=== PATIENT | male | born 1950 | race Caucasian/White ===

== ENCOUNTER 2016-11-20 10:57 | Outpatient (CLI) | payer MEDICAID | END 2016-11-20 10:58 | disposition home or self-care (01) | DX: I10 Essential (primary) hypertension (principal) ==

== ENCOUNTER 2017-04-03 13:30 | Outpatient (CLI) | payer OTHER, MEDICAID | END 2017-04-03 13:31 | disposition home or self-care (01) | LOC: LAB 13:30 | PROVIDERS: ATTEND Pathology Blood Banking & Transfusion Medicine | DX: Z01.89 Encounter for other specified special examinations (principal) | CPT/HCPCS: 36415 ==

== ENCOUNTER 2018-11-07 19:54 | Emergency (ER) | payer OTHER, MEDICARE, MEDICAID ==
[2018-11-07] MEDS ORDERED: amLODIPine 5 MG TABLET PO STA (20:24)
[2018-11-07] MEDS ORDERED: TAMSULOSIN 0.4 MG CAPSULE PO STA (20:24)
[2018-11-07 20:26] VITALS: BP 154/103
--- NOTE | 2018-11-07 20:29 | ED Physician Documentation ---
History of Present Illness - Stated complaint Stated Complaint: FIT FOR CONFINEMENT - Chief complaint Chief Complaint: General - History obtained from History obtained from: Patient, Police - History of Present Illness Timing: Today Pain level max: 0 Pain level now: 0 Improved by: Nothing Worsened by: Nothing - Additonal information Additional information: Patient is brought in by police for a "fit for confinement" . There is no concerning medical issues that they have. He has no complaints. They are unsure why the [facility] asked for a fit for confinement. Patient states that he has been off his amlodipine for several months as well as his Flomax. He had been on amlodipine 5 mg p.o. daily for hypertension and Flomax 0.4 mg daily Review of Systems Constitutional: denies: Fever, Chills Cardiac: denies: Chest pain / pressure, Palpitations Respiratory: denies: Cough GI: denies: Nausea, Vomiting, Diarrhea Skin: denies: Rash Musculoskeletal: denies: Neck pain, Back pain Neurologic: denies: Headache PD PAST MEDICAL HISTORY - Past Medical History Past Medical History: Yes Cardiovascular: Hypertension Respiratory: None Neuro: None Endocrine/Autoimmune: None GI: None : Other HEENT: None Psych: None Musculoskeletal: None Derm: None Other Past Medical History: PROSTATE CANCER... - Past Surgical History Past Surgical History: Yes General: Other - Present Medications Home Medications: Ambulatory Orders Medication Instructions Recorded Confirmed Amlodipine Besylate 5 mg PO 09/30/13 09/30/13 Cephalexin 500 mg PO TID #20 capsule 09/30/13 Gabapentin 600 mg PO 09/30/13 09/30/13 Tamsulosin [Flomax] 0.4 mg PO ONCE 09/30/13 09/30/13 Tamsulosin [Flomax] 0.4 mg PO DAILY #30 capsule 11/07/18 amLODIPine [Norvasc] 5 mg PO DAILY #30 tablet 11/07/18 - Allergies Allergies/Adverse Reactions: Allergies Allergy/AdvReac Type Severity Reaction Status Date / Time No Known Drug Allergies Allergy Verified 11/07/18 20:01 - Social History Does the pt smoke?: Yes Smoking Status: Current every day smoker Does the pt drink ETOH?: Yes Does the pt have substance abuse?: Yes Substance Use and Type: Meth - Immunizations Immunizations are current?: Yes - POLST Patient has POLST: No PD ED PE NORMAL - Vitals Vital signs reviewed: Yes - General General: Alert and oriented X 3, No acute distress - HEENT HEENT: Moist mucous membranes - Neck Neck: Supple, no meningeal sign - Cardiac Cardiac: RRR - Respiratory Respiratory: No respiratory distress, Clear bilaterally - Abdomen Abdomen: Soft, Non tender, Non distended - Derm Derm: Warm and dry - Neuro Neuro: Alert and oriented X 3 - Psych Psych: Normal mood, Normal affect Results - Vitals Vitals: Vital Signs - 24 hr 11/07/18 11/07/18 19:58 20:25 Temperature 37.2 C Heart Rate 120 H 95 Respiratory 17 20 Rate Blood Pressure 207/105 H 154/103 H O2 Saturation 95 97 Oxygen O2 Source Room air PD MEDICAL DECISION MAKING - ED course Complexity details: considered differential, d/w patient ED course: Patient with long-standing hypertension, off his medications here for a fit for confinement. We recommend restarting amlodipine and a dose of each was given here. Patient counseled regarding signs and symptoms for which I believe and urgent re-evaluation would be necessary. Patient with good understanding of and agreement to plan and is comfortable going home at this time This document was made in part using voice recognition software. While efforts are made to proofread this document, sound alike and grammatical errors may occur. He has no complaints at this time Departure - Departure Disposition: 01 Home, Self Care Clinical Impression: Prostate cancer Hypertension Qualifiers: Hypertension type: unspecified Qualified Code(s): I10 - Essential (primary) hypertension Condition: Good Instructions: ED HTN Established Follow-Up: [facility],physician within 3 days [Other] Prescriptions: amLODIPine [Norvasc] 5 mg PO DAILY #30 tablet Tamsulosin [Flomax] 0.4 mg PO DAILY #30 capsule Comments: You need to take the amlodipine and Flomax daily. You need to follow-up with the [facility] physician and primary care provider when you are released from [facility]. Discharge Date/Time: 11/07/18 20:40
== END 2018-11-07 20:40 | disposition home or self-care (01) ==
LOC: ED 19:54
DX: C61 Malignant neoplasm of prostate (principal); I10 Essential (primary) hypertension; F17.200 Nicotine dependence, unspecified, uncomplicated
CPT/HCPCS: 99283; A9270

== ENCOUNTER 2018-12-08 14:15 | Outpatient (CLI) | payer OTHER, MEDICARE ==
--- NOTE | 2018-12-09 02:03 | XRAY Report ---
Reason: L FOOT STRAIN/CONTUSION Procedure Date: 12/08/2018 Accession Number: [id number] / [id number] Procedure: XR - Foot 3 View LT CPT Code: FULL RESULT: EXAM: LEFT FOOT RADIOGRAPHY EXAM DATE: 12/08/2018 02:24 PM. CLINICAL HISTORY: Left FOOT STRAIN/CONTUSION. COMPARISON: TOE(S) RT 09/30/2013 2:16 PM. TECHNIQUE: 3 views. FINDINGS: Bones: No evidence for acute fracture. Small bone island seen at the lateral distal aspect of the first proximal phalanx. Joints: Minimal first metatarsal head osteophyte at the MTP joint. No subluxation. Soft Tissues: Normal. No soft tissue swelling. IMPRESSION: No acute findings. See above. RADIA
== END 2018-12-08 14:16 | disposition home or self-care (01) ==
LOC: DI 14:15
PROVIDERS: ATTEND Emergency Medicine
DX: S90.32XA Contusion of left foot, initial encounter (principal); S96.912A Strain of unspecified muscle and tendon at ankle and foot level, left foot, initial encounter

== ENCOUNTER 2021-08-01 17:00 | Outpatient (CLI) | payer MEDICARE, MEDICAID | END 2021-08-01 17:01 | disposition critical access hospital (66) | LOC: EMS 17:00 | DX: R47.81 Slurred speech (principal); R32 Unspecified urinary incontinence; R41.0 Disorientation, unspecified | CPT/HCPCS: A0425; A0427 ==

== ENCOUNTER 2021-08-01 17:57 | Inpatient (IN) | payer MEDICARE, MEDICAID ==
[2021-08-01] MEDS ORDERED: KETAMINE 500 MG/10 ML VIAL IVP STA (18:02)
[2021-08-01] MEDS ORDERED: SODIUM CHLORIDE 0.9% 1,000 ML IV STA (18:02)
[2021-08-01] MEDS ORDERED: ROCURONIUM 50 MG/5 ML VIAL IVP STA (18:02)
[2021-08-01] MEDS ORDERED: PROPOFOL 1000 MG/100 ML 1,000 MG/100 ML BOTTLE IV STA (18:02)
--- NOTE | 2021-08-01 18:04 | ED Physician Documentation ---
History of Present Illness - Stated complaint Stated Complaint: AMS - History obtained from History obtained from: EMS - Additonal information Additional information: 71-year-old gentleman brought in by ambulance for respiratory distress. He is unable to give a history. Reportedly became short of breath last night and then laid on the couch short of breath all day and is now minimally responsive. Room air saturations for EMS were in the 80s. He has a history of an AKA and has bruising in the left upper quadrant, not much else is known about his history. Review of Systems Unable to obtain: Confused PD PAST MEDICAL HISTORY - Past Medical History Cardiovascular: Hypertension Respiratory: None Neuro: None Endocrine/Autoimmune: None GI: None : Other HEENT: None Psych: None Musculoskeletal: None Derm: None - Past Surgical History Past Surgical History: Yes General: Other - Present Medications Home Medications: Ambulatory Orders Medication Instructions Recorded Confirmed Amlodipine Besylate 5 mg PO 09/30/13 09/30/13 Cephalexin 500 mg PO TID #20 capsule 09/30/13 Gabapentin 600 mg PO 09/30/13 09/30/13 Tamsulosin [Flomax] 0.4 mg PO ONCE 09/30/13 09/30/13 Tamsulosin [Flomax] 0.4 mg PO DAILY #30 capsule 11/07/18 amLODIPine [Norvasc] 5 mg PO DAILY #30 tablet 11/07/18 - Allergies Allergies/Adverse Reactions: Allergies Allergy/AdvReac Type Severity Reaction Status Date / Time No Known Drug Allergies Allergy Verified 08/01/21 18:07 - Social History Does the pt smoke?: Yes Smoking Status: Current every day smoker Does the pt drink ETOH?: Yes Does the pt have substance abuse?: Yes - Immunizations Immunizations are current?: Yes - POLST Patient has POLST: No PD ED PE NORMAL - Vitals Vital signs reviewed: Yes - General General: Other (He is in clear respiratory distress with profound tachypnea. 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, right AKA.) - Neuro Eye Opening: To Pain Motor: Obeys Commands Verbal: None GCS Score: 9 Results - Vitals Vitals: Vital Signs - 24 hr 08/01/21 08/01/21 08/01/21 18:03 18:37 18:41 Temperature 39.1 C H 40.1 C H Heart Rate 116 H 117 H 118 H Respiratory 40 H 24 Rate Blood Pressure 140/122 H 89/65 L O2 Saturation 100 100 08/01/21 08/01/21 08/01/21 18:49 19:07 19:16 Temperature 39.9 C H Heart Rate 114 H 115 H Respiratory 24 Rate Blood Pressure 105/81 H 106/89 H O2 Saturation 100 08/01/21 08/01/21 08/01/21 19:30 20:00 20:30 Temperature 39.9 C H 39.9 C H 39.9 C H Heart Rate 116 H 117 H 112 H Respiratory 26 H 24 23 Rate Blood Pressure 156/84 H 148/102 H 146/89 H O2 Saturation 98 98 98 08/01/21 21:00 Temperature 39.7 C H Heart Rate 105 H Respiratory 26 H Rate Blood Pressure 144/84 H O2 Saturation 100 Oxygen O2 Source Room air - EKG (time done) 1827 Rate: Rate (enter#) (125) Rhythm: Sinus tachycardia [place]: Normal Intervals: Normal GA Ischemia: Q waves (inferior). No: ST elevation c/w ischemia Computer interpretation: Agree with computer - Labs Labs: Laboratory Tests 08/01/21 08/01/21 08/01/21 18:06 18:06 18:06 WBC 11.5 H RBC 5.58 Hgb 13.5 L Hct 45.0 MCV 80.6 MCH 24.2 L MCHC 30.0 L RDW 15.3 H Plt Count 80 L MPV 10.3 Neut # (Auto) Not Reportable Lymph # (Auto) Not Reportable [place] # (Auto) Not Reportable Eos # (Auto) Not Reportable Baso # (Auto) Not Reportable Absolute Nucleated RBC Not Reportable Total Counted 100 Band Neuts % (Manual) 14 H Reactive Lymphs % (Man) 4 Abnorm Lymph % (Manual) 0 Nucleated RBC % Not Reportable Neutrophils # (Manual) 9.7 H Lymphocytes # (Manual) 1.3 L Monocytes # (Manual) 0.6 Eosinophils # (Manual) 0.0 Basophils # (Manual) 0.0 Differential Comment MANUAL DIFFERENTIAL Platelet Estimate DECREASED (<130,000) Platelet Morphology NORMAL ABDI RBC Morph Micro Appear NORMAL APPEARANCE PT 11.5 INR 1.0 D-Dimer 669.9 H Bld Gas Analysis Time Sample Site ABG pH ABG pCO2 ABG pO2 ABG HCO3 ABG Total CO2 ABG O2 Saturation ABG Base Excess Madhu Test VBG pH VBG pCO2 VBG pO2 VBG HCO3 VBG Total CO2 VBG O2 Saturation VBG Base Excess Respiration Rate O2 Delivery Device Vent Mode FiO2 Tidal Volume PEEP Sodium 129 L Potassium 3.9 Chloride 91 L Carbon Dioxide 27 Anion Gap 11.0 BUN 21 H Creatinine 1.1 Estimated GFR (MDRD) 66 L Glucose 123 H Lactic Acid Calcium 8.6 Phosphorus 2.7 Magnesium 2.1 Total Bilirubin 1.0 AST 66 H ALT 30 Alkaline Phosphatase 65 Total Creatine Kinase 408 H Troponin I High Sens B-Natriuretic Peptide Total Protein 7.6 Albumin 3.5 Globulin 4.1 Albumin/Globulin Ratio 0.9 L Lipase 40 TSH Urine Color Urine Clarity Urine pH Ur Specific [place] Urine Protein Urine Glucose (UA) Urine Ketones Urine Occult Blood Urine Nitrite Urine Bilirubin Urine Urobilinogen Ur Leukocyte Esterase Urine RBC Urine WBC Ur Epithelial Cells Ur Squamous Epith Cells Urine Bacteria Ur Microscopic Review Urine Culture Comments Nasal Adenovirus (PCR) Nasal B. parapertussis DNA (PCR) Nasal Coronavir 229E PCR Nasal Coronavir HKU1 PCR Nasal Coronavir NL63 PCR Nasal Coronavir OC43 PCR Nasal Enterovir/Rhinovir PCR Nasal Influenza B PCR Nasal Influenza A PCR Nasal Parainfluen 1 PCR Nasal Parainfluen 2 PCR Nasal Parainfluen 3 PCR Nasal Parainfluen 4 PCR Nasal RSV (PCR) Nasal B.pertussis DNA PCR Nasal C.pneumoniae (PCR) John Human Metapneumo PCR Nasal M.pneumoniae (PCR) Nasal SARS-CoV-2 (PCR) Salicylates < 6.0 Urine Opiates Screen Ur Oxycodone Screen Urine Methadone Screen Ur Propoxyphene Screen Acetaminophen < 10 L Ur Barbiturates Screen Ur Tricyclics Screen Ur Phencyclidine Scrn Ur Amphetamine Screen U Methamphetamines Scrn U Benzodiazepines Scrn Urine Cocaine Screen U Cannabinoids Screen Ethyl Alcohol < 5.0 08/01/21 08/01/21 08/01/21 18:06 18:06 18:06 WBC RBC Hgb Hct MCV MCH MCHC RDW Plt Count MPV Neut # (Auto) Lymph # (Auto) [place] # (Auto) Eos # (Auto) Baso # (Auto) Absolute Nucleated RBC Total Counted Band Neuts % (Manual) Reactive Lymphs % (Man) Abnorm Lymph % (Manual) Nucleated RBC % Neutrophils # (Manual) Lymphocytes # (Manual) Monocytes # (Manual) Eosinophils # (Manual) Basophils # (Manual) Differential Comment Platelet Estimate Platelet Morphology RBC Morph Micro Appear PT INR D-Dimer Bld Gas Analysis Time Sample Site ABG pH ABG pCO2 ABG pO2 ABG HCO3 ABG Total CO2 ABG O2 Saturation ABG Base Excess Madhu Test VBG pH VBG pCO2 VBG pO2 VBG HCO3 VBG Total CO2 VBG O2 Saturation VBG Base Excess Respiration Rate O2 Delivery Device Vent Mode FiO2 Tidal Volume PEEP Sodium Potassium Chloride Carbon Dioxide Anion Gap BUN Creatinine Estimated GFR (MDRD) Glucose Lactic Acid 1.8 Calcium Phosphorus Magnesium Total Bilirubin AST ALT Alkaline Phosphatase Total Creatine Kinase Troponin I High Sens 147.1 H* B-Natriuretic Peptide 223 H Total Protein Albumin Globulin Albumin/Globulin Ratio Lipase TSH Urine Color Urine Clarity Urine pH Ur Specific [place] Urine Protein Urine Glucose (UA) Urine Ketones Urine Occult Blood Urine Nitrite Urine Bilirubin Urine Urobilinogen Ur Leukocyte Esterase Urine RBC Urine WBC Ur Epithelial Cells Ur Squamous Epith Cells Urine Bacteria Ur Microscopic Review Urine Culture Comments Nasal Adenovirus (PCR) Nasal B. parapertussis DNA (PCR) Nasal Coronavir 229E PCR Nasal Coronavir HKU1 PCR Nasal Coronavir NL63 PCR Nasal Coronavir OC43 PCR Nasal Enterovir/Rhinovir PCR Nasal Influenza B PCR Nasal Influenza A PCR Nasal Parainfluen 1 PCR Nasal Parainfluen 2 PCR Nasal Parainfluen 3 PCR Nasal Parainfluen 4 PCR Nasal RSV (PCR) Nasal B.pertussis DNA PCR Nasal C.pneumoniae (PCR) John Human Metapneumo PCR Nasal M.pneumoniae (PCR) Nasal SARS-CoV-2 (PCR) Salicylates Urine Opiates Screen Ur Oxycodone Screen Urine Methadone Screen Ur Propoxyphene Screen Acetaminophen Ur Barbiturates Screen Ur Tricyclics Screen Ur Phencyclidine Scrn Ur Amphetamine Screen U Methamphetamines Scrn U Benzodiazepines Scrn Urine Cocaine Screen U Cannabinoids Screen Ethyl Alcohol 08/01/21 08/01/21 08/01/21 18:06 18:06 18:25 WBC RBC Hgb Hct MCV MCH MCHC RDW Plt Count MPV Neut # (Auto) Lymph # (Auto) [place] # (Auto) Eos # (Auto) Baso # (Auto) Absolute Nucleated RBC Total Counted Band Neuts % (Manual) Reactive Lymphs % (Man) Abnorm Lymph % (Manual) Nucleated RBC % Neutrophils # (Manual) Lymphocytes # (Manual) Monocytes # (Manual) Eosinophils # (Manual) Basophils # (Manual) Differential Comment Platelet Estimate Platelet Morphology RBC Morph Micro Appear PT INR D-Dimer Bld Gas Analysis Time Sample Site ABG pH ABG pCO2 ABG pO2 ABG HCO3 ABG Total CO2 ABG O2 Saturation ABG Base Excess Madhu Test VBG pH 7.394 VBG pCO2 46.6 VBG pO2 24.4 L VBG HCO3 27.8 VBG Total CO2 29.3 H VBG O2 Saturation 40.2 L VBG Base Excess 2.3 H Respiration Rate O2 Delivery Device Vent Mode FiO2 Tidal Volume PEEP Sodium Potassium Chloride Carbon Dioxide Anion Gap BUN Creatinine Estimated GFR (MDRD) Glucose Lactic Acid Calcium Phosphorus Magnesium Total Bilirubin AST ALT Alkaline Phosphatase Total Creatine Kinase Troponin I High Sens B-Natriuretic Peptide Total Protein Albumin Globulin Albumin/Globulin Ratio Lipase TSH 0.18 L Urine Color YELLOW Urine Clarity SL. CLOUDY Urine pH 6.0 Ur Specific [place] 1.025 Urine Protein >=300 H Urine Glucose (UA) NEGATIVE Urine Ketones NEGATIVE Urine Occult Blood SMALL H Urine Nitrite NEGATIVE Urine Bilirubin NEGATIVE Urine Urobilinogen >=8.0 H Ur Leukocyte Esterase NEGATIVE Urine RBC None Seen Urine WBC 0-3 Ur Epithelial Cells FEW Renal Tubular Ur Squamous Epith Cells NONE SEEN Urine Bacteria None Seen Ur Microscopic Review INDICATED Urine Culture Comments NOT INDICATED Nasal Adenovirus (PCR) Nasal B. parapertussis DNA (PCR) Nasal Coronavir 229E PCR Nasal Coronavir HKU1 PCR Nasal Coronavir NL63 PCR Nasal Coronavir OC43 PCR Nasal Enterovir/Rhinovir PCR Nasal Influenza B PCR Nasal Influenza A PCR Nasal Parainfluen 1 PCR Nasal Parainfluen 2 PCR Nasal Parainfluen 3 PCR Nasal Parainfluen 4 PCR Nasal RSV (PCR) Nasal B.pertussis DNA PCR Nasal C.pneumoniae (PCR) John Human Metapneumo PCR Nasal M.pneumoniae (PCR) Nasal SARS-CoV-2 (PCR) Salicylates Urine Opiates Screen POSITIVE H Ur Oxycodone Screen NEGATIVE Urine Methadone Screen NEGATIVE Ur Propoxyphene Screen NEGATIVE Acetaminophen Ur Barbiturates Screen NEGATIVE Ur Tricyclics Screen NEGATIVE Ur Phencyclidine Scrn NEGATIVE Ur Amphetamine Screen POSITIVE H U Methamphetamines Scrn POSITIVE H U Benzodiazepines Scrn NEGATIVE Urine Cocaine Screen NEGATIVE U Cannabinoids Screen NEGATIVE Ethyl Alcohol 08/01/21 08/01/21 18:26 21:00 WBC RBC Hgb Hct MCV MCH MCHC RDW Plt Count MPV Neut # (Auto) Lymph # (Auto) [place] # (Auto) Eos # (Auto) Baso # (Auto) Absolute Nucleated RBC Total Counted Band Neuts % (Manual) Reactive Lymphs % (Man) Abnorm Lymph % (Manual) Nucleated RBC % Neutrophils # (Manual) Lymphocytes # (Manual) Monocytes # (Manual) Eosinophils # (Manual) Basophils # (Manual) Differential Comment Platelet Estimate Platelet Morphology RBC Morph Micro Appear PT INR D-Dimer Bld Gas Analysis Time 2107 Sample Site LEFT RADIAL ABG pH 7.52 H ABG pCO2 30 L ABG pO2 80 ABG HCO3 23.8 ABG Total CO2 24.7 ABG O2 Saturation 97 ABG Base Excess 1.7 Madhu Test POSITIVE VBG pH VBG pCO2 VBG pO2 VBG HCO3 VBG Total CO2 VBG O2 Saturation VBG Base Excess Respiration Rate 26 O2 Delivery Device VENTILATOR Vent Mode SIMV FiO2 60.00 Tidal Volume 550 PEEP 5 Sodium Potassium Chloride Carbon Dioxide Anion Gap BUN Creatinine Estimated GFR (MDRD) Glucose Lactic Acid Calcium Phosphorus Magnesium Total Bilirubin AST ALT Alkaline Phosphatase Total Creatine Kinase Troponin I High Sens B-Natriuretic Peptide Total Protein Albumin Globulin Albumin/Globulin Ratio Lipase TSH Urine Color Urine Clarity Urine pH Ur Specific [place] Urine Protein Urine Glucose (UA) Urine Ketones Urine Occult Blood Urine Nitrite Urine Bilirubin Urine Urobilinogen Ur Leukocyte Esterase Urine RBC Urine WBC Ur Epithelial Cells Ur Squamous Epith Cells Urine Bacteria Ur Microscopic Review Urine Culture Comments Nasal Adenovirus (PCR) NOT DETECTED Nasal B. parapertussis DNA (PCR) NOT DETECTED Nasal Coronavir 229E PCR NOT DETECTED Nasal Coronavir HKU1 PCR NOT DETECTED Nasal Coronavir NL63 PCR NOT DETECTED Nasal Coronavir OC43 PCR NOT DETECTED Nasal Enterovir/Rhinovir PCR NOT DETECTED Nasal Influenza B PCR NOT DETECTED Nasal Influenza A PCR NOT DETECTED Nasal Parainfluen 1 PCR NOT DETECTED Nasal Parainfluen 2 PCR NOT DETECTED Nasal Parainfluen 3 PCR NOT DETECTED Nasal Parainfluen 4 PCR NOT DETECTED Nasal RSV (PCR) NOT DETECTED Nasal B.pertussis DNA PCR NOT DETECTED Nasal C.pneumoniae (PCR) NOT DETECTED John Human Metapneumo PCR NOT DETECTED Nasal M.pneumoniae (PCR) NOT DETECTED Nasal SARS-CoV-2 (PCR) DETECTED A Salicylates Urine Opiates Screen Ur Oxycodone Screen Urine Methadone Screen Ur Propoxyphene Screen Acetaminophen Ur Barbiturates Screen Ur Tricyclics Screen Ur Phencyclidine Scrn Ur Amphetamine Screen U Methamphetamines Scrn U Benzodiazepines Scrn Urine Cocaine Screen U Cannabinoids Screen Ethyl Alcohol - Rads (name of study) Single view chest x-ray shows ET tube 5.1 cm above the bonnie with left basilar consolidation and pleural effusion consistent. Consistent with aspira Radiology: EMP read contemporaneously CT of the head without contrast shows atrophy and small vessel ischemic disease without evidence of acute issue or trauma Radiology: EMP read contemporaneously CT of the cervical spine, abdomen and pelvis and angio chest Radiology: EMP read contemporaneously (Degenerative cheat change in the neck without trauma in the neck, no trauma in the abdomen. Bilateral renal cysts. Left basilar patchy infiltrates. Large hiatal hernia. Large prostate. Bladder wall thickening. Atherosclerotic disease. Acute to subacute nondisplaced left posterior rib fracture) Procedures - Intubation Provider: Emergency physician Medications: Ketamine (250mg), Rocuronium (50mg ivp) Blade: Glidescope Tube: Size-enter number (8.0), Cuffed Confirmation: Direct visualization, Bilateral breath sounds, End tidal CO2, Pulse ox, Chest xray Complications: No compications PD MEDICAL DECISION MAKING - ED course ED course: 71-year-old gentleman who apparently has trouble with methamphetamine abuse presents with altered mental status and respiratory distress. Found to have modest elevations in white count and methamphetamine positive. D-dimer elevated. Venous gas not too bad. He did require intubation for airway protection. Found to be COVID-positive. He was cultured up and given broad- spectrum antibiotics for potential sepsis with cefepime, Flagyl, and vancomycin. There was a concern for trauma given inadequate history prior to arrival and bruising over the left upper quadrant as such as CT bran scan was done also noting the elevated D-dimer. No PE. He does have pneumonia. He has an acute left 11th rib fracture. Otherwise incidental findings only. Spoke with Dr. Ronquillo for admission at 9:30 PM. - Critical Care Time(min): 60 Time Includes: Direct patient care, Review records, Reassess patient, Document care, Coordinate care, Medical consult, Family consult for tx dec Data interpretation: Labs, Pulse ox Procedures included in critical care time: Peripheral IV Procedures excluded from critical care time: Intubation Departure - Departure Disposition: 66 [facility] DC/Xfer Clinical Impression: Pneumonia due to COVID-19 virus, Methamphetamine abuse Respiratory failure Qualifiers: Chronicity: acute Respiratory failure complication: hypoxia and hypercapnia Qualified Code(s): J96.01 - Acute respiratory failure with hypoxia; J96.02 - Acute respiratory failure with hypercapnia Altered mental status Qualifiers: Altered mental status type: delirium Qualified Code(s): R41.0 - Disorientation, unspecified Rib fracture Qualifiers: Encounter type: initial encounter Rib fracture type: single rib Fracture type: closed Laterality: left Qualified Code(s): S22.32XA - Fracture of one rib, left side, initial encounter for closed fracture Condition: Critical
[2021-08-01 18:18] LABS: BASOPHILS % (AUTO) 0.2 %; EOSINOPHILS % (AUTO) 0.4 %; HGB - HEMOGLOBIN 13.5 g/dL (14.0-18.0); LYMPHOCYTES % (AUTO) 3.6 %; MEAN CORPUSCULAR HEMOGLOBIN 24.2 pg (27.0-31.0); MEAN CORPUSCULAR VOLUME 80.6 fL (80.0-94.0); MONOCYTES % (AUTO) 7.1 %; NEUTROPHILS % (AUTO) 88.3 %; RED BLOOD COUNT 5.58 10^6/uL (4.70-6.10); RED CELL DISTRIBUTION WIDTH 15.3 % (12.0-15.0); WHITE BLOOD COUNT 11.5 x10^3/uL (4.8-10.8)
[2021-08-01 18:19] LABS: VBG BASE EXCESS 2.3 mmol/L (-2 - +2); VBG HCO3 27.8 mmol/L (23-28); VBG OXYGEN SATURATION 40.2 % (60-80); VBG PCO2 46.6 mmHg (41-51); VBG PH 7.394 (7.31-7.41); VBG PO2 24.4 mmHg (25-47); VBG TOTAL CO2 29.3 mmol/L (24-29)
[2021-08-01 18:29] LABS: ABNORMAL LYMPHS % (MANUAL) 0 %
[2021-08-01 18:35] LABS: ACETAMINOPHEN < 10 ug/mL (10-30); ALBUMIN 3.5 g/dL (3.2-5.5); ALBUMIN/GLOBULIN RATIO 0.9 (1.0-2.2); ALKALINE PHOSPHATASE 65 IU/L (42-121); ALT ALANINE AMINOTRANSFERASE 30 IU/L (10-60); AST ASPARTATE AMINOTRANSFERASE 66 IU/L (10-42); BUN - BLOOD UREA NITROGEN 21 mg/dL (6-20); CALCIUM 8.6 mg/dL (8.5-10.3); CARBON DIOXIDE - CO2 27 mmol/L (21-32); CHLORIDE 91 mmol/L (101-111); CK- CREATINE KINASE 408 IU/L (22-269); CREATININE 1.1 mg/dL (0.6-1.2); ETOH - ETHANOL < 5.0 mg/dL; GFR - MDRD 66 (>89); GLUCOSE 123 mg/dL (70-100); LIPASE 40 U/L (22-51); MAGNESIUM 2.1 mg/dL (1.7-2.8); PHOSPHORUS 2.7 mg/dL (2.5-4.6); POTASSIUM 3.9 mmol/L (3.5-5.0); SALICYLATE < 6.0 mg/dL; SODIUM 129 mmol/L (135-145); TOTAL PROTEIN 7.6 g/dL (6.7-8.2)
[2021-08-01 18:37] LABS: MUDS CUTOFF CONCENTRATIONS CUTOFF CONC BELOW:
[2021-08-01 18:41] LABS: BILIRUBIN,URINE NEGATIVE (NEGATIVE); GLUCOSE, URINE (UA) NEGATIVE (NEGATIVE); KETONES,URINE (UA) NEGATIVE (NEGATIVE); LEUKOCYTE ESTERASE, URINE NEGATIVE (NEGATIVE); NITRITE,URINE NEGATIVE (NEGATIVE); OCCULT BLOOD,URINE SMALL (NEGATIVE); PROTEIN,URINE >=300 mg/dL (NEGATIVE); UROBILINOGEN,URINE >=8.0 E.U./dL (NORMAL)
[2021-08-01 18:45] LABS: D-DIMER 669.9 ng/mL (200.0-255.0)
[2021-08-01 18:56] LABS: AMPHETAMINE SCREEN,URINE POSITIVE (NEGATIVE); BARBITURATE SCREEN,UR NEGATIVE (NEGATIVE); BENZODIAZEPINES SCREEN, URINE NEGATIVE (NEGATIVE); CLARITY,URINE SL. CLOUDY (CLEAR); COCAINE SCREEN URINE NEGATIVE (NEGATIVE); METHADONE SCREEN, URINE NEGATIVE (NEGATIVE); METHAMPHETAMINES SCREEN, URINE POSITIVE (NEGATIVE); OPIATE SCREEN, URINE POSITIVE (NEGATIVE); OXYCODONE SCREEN, URINE NEGATIVE (NEGATIVE); PROPOXYPHENE SCREEN, URINE NEGATIVE (NEGATIVE); THC CANNABINOID SCREEN, URINE NEGATIVE (NEGATIVE); TRICYCLIC ANTIDEPRESSANT,URINE NEGATIVE (NEGATIVE)
[2021-08-01] MEDS ORDERED: VANCOMYCIN INJ 1.5 GM in SODIUM CHLORIDE 0.9% 500 ML IV STA (18:56)
[2021-08-01] MEDS ORDERED: CEFEPIME 2 GM in SODIUM CHLORIDE 0.9% MINIBAG 100 ML IV STA (18:56)
[2021-08-01] MEDS ORDERED: LACTATED RINGERS 2,400 ML IV STA (18:56)
[2021-08-01] MEDS ORDERED: metroNIDAZOLE 500 MG/100 ML 500 MG/100 ML BAG IV STA (18:56)
[2021-08-01 18:59] LABS: PT - PROTHROMBIN TIME 11.5 secs (9.9-12.6)
[2021-08-01] MEDS ORDERED: ACETAMINOPHEN 650 MG SUPP PR STA (19:05)
--- NOTE | 2021-08-01 19:09 | XRAY Report ---
PROCEDURE: Chest 1 View X-Ray INDICATIONS: resp failure TECHNIQUE: One view of the chest was acquired. COMPARISON: None FINDINGS: Surgical changes and devices: ET tube projects 5.1 cm. The bonnie.. Lungs and pleura: Small left-sided pleural fluid collection. Consolidation noted in the left lung bas e. Mediastinum: Mediastinal contours appear normal. Heart size is normal. Bones and chest wall: No suspicious bony lesions. Overlying soft tissues appear unremarkable. IMPRESSION: 1. ET tube 5.1 cm. The bonnie. 2. Left basilar consolidation and small left-sided pleural fluid collection suspicious for aspiration versus pneumonia. Reviewed by: Elizabeth Fagan MD, PhD on 08/01/2021 6:07 PM [facility] Approved by: Elizabeth Fagan MD, PhD on 08/01/2021 6:07 PM [facility] Station ID: [id number]
[2021-08-01] MEDS ORDERED: iohexoL-300 100 ML VIAL ONE (19:20)
[2021-08-01 19:41] LABS: BAND NEUTROPHILS % (MANUAL) 14 %; LYMPHOCYTES # (MANUAL) 1.3 10^3/uL (1.5-3.5); LYMPHOCYTES % (MANUAL) 7 %; MONOCYTES # (MANUAL) 0.6 10^3/uL (0.0-1.0); NEUTROPHILS # (MANUAL) 9.7 10^3/uL (1.5-6.6); REACTIVE LYMPHS % (MANUAL) 4 %
[2021-08-01] MEDS ORDERED: MIDAZOLAM 2 MG/2 ML VIAL IVP STA (19:41)
[2021-08-01] MEDS ORDERED: fentaNYL 100 MCG/2 ML VIAL IVP STA (19:41)
[2021-08-01 19:42] LABS: RBC MORPHOLOGY (MULTIPLE) NORMAL APPEARANCE (NORMAL)
[2021-08-01 19:43] LABS: DIFFERENTIAL COMMENT MANUAL DIFFERENTIAL; MEAN PLATELET VOLUME 10.3 fL (7.4-11.4); PLATELET ESTIMATE, MANUAL DECREASED (<130,000) (NORMAL); PLATELET MORPHOLOGY NORMAL APP (NORMAL); PLT - PLATELET COUNT 80 10^3/uL (130-450)
[2021-08-01 19:48] LABS: CORONAVIRUS 229E-RESP PCR NOT DETECTED; CORONAVIRUS HKU1-RESP PCR NOT DETECTED; CORONAVIRUS NL63-RESP PCR NOT DETECTED; CORONAVIRUS OC43-RESP PCR NOT DETECTED
[2021-08-01 19:49] LABS: HUMAN METAPNEUMOVIRUS NOT DETECTED; INFLUENZA A- RESP PCR PANEL NOT DETECTED; RHINOVIRUS/ENTEROVIRUS NOT DETECTED; SARS-CoV-2 -RESP PCR PANEL DETECTED
[2021-08-01 19:50] LABS: B. PARAPERTUSSIS- RESP PCR PAN NOT DETECTED; B. PERTUSSIS- RESP PCR PANEL NOT DETECTED; C. PNEUMONIAE- RESP PCR PANEL NOT DETECTED; INFLUENZA B - RESP PCR PANEL NOT DETECTED; M. PNEUMONIAE- RESP PCR PANEL NOT DETECTED; PARAINFLUENZA VIRUS 1 NOT DETECTED; PARAINFLUENZA VIRUS 2 NOT DETECTED; PARAINFLUENZA VIRUS 3 NOT DETECTED; PARAINFLUENZA VIRUS 4 NOT DETECTED; RSV- RESP PCR PANEL NOT DETECTED
[2021-08-01 19:53] LABS: EPITHELIAL CELLS,UR FEW Renal Tubular /HPF (<= Few); RBC,URINE None Seen /HPF (0-5); SQUAMOUS EPITHELIAL CELL,UR NONE SEEN (<= Few); WBC,URINE 0-3 /HPF (0-3)
[2021-08-01 19:54] LABS: BACTERIA,URINE None Seen /HPF (None Seen)
--- NOTE | 2021-08-01 21:03 | CT Report ---
PROCEDURE: HEAD WO INDICATIONS: altered TECHNIQUE: Noncontrast 4.5 mm thick angled axial sections acquired from the foramen magnum to the vertex. For r adiation dose reduction, the following was used: automated exposure control, adjustment of mA and/or kV according to patient size. COMPARISON: None FINDINGS: Image quality: Excellent. CSF spaces: Basal cisterns are patent. No extra-axial fluid collections. The ventricles are symmet adalberto in size and shape. Brain: No intracranial bleeds or masses. There is cerebral volume loss for age, with resultant vent ricular and sulcal prominence. There are periventricular and deep white matter chronic small vessel ischemic changes. There is intracranial internal carotid artery atherosclerosis. Skull and face: Calvarium and visualized facial bones appear intact, without suspicious lesions. Sinuses: Visualized sinuses and mastoids are clear. IMPRESSION: 1. No CT evidence of acute intracranial bleed, midline shift or mass effect. No definite CT evidence of acute infarction. 2. Age-related atrophy and extensive white matter chronic small vessel ischemic changes. 3. No acute skull fracture. Reviewed by: Enoc Quintero MD on 08/01/2021 9:02 PM PST Approved by: Enoc Quintero MD on 08/01/2021 9:02 PM PST Station ID: [id number]
--- NOTE | 2021-08-01 21:05 | CT Report ---
PROCEDURE: CERVICAL SPINE WO INDICATIONS: poss trauma TECHNIQUE: Noncontrast 3 mm thick sections acquired from the skull base to the T4 level. Sagittal and coronal r eformats were then constructed. For radiation dose reduction, the following was used: automated exp osure control, adjustment of mA and/or kV according to patient size. COMPARISON: None. FINDINGS: Image quality: Excellent. Bones: No fractures or dislocations. Visualized superior ribs are intact. There is straightening of normal cervical lordosis. Degenerative endplate changes and bilateral facet hypertrophic changes are noted throughout cervical spine. Grade 1 anterolisthesis of C2 on C3 is seen. Soft tissues: Patient is intubated with ET tube and OG tube seen. Prevertebral soft tissues are junaid l in thickness. No paravertebral hematomas. No apical pneumothoraces. IMPRESSION: 1. No acute cervical spine fracture or dislocation. 2. Degenerative disc disease throughout cervical spine. Grade 1 anterolisthesis of C2 on C3. 3. ET tube and orogastric tube are seen. Reviewed by: Enoc Quintero MD on 08/01/2021 9:04 PM PST Approved by: Enoc Quintero MD on 08/01/2021 9:04 PM PST Station ID: [id number]
[2021-08-01] MEDS ORDERED: iohexoL-300 100 ML VIAL IVP ONE (21:06)
--- NOTE | 2021-08-01 21:10 | CT Report ---
PROCEDURE: ANGIO CHEST W/WO INDICATIONS: dyspne, hihg dimer, pe protocol CONTRAST: IV CONTRAST: Isovue 300 ml: 100 PO CONTRAST: *NO PO CONTRAST TECHNIQUE: After the administration of intravenous contrast, 2 mm axial images were acquired from the pulmonary apices to the posterior costophrenic angles during the arterial phase. In addition, 1 mm lung kernel and 5 mm soft tissue kernel reconstructions were performed. 3-dimensional coronal oblique maximum int ensity projection (MIP) reformats, 8 mm axial MIP, and 5 mm coronal and sagittal MPR reformats were t hen performed through the thorax. For radiation dose reduction, the following was used: automated exp osure control, adjustment of mA and/or kV according to patient size. COMPARISON: Chest radiograph on the same day. FINDINGS: Image quality: Excellent. Pulmonary arteries: Pulmonary arteries are normal in size, and demonstrate no intraluminal filling d efects to suggest central pulmonary embolism. Lungs and pleura: Ill-defined airspace opacities are seen in posterior aspect of left lingular segmen t and left lower lobe extending to left hilar region with mild bronchiectasis. No pleural effusion or pneumothorax. Dependent atelectasis is also seen in posterior aspect of bilateral upper to midlung f ields and right lower lobe. Central and peripheral airway is patent. ET tube tip is above the bonnie. Mediastinum: Heart size is enlarged, without pericardial effusion. Prominent lymph nodes are noted t hroughout mediastinum. Thoracic aorta is normal in caliber and enhancement. Moderate atherosclerotic calcifications are seen in coronary vessels and thoracic aorta. Esophagus is normal in caliber, with a large hiatal hernia. OG tube tip is in the stomach lumen. Bones and chest wall: No suspicious bony lesions. Ribs and thoracic spine appear intact throughout. No axillary or supraclavicular adenopathy. The thyroid is normal in size and there are no incident al findings. Abdomen: Visualized upper abdominal solid organs appear normal in the early arterial phase of enhanc ement. IMPRESSION: 1. No evidence of pulmonary emboli. No thoracic aortic aneurysm or gross dissection. 2. Airspace opacities are seen in posterior aspect of left lingular segment and left lower lobe exten ding to left hilar region concerning for left-sided pulmonary infiltrates. Dependent atelectasis is a lso seen in bilateral upper to midlung field and right lower lobe. No pleural effusion or pneumothora x. 3. Mildly enlarged mediastinal lymph nodes which may represent reactive inflammatory nodes. Cardiomeg hui, no pericardial effusion. Mild to moderate atherosclerotic disease. 4. Large hiatal hernia. OG tube and ET tube are in satisfactory position. CLINICAL RECOMMENDATION STATEMENTS: In patients <35 years with an ITN detected on CT, MRI, or extrathyroidal ultrasound, the Committee re commends further evaluation with dedicated thyroid ultrasound if the nodule is "e1 cm and has no susp icious imaging features, and if the patient has normal life expectancy. In patients "e35 years with an ITN detected on CT, MRI, or extrathyroidal ultrasound, the Committee r ecommends further evaluation with dedicated thyroid ultrasound if the nodule is "e1.5 cm and has no s uspicious imaging features, and if the patient has normal life expectancy. (ACR, 2014) Reviewed by: Enoc Quintero MD on 08/01/2021 9:09 PM PST Approved by: Enoc Quintero MD on 08/01/2021 9:09 PM PST Station ID: [id number]
[2021-08-01 21:11] LABS: ABG BASE EXCESS 1.7 mmol/L (-2.0-3.0); ABG HCO3 23.8 mmol/L (22.0-26.0); ABG OXYGEN SATURATION 97 % (94-98); ABG PCO2 30 mmHg (34-45); ABG PH 7.52 (7.35-7.45); ABG PO2 80 mmHg (80-100); ABG TCO2 24.7 MMOL/L (21.0-29.0); ALLEN TEST POSITIVE
[2021-08-01 21:12] LABS: ABG MODE OF VENTILATION SIMV; ABG RESPIRATORY RATE 26 b/min
--- NOTE | 2021-08-01 21:19 | CT Report ---
PROCEDURE: Abdomen/Pelvis W INDICATIONS: IV only, poss abd trauma CONTRAST: IV CONTRAST: Isovue 300 ml: 100 PO CONTRAST: *NO PO CONTRAST TECHNIQUE: After the administration of IV contrast, 5 mm thick sections acquired from the diaphragms to the symp hysis. 5 mm thick coronal and sagittal reformats were acquired. For radiation dose reduction, the f ollowing was used: automated exposure control, adjustment of mA and/or kV according to patient size. COMPARISON: None. FINDINGS: Image quality: Excellent. ABDOMEN: Lung bases: Airspace opacities are seen in posterior aspect of left lingular segment and left lower l obe. Heart size is enlarged, no pericardial effusion. Large hiatal hernia is seen. Solid organs: Liver and spleen are normal in size and enhancement. Gallbladder is within normal kee its. Biliary system is non dilated. Pancreas enhances normally. No adrenal nodules. Kidneys demon strate normal size and enhancement, without hydronephrosis. 2.3 cm simple cyst is seen in anterior c ortex of midpole right kidney. 3 x 1.8 cm left peripelvic cyst is also seen. No perinephric fluid col lection. Peritoneum and bowel: OG tube tip is in stomach lumen. There is no bowel obstruction. Bowel loops de monstrate normal wall thickness and caliber. Extensive colonic diverticulosis is seen, no CT evidence of acute diverticulitis. No free fluid or air. Nodes and vessels: No retroperitoneal or mesenteric adenopathy by size criteria. Aorta and inferior vena cava are normal in size. Extensive atherosclerotic calcifications are noted throughout abdomin al aorta. Miscellaneous: No ventral hernias. PELVIS: Genitourinary: Acosta catheter is seen in partially distended urinary bladder. Borderline bladder wall thickening is seen. Enlarged prostate gland is noted with mass effect on floor of urinary bladder. Miscellaneous: No inguinal hernias or adenopathy. Bones: Acute to subacute appearing nondisplaced fracture is noted in left posterior 11th rib series 10 image 36. No suspicious bony lesions. No vertebral body compression fractures. Degenerative endp late changes are noted throughout thoracic and lumbar spine. Grade 1 anterolisthesis of L5 on S1 is s een. IMPRESSION: 1. No acute solid organ injury is seen in abdomen or pelvis. No free fluid of free air. 2. Bilateral renal cysts. No renal stone or hydronephrosis. 3. Left basilar patchy infiltrate/atelectasis. Large hiatal hernia. No bowel obstruction. No free flu id of free air. 4. Acosta catheter in partially distended urinary bladder. Enlarged prostate gland with mass effect on floor of urinary bladder. Mild diffuse bladder wall thickening. No discrete bladder wall mass. 5. Extensive atherosclerotic disease in the abdominal aorta. 6. Acute to subacute appearing nondisplaced left posterior 11th rib fracture. No acute vertebral body compression fracture. Grade 1 anterolisthesis of L5 on S1. Reviewed by: Enoc Gallagher MD on 08/01/2021 9:17 PM PST Approved by: Enoc Gallagher MD on 08/01/2021 9:17 PM PST Station ID: [id number]
[2021-08-01] MEDS ORDERED: ONDANSETRON 4 MG/2 ML VIAL IVP PRN (21:49)
[2021-08-01] MEDS ORDERED: DEXAMETHASONE 10 MG/ML VIAL IVP ONE (22:17)
[2021-08-01 22:54] LABS: ABG HCO3 25.1 mmol/L (22.0-26.0); ABG PCO2 35 mmHg (34-45); ABG PH 7.48 (7.35-7.45); ABG PO2 76 mmHg (80-100); ABG TCO2 26.1 MMOL/L (21.0-29.0)
[2021-08-01 22:55] LABS: ABG BASE EXCESS 1.9 mmol/L (-2.0-3.0); ABG MODE OF VENTILATION ASSIST/CONTROL; ABG OXYGEN SATURATION 96 % (94-98); ABG RESPIRATORY RATE 22 b/min; ALLEN TEST POSITIVE
--- NOTE | 2021-08-01 23:19 | HISTORY & PHYSICAL EXAMINATION ---
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 He has presented multiple times to our ED for Dx of frostbite to toes, unresponsiveness, unconscious, lethargic, legal drawing of blood, fit for confinement. He appears disheveled and may be homeless. He was "found by friends" per the ambulance run sheet. Friends put him on their couch where he was incontinent of urine and had slurred speech. He was noted to have difficulty breathing and an ambulance was called. His GCS at the scene was 12-13. His glu was 134. In the ED, his respiratory rate was 40 and temperature 39.9C. He was intubated and put on a ventilator in the ED. His work-up showed that he has infiltrate on chest x-ray consistent with aspiration pneumonia, his respiratory PCR is COVID positive, white blood count is 11 with 14% bands and low platelets, D-dimer is elevated. Toxicology was positive for methamphetamines and opiates. The patient underwent a chest CTA that did not show pulmonary embolism but described the lung parenchymal infiltrate. He also had abdomen and pelvis CT, head CT and neck CT because of concern for trauma and they found a left rib fracture. He is being admitted to the ICU on a mechanical ventilator. History - Past Medical History Cardiovascular: reports: Hypertension Respiratory: reports: None Neuro: reports: None Endocrine/Autoimmune: reports: None GI: reports: None : reports: Other HEENT: reports: None Psych: reports: None Musculoskeletal: reports: None Derm: reports: None MRSA Hx?: No - Past Surgical History Ortho: reports: Amputation (R AKA) - Family & Social History Living arrangement: Unknown Living Situation: Unknown Social History Notes: He is sedated on a ventilator, no ROS or details of social history can be obtained. - POLST Patient has POLST: No Meds/Allgy - Home Medications Home Medications: Ambulatory Orders Medication Instructions Recorded Confirmed Amlodipine Besylate 5 mg PO 09/30/13 09/30/13 Cephalexin 500 mg PO TID #20 capsule 09/30/13 Gabapentin 600 mg PO 09/30/13 09/30/13 Tamsulosin [Flomax] 0.4 mg PO ONCE 09/30/13 09/30/13 Tamsulosin [Flomax] 0.4 mg PO DAILY #30 capsule 11/07/18 amLODIPine [Norvasc] 5 mg PO DAILY #30 tablet 11/07/18 - Allergies Allergies/Adverse Reactions: Allergies Allergy/AdvReac Type Severity Reaction Status Date / Time No Known Drug Allergies Allergy Verified 08/01/21 18:07 Review of Systems - All Other Systems All Other Systems: reports: Other (He is sedated on a ventilator, no ROS can be obtained. His demographics list no next of kin or people to contact.) Exam - Vital Signs Reviewed Vital Signs: Yes Vital Signs: Vital Signs x48h Temp Pulse Pulse Resp BP BP Pulse Ox 08/01/21 22:57 100 22 138/84 H 98 08/01/21 22:11 39.6 C H 08/01/21 21:30 39.4 C H 101 H 22 148/89 H 95 08/01/21 21:00 39.7 C H 105 H 26 H 144/84 H 100 08/01/21 20:30 39.9 C H 112 H 23 146/89 H 98 08/01/21 20:00 39.9 C H 117 H 24 148/102 H 98 08/01/21 19:30 39.9 C H 116 H 26 H 156/84 H 98 08/01/21 19:16 115 H 08/01/21 19:07 39.9 C H 114 H 24 106/89 H 100 08/01/21 18:49 105/81 H 08/01/21 18:41 118 H 08/01/21 18:37 40.1 C H 117 H 24 89/65 L 100 08/01/21 18:03 39.1 C H 116 H 40 H 140/122 H 100 - Physical Exam General Appearance: positive: Other ((Exam done remotely) He is sedated, intu bated, on a ventilator w/ og tube in place.) Eyes Bilateral: positive: Other (sedated) Neck: positive: Nml inspection Respiratory: positive: Breath sounds nml Cardiovascular: positive: Regular rate & rhythm, No murmur Extremities: positive: No pedal edema Neurologic/Psychiatric: positive: Other (Sedated) Sepsis Event Note (H) - Evaluation Current Stage of Sepsis: Sepsis - Sepsis Criteria Sepsis Criteria: Recorded Temperature greater than 38.3C or Less than 36C, Recorded Heart Rate greater than 90 bpm, Recorded Respiratory Rate greater than 20, Respiratory: Increasing oxygen requirements, WBC count greater than 10% bands, FAMILY COUNSELOR: altered consciousness (unrelated to primary neuro pathology), Hematologic: platelets < 100,000; INR > 1.5, or a PTT>60 seconds Conclusion/Plan - Problem List (1) Acute respiratory failure with hypoxia Conclusion/Plan: He was unresponsive and intubated for respiratory distress and airway protection. Follow ABGs while he is on the ventilator. Taper settings and extubate when tolerated. (2) Altered mental status Conclusion/Plan: The patient presented with altered mental status presumed to be from his respiratory status and sepsis. He is now sedated because he is intubated. Will request a social work consult to find relatives or friends and reach out to obtain more background history. Qualifiers: Altered mental status type: delirium Qualified Code(s): R41.0 - Disorientation, unspecified (3) Sepsis Conclusion/Plan: The patient has fever of 39 9 degrees C, elevated respiratory rate of 40 at admission, elevated bands of 14% and low platelets and appears to have a pulmonary source of infection (aspiration pneumonia plus COVID-pneumonia). Will begin treatment for the COVID PNA and continue ventilatory support. Will also continue empiric broad-spectrum antibiotics including cefepime, Flagyl and Vanco Urine cultures have been sent. Await blood culture results to tailor antibx (4) Pneumonia due to COVID-19 virus Conclusion/Plan: To support oxygenation on the vent, wean down as tolerated. Start Decadron, 10 mg IV now then 6 mg IV daily for a total of 10 days max. Per new guidelines, intubated patients do not qualify for remdesivir therefore this will not be started. (5) Aspiration pneumonia Conclusion/Plan: Likely related to being obtunded and having aspiration. Continue empiric antibiotic coverage for oral cece including anaerobes. (6) Rib fracture Conclusion/Plan: The ED provider noted a bruise, therefore he had extensive imaging to look for t rauma. Only a rib fracture was found. He is not awake or alert to describe recent events that may have led to this fracture. No pneumothorax has been identified. We will use fentanyl for its sedative and anti-pain effects Qualifiers: Encounter type: initial encounter Rib fracture type: single rib Fracture type: closed Laterality: left Qualified Code(s): S22.32XA - Fracture of one rib, left side, initial encounter for closed fracture (7) Hyponatremia Conclusion/Plan: Likely hypovolemic hyponatremia given his somnolence and suspected poor p.o. intake. Will use IV saline for hydration. Follow BMP daily (8) Prerenal azotemia Conclusion/Plan: Continue with IV fluids for hydration while he is intubated and unable to eat or drink. Avoid nephrotoxins. Follow BMP daily ICU electrolyte protocol also ordered to follow magnesium, phosphorus etc. (9) Thrombocytopenia Conclusion/Plan: This is likely related to his sepsis. His alcohol history however is not known, but EtOH was negative on his toxicology screen. Follow CBC daily (10) Abnormal EKG Conclusion/Plan: His EKG shows sinus tachycardia and deep inferior Q waves and also lateral T wave flattening. His first troponin done in the ED is elevated at 147. Will monitor serial troponins to evaluate for an MS, which may be from demand ischemia. (11) Methamphetamine abuse Conclusion/Plan: As per results of toxicology (12) Hx of AKA (above knee amputation) Conclusion/Plan: As per exam Qualifiers: Laterality: right Qualified Code(s): Z89.611 - Acquired absence of right leg above knee - Lab Results Fish Bones: 08/01/21 18:06 08/01/21 18:06 - Diagnostic Imaging Results Diagnostic Imaging Results: positive: Final report reviewed - EKG Results EKG Interpreted Independently: Yes EKG Findings: Sinus tachycardia, rate 125, deep inferior Q waves, LVH voltage, lateral T wave flattening. No prior EKG available for comparison. - Other Other Results/Comments: Attestation: The patient is expected to be discharged or transferred to another facility within 96 hours: Yes
[2021-08-01] MEDS ORDERED: fentaNYL 2,500 MCG in SODIUM CHLORIDE 0.9% 200 ML IV SCH (23:45)
[2021-08-01] MEDS: SODIUM CHLORIDE FLUSH 0.9% 10 ML SYRINGE IVP SCH (23:56)
[2021-08-01] MEDS: MORPHINE 2 MG/ML CARPUJECT IVP PRN (23:56)
[2021-08-01] MEDS: CHLORHEXIDINE GLUCONATE 15 ML UDC PO SCH (23:59)
[2021-08-02] MEDS: SODIUM CHLORIDE FLUSH 0.9% 10 ML SYRINGE IVP PRN (00:04)
[2021-08-02] MEDS: MIDAZOLAM DRIP 50 MG/50 ML 50 MG/50 ML BAG IV SCH ×3 (00:16→21:51)
[2021-08-02] MEDS: ACETAMINOPHEN 1,000 MG/100 ML 100 ML IV PRN ×2 (00:24→21:52)
[2021-08-02] MEDS: SODIUM CHLORIDE 0.9% 1,000 ML IV SCH ×3 (00:36→20:30)
[2021-08-02] MEDS: metroNIDAZOLE 500 MG/100 ML 500 MG/100 ML BAG IV SCH ×3 (04:25→20:31)
[2021-08-02 06:10] LABS: BASOPHILS % (AUTO) 0.1 %; EOSINOPHILS # (AUTO) 0.3 10^3/uL (0.0-0.7); EOSINOPHILS % (AUTO) 2.9 %; HCT - HEMATOCRIT 38.2 % (42.0-52.0); HGB - HEMOGLOBIN 11.8 g/dL (14.0-18.0); LYMPHOCYTES # (AUTO) 0.5 10^3/uL (1.5-3.5); LYMPHOCYTES % (AUTO) 5.2 %; MEAN CORPUSCULAR HEMOGLOBIN 24.7 pg (27.0-31.0); MEAN CORPUSCULAR HGB CONC 30.9 g/dL (32.0-36.0); MEAN CORPUSCULAR VOLUME 80.1 fL (80.0-94.0); MEAN PLATELET VOLUME 10.8 fL (7.4-11.4); MONOCYTES # (AUTO) 0.6 10^3/uL (0.0-1.0); MONOCYTES % (AUTO) 6.9 %; NEUTROPHILS # (AUTO) 7.8 10^3/uL (1.5-6.6); NEUTROPHILS % (AUTO) 84.4 %; PLT - PLATELET COUNT 73 10^3/uL (130-450); RED BLOOD COUNT 4.77 10^6/uL (4.70-6.10); RED CELL DISTRIBUTION WIDTH 15.7 % (12.0-15.0); WHITE BLOOD COUNT 9.2 x10^3/uL (4.8-10.8)
[2021-08-02 06:21] LABS: CALCIUM 8.1 mg/dL (8.5-10.3); CREATININE 1.1 mg/dL (0.6-1.2); MAGNESIUM 1.9 mg/dL (1.7-2.8); PHOSPHORUS 2.8 mg/dL (2.5-4.6); POTASSIUM 3.5 mmol/L (3.5-5.0)
[2021-08-02 06:39] LABS: CALCIUM, IONIZED 1.09 mmol/L (1.15-1.33); VBG PH 7.45 (7.31-7.41)
[2021-08-02] MEDS ORDERED: VANCOMYCIN INJ 1.25 GM in SODIUM CHLORIDE 0.9% 250 ML IV SCH (08:00)
[2021-08-02] MEDS: CEFEPIME 2 GM in SODIUM CHLORIDE 0.9% MINIBAG 100 ML IV SCH ×2 (08:34→20:33)
[2021-08-02] MEDS: CHLORHEXIDINE GLUCONATE 15 ML UDC PO SCH ×2 (08:37→20:35)
[2021-08-02] MEDS: ENOXAPARIN 40 MG/0.4 ML SYRINGE SUBQ SCH (08:37)
[2021-08-02] MEDS: DEXAMETHASONE 4 MG/ML VIAL IVP SCH (08:38)
--- NOTE | 2021-08-02 08:38 | PROVIDER PROGRESS NOTE ---
Subjective - Prog Note Date Prog Note Date: 08/02/21 - Subjective Subjective: He remains intubated and sedated. Current Medications - Current Medications Current Medications: Active Medications Acetaminophen (Acetaminophen 325 Mg Tablet) 650 mg PO Q6HR PRN PRN Reason: Pain or Fever > 38C (100.4F) Chlorhexidine Gluconate (Chlorhexidine Gluconate 15 Ml Udc) 15 ml PO BID PENDING SALE TO [facility] Last Admin: 08/02/21 08:37 Dose: 15 ml Dexamethasone (Dexamethasone 4 Mg/Ml Vial) 6 mg IVP DAILY PENDING SALE TO [facility] Last Admin: 08/02/21 08:38 Dose: 6 mg Enoxaparin Sodium (Enoxaparin 40 Mg/0.4 Ml Syringe) 40 mg SUBQ DAILY PENDING SALE TO [facility] Last Admin: 08/02/21 08:37 Dose: 40 mg Acetaminophen (Ofirmev) 100 mls @ 400 mls/hr IV Q6HR PRN PRN Reason: Pain or Fever > 38C (100.4F) Last Infusion: 08/02/21 00:40 Dose: Infused Midazolam HCl (Versed Drip 50 Mg/50 Ml) 50 mg in 50 mls @ 3.34 mls/hr IV .[id number] PENDING SALE TO [facility]; Protocol Last Admin: 08/02/21 10:03 Dose: 0.05 mg/kg/hr, 4.175 mls/hr Cefepime HCl 2 gm/ Sodium (Chloride) 100 mls @ 200 mls/hr IV BID PENDING SALE TO [facility] Last Infusion: 08/02/21 09:05 Dose: Infused Metronidazole (Flagyl 500 Mg/100 Ml) 500 mg in 100 mls @ 100 mls/hr IV Q8H PENDING SALE TO [facility] Last Infusion: 08/02/21 13:20 Dose: Infused Sodium Chloride (Normal Saline 0.9%) 1,000 mls @ 125 mls/hr IV .Q8H PENDING SALE TO [facility] Last Admin: 08/02/21 10:02 Dose: 125 mls/hr Vancomycin HCl 1 gm/ Sodium (Chloride) 250 mls @ 167 mls/hr IV Q12H PENDING SALE TO [facility] Last Infusion: 08/02/21 11:45 Dose: 0 mls/hr Fentanyl (Fentanyl) 2,500 mcg in 250 mls @ 8.5 mls/hr IV .[id number] PENDING SALE TO [facility]; Protocol Last Admin: 08/02/21 16:24 Dose: 2 mcg/kg/hr, 17 mls/hr Morphine Sulfate (Morphine 2 Mg/Ml Carpuject) 2 mg IVP Q4HR PRN PRN Reason: PAIN Last Admin: 08/01/21 23:56 Dose: 2 mg Ondansetron HCl (Ondansetron 4 Mg/2 Ml Vial) 4 mg IVP Q6HR PRN PRN Reason: Nausea / Vomiting Sodium Chloride (Sodium Chloride Flush 0.9% 10 Ml Syringe) 10 ml IVP PRN PRN PRN Reason: NEEDED PER PROVIDER ORDERS Last Admin: 08/02/21 00:04 Dose: 10 ml Sodium Chloride (Sodium Chloride Flush 0.9% 10 Ml Syringe) 10 ml IVP 0100,0900,1700 ARNOLD Last Admin: 08/02/21 10:21 Dose: 10 ml Gabapentin 600 mg PO 09/30/13 Tamsulosin [Flomax] 0.4 mg PO ONCE 09/30/13 Objective - Vital Signs/Intake & Output Reviewed Vital Signs: Yes Vital Signs: Vital Signs Temp Pulse Pulse Resp BP Pulse Ox 08/02/21 08:00 38.5 C H 97 21 125/73 95 08/02/21 07:56 95 08/02/21 07:00 38.6 C H 98 21 133/76 H 95 08/02/21 06:00 99 21 122/70 95 08/02/21 05:33 98 08/02/21 05:00 38.9 C H 101 H 20 143/78 H 95 Intake & Output: Intake & Output 07/30/21 07/31/21 08/01/21 08/02/21 23:59 23:59 23:59 23:59 Intake Total 4132.8 1192.673 Output Total 800 670 Balance 3332.8 522.673 - Objective General Appearance: positive: Other (Sedated.) ENT: positive: ENT inspection nml, Other (ET tube in place.) Neck: positive: Nml inspection Respiratory: positive: No respiratory distress, Rhonchi. negative: Wheezes, Rales Cardiovascular: positive: Regular rate & rhythm, No murmur. negative: Tachycardia Abdomen: positive: Non-tender, No distention. negative: Tenderness Skin: positive: Warm, Dry Extremities: positive: No pedal edema, Other (Right aka and left foot amputation noted.) Neurologic/Psychiatric: positive: Other (Does not follow commands on sedation.) - Lab Results Fish Bones: 08/02/21 05:46 08/02/21 05:46 Other Labs: Lab Results x24hrs 08/02/21 08/02/21 08/02/21 Range/Units 05:46 05:46 05:46 WBC (4.8-10.8) x10^3/uL RBC (4.70-6.10) 10^6/uL Hgb (14.0-18.0) g/dL Hct (42.0-52.0) % MCV (80.0-94.0) fL MCH (27.0-31.0) pg MCHC (32.0-36.0) g/dL RDW (12.0-15.0) % Plt Count (130-450) 10^3/uL MPV (7.4-11.4) fL Neut # (Auto) Lymph # (Auto) [place] # (Auto) Eos # (Auto) Baso # (Auto) Absolute Nucleated RBC Total Counted Band Neuts % (Manual) (0 - 10) % Reactive Lymphs % (Man) % Abnorm Lymph % (Manual) % Nucleated RBC % Neutrophils # (Manual) (1.5-6.6) 10^3/uL Lymphocytes # (Manual) (1.5-3.5) 10^3/uL Monocytes # (Manual) (0.0-1.0) 10^3/uL Eosinophils # (Manual) (0-0.7) 10^3/uL Basophils # (Manual) (0-0.1) 10^3/uL Differential Comment Platelet Estimate (NORMAL) Platelet Morphology (NORMAL) RBC Morph Micro Appear (NORMAL) PT (9.9-12.6) secs INR (0.8-1.2) D-Dimer (200.0-255.0) ng/mL Bld Gas Analysis Time Sample Site ABG pH (7.35-7.45) ABG pCO2 (34-45) mmHg ABG pO2 (80-100) mmHg ABG HCO3 (22.0-26.0) mmol/L ABG Total CO2 (21.0-29.0) MMOL/L ABG O2 Saturation (94-98) % ABG Base Excess (-2.0-3.0) mmol/L Madhu Test VBG pH 7.450 H (7.31-7.41) VBG pCO2 (41-51) mmHg VBG pO2 (25-47) mmHg VBG HCO3 (23-28) mmol/L VBG Total CO2 (24-29) mmol/L VBG O2 Saturation (60-80) % VBG Base Excess (-2 - +2) mmol/L Ionized Calcium 1.09 L (1.15-1.33) mmol/L Respiration Rate b/min O2 Delivery Device Vent Mode FiO2 Tidal Volume mL PEEP cmH2O Sodium 138 (135-145) mmol/L Potassium 3.5 (3.5-5.0) mmol/L Chloride 102 (101-111) mmol/L Carbon Dioxide 26 (21-32) mmol/L Anion Gap 10.0 (6-13) BUN 23 H (6-20) mg/dL Creatinine 1.1 (0.6-1.2) mg/dL Estimated GFR (MDRD) 66 L (>89) Glucose 140 H (70-100) mg/dL Lactic Acid (0.5-2.2) mmol/L Calcium 8.1 L (8.5-10.3) mg/dL Phosphorus 2.8 (2.5-4.6) mg/dL Magnesium 1.9 (1.7-2.8) mg/dL Total Bilirubin (0.2-1.0) mg/dL AST (10-42) IU/L ALT (10-60) IU/L Alkaline Phosphatase (42-121) IU/L Total Creatine Kinase (22-269) IU/L Troponin I High Sens 185.1 H* (2.3-19.7) ng/L B-Natriuretic Peptide (5-100) pg/mL Total Protein (6.7-8.2) g/dL Albumin (3.2-5.5) g/dL Globulin (2.1-4.2) g/dL Albumin/Globulin Ratio (1.0-2.2) Lipase (22-51) U/L TSH (0.34-5.60) uIU/mL Urine Color Urine Clarity (CLEAR) Urine pH (5.0-7.5) PH Ur Specific [place] (1.002-1.030) Urine Protein (NEGATIVE) mg/dL Urine Glucose (UA) (NEGATIVE) mg/dL Urine Ketones (NEGATIVE) mg/dL Urine Occult Blood (NEGATIVE) Urine Nitrite (NEGATIVE) Urine Bilirubin (NEGATIVE) Urine Urobilinogen (NORMAL) E.U./dL Ur Leukocyte Esterase (NEGATIVE) Urine RBC (0-5) /HPF Urine WBC (0-3) /HPF Ur Epithelial Cells (<= Few) /HPF Ur Squamous Epith Cells (<= Few) Urine Bacteria (None Seen) /HPF Ur Microscopic Review Urine Culture Comments Nasal Adenovirus (PCR) Nasal B. parapertussis DNA (PCR) Nasal Coronavir 229E PCR Nasal Coronavir HKU1 PCR Nasal Coronavir NL63 PCR Nasal Coronavir OC43 PCR Nasal Enterovir/Rhinovir PCR Nasal Influenza B PCR Nasal Influenza A PCR Nasal Parainfluen 1 PCR Nasal Parainfluen 2 PCR Nasal Parainfluen 3 PCR Nasal Parainfluen 4 PCR Nasal RSV (PCR) Nasal Screen MRSA (PCR) (NEGATIVE) Nasal B.pertussis DNA PCR Nasal C.pneumoniae (PCR) John Human Metapneumo PCR Nasal M.pneumoniae (PCR) Nasal SARS-CoV-2 (PCR) Salicylates mg/dL Urine Opiates Screen (NEGATIVE) Ur Oxycodone Screen (NEGATIVE) Urine Methadone Screen (NEGATIVE) Ur Propoxyphene Screen (NEGATIVE) Acetaminophen (10-30) ug/mL Ur Barbiturates Screen (NEGATIVE) Ur Tricyclics Screen (NEGATIVE) Ur Phencyclidine Scrn (NEGATIVE) Ur Amphetamine Screen (NEGATIVE) U Methamphetamines Scrn (NEGATIVE) U Benzodiazepines Scrn (NEGATIVE) Urine Cocaine Screen (NEGATIVE) U Cannabinoids Screen (NEGATIVE) Ethyl Alcohol mg/dL 08/02/21 08/02/21 08/01/21 Range/Units 05:46 00:31 22:46 WBC 9.2 (4.8-10.8) x10^3/uL RBC 4.77 (4.70-6.10) 10^6/uL Hgb 11.8 L (14.0-18.0) g/dL Hct 38.2 L (42.0-52.0) % MCV 80.1 (80.0-94.0) fL MCH 24.7 L (27.0-31.0) pg MCHC 30.9 L (32.0-36.0) g/dL RDW 15.7 H (12.0-15.0) % Plt Count 73 L (130-450) 10^3/uL MPV 10.8 (7.4-11.4) fL Neut # (Auto) 7.8 H Lymph # (Auto) 0.5 L [place] # (Auto) 0.6 Eos # (Auto) 0.3 Baso # (Auto) 0.0 Absolute Nucleated RBC 0.00 Total Counted Band Neuts % (Manual) (0 - 10) % Reactive Lymphs % (Man) % Abnorm Lymph % (Manual) % Nucleated RBC % 0.0 Neutrophils # (Manual) (1.5-6.6) 10^3/uL Lymphocytes # (Manual) (1.5-3.5) 10^3/uL Monocytes # (Manual) (0.0-1.0) 10^3/uL Eosinophils # (Manual) (0-0.7) 10^3/uL Basophils # (Manual) (0-0.1) 10^3/uL Differential Comment Platelet Estimate (NORMAL) Platelet Morphology (NORMAL) RBC Morph Micro Appear (NORMAL) PT (9.9-12.6) secs INR (0.8-1.2) D-Dimer (200.0-255.0) ng/mL Bld Gas Analysis Time Sample Site ABG pH (7.35-7.45) ABG pCO2 (34-45) mmHg ABG pO2 (80-100) mmHg ABG HCO3 (22.0-26.0) mmol/L ABG Total CO2 (21.0-29.0) MMOL/L ABG O2 Saturation (94-98) % ABG Base Excess (-2.0-3.0) mmol/L Madhu Test VBG pH (7.31-7.41) VBG pCO2 (41-51) mmHg VBG pO2 (25-47) mmHg VBG HCO3 (23-28) mmol/L VBG Total CO2 (24-29) mmol/L VBG O2 Saturation (60-80) % VBG Base Excess (-2 - +2) mmol/L Ionized Calcium (1.15-1.33) mmol/L Respiration Rate b/min O2 Delivery Device Vent Mode FiO2 Tidal Volume mL PEEP cmH2O Sodium (135-145) mmol/L Potassium (3.5-5.0) mmol/L Chloride (101-111) mmol/L Carbon Dioxide (21-32) mmol/L Anion Gap (6-13) BUN (6-20) mg/dL Creatinine (0.6-1.2) mg/dL Estimated GFR (MDRD) (>89) Glucose (70-100) mg/dL Lactic Acid (0.5-2.2) mmol/L Calcium (8.5-10.3) mg/dL Phosphorus (2.5-4.6) mg/dL Magnesium (1.7-2.8) mg/dL Total Bilirubin (0.2-1.0) mg/dL AST (10-42) IU/L ALT (10-60) IU/L Alkaline Phosphatase (42-121) IU/L Total Creatine Kinase (22-269) IU/L Troponin I High Sens 194.1 H* (2.3-19.7) ng/L B-Natriuretic Peptide (5-100) pg/mL Total Protein (6.7-8.2) g/dL Albumin (3.2-5.5) g/dL Globulin (2.1-4.2) g/dL Albumin/Globulin Ratio (1.0-2.2) Lipase (22-51) U/L TSH (0.34-5.60) uIU/mL Urine Color Urine Clarity (CLEAR) Urine pH (5.0-7.5) PH Ur Specific [place] (1.002-1.030) Urine Protein (NEGATIVE) mg/dL Urine Glucose (UA) (NEGATIVE) mg/dL Urine Ketones (NEGATIVE) mg/dL Urine Occult Blood (NEGATIVE) Urine Nitrite (NEGATIVE) Urine Bilirubin (NEGATIVE) Urine Urobilinogen (NORMAL) E.U./dL Ur Leukocyte Esterase (NEGATIVE) Urine RBC (0-5) /HPF Urine WBC (0-3) /HPF Ur Epithelial Cells (<= Few) /HPF Ur Squamous Epith Cells (<= Few) Urine Bacteria (None Seen) /HPF Ur Microscopic Review Urine Culture Comments Nasal Adenovirus (PCR) Nasal B. parapertussis DNA (PCR) Nasal Coronavir 229E PCR Nasal Coronavir HKU1 PCR Nasal Coronavir NL63 PCR Nasal Coronavir OC43 PCR Nasal Enterovir/Rhinovir PCR Nasal Influenza B PCR Nasal Influenza A PCR Nasal Parainfluen 1 PCR Nasal Parainfluen 2 PCR Nasal Parainfluen 3 PCR Nasal Parainfluen 4 PCR Nasal RSV (PCR) Nasal Screen MRSA (PCR) NEGATIVE (NEGATIVE) Nasal B.pertussis DNA PCR Nasal C.pneumoniae (PCR) John Human Metapneumo PCR Nasal M.pneumoniae (PCR) Nasal SARS-CoV-2 (PCR) Salicylates mg/dL Urine Opiates Screen (NEGATIVE) Ur Oxycodone Screen (NEGATIVE) Urine Methadone Screen (NEGATIVE) Ur Propoxyphene Screen (NEGATIVE) Acetaminophen (10-30) ug/mL Ur Barbiturates Screen (NEGATIVE) Ur Tricyclics Screen (NEGATIVE) Ur Phencyclidine Scrn (NEGATIVE) Ur Amphetamine Screen (NEGATIVE) U Methamphetamines Scrn (NEGATIVE) U Benzodiazepines Scrn (NEGATIVE) Urine Cocaine Screen (NEGATIVE) U Cannabinoids Screen (NEGATIVE) Ethyl Alcohol mg/dL 08/01/21 08/01/21 08/01/21 Range/Units 22:45 21:00 18:26 WBC (4.8-10.8) x10^3/uL RBC (4.70-6.10) 10^6/uL Hgb (14.0-18.0) g/dL Hct (42.0-52.0) % MCV (80.0-94.0) fL MCH (27.0-31.0) pg MCHC (32.0-36.0) g/dL RDW (12.0-15.0) % Plt Count (130-450) 10^3/uL MPV (7.4-11.4) fL Neut # (Auto) Lymph # (Auto) [place] # (Auto) Eos # (Auto) Baso # (Auto) Absolute Nucleated RBC Total Counted Band Neuts % (Manual) (0 - 10) % Reactive Lymphs % (Man) % Abnorm Lymph % (Manual) % Nucleated RBC % Neutrophils # (Manual) (1.5-6.6) 10^3/uL Lymphocytes # (Manual) (1.5-3.5) 10^3/uL Monocytes # (Manual) (0.0-1.0) 10^3/uL Eosinophils # (Manual) (0-0.7) 10^3/uL Basophils # (Manual) (0-0.1) 10^3/uL Differential Comment Platelet Estimate (NORMAL) Platelet Morphology (NORMAL) RBC Morph Micro Appear (NORMAL) PT (9.9-12.6) secs INR (0.8-1.2) D-Dimer (200.0-255.0) ng/mL Bld Gas Analysis Time 2250 2106 Sample Site LEFT RADIAL LEFT RADIAL ABG pH 7.48 H 7.52 H (7.35-7.45) ABG pCO2 35 30 L (34-45) mmHg ABG pO2 76 L 80 (80-100) mmHg ABG HCO3 25.1 23.8 (22.0-26.0) mmol/L ABG Total CO2 26.1 24.7 (21.0-29.0) MMOL/L ABG O2 Saturation 96 97 (94-98) % ABG Base Excess 1.9 1.7 (-2.0-3.0) mmol/L Madhu Test POSITIVE POSITIVE VBG pH (7.31-7.41) VBG pCO2 (41-51) mmHg VBG pO2 (25-47) mmHg VBG HCO3 (23-28) mmol/L VBG Total CO2 (24-29) mmol/L VBG O2 Saturation (60-80) % VBG Base Excess (-2 - +2) mmol/L Ionized Calcium (1.15-1.33) mmol/L Respiration Rate 22 26 b/min O2 Delivery Device VENTILATOR VENTILATOR Vent Mode ASSIST/CONTROL SIMV FiO2 50.00 60.00 Tidal Volume 500 550 mL PEEP 5 5 cmH2O Sodium (135-145) mmol/L Potassium (3.5-5.0) mmol/L Chloride (101-111) mmol/L Carbon Dioxide (21-32) mmol/L Anion Gap (6-13) BUN (6-20) mg/dL Creatinine (0.6-1.2) mg/dL Estimated GFR (MDRD) (>89) Glucose (70-100) mg/dL Lactic Acid (0.5-2.2) mmol/L Calcium (8.5-10.3) mg/dL Phosphorus (2.5-4.6) mg/dL Magnesium (1.7-2.8) mg/dL Total Bilirubin (0.2-1.0) mg/dL AST (10-42) IU/L ALT (10-60) IU/L Alkaline Phosphatase (42-121) IU/L Total Creatine Kinase (22-269) IU/L Troponin I High Sens (2.3-19.7) ng/L B-Natriuretic Peptide (5-100) pg/mL Total Protein (6.7-8.2) g/dL Albumin (3.2-5.5) g/dL Globulin (2.1-4.2) g/dL Albumin/Globulin Ratio (1.0-2.2) Lipase (22-51) U/L TSH (0.34-5.60) uIU/mL Urine Color Urine Clarity (CLEAR) Urine pH (5.0-7.5) PH Ur Specific [place] (1.002-1.030) Urine Protein (NEGATIVE) mg/dL Urine Glucose (UA) (NEGATIVE) mg/dL Urine Ketones (NEGATIVE) mg/dL Urine Occult Blood (NEGATIVE) Urine Nitrite (NEGATIVE) Urine Bilirubin (NEGATIVE) Urine Urobilinogen (NORMAL) E.U./dL Ur Leukocyte Esterase (NEGATIVE) Urine RBC (0-5) /HPF Urine WBC (0-3) /HPF Ur Epithelial Cells (<= Few) /HPF Ur Squamous Epith Cells (<= Few) Urine Bacteria (None Seen) /HPF Ur Microscopic Review Urine Culture Comments Nasal Adenovirus (PCR) NOT DETECTED Nasal B. parapertussis DNA (PCR) NOT DETECTED Nasal Coronavir 229E PCR NOT DETECTED Nasal Coronavir HKU1 PCR NOT DETECTED Nasal Coronavir NL63 PCR NOT DETECTED Nasal Coronavir OC43 PCR NOT DETECTED Nasal Enterovir/Rhinovir PCR NOT DETECTED Nasal Influenza B PCR NOT DETECTED Nasal Influenza A PCR NOT DETECTED Nasal Parainfluen 1 PCR NOT DETECTED Nasal Parainfluen 2 PCR NOT DETECTED Nasal Parainfluen 3 PCR NOT DETECTED Nasal Parainfluen 4 PCR NOT DETECTED Nasal RSV (PCR) NOT DETECTED Nasal Screen MRSA (PCR) (NEGATIVE) Nasal B.pertussis DNA PCR NOT DETECTED Nasal C.pneumoniae (PCR) NOT DETECTED John Human Metapneumo PCR NOT DETECTED Nasal M.pneumoniae (PCR) NOT DETECTED Nasal SARS-CoV-2 (PCR) DETECTED A Salicylates mg/dL Urine Opiates Screen (NEGATIVE) Ur Oxycodone Screen (NEGATIVE) Urine Methadone Screen (NEGATIVE) Ur Propoxyphene Screen (NEGATIVE) Acetaminophen (10-30) ug/mL Ur Barbiturates Screen (NEGATIVE) Ur Tricyclics Screen (NEGATIVE) Ur Phencyclidine Scrn (NEGATIVE) Ur Amphetamine Screen (NEGATIVE) U Methamphetamines Scrn (NEGATIVE) U Benzodiazepines Scrn (NEGATIVE) Urine Cocaine Screen (NEGATIVE) U Cannabinoids Screen (NEGATIVE) Ethyl Alcohol mg/dL 08/01/21 08/01/21 08/01/21 Range/Units 18:25 18:06 18:06 WBC (4.8-10.8) x10^3/uL RBC (4.70-6.10) 10^6/uL Hgb (14.0-18.0) g/dL Hct (42.0-52.0) % MCV (80.0-94.0) fL MCH (27.0-31.0) pg MCHC (32.0-36.0) g/dL RDW (12.0-15.0) % Plt Count (130-450) 10^3/uL MPV (7.4-11.4) fL Neut # (Auto) Lymph # (Auto) [place] # (Auto) Eos # (Auto) Baso # (Auto) Absolute Nucleated RBC Total Counted Band Neuts % (Manual) (0 - 10) % Reactive Lymphs % (Man) % Abnorm Lymph % (Manual) % Nucleated RBC % Neutrophils # (Manual) (1.5-6.6) 10^3/uL Lymphocytes # (Manual) (1.5-3.5) 10^3/uL Monocytes # (Manual) (0.0-1.0) 10^3/uL Eosinophils # (Manual) (0-0.7) 10^3/uL Basophils # (Manual) (0-0.1) 10^3/uL Differential Comment Platelet Estimate (NORMAL) Platelet Morphology (NORMAL) RBC Morph Micro Appear (NORMAL) PT (9.9-12.6) secs INR (0.8-1.2) D-Dimer (200.0-255.0) ng/mL Bld Gas Analysis Time Sample Site ABG pH (7.35-7.45) ABG pCO2 (34-45) mmHg ABG pO2 (80-100) mmHg ABG HCO3 (22.0-26.0) mmol/L ABG Total CO2 (21.0-29.0) MMOL/L ABG O2 Saturation (94-98) % ABG Base Excess (-2.0-3.0) mmol/L Madhu Test VBG pH 7.394 (7.31-7.41) VBG pCO2 46.6 (41-51) mmHg VBG pO2 24.4 L (25-47) mmHg VBG HCO3 27.8 (23-28) mmol/L VBG Total CO2 29.3 H (24-29) mmol/L VBG O2 Saturation 40.2 L (60-80) % VBG Base Excess 2.3 H (-2 - +2) mmol/L Ionized Calcium (1.15-1.33) mmol/L Respiration Rate b/min O2 Delivery Device Vent Mode FiO2 Tidal Volume mL PEEP cmH2O Sodium (135-145) mmol/L Potassium (3.5-5.0) mmol/L Chloride (101-111) mmol/L Carbon Dioxide (21-32) mmol/L Anion Gap (6-13) BUN (6-20) mg/dL Creatinine (0.6-1.2) mg/dL Estimated GFR (MDRD) (>89) Glucose (70-100) mg/dL Lactic Acid (0.5-2.2) mmol/L Calcium (8.5-10.3) mg/dL Phosphorus (2.5-4.6) mg/dL Magnesium (1.7-2.8) mg/dL Total Bilirubin (0.2-1.0) mg/dL AST (10-42) IU/L ALT (10-60) IU/L Alkaline Phosphatase (42-121) IU/L Total Creatine Kinase (22-269) IU/L Troponin I High Sens (2.3-19.7) ng/L B-Natriuretic Peptide (5-100) pg/mL Total Protein (6.7-8.2) g/dL Albumin (3.2-5.5) g/dL Globulin (2.1-4.2) g/dL Albumin/Globulin Ratio (1.0-2.2) Lipase (22-51) U/L TSH 0.18 L (0.34-5.60) uIU/mL Urine Color YELLOW Urine Clarity SL. CLOUDY (CLEAR) Urine pH 6.0 (5.0-7.5) PH Ur Specific [place] 1.025 (1.002-1.030) Urine Protein >=300 H (NEGATIVE) mg/dL Urine Glucose (UA) NEGATIVE (NEGATIVE) mg/dL Urine Ketones NEGATIVE (NEGATIVE) mg/dL Urine Occult Blood SMALL H (NEGATIVE) Urine Nitrite NEGATIVE (NEGATIVE) Urine Bilirubin NEGATIVE (NEGATIVE) Urine Urobilinogen >=8.0 H (NORMAL) E.U./dL Ur Leukocyte Esterase NEGATIVE (NEGATIVE) Urine RBC None Seen (0-5) /HPF Urine WBC 0-3 (0-3) /HPF Ur Epithelial Cells FEW Renal Tubular (<= Few) /HPF Ur Squamous Epith Cells NONE SEEN (<= Few) Urine Bacteria None Seen (None Seen) /HPF Ur Microscopic Review INDICATED Urine Culture Comments NOT INDICATED Nasal Adenovirus (PCR) Nasal B. parapertussis DNA (PCR) Nasal Coronavir 229E PCR Nasal Coronavir HKU1 PCR Nasal Coronavir NL63 PCR Nasal Coronavir OC43 PCR Nasal Enterovir/Rhinovir PCR Nasal Influenza B PCR Nasal Influenza A PCR Nasal Parainfluen 1 PCR Nasal Parainfluen 2 PCR Nasal Parainfluen 3 PCR Nasal Parainfluen 4 PCR Nasal RSV (PCR) Nasal Screen MRSA (PCR) (NEGATIVE) Nasal B.pertussis DNA PCR Nasal C.pneumoniae (PCR) John Human Metapneumo PCR Nasal M.pneumoniae (PCR) Nasal SARS-CoV-2 (PCR) Salicylates mg/dL Urine Opiates Screen POSITIVE H (NEGATIVE) Ur Oxycodone Screen NEGATIVE (NEGATIVE) Urine Methadone Screen NEGATIVE (NEGATIVE) Ur Propoxyphene Screen NEGATIVE (NEGATIVE) Acetaminophen (10-30) ug/mL Ur Barbiturates Screen NEGATIVE (NEGATIVE) Ur Tricyclics Screen NEGATIVE (NEGATIVE) Ur Phencyclidine Scrn NEGATIVE (NEGATIVE) Ur Amphetamine Screen POSITIVE H (NEGATIVE) U Methamphetamines Scrn POSITIVE H (NEGATIVE) U Benzodiazepines Scrn NEGATIVE (NEGATIVE) Urine Cocaine Screen NEGATIVE (NEGATIVE) U Cannabinoids Screen NEGATIVE (NEGATIVE) Ethyl Alcohol mg/dL 08/01/21 08/01/21 08/01/21 Range/Units 18:06 18:06 18:06 WBC (4.8-10.8) x10^3/uL RBC (4.70-6.10) 10^6/uL Hgb (14.0-18.0) g/dL Hct (42.0-52.0) % MCV (80.0-94.0) fL MCH (27.0-31.0) pg MCHC (32.0-36.0) g/dL RDW (12.0-15.0) % Plt Count (130-450) 10^3/uL MPV (7.4-11.4) fL Neut # (Auto) Lymph # (Auto) [place] # (Auto) Eos # (Auto) Baso # (Auto) Absolute Nucleated RBC Total Counted Band Neuts % (Manual) (0 - 10) % Reactive Lymphs % (Man) % Abnorm Lymph % (Manual) % Nucleated RBC % Neutrophils # (Manual) (1.5-6.6) 10^3/uL Lymphocytes # (Manual) (1.5-3.5) 10^3/uL Monocytes # (Manual) (0.0-1.0) 10^3/uL Eosinophils # (Manual) (0-0.7) 10^3/uL Basophils # (Manual) (0-0.1) 10^3/uL Differential Comment Platelet Estimate (NORMAL) Platelet Morphology (NORMAL) RBC Morph Micro Appear (NORMAL) PT (9.9-12.6) secs INR (0.8-1.2) D-Dimer (200.0-255.0) ng/mL Bld Gas Analysis Time Sample Site ABG pH (7.35-7.45) ABG pCO2 (34-45) mmHg ABG pO2 (80-100) mmHg ABG HCO3 (22.0-26.0) mmol/L ABG Total CO2 (21.0-29.0) MMOL/L ABG O2 Saturation (94-98) % ABG Base Excess (-2.0-3.0) mmol/L Madhu Test VBG pH (7.31-7.41) VBG pCO2 (41-51) mmHg VBG pO2 (25-47) mmHg VBG HCO3 (23-28) mmol/L VBG Total CO2 (24-29) mmol/L VBG O2 Saturation (60-80) % VBG Base Excess (-2 - +2) mmol/L Ionized Calcium (1.15-1.33) mmol/L Respiration Rate b/min O2 Delivery Device Vent Mode FiO2 Tidal Volume mL PEEP cmH2O Sodium (135-145) mmol/L Potassium (3.5-5.0) mmol/L Chloride (101-111) mmol/L Carbon Dioxide (21-32) mmol/L Anion Gap (6-13) BUN (6-20) mg/dL Creatinine (0.6-1.2) mg/dL Estimated GFR (MDRD) (>89) Glucose (70-100) mg/dL Lactic Acid 1.8 (0.5-2.2) mmol/L Calcium (8.5-10.3) mg/dL Phosphorus (2.5-4.6) mg/dL Magnesium (1.7-2.8) mg/dL Total Bilirubin (0.2-1.0) mg/dL AST (10-42) IU/L ALT (10-60) IU/L Alkaline Phosphatase (42-121) IU/L Total Creatine Kinase (22-269) IU/L Troponin I High Sens 147.1 H* (2.3-19.7) ng/L B-Natriuretic Peptide 223 H (5-100) pg/mL Total Protein (6.7-8.2) g/dL Albumin (3.2-5.5) g/dL Globulin (2.1-4.2) g/dL Albumin/Globulin Ratio (1.0-2.2) Lipase (22-51) U/L TSH (0.34-5.60) uIU/mL Urine Color Urine Clarity (CLEAR) Urine pH (5.0-7.5) PH Ur Specific [place] (1.002-1.030) Urine Protein (NEGATIVE) mg/dL Urine Glucose (UA) (NEGATIVE) mg/dL Urine Ketones (NEGATIVE) mg/dL Urine Occult Blood (NEGATIVE) Urine Nitrite (NEGATIVE) Urine Bilirubin (NEGATIVE) Urine Urobilinogen (NORMAL) E.U./dL Ur Leukocyte Esterase (NEGATIVE) Urine RBC (0-5) /HPF Urine WBC (0-3) /HPF Ur Epithelial Cells (<= Few) /HPF Ur Squamous Epith Cells (<= Few) Urine Bacteria (None Seen) /HPF Ur Microscopic Review Urine Culture Comments Nasal Adenovirus (PCR) Nasal B. parapertussis DNA (PCR) Nasal Coronavir 229E PCR Nasal Coronavir HKU1 PCR Nasal Coronavir NL63 PCR Nasal Coronavir OC43 PCR Nasal Enterovir/Rhinovir PCR Nasal Influenza B PCR Nasal Influenza A PCR Nasal Parainfluen 1 PCR Nasal Parainfluen 2 PCR Nasal Parainfluen 3 PCR Nasal Parainfluen 4 PCR Nasal RSV (PCR) Nasal Screen MRSA (PCR) (NEGATIVE) Nasal B.pertussis DNA PCR Nasal C.pneumoniae (PCR) John Human Metapneumo PCR Nasal M.pneumoniae (PCR) Nasal SARS-CoV-2 (PCR) Salicylates mg/dL Urine Opiates Screen (NEGATIVE) Ur Oxycodone Screen (NEGATIVE) Urine Methadone Screen (NEGATIVE) Ur Propoxyphene Screen (NEGATIVE) Acetaminophen (10-30) ug/mL Ur Barbiturates Screen (NEGATIVE) Ur Tricyclics Screen (NEGATIVE) Ur Phencyclidine Scrn (NEGATIVE) Ur Amphetamine Screen (NEGATIVE) U Methamphetamines Scrn (NEGATIVE) U Benzodiazepines Scrn (NEGATIVE) Urine Cocaine Screen (NEGATIVE) U Cannabinoids Screen (NEGATIVE) Ethyl Alcohol mg/dL 08/01/21 08/01/21 08/01/21 Range/Units 18:06 18:06 18:06 WBC 11.5 H (4.8-10.8) x10^3/uL RBC 5.58 (4.70-6.10) 10^6/uL Hgb 13.5 L (14.0-18.0) g/dL Hct 45.0 (42.0-52.0) % MCV 80.6 (80.0-94.0) fL MCH 24.2 L (27.0-31.0) pg MCHC 30.0 L (32.0-36.0) g/dL RDW 15.3 H (12.0-15.0) % Plt Count 80 L (130-450) 10^3/uL MPV 10.3 (7.4-11.4) fL Neut # (Auto) Not Reportable Lymph # (Auto) Not Reportable [place] # (Auto) Not Reportable Eos # (Auto) Not Reportable Baso # (Auto) Not Reportable Absolute Nucleated RBC Not Reportable Total Counted 100 Band Neuts % (Manual) 14 H (0 - 10) % Reactive Lymphs % (Man) 4 % Abnorm Lymph % (Manual) 0 % Nucleated RBC % Not Reportable Neutrophils # (Manual) 9.7 H (1.5-6.6) 10^3/uL Lymphocytes # (Manual) 1.3 L (1.5-3.5) 10^3/uL Monocytes # (Manual) 0.6 (0.0-1.0) 10^3/uL Eosinophils # (Manual) 0.0 (0-0.7) 10^3/uL Basophils # (Manual) 0.0 (0-0.1) 10^3/uL Differential Comment MANUAL DIFFERENTIAL Platelet Estimate DECREASED (<130,000) (NORMAL) Platelet Morphology NORMAL ABDI (NORMAL) RBC Morph Micro Appear NORMAL APPEARANCE (NORMAL) PT 11.5 (9.9-12.6) secs INR 1.0 (0.8-1.2) D-Dimer 669.9 H (200.0-255.0) ng/mL Bld Gas Analysis Time Sample Site ABG pH (7.35-7.45) ABG pCO2 (34-45) mmHg ABG pO2 (80-100) mmHg ABG HCO3 (22.0-26.0) mmol/L ABG Total CO2 (21.0-29.0) MMOL/L ABG O2 Saturation (94-98) % ABG Base Excess (-2.0-3.0) mmol/L Madhu Test VBG pH (7.31-7.41) VBG pCO2 (41-51) mmHg VBG pO2 (25-47) mmHg VBG HCO3 (23-28) mmol/L VBG Total CO2 (24-29) mmol/L VBG O2 Saturation (60-80) % VBG Base Excess (-2 - +2) mmol/L Ionized Calcium (1.15-1.33) mmol/L Respiration Rate b/min O2 Delivery Device Vent Mode FiO2 Tidal Volume mL PEEP cmH2O Sodium 129 L (135-145) mmol/L Potassium 3.9 (3.5-5.0) mmol/L Chloride 91 L (101-111) mmol/L Carbon Dioxide 27 (21-32) mmol/L Anion Gap 11.0 (6-13) BUN 21 H (6-20) mg/dL Creatinine 1.1 (0.6-1.2) mg/dL Estimated GFR (MDRD) 66 L (>89) Glucose 123 H (70-100) mg/dL Lactic Acid (0.5-2.2) mmol/L Calcium 8.6 (8.5-10.3) mg/dL Phosphorus 2.7 (2.5-4.6) mg/dL Magnesium 2.1 (1.7-2.8) mg/dL Total Bilirubin 1.0 (0.2-1.0) mg/dL AST 66 H (10-42) IU/L ALT 30 (10-60) IU/L Alkaline Phosphatase 65 (42-121) IU/L Total Creatine Kinase 408 H (22-269) IU/L Troponin I High Sens (2.3-19.7) ng/L B-Natriuretic Peptide (5-100) pg/mL Total Protein 7.6 (6.7-8.2) g/dL Albumin 3.5 (3.2-5.5) g/dL Globulin 4.1 (2.1-4.2) g/dL Albumin/Globulin Ratio 0.9 L (1.0-2.2) Lipase 40 (22-51) U/L TSH (0.34-5.60) uIU/mL Urine Color Urine Clarity (CLEAR) Urine pH (5.0-7.5) PH Ur Specific [place] (1.002-1.030) Urine Protein (NEGATIVE) mg/dL Urine Glucose (UA) (NEGATIVE) mg/dL Urine Ketones (NEGATIVE) mg/dL Urine Occult Blood (NEGATIVE) Urine Nitrite (NEGATIVE) Urine Bilirubin (NEGATIVE) Urine Urobilinogen (NORMAL) E.U./dL Ur Leukocyte Esterase (NEGATIVE) Urine RBC (0-5) /HPF Urine WBC (0-3) /HPF Ur Epithelial Cells (<= Few) /HPF Ur Squamous Epith Cells (<= Few) Urine Bacteria (None Seen) /HPF Ur Microscopic Review Urine Culture Comments Nasal Adenovirus (PCR) Nasal B. parapertussis DNA (PCR) Nasal Coronavir 229E PCR Nasal Coronavir HKU1 PCR Nasal Coronavir NL63 PCR Nasal Coronavir OC43 PCR Nasal Enterovir/Rhinovir PCR Nasal Influenza B PCR Nasal Influenza A PCR Nasal Parainfluen 1 PCR Nasal Parainfluen 2 PCR Nasal Parainfluen 3 PCR Nasal Parainfluen 4 PCR Nasal RSV (PCR) Nasal Screen MRSA (PCR) (NEGATIVE) Nasal B.pertussis DNA PCR Nasal C.pneumoniae (PCR) John Human Metapneumo PCR Nasal M.pneumoniae (PCR) Nasal SARS-CoV-2 (PCR) Salicylates < 6.0 mg/dL Urine Opiates Screen (NEGATIVE) Ur Oxycodone Screen (NEGATIVE) Urine Methadone Screen (NEGATIVE) Ur Propoxyphene Screen (NEGATIVE) Acetaminophen < 10 L (10-30) ug/mL Ur Barbiturates Screen (NEGATIVE) Ur Tricyclics Screen (NEGATIVE) Ur Phencyclidine Scrn (NEGATIVE) Ur Amphetamine Screen (NEGATIVE) U Methamphetamines Scrn (NEGATIVE) U Benzodiazepines Scrn (NEGATIVE) Urine Cocaine Screen (NEGATIVE) U Cannabinoids Screen (NEGATIVE) Ethyl Alcohol < 5.0 mg/dL Sepsis Event Note (H) - Evaluation Current Stage of Sepsis: Sepsis - Sepsis Criteria Sepsis Criteria: Recorded Temperature greater than 38.3C or Less than 36C, Recorded Heart Rate greater than 90 bpm, Recorded Respiratory Rate greater than 20, Respiratory: Increasing oxygen requirements, WBC count greater than 10% bands, APPLICATIONS PROGRAMMER: altered consciousness (unrelated to primary neuro pathology), Hematologic: platelets < 100,000; INR > 1.5, or a PTT>60 seconds Assessment/Plan - Problem List (1) Acute respiratory failure with hypoxia Impression: This is secondary to likely COVID-19 pneumonia as well as aspiration pneumonia. He is on Decadron as well as IV antibiotics. His FiO2 requirements are decreased to 40% today. I am hopeful we can start to wake him up and plan for extubation in the morning if he does well on his weaning trials. (2) Sepsis Impression: He has sepsis likely secondary to aspiration pneumonia or the COVID-19 infection. His white count is normal today but he remains febrile with thrombocytopenia. Blood cultures are pending. Urine analysis was unremarkable. We will keep him on vancomycin, cefepime, Flagyl IV given his ongoing fevers u ntil we have significant improvement from a fever standpoint or cultures. (3) Aspiration pneumonia Impression: Concern is for aspiration given he was obtunded. We will keep him on broad- spectrum antibiotics for the time being of the de-escalate as he becomes fever free and shows improvement from a respiratory standpoint. (4) Pneumonia due to COVID-19 virus Impression: He is COVID-positive and slightly contributing to the pneumonia and respiratory failure. He is not on remdesivir given he is requiring mechanical ventilation. We will continue Decadron IV. (5) Methamphetamine abuse Impression: His urine toxicology is positive for methamphetamines and this will be discussed further once he is extubated. (6) Rib fracture Impression: He does have a left-sided rib fracture likely due to trauma. Rest of imaging was unremarkable. Qualifiers: Encounter type: initial encounter Rib fracture type: single rib Fracture type: closed Laterality: left Qualified Code(s): S22.32XA - Fracture of one rib, left side, initial encounter for closed fracture
[2021-08-02] MEDS ORDERED: CHLORHEXIDINE GLUCONATE 15 ML UDC PO SCH (09:00)
[2021-08-02] MEDS: VANCOMYCIN INJ 1 GM in SODIUM CHLORIDE 0.9% 250 ML IV SCH ×2 (10:16→21:44)
[2021-08-02] MEDS: POTASSIUM CHLOR 10 MEQ/100 ML 10 MEQ/100 ML BAG IV SCH ×4 (10:16→14:39)
[2021-08-02] MEDS: SODIUM CHLORIDE FLUSH 0.9% 10 ML SYRINGE IVP SCH ×2 (10:21→21:58)
[2021-08-02] MEDS: fentaNYL 2,500 MCG/250 ML 2,500 MCG/250 ML BAG IV SCH (16:24)
[2021-08-03] MEDS: SODIUM CHLORIDE FLUSH 0.9% 10 ML SYRINGE IVP SCH ×3 (04:06→17:59)
[2021-08-03] MEDS: metroNIDAZOLE 500 MG/100 ML 500 MG/100 ML BAG IV SCH ×3 (04:15→19:41)
[2021-08-03] MEDS: SODIUM CHLORIDE 0.9% 1,000 ML IV SCH ×3 (05:25→17:59)
[2021-08-03 05:33] LABS: BASOPHILS % (AUTO) 0.2 %; CALCIUM, IONIZED 1.19 mmol/L (1.15-1.33); HCT - HEMATOCRIT 34.7 % (42.0-52.0); HGB - HEMOGLOBIN 10.5 g/dL (14.0-18.0); LYMPHOCYTES # (AUTO) 0.7 10^3/uL (1.5-3.5); LYMPHOCYTES % (AUTO) 10.8 %; MEAN CORPUSCULAR HEMOGLOBIN 24.9 pg (27.0-31.0); MEAN CORPUSCULAR HGB CONC 30.3 g/dL (32.0-36.0); MEAN CORPUSCULAR VOLUME 82.2 fL (80.0-94.0); MONOCYTES # (AUTO) 0.7 10^3/uL (0.0-1.0); MONOCYTES % (AUTO) 10.8 %; NEUTROPHILS # (AUTO) 5.2 10^3/uL (1.5-6.6); NEUTROPHILS % (AUTO) 77.7 %; PLT - PLATELET COUNT 78 10^3/uL (130-450); RED BLOOD COUNT 4.22 10^6/uL (4.70-6.10); RED CELL DISTRIBUTION WIDTH 15.9 % (12.0-15.0); VBG PH 7.363 (7.31-7.41); WHITE BLOOD COUNT 6.6 x10^3/uL (4.8-10.8)
[2021-08-03 05:45] LABS: ALBUMIN 2.1 g/dL (3.2-5.5); ALBUMIN/GLOBULIN RATIO 0.7 (1.0-2.2); BILIRUBIN,TOTAL 0.5 mg/dL (0.2-1.0); CALCIUM 8.2 mg/dL (8.5-10.3); CREATININE 0.9 mg/dL (0.6-1.2); PHOSPHORUS 2.8 mg/dL (2.5-4.6); POTASSIUM 4.3 mmol/L (3.5-5.0); TOTAL PROTEIN 5.1 g/dL (6.7-8.2)
[2021-08-03] MEDS: MIDAZOLAM DRIP 50 MG/50 ML 50 MG/50 ML BAG IV SCH ×2 (06:43→19:49)
--- NOTE | 2021-08-03 07:35 | PROVIDER PROGRESS NOTE ---
Subjective - Prog Note Date Prog Note Date: 08/03/21 - Subjective Subjective: He remains intubated and sedated. Current Medications - Current Medications Current Medications: Active Medications Acetaminophen (Acetaminophen 325 Mg Tablet) 650 mg PO Q6HR PRN PRN Reason: Pain or Fever > 38C (100.4F) Chlorhexidine Gluconate (Chlorhexidine Gluconate 15 Ml Udc) 15 ml PO BID [facility] Last Admin: 08/03/21 08:32 Dose: 15 ml Dexamethasone (Dexamethasone 4 Mg/Ml Vial) 6 mg IVP DAILY [facility] Last Admin: 08/03/21 08:32 Dose: 6 mg Enoxaparin Sodium (Enoxaparin 40 Mg/0.4 Ml Syringe) 40 mg SUBQ DAILY [facility] Last Admin: 08/03/21 08:32 Dose: 40 mg Acetaminophen (Ofirmev) 100 mls @ 400 mls/hr IV Q6HR PRN PRN Reason: Pain or Fever > 38C (100.4F) Last Infusion: 08/02/21 22:10 Dose: Infused Midazolam HCl (Versed Drip 50 Mg/50 Ml) 50 mg in 50 mls @ 3.34 mls/hr IV .[id number] [facility]; Protocol Last Titration: 08/03/21 11:32 Dose: 0.07 mg/kg/hr, 5.845 mls/hr Cefepime HCl 2 gm/ Sodium (Chloride) 100 mls @ 200 mls/hr IV BID [facility] Last Infusion: 08/03/21 09:05 Dose: Infused Metronidazole (Flagyl 500 Mg/100 Ml) 500 mg in 100 mls @ 100 mls/hr IV Q8H [facility] Last Infusion: 08/03/21 05:20 Dose: Infused Sodium Chloride (Normal Saline 0.9%) 1,000 mls @ 125 mls/hr IV .Q8H [facility] Last Infusion: 08/03/21 10:00 Dose: 125 mls/hr Vancomycin HCl 1 gm/ Sodium (Chloride) 250 mls @ 167 mls/hr IV Q12H [facility] Last Infusion: 08/03/21 10:00 Dose: Infused Fentanyl (Fentanyl) 2,500 mcg in 250 mls @ 8.5 mls/hr IV .[id number] [facility]; Protocol Last Titration: 08/03/21 11:32 Dose: 1 mcg/kg/hr, 8.5 mls/hr Morphine Sulfate (Morphine 2 Mg/Ml Carpuject) 2 mg IVP Q4HR PRN PRN Reason: PAIN Last Admin: 08/01/21 23:56 Dose: 2 mg Ondansetron HCl (Ondansetron 4 Mg/2 Ml Vial) 4 mg IVP Q6HR PRN PRN Reason: Nausea / Vomiting Sodium Chloride (Sodium Chloride Flush 0.9% 10 Ml Syringe) 10 ml IVP PRN PRN PRN Reason: NEEDED PER PROVIDER ORDERS Last Admin: 08/02/21 00:04 Dose: 10 ml Sodium Chloride (Sodium Chloride Flush 0.9% 10 Ml Syringe) 10 ml IVP 0100,0900,1700 [facility] Last Admin: 08/03/21 08:28 Dose: 10 ml Gabapentin 600 mg PO 09/30/13 Tamsulosin [Flomax] 0.4 mg PO ONCE 09/30/13 Objective - Vital Signs/Intake & Output Reviewed Vital Signs: Yes Vital Signs: Vital Signs Temp Pulse Pulse Resp BP BP Pulse Ox 08/03/21 07:00 71 18 117/75 94 08/03/21 06:00 37.2 C 72 70 18 113/73 113/73 96 08/03/21 05:30 76 08/03/21 05:00 70 18 114/76 96 08/03/21 04:00 37.1 C 69 18 115/77 96 08/03/21 03:56 37.1 C 68 18 120/82 H 96 Intake & Output: Intake & Output 07/31/21 08/01/21 08/02/21 08/03/21 23:59 23:59 23:59 23:59 Intake Total 4132.8 4134.977 1342.316 Output Total 800 1160 370 Balance 3332.8 2974.977 972.316 - Objective General Appearance: positive: No acute distress, Other (Sedated) Eyes Bilateral: positive: Conjunctivae nml ENT: positive: Other (ET tube in place. Left periaurircular ecchymoses.) Neck: positive: Nml inspection Respiratory: positive: No respiratory distress, Rhonchi. negative: Wheezes, Rales Cardiovascular: positive: Regular rate & rhythm. negative: Tachycardia Abdomen: positive: Non-tender, No distention. negative: Tenderness Skin: positive: Other (Chronic venous stasis changes over left lower extremity.) Extremities: positive: No pedal edema, Other (Right AKA. Left foot amputation.) Neurologic/Psychiatric: positive: Other (Does not follow commands on sedation.) - Lab Results Fish Bones: 08/04/21 04:41 08/04/21 04:41 Other Labs: Lab Results x24hrs 08/03/21 08/03/21 08/03/21 Range/Units 06:13 04:21 04:21 WBC (4.8-10.8) x10^3/uL RBC (4.70-6.10) 10^6/uL Hgb (14.0-18.0) g/dL Hct (42.0-52.0) % MCV (80.0-94.0) fL MCH (27.0-31.0) pg MCHC (32.0-36.0) g/dL RDW (12.0-15.0) % Plt Count (130-450) 10^3/uL MPV (7.4-11.4) fL Neut # (Auto) (1.5-6.6) 10^3/uL Lymph # (Auto) (1.5-3.5) 10^3/uL [place] # (Auto) (0.0-1.0) 10^3/uL Eos # (Auto) (0.0-0.7) 10^3/uL Baso # (Auto) (0.0-0.1) 10^3/uL Absolute Nucleated RBC x10^3/uL Nucleated RBC % /100WBC VBG pH 7.363 (7.31-7.41) Ionized Calcium 1.19 (1.15-1.33) mmol/L Sodium 140 (135-145) mmol/L Potassium 4.3 (3.5-5.0) mmol/L Chloride 109 (101-111) mmol/L Carbon Dioxide 24 (21-32) mmol/L Anion Gap 7.0 (6-13) BUN 34 H (6-20) mg/dL Creatinine 0.9 (0.6-1.2) mg/dL Estimated GFR (MDRD) 84 L (>89) Glucose 164 H (70-100) mg/dL POC Whole Bld Glucose 170 H (70 - 100) mg/dL Calcium 8.2 L (8.5-10.3) mg/dL Phosphorus 2.8 (2.5-4.6) mg/dL Magnesium 2.0 (1.7-2.8) mg/dL Total Bilirubin 0.5 (0.2-1.0) mg/dL AST 42 (10-42) IU/L ALT 22 (10-60) IU/L Alkaline Phosphatase 37 L (42-121) IU/L Total Protein 5.1 L (6.7-8.2) g/dL Albumin 2.1 L (3.2-5.5) g/dL Globulin 3.0 (2.1-4.2) g/dL Albumin/Globulin Ratio 0.7 L (1.0-2.2) Prealbumin 3 L (18-45) mg/dL Free T4 (0.58-1.64) ng/dL 08/03/21 08/03/21 08/02/21 Range/Units 04:21 00:23 17:56 WBC 6.6 (4.8-10.8) x10^3/uL RBC 4.22 L (4.70-6.10) 10^6/uL Hgb 10.5 L (14.0-18.0) g/dL Hct 34.7 L (42.0-52.0) % MCV 82.2 (80.0-94.0) fL MCH 24.9 L (27.0-31.0) pg MCHC 30.3 L (32.0-36.0) g/dL RDW 15.9 H (12.0-15.0) % Plt Count 78 L (130-450) 10^3/uL MPV 12.0 H (7.4-11.4) fL Neut # (Auto) 5.2 (1.5-6.6) 10^3/uL Lymph # (Auto) 0.7 L (1.5-3.5) 10^3/uL [place] # (Auto) 0.7 (0.0-1.0) 10^3/uL Eos # (Auto) 0.0 (0.0-0.7) 10^3/uL Baso # (Auto) 0.0 (0.0-0.1) 10^3/uL Absolute Nucleated RBC 0.00 x10^3/uL Nucleated RBC % 0.0 /100WBC VBG pH (7.31-7.41) Ionized Calcium (1.15-1.33) mmol/L Sodium (135-145) mmol/L Potassium (3.5-5.0) mmol/L Chloride (101-111) mmol/L Carbon Dioxide (21-32) mmol/L Anion Gap (6-13) BUN (6-20) mg/dL Creatinine (0.6-1.2) mg/dL Estimated GFR (MDRD) (>89) Glucose (70-100) mg/dL POC Whole Bld Glucose 140 H 133 H (70 - 100) mg/dL Calcium (8.5-10.3) mg/dL Phosphorus (2.5-4.6) mg/dL Magnesium (1.7-2.8) mg/dL Total Bilirubin (0.2-1.0) mg/dL AST (10-42) IU/L ALT (10-60) IU/L Alkaline Phosphatase (42-121) IU/L Total Protein (6.7-8.2) g/dL Albumin (3.2-5.5) g/dL Globulin (2.1-4.2) g/dL Albumin/Globulin Ratio (1.0-2.2) Prealbumin (18-45) mg/dL Free T4 (0.58-1.64) ng/dL 08/02/21 08/02/21 08/02/21 Range/Units 11:40 06:12 06:00 WBC (4.8-10.8) x10^3/uL RBC (4.70-6.10) 10^6/uL Hgb (14.0-18.0) g/dL Hct (42.0-52.0) % MCV (80.0-94.0) fL MCH (27.0-31.0) pg MCHC (32.0-36.0) g/dL RDW (12.0-15.0) % Plt Count (130-450) 10^3/uL MPV (7.4-11.4) fL Neut # (Auto) (1.5-6.6) 10^3/uL Lymph # (Auto) (1.5-3.5) 10^3/uL [place] # (Auto) (0.0-1.0) 10^3/uL Eos # (Auto) (0.0-0.7) 10^3/uL Baso # (Auto) (0.0-0.1) 10^3/uL Absolute Nucleated RBC x10^3/uL Nucleated RBC % /100WBC VBG pH (7.31-7.41) Ionized Calcium (1.15-1.33) mmol/L Sodium (135-145) mmol/L Potassium (3.5-5.0) mmol/L Chloride (101-111) mmol/L Carbon Dioxide (21-32) mmol/L Anion Gap (6-13) BUN (6-20) mg/dL Creatinine (0.6-1.2) mg/dL Estimated GFR (MDRD) (>89) Glucose (70-100) mg/dL POC Whole Bld Glucose 135 H 143 H (70 - 100) mg/dL Calcium (8.5-10.3) mg/dL Phosphorus (2.5-4.6) mg/dL Magnesium (1.7-2.8) mg/dL Total Bilirubin (0.2-1.0) mg/dL AST (10-42) IU/L ALT (10-60) IU/L Alkaline Phosphatase (42-121) IU/L Total Protein (6.7-8.2) g/dL Albumin (3.2-5.5) g/dL Globulin (2.1-4.2) g/dL Albumin/Globulin Ratio (1.0-2.2) Prealbumin (18-45) mg/dL Free T4 1.00 (0.58-1.64) ng/dL Sepsis Event Note (H) - Evaluation Current Stage of Sepsis: Sepsis - Sepsis Criteria Sepsis Criteria: Recorded Temperature greater than 38.3C or Less than 36C, Recorded Heart Rate greater than 90 bpm, Recorded Respiratory Rate greater than 20, Respiratory: Increasing oxygen requirements, WBC count greater than 10% bands, CHISEL GRINDER: altered consciousness (unrelated to primary neuro pathology), Hematologic: platelets < 100,000; INR > 1.5, or a PTT>60 seconds Assessment/Plan - Problem List (1) Acute respiratory failure with hypoxia Impression: This is likely secondary to COVID-19 pneumonia as well as aspiration pneumonia. His FiO2 requirements are stable at 40%. He has been on broad-spectrum IV antibiotics as well as Decadron for the COVID pneumonia. The plan is to perform a sedation vacation today and perform a weaning trial for consideration of extubation. I suspect he may be delirious given his urine toxicology is positive for methamphetamines and we can consider Precedex if necessary. I am hopeful we can have him extubated today or tomorrow. (2) Sepsis Impression: He has sepsis likely secondary to aspiration or COVID-19 pneumonia. His white count remains normal and he is now finally afebrile today. Urinalysis showed no evidence of infection and blood cultures have been negative to date. We will keep him on broad-spectrum antibiotics for 1 more day and if he remains afebrile we will de-escalate tomorrow. (3) Aspiration pneumonia Impression: Concern was for aspiration given he was obtunded and x-ray revealed infiltrates on one side alone. We will keep him on broad-spectrum antibiotics 1 more day as he is finally fever free and will de-escalate tomorrow if he continues to remain afebrile with a normal white count. (4) Pneumonia due to COVID-19 virus Impression: He is COVID-positive and slightly contributing to the pneumonia and respiratory failure. He is not on remdesivir given he is requiring mechanical ventilation. We will continue Decadron IV. Continue contact precautions. (5) Methamphetamine abuse Impression: His urine toxicology is positive for methamphetamines and this will be discussed further once he is extubated. He will be at risk for delirium as sedation is weaned and we will consider precedex. (6) Rib fracture Impression: He does have a left-sided rib fracture likely due to trauma. Rest of imaging was unremarkable. Qualifiers: Encounter type: initial encounter Rib fracture type: single rib Fracture type: closed Laterality: left Qualified Code(s): S22.32XA - Fracture of one rib, left side, initial encounter for closed fracture
[2021-08-03 07:48] LABS: VANCOMYCIN,TROUGH 16.4 ug/mL (10.0-20.0)
[2021-08-03] MEDS: fentaNYL 2,500 MCG/250 ML 2,500 MCG/250 ML BAG IV SCH ×2 (08:20→23:56)
[2021-08-03] MEDS: VANCOMYCIN INJ 1 GM in SODIUM CHLORIDE 0.9% 250 ML IV SCH ×2 (08:27→19:45)
[2021-08-03] MEDS: CEFEPIME 2 GM in SODIUM CHLORIDE 0.9% MINIBAG 100 ML IV SCH ×2 (08:31→20:49)
[2021-08-03] MEDS: CHLORHEXIDINE GLUCONATE 15 ML UDC PO SCH ×2 (08:32→20:50)
[2021-08-03] MEDS: ENOXAPARIN 40 MG/0.4 ML SYRINGE SUBQ SCH (08:32)
[2021-08-03] MEDS: DEXAMETHASONE 4 MG/ML VIAL IVP SCH (08:32)
[2021-08-03] MEDS: ACETAMINOPHEN 1,000 MG/100 ML 100 ML IV PRN (20:49)
[2021-08-03] MEDS: SODIUM CHLORIDE FLUSH 0.9% 10 ML SYRINGE IVP PRN (21:54)
[2021-08-04] MEDS: SODIUM CHLORIDE 0.9% 1,000 ML IV SCH ×4 (00:21→17:15)
[2021-08-04] MEDS: SODIUM CHLORIDE FLUSH 0.9% 10 ML SYRINGE IVP SCH ×3 (00:30→17:15)
[2021-08-04] MEDS: metroNIDAZOLE 500 MG/100 ML 500 MG/100 ML BAG IV SCH ×3 (04:15→19:26)
[2021-08-04 05:16] LABS: CALCIUM, IONIZED 1.22 mmol/L (1.15-1.33); VBG PH 7.397 (7.31-7.41)
[2021-08-04 05:19] LABS: BASOPHILS % (AUTO) 0.2 %; HGB - HEMOGLOBIN 10.7 g/dL (14.0-18.0); LYMPHOCYTES # (AUTO) 0.6 10^3/uL (1.5-3.5); PLT - PLATELET COUNT 87 10^3/uL (130-450)
[2021-08-04 05:25] LABS: CALCIUM 8.2 mg/dL (8.5-10.3); CREATININE 0.9 mg/dL (0.6-1.2); PHOSPHORUS 2.8 mg/dL (2.5-4.6); POTASSIUM 4.6 mmol/L (3.5-5.0)
[2021-08-04 05:58] LABS: HCT - HEMATOCRIT 36.1 % (42.0-52.0); LYMPHOCYTES % (AUTO) 8.8 %; MEAN CORPUSCULAR HEMOGLOBIN 24.8 pg (27.0-31.0); MEAN CORPUSCULAR HGB CONC 29.6 g/dL (32.0-36.0); MEAN CORPUSCULAR VOLUME 83.6 fL (80.0-94.0); MEAN PLATELET VOLUME 11.9 fL (7.4-11.4); MONOCYTES # (AUTO) 0.7 10^3/uL (0.0-1.0); MONOCYTES % (AUTO) 11.2 %; NEUTROPHILS % (AUTO) 79.3 %; RED BLOOD COUNT 4.32 10^6/uL (4.70-6.10); WHITE BLOOD COUNT 6.3 x10^3/uL (4.8-10.8)
[2021-08-04 06:05] LABS: ABG PH 7.38 (7.35-7.45)
[2021-08-04 06:06] LABS: ABG BASE EXCESS -1.1 mmol/L (-2.0-3.0); ABG HCO3 24.1 mmol/L (22.0-26.0); ABG OXYGEN SATURATION 95 % (94-98); ABG PCO2 42 mmHg (34-45); ABG PO2 77 mmHg (80-100); ABG TCO2 25.4 MMOL/L (21.0-29.0); ALLEN TEST POSITIVE
[2021-08-04 06:07] LABS: ABG MODE OF VENTILATION ASSIST/CONTROL; ABG RESPIRATORY RATE 18 b/min
[2021-08-04] MEDS: VANCOMYCIN INJ 1 GM in SODIUM CHLORIDE 0.9% 250 ML IV SCH ×2 (07:45→19:44)
[2021-08-04] MEDS: MIDAZOLAM DRIP 50 MG/50 ML 50 MG/50 ML BAG IV SCH (07:54)
[2021-08-04] MEDS: CEFEPIME 2 GM in SODIUM CHLORIDE 0.9% MINIBAG 100 ML IV SCH ×2 (09:00→21:15)
[2021-08-04] MEDS: DEXAMETHASONE 4 MG/ML VIAL IVP SCH (09:00)
[2021-08-04] MEDS: ENOXAPARIN 40 MG/0.4 ML SYRINGE SUBQ SCH (09:05)
[2021-08-04] MEDS: CHLORHEXIDINE GLUCONATE 15 ML UDC PO SCH ×2 (09:10→21:15)
--- NOTE | 2021-08-04 09:19 | PROVIDER PROGRESS NOTE ---
Subjective - Prog Note Date Prog Note Date: 08/04/21 - Subjective Subjective: Remains intubated and sedated. Current Medications - Current Medications Current Medications: Active Medications Acetaminophen (Acetaminophen 325 Mg Tablet) 650 mg PO Q6HR PRN PRN Reason: Pain or Fever > 38C (100.4F) Chlorhexidine Gluconate (Chlorhexidine Gluconate 15 Ml Udc) 15 ml PO BID [facility] Last Admin: 08/04/21 09:10 Dose: 15 ml Dexamethasone (Dexamethasone 4 Mg/Ml Vial) 6 mg IVP DAILY [facility] Last Admin: 08/04/21 09:00 Dose: 6 mg Enoxaparin Sodium (Enoxaparin 40 Mg/0.4 Ml Syringe) 40 mg SUBQ DAILY [facility] Last Admin: 08/04/21 09:05 Dose: 40 mg Acetaminophen (Ofirmev) 100 mls @ 400 mls/hr IV Q6HR PRN PRN Reason: Pain or Fever > 38C (100.4F) Last Infusion: 08/04/21 15:00 Dose: Infused Midazolam HCl (Versed Drip 50 Mg/50 Ml) 50 mg in 50 mls @ 3.34 mls/hr IV .[id number] [facility]; Protocol Last Titration: 08/04/21 15:00 Dose: Infused Cefepime HCl 2 gm/ Sodium (Chloride) 100 mls @ 200 mls/hr IV BID [facility] Last Infusion: 08/04/21 09:30 Dose: Infused Metronidazole (Flagyl 500 Mg/100 Ml) 500 mg in 100 mls @ 100 mls/hr IV Q8H [facility] Last Infusion: 08/04/21 13:00 Dose: Infused Sodium Chloride (Normal Saline 0.9%) 1,000 mls @ 125 mls/hr IV .Q8H [facility] Last Admin: 08/04/21 17:15 Dose: 125 mls/hr Vancomycin HCl 1 gm/ Sodium (Chloride) 250 mls @ 167 mls/hr IV Q12H [facility] Last Infusion: 08/04/21 09:15 Dose: Infused Fentanyl (Fentanyl) 2,500 mcg in 250 mls @ 8.5 mls/hr IV .[id number] [facility]; Protocol Last Titration: 08/04/21 17:00 Dose: 3 mcg/kg/hr, 25.5 mls/hr Dexmedetomidine HCl 400 mcg/ (Sodium Chloride) 100 mls @ 4.5 mls/hr IV .[id number] [facility]; Protocol Last Titration: 08/04/21 17:45 Dose: 0.6 mcg/kg/hr, 13.5 mls/hr Morphine Sulfate (Morphine 2 Mg/Ml Carpuject) 2 mg IVP Q4HR PRN PRN Reason: PAIN Last Admin: 08/01/21 23:56 Dose: 2 mg Ondansetron HCl (Ondansetron 4 Mg/2 Ml Vial) 4 mg IVP Q6HR PRN PRN Reason: Nausea / Vomiting Sodium Chloride (Sodium Chloride Flush 0.9% 10 Ml Syringe) 10 ml IVP PRN PRN PRN Reason: NEEDED PER PROVIDER ORDERS Last Admin: 08/03/21 21:54 Dose: 10 ml Sodium Chloride (Sodium Chloride Flush 0.9% 10 Ml Syringe) 10 ml IVP 0100,0900,1700 [facility] Last Admin: 08/04/21 17:15 Dose: 10 ml Objective - Vital Signs/Intake & Output Reviewed Vital Signs: Yes Vital Signs: Vital Signs Temp Pulse Pulse Resp BP Pulse Ox 08/04/21 09:06 70 08/04/21 08:00 37.7 C 66 18 132/81 H 95 08/04/21 07:35 68 08/04/21 07:00 37.6 C 66 18 125/81 H 96 08/04/21 06:00 37.6 C 76 18 129/82 H 95 08/04/21 05:42 67 Intake & Output: Intake & Output 08/01/21 08/02/21 08/03/21 08/04/21 23:59 23:59 23:59 23:59 Intake Total 4132.8 4134.977 5471.352 2959.880 Output Total 800 1160 1273 550 Balance 3332.8 2974.977 4198.352 2409.880 - Objective General Appearance: positive: Lethargic, Other (Sedated.) ENT: positive: Other (ET tube in place. Left periaurircular ecchymosis is improved.) Neck: positive: Nml inspection Respiratory: positive: No respiratory distress, Rhonchi. negative: Rales Cardiovascular: positive: Regular rate & rhythm. negative: Tachycardia Abdomen: positive: Non-tender, No distention Extremities: positive: Other (Right AKA and left foot amputation.) Neurologic/Psychiatric: positive: Other (He does wake up and move his extremities while we are weaning his sedation but does not follow commands.) - Lab Results Fish Bones: 08/04/21 04:41 08/04/21 04:41 Other Labs: Lab Results x24hrs 08/04/21 08/04/21 08/04/21 Range/Units 06:05 05:50 04:41 WBC (4.8-10.8) x10^3/uL RBC (4.70-6.10) 10^6/uL Hgb (14.0-18.0) g/dL Hct (42.0-52.0) % MCV (80.0-94.0) fL MCH (27.0-31.0) pg MCHC (32.0-36.0) g/dL RDW (12.0-15.0) % Plt Count (130-450) 10^3/uL MPV (7.4-11.4) fL Neut # (Auto) (1.5-6.6) 10^3/uL Lymph # (Auto) (1.5-3.5) 10^3/uL Boyle # (Auto) (0.0-1.0) 10^3/uL Eos # (Auto) (0.0-0.7) 10^3/uL Baso # (Auto) (0.0-0.1) 10^3/uL Absolute Nucleated RBC x10^3/uL Nucleated RBC % /100WBC Bld Gas Analysis Time 0602 Sample Site RIGHT RADIAL ABG pH 7.38 (7.35-7.45) ABG pCO2 42 (34-45) mmHg ABG pO2 77 L (80-100) mmHg ABG HCO3 24.1 (22.0-26.0) mmol/L ABG Total CO2 25.4 (21.0-29.0) MMOL/L ABG O2 Saturation 95 (94-98) % ABG Base Excess -1.1 (-2.0-3.0) mmol/L Madhu Test POSITIVE VBG pH 7.397 (7.31-7.41) Ionized Calcium 1.22 (1.15-1.33) mmol/L Respiration Rate 18 b/min O2 Delivery Device VENTILATOR Vent Mode ASSIST/CONTROL FiO2 40.00 Tidal Volume 500 mL EPAP 5 cmH2O Sodium (135-145) mmol/L Potassium (3.5-5.0) mmol/L Chloride (101-111) mmol/L Carbon Dioxide (21-32) mmol/L Anion Gap (6-13) BUN (6-20) mg/dL Creatinine (0.6-1.2) mg/dL Estimated GFR (MDRD) (>89) Glucose (70-100) mg/dL POC Whole Bld Glucose 151 H (70 - 100) mg/dL Calcium (8.5-10.3) mg/dL Phosphorus (2.5-4.6) mg/dL Magnesium (1.7-2.8) mg/dL 08/04/21 08/04/21 08/04/21 Range/Units 04:41 04:41 00:15 WBC 6.3 (4.8-10.8) x10^3/uL RBC 4.32 L (4.70-6.10) 10^6/uL Hgb 10.7 L (14.0-18.0) g/dL Hct 36.1 L (42.0-52.0) % MCV 83.6 (80.0-94.0) fL MCH 24.8 L (27.0-31.0) pg MCHC 29.6 L (32.0-36.0) g/dL RDW 16.0 H (12.0-15.0) % Plt Count 87 L (130-450) 10^3/uL MPV 11.9 H (7.4-11.4) fL Neut # (Auto) 5.0 (1.5-6.6) 10^3/uL Lymph # (Auto) 0.6 L (1.5-3.5) 10^3/uL Boyle # (Auto) 0.7 (0.0-1.0) 10^3/uL Eos # (Auto) 0.0 (0.0-0.7) 10^3/uL Baso # (Auto) 0.0 (0.0-0.1) 10^3/uL Absolute Nucleated RBC 0.00 x10^3/uL Nucleated RBC % 0.0 /100WBC Bld Gas Analysis Time Sample Site ABG pH (7.35-7.45) ABG pCO2 (34-45) mmHg ABG pO2 (80-100) mmHg ABG HCO3 (22.0-26.0) mmol/L ABG Total CO2 (21.0-29.0) MMOL/L ABG O2 Saturation (94-98) % ABG Base Excess (-2.0-3.0) mmol/L Madhu Test VBG pH (7.31-7.41) Ionized Calcium (1.15-1.33) mmol/L Respiration Rate b/min O2 Delivery Device Vent Mode FiO2 Tidal Volume mL EPAP cmH2O Sodium 139 (135-145) mmol/L Potassium 4.6 (3.5-5.0) mmol/L Chloride 112 H (101-111) mmol/L Carbon Dioxide 23 (21-32) mmol/L Anion Gap 4.0 L (6-13) BUN 35 H (6-20) mg/dL Creatinine 0.9 (0.6-1.2) mg/dL Estimated GFR (MDRD) 84 L (>89) Glucose 159 H (70-100) mg/dL POC Whole Bld Glucose 157 H (70 - 100) mg/dL Calcium 8.2 L (8.5-10.3) mg/dL Phosphorus 2.8 (2.5-4.6) mg/dL Magnesium 2.0 (1.7-2.8) mg/dL 08/03/21 08/03/21 Range/Units 17:55 12:13 WBC (4.8-10.8) x10^3/uL RBC (4.70-6.10) 10^6/uL Hgb (14.0-18.0) g/dL Hct (42.0-52.0) % MCV (80.0-94.0) fL MCH (27.0-31.0) pg MCHC (32.0-36.0) g/dL RDW (12.0-15.0) % Plt Count (130-450) 10^3/uL MPV (7.4-11.4) fL Neut # (Auto) (1.5-6.6) 10^3/uL Lymph # (Auto) (1.5-3.5) 10^3/uL Boyle # (Auto) (0.0-1.0) 10^3/uL Eos # (Auto) (0.0-0.7) 10^3/uL Baso # (Auto) (0.0-0.1) 10^3/uL Absolute Nucleated RBC x10^3/uL Nucleated RBC % /100WBC Bld Gas Analysis Time Sample Site ABG pH (7.35-7.45) ABG pCO2 (34-45) mmHg ABG pO2 (80-100) mmHg ABG HCO3 (22.0-26.0) mmol/L ABG Total CO2 (21.0-29.0) MMOL/L ABG O2 Saturation (94-98) % ABG Base Excess (-2.0-3.0) mmol/L Madhu Test VBG pH (7.31-7.41) Ionized Calcium (1.15-1.33) mmol/L Respiration Rate b/min O2 Delivery Device Vent Mode FiO2 Tidal Volume mL EPAP cmH2O Sodium (135-145) mmol/L Potassium (3.5-5.0) mmol/L Chloride (101-111) mmol/L Carbon Dioxide (21-32) mmol/L Anion Gap (6-13) BUN (6-20) mg/dL Creatinine (0.6-1.2) mg/dL Estimated GFR (MDRD) (>89) Glucose (70-100) mg/dL POC Whole Bld Glucose 149 H 154 H (70 - 100) mg/dL Calcium (8.5-10.3) mg/dL Phosphorus (2.5-4.6) mg/dL Magnesium (1.7-2.8) mg/dL Sepsis Event Note (H) - Evaluation Current Stage of Sepsis: Sepsis Possible source of Sepsis: positive: Pulmonary - Sepsis Criteria Sepsis Criteria: Recorded Temperature greater than 38.3C or Less than 36C, Recorded Heart Rate greater than 90 bpm, Recorded Respiratory Rate greater than 20, Respiratory: Increasing oxygen requirements, WBC count greater than 10% bands, CHEMICAL EDUCATOR: altered consciousness (unrelated to primary neuro pathology), Hematologic: platelets < 100,000; INR > 1.5, or a PTT>60 seconds Assessment/Plan - Problem List (1) Acute respiratory failure with hypoxia Impression: This is secondary to pneumonia which may be bacterial in nature or due to COVID- 19. His FiO2 requirements are stable at 40% and he has been on IV antibiotics as well as Decadron for the COVID pneumonia. We have weaned his sedation today in hopes of possible extubation but he still delirious and cannot perform a weaning trial. We will keep him just on Precedex with hopes of weaning trial in the morning with possible extubation. (2) Sepsis Impression: Suspect he has sepsis secondary to pneumonia which may be due to a bacterial component or COVID-19. His white count remains normal but he was febrile again yesterday evening. Urinalysis and blood cultures have been unremarkable. We have him on vancomycin, cefepime, Flagyl IV with today being day 3. Given his ongoing fevers, we will keep him on broad-spectrum antibiotics. I have ordered for low respiratory culture as needed and she had a ventilator associated pneumonia or HCAP given his ongoing fevers. (3) Aspiration pneumonia Impression: Initial concern is for aspiration given he was obtunded and x-ray revealed infiltrates on just 1 side alone. Given his ongoing fevers, there is concern for potential HCAP or ventilator associated pneumonia. We will order a repeat x-ray as well as obtain respiratory cultures. We will keep him on broad- spectrum antibiotics. (4) Pneumonia due to COVID-19 virus Impression: He is COVID-positive and slightly contributing to the pneumonia and respiratory failure. He is not on remdesivir given he is requiring mechanical ventilation. We will continue Decadron IV. Continue contact precautions. (5) Methamphetamine abuse Impression: His urine toxicology is positive for methamphetamines and this will be discussed further once he is extubated. He will be at risk for delirium as sedation is wea terri and so we will start precedex. (6) Rib fracture Impression: He does have a left-sided rib fracture likely due to trauma. Rest of imaging was unremarkable. Qualifiers: Encounter type: initial encounter Rib fracture type: single rib Fracture type: closed Laterality: left Qualified Code(s): S22.32XA - Fracture of one rib, left side, initial encounter for closed fracture
[2021-08-04] MEDS: ACETAMINOPHEN 1,000 MG/100 ML 100 ML IV PRN ×2 (14:40→21:20)
[2021-08-04] MEDS: DEXMEDETOMIDINE 400 MCG in SODIUM CHLORIDE 0.9% 100ML 96 ML IV SCH ×2 (15:10→21:37)
[2021-08-04] MEDS: fentaNYL 2,500 MCG/250 ML 2,500 MCG/250 ML BAG IV SCH ×2 (15:10→23:11)
--- NOTE | 2021-08-04 20:42 | XRAY Report ---
PROCEDURE: Chest 1 View X-Ray INDICATIONS: Follow up infiltrates. Fever. TECHNIQUE: One view of the chest was acquired. COMPARISON: 08/01/2021 FINDINGS: Surgical changes and devices: Oral gastric tube tip is below the left hemidiaphragm and is likely in the stomach lumen. ET tube tip is 1 cm above the bonnie.. Lungs and pleura: Pulmonary vascular congestion is seen. Small left pleural effusion and left lower l obe atelectasis/infiltrate is seen. There is also pulmonary edema. No gross pneumothorax. Mediastinum: Mediastinal contours appear normal. Heart size is normal. Bones and chest wall: No suspicious bony lesions. Overlying soft tissues appear unremarkable. IMPRESSION: Versus a small left pleural effusion and left basilar infiltrate/atelectasis. Pulmonary vascular carmelina estion and pulmonary edema. No gross pneumothorax. Reviewed by: Enoc Quintero MD on 08/04/2021 8:41 PM PST Approved by: Enoc Quintero MD on 08/04/2021 8:41 PM PST Station ID: [email or web address]
[2021-08-04] MEDS: SODIUM CHLORIDE 0.9% 500 ML IV PRN (22:19)
[2021-08-05] MEDS ORDERED: hydrALAZINE INJ 20 MG/ML VIAL IVP PRN (00:09)
[2021-08-05] MEDS: SODIUM CHLORIDE FLUSH 0.9% 10 ML SYRINGE IVP SCH ×3 (00:25→16:12)
[2021-08-05] MEDS: DEXMEDETOMIDINE 400 MCG in SODIUM CHLORIDE 0.9% 100ML 96 ML IV SCH ×3 (03:16→21:50)
[2021-08-05] MEDS: metroNIDAZOLE 500 MG/100 ML 500 MG/100 ML BAG IV SCH ×3 (03:18→20:03)
[2021-08-05] MEDS: fentaNYL 2,500 MCG/250 ML 2,500 MCG/250 ML BAG IV SCH ×2 (04:18→09:25)
[2021-08-05] MEDS ORDERED: SODIUM CHLORIDE 0.9% 250 ML IV ONE (04:19)
[2021-08-05 05:20] LABS: BASOPHILS % (AUTO) 0.1 %; HCT - HEMATOCRIT 38.6 % (42.0-52.0); HGB - HEMOGLOBIN 11.6 g/dL (14.0-18.0); LYMPHOCYTES # (AUTO) 0.7 10^3/uL (1.5-3.5); LYMPHOCYTES % (AUTO) 8.4 %; MEAN CORPUSCULAR HEMOGLOBIN 24.8 pg (27.0-31.0); MEAN CORPUSCULAR HGB CONC 30.1 g/dL (32.0-36.0); MEAN CORPUSCULAR VOLUME 82.5 fL (80.0-94.0); MEAN PLATELET VOLUME 12.2 fL (7.4-11.4); MONOCYTES # (AUTO) 1.1 10^3/uL (0.0-1.0); MONOCYTES % (AUTO) 13.1 %; NEUTROPHILS # (AUTO) 6.7 10^3/uL (1.5-6.6); NEUTROPHILS % (AUTO) 77.5 %; PLT - PLATELET COUNT 92 10^3/uL (130-450); RED BLOOD COUNT 4.68 10^6/uL (4.70-6.10); RED CELL DISTRIBUTION WIDTH 15.8 % (12.0-15.0); WHITE BLOOD COUNT 8.7 x10^3/uL (4.8-10.8)
[2021-08-05 05:34] LABS: ALBUMIN/GLOBULIN RATIO 0.6 (1.0-2.2); BILIRUBIN,TOTAL 0.5 mg/dL (0.2-1.0); CALCIUM 7.9 mg/dL (8.5-10.3); CREATININE 0.7 mg/dL (0.6-1.2); PHOSPHORUS 2.4 mg/dL (2.5-4.6); POTASSIUM 4.6 mmol/L (3.5-5.0); TOTAL PROTEIN 5.1 g/dL (6.7-8.2)
[2021-08-05 05:54] LABS: ABG BASE EXCESS -1.6 mmol/L (-2.0-3.0); ABG HCO3 22.8 mmol/L (22.0-26.0); ABG PCO2 37 mmHg (34-45); ABG PO2 73 mmHg (80-100); ABG TCO2 23.9 MMOL/L (21.0-29.0)
[2021-08-05 05:55] LABS: ABG MODE OF VENTILATION ASSIST/CONTROL; ABG OXYGEN SATURATION 95 % (94-98); ABG RESPIRATORY RATE 18 b/min; ALLEN TEST POSITIVE
[2021-08-05] MEDS: SODIUM CHLORIDE 0.9% 1,000 ML IV SCH ×2 (06:08→09:27)
[2021-08-05] MEDS: ACETAMINOPHEN 1,000 MG/100 ML 100 ML IV PRN ×3 (06:45→21:24)
--- NOTE | 2021-08-05 07:35 | PROVIDER PROGRESS NOTE ---
Subjective - Prog Note Date Prog Note Date: 08/05/21 - Subjective Subjective: He follows commands off of sedation. Current Medications - Current Medications Current Medications: Active Medications Acetaminophen (Acetaminophen 325 Mg Tablet) 650 mg PO Q6HR PRN PRN Reason: Pain or Fever > 38C (100.4F) Albuterol (Albuterol Neb 2.5 Mg/3 Ml) 2.5 mg INH RTQ4H PRN PRN Reason: Wheezing Last Admin: 08/05/21 12:40 Dose: 2.5 mg Albuterol/Ipratropium (Ipratropium/Albuterol 3 Ml Neb) 3 ml INH RTQID [facility] Chlorhexidine Gluconate (Chlorhexidine Gluconate 15 Ml Udc) 15 ml PO BID [facility] Last Admin: 08/05/21 08:53 Dose: 15 ml Dexamethasone (Dexamethasone 4 Mg/Ml Vial) 6 mg IVP DAILY [facility] Last Admin: 08/05/21 08:53 Dose: 6 mg Enoxaparin Sodium (Enoxaparin 40 Mg/0.4 Ml Syringe) 40 mg SUBQ DAILY [facility] Last Admin: 08/05/21 08:54 Dose: 40 mg Hydralazine HCl (Hydralazine Inj 20 Mg/Ml Vial) 10 mg IVP TID [facility] Last Admin: 08/05/21 09:22 Dose: 10 mg Acetaminophen (Ofirmev) 100 mls @ 400 mls/hr IV Q6HR PRN PRN Reason: Pain or Fever > 38C (100.4F) Last Infusion: 08/05/21 07:15 Dose: Infused Midazolam HCl (Versed Drip 50 Mg/50 Ml) 50 mg in 50 mls @ 3.34 mls/hr IV .[id number] [facility]; Protocol Last Titration: 08/04/21 15:00 Dose: Infused Cefepime HCl 2 gm/ Sodium (Chloride) 100 mls @ 200 mls/hr IV BID [facility] Last Infusion: 08/05/21 09:30 Dose: Infused Metronidazole (Flagyl 500 Mg/100 Ml) 500 mg in 100 mls @ 100 mls/hr IV Q8H [facility] Last Infusion: 08/05/21 04:20 Dose: Infused Vancomycin HCl 1 gm/ Sodium (Chloride) 250 mls @ 167 mls/hr IV Q12H [facility] Last Infusion: 08/05/21 11:00 Dose: Infused Fentanyl (Fentanyl) 2,500 mcg in 250 mls @ 8.5 mls/hr IV .[id number] [facility]; Protocol Last Titration: 08/05/21 11:05 Dose: 0 mcg/kg/hr, 0 mls/hr Dexmedetomidine HCl 400 mcg/ (Sodium Chloride) 100 mls @ 4.5 mls/hr IV .[id number] [facility]; Protocol Last Titration: 08/05/21 11:05 Dose: 0 mcg/kg/hr, 0 mls/hr Sodium Chloride (Normal Saline 0.9%) 500 mls @ 20 mls/hr IV Q24H PRN PRN Reason: TKO RATE Last Infusion: 08/05/21 12:00 Dose: 20 mls/hr Sodium Phosphate 15 mmol/ (Sodium Chloride) 255 mls @ 63.75 mls/hr IV ONCE ONE; Protocol Stop: 08/05/21 15:59 Last Admin: 08/05/21 12:26 Dose: 63.75 mls/hr Insulin Human Regular (Insulin Regular Human 300 Unit/3 Ml Vial) 1 - 9 unit SUBQ Q6HR [facility]; Protocol Last Admin: 08/05/21 12:25 Dose: 1 unit Morphine Sulfate (Morphine 2 Mg/Ml Carpuject) 2 mg IVP Q4HR PRN PRN Reason: PAIN Last Admin: 08/05/21 09:26 Dose: 2 mg Ondansetron HCl (Ondansetron 4 Mg/2 Ml Vial) 4 mg IVP Q6HR PRN PRN Reason: Nausea / Vomiting Pantoprazole Sodium (Pantoprazole 40 Mg Vial) 40 mg IVP QDAC [facility] Last Admin: 08/05/21 08:53 Dose: 40 mg Polyethylene Glycol (Polyethylene Glycol 3350 17 Gm Packet) 17 gm PO DAILY [facility] Last Admin: 08/05/21 08:54 Dose: 17 gm Sodium Chloride (Sodium Chloride Flush 0.9% 10 Ml Syringe) 10 ml IVP PRN PRN PRN Reason: NEEDED PER PROVIDER ORDERS Last Admin: 08/03/21 21:54 Dose: 10 ml Sodium Chloride (Sodium Chloride Flush 0.9% 10 Ml Syringe) 10 ml IVP 0100,0900,1700 [facility] Last Admin: 08/05/21 08:55 Dose: 10 ml Objective - Vital Signs/Intake & Output Reviewed Vital Signs: Yes Vital Signs: Vital Signs Temp Pulse Pulse Resp BP Pulse Ox 08/05/21 07:00 38.3 C H 61 21 161/69 H 97 08/05/21 06:45 161/99 H 08/05/21 06:00 65 22 97 08/05/21 05:38 60 08/05/21 05:00 38.2 C H 59 L 18 152/94 H 24 L 08/05/21 04:00 38.1 C H 61 19 145/91 H 95 Intake & Output: Intake & Output 08/02/21 08/03/21 08/04/21 08/05/21 23:59 23:59 23:59 23:59 Intake Total 4134.977 5471.352 6966.622 2192.175 Output Total 1160 1273 1955 750 Balance 2974.977 4198.352 5011.622 1442.175 - Objective General Appearance: positive: Other (He is lethargic but awake and following commands off of sedation.) ENT: positive: Other (ET tube in place. Left periauricular ecchymosis present but improved) Respiratory: positive: No respiratory distress, Rhonchi. negative: Wheezes, Ral es Cardiovascular: negative: Tachycardia, Systolic murmur Abdomen: positive: Non-tender, No distention. negative: Tenderness Extremities: positive: No pedal edema, Other (Left AKA and right foot amputation.) Neurologic/Psychiatric: positive: Other (He is following commands and there is no evidence of focal deficits.). negative: Disoriented to person - Lab Results Fish Bones: 08/05/21 04:48 08/05/21 04:48 Other Labs: Lab Results x24hrs 08/05/21 08/05/21 08/05/21 Range/Units 06:01 05:50 04:48 WBC (4.8-10.8) x10^3/uL RBC (4.70-6.10) 10^6/uL Hgb (14.0-18.0) g/dL Hct (42.0-52.0) % MCV (80.0-94.0) fL MCH (27.0-31.0) pg MCHC (32.0-36.0) g/dL RDW (12.0-15.0) % Plt Count (130-450) 10^3/uL MPV (7.4-11.4) fL Neut # (Auto) (1.5-6.6) 10^3/uL Lymph # (Auto) (1.5-3.5) 10^3/uL [place] # (Auto) (0.0-1.0) 10^3/uL Eos # (Auto) (0.0-0.7) 10^3/uL Baso # (Auto) (0.0-0.1) 10^3/uL Absolute Nucleated RBC x10^3/uL Nucleated RBC % /100WBC Bld Gas Analysis Time 0552 Sample Site RIGHT RADIAL ABG pH 7.40 (7.35-7.45) ABG pCO2 37 (34-45) mmHg ABG pO2 73 L (80-100) mmHg ABG HCO3 22.8 (22.0-26.0) mmol/L ABG Total CO2 23.9 (21.0-29.0) MMOL/L ABG O2 Saturation 95 (94-98) % ABG Base Excess -1.6 (-2.0-3.0) mmol/L Madhu Test POSITIVE Respiration Rate 18 b/min O2 Delivery Device VENTILATOR Vent Mode ASSIST/CONTROL FiO2 40.00 Tidal Volume 500 mL PEEP 5 cmH2O Sodium 136 (135-145) mmol/L Potassium 4.6 (3.5-5.0) mmol/L Chloride 109 (101-111) mmol/L Carbon Dioxide 21 (21-32) mmol/L Anion Gap 6.0 (6-13) BUN 32 H (6-20) mg/dL Creatinine 0.7 (0.6-1.2) mg/dL Estimated GFR (MDRD) 112 (>89) Glucose 186 H (70-100) mg/dL POC Whole Bld Glucose 187 H (70 - 100) mg/dL Calcium 7.9 L (8.5-10.3) mg/dL Phosphorus 2.4 L (2.5-4.6) mg/dL Magnesium 2.0 (1.7-2.8) mg/dL Total Bilirubin 0.5 (0.2-1.0) mg/dL AST 98 H (10-42) IU/L ALT 31 (10-60) IU/L Alkaline Phosphatase 36 L (42-121) IU/L Total Protein 5.1 L (6.7-8.2) g/dL Albumin 2.0 L (3.2-5.5) g/dL Globulin 3.1 (2.1-4.2) g/dL Albumin/Globulin Ratio 0.6 L (1.0-2.2) Prealbumin 11 L (18-45) mg/dL 08/05/21 08/04/21 08/04/21 Range/Units 04:48 23:56 17:25 WBC 8.7 (4.8-10.8) x10^3/uL RBC 4.68 L (4.70-6.10) 10^6/uL Hgb 11.6 L (14.0-18.0) g/dL Hct 38.6 L (42.0-52.0) % MCV 82.5 (80.0-94.0) fL MCH 24.8 L (27.0-31.0) pg MCHC 30.1 L (32.0-36.0) g/dL RDW 15.8 H (12.0-15.0) % Plt Count 92 L (130-450) 10^3/uL MPV 12.2 H (7.4-11.4) fL Neut # (Auto) 6.7 H (1.5-6.6) 10^3/uL Lymph # (Auto) 0.7 L (1.5-3.5) 10^3/uL [place] # (Auto) 1.1 H (0.0-1.0) 10^3/uL Eos # (Auto) 0.0 (0.0-0.7) 10^3/uL Baso # (Auto) 0.0 (0.0-0.1) 10^3/uL Absolute Nucleated RBC 0.00 x10^3/uL Nucleated RBC % 0.0 /100WBC Bld Gas Analysis Time Sample Site ABG pH (7.35-7.45) ABG pCO2 (34-45) mmHg ABG pO2 (80-100) mmHg ABG HCO3 (22.0-26.0) mmol/L ABG Total CO2 (21.0-29.0) MMOL/L ABG O2 Saturation (94-98) % ABG Base Excess (-2.0-3.0) mmol/L Madhu Test Respiration Rate b/min O2 Delivery Device Vent Mode FiO2 Tidal Volume mL PEEP cmH2O Sodium (135-145) mmol/L Potassium (3.5-5.0) mmol/L Chloride (101-111) mmol/L Carbon Dioxide (21-32) mmol/L Anion Gap (6-13) BUN (6-20) mg/dL Creatinine (0.6-1.2) mg/dL Estimated GFR (MDRD) (>89) Glucose (70-100) mg/dL POC Whole Bld Glucose 184 H 169 H (70 - 100) mg/dL Calcium (8.5-10.3) mg/dL Phosphorus (2.5-4.6) mg/dL Magnesium (1.7-2.8) mg/dL Total Bilirubin (0.2-1.0) mg/dL AST (10-42) IU/L ALT (10-60) IU/L Alkaline Phosphatase (42-121) IU/L Total Protein (6.7-8.2) g/dL Albumin (3.2-5.5) g/dL Globulin (2.1-4.2) g/dL Albumin/Globulin Ratio (1.0-2.2) Prealbumin (18-45) mg/dL 08/04/21 Range/Units 11:53 WBC (4.8-10.8) x10^3/uL RBC (4.70-6.10) 10^6/uL Hgb (14.0-18.0) g/dL Hct (42.0-52.0) % MCV (80.0-94.0) fL MCH (27.0-31.0) pg MCHC (32.0-36.0) g/dL RDW (12.0-15.0) % Plt Count (130-450) 10^3/uL MPV (7.4-11.4) fL Neut # (Auto) (1.5-6.6) 10^3/uL Lymph # (Auto) (1.5-3.5) 10^3/uL [place] # (Auto) (0.0-1.0) 10^3/uL Eos # (Auto) (0.0-0.7) 10^3/uL Baso # (Auto) (0.0-0.1) 10^3/uL Absolute Nucleated RBC x10^3/uL Nucleated RBC % /100WBC Bld Gas Analysis Time Sample Site ABG pH (7.35-7.45) ABG pCO2 (34-45) mmHg ABG pO2 (80-100) mmHg ABG HCO3 (22.0-26.0) mmol/L ABG Total CO2 (21.0-29.0) MMOL/L ABG O2 Saturation (94-98) % ABG Base Excess (-2.0-3.0) mmol/L Madhu Test Respiration Rate b/min O2 Delivery Device Vent Mode FiO2 Tidal Volume mL PEEP cmH2O Sodium (135-145) mmol/L Potassium (3.5-5.0) mmol/L Chloride (101-111) mmol/L Carbon Dioxide (21-32) mmol/L Anion Gap (6-13) BUN (6-20) mg/dL Creatinine (0.6-1.2) mg/dL Estimated GFR (MDRD) (>89) Glucose (70-100) mg/dL POC Whole Bld Glucose 151 H (70 - 100) mg/dL Calcium (8.5-10.3) mg/dL Phosphorus (2.5-4.6) mg/dL Magnesium (1.7-2.8) mg/dL Total Bilirubin (0.2-1.0) mg/dL AST (10-42) IU/L ALT (10-60) IU/L Alkaline Phosphatase (42-121) IU/L Total Protein (6.7-8.2) g/dL Albumin (3.2-5.5) g/dL Globulin (2.1-4.2) g/dL Albumin/Globulin Ratio (1.0-2.2) Prealbumin (18-45) mg/dL Sepsis Event Note (H) - Evaluation Current Stage of Sepsis: Sepsis Possible source of Sepsis: positive: Pulmonary - Sepsis Criteria Sepsis Criteria: Recorded Temperature greater than 38.3C or Less than 36C, Recorded Heart Rate greater than 90 bpm, Recorded Respiratory Rate greater than 20, Respiratory: Increasing oxygen requirements, WBC count greater than 10% bands, [employer]: altered consciousness (unrelated to primary neuro pathology), Hematologic: platelets < 100,000; INR > 1.5, or a PTT>60 seconds Assessment/Plan - Problem List (1) Acute respiratory failure with hypoxia Impression: This is secondary to COVID-19 pneumonia as well as bacterial pneumonia. His FiO2 count is above 40%. We have placed him on a weaning trial today and he is awake and following commands. He has done well on the wean and the plan will be for extubation this morning. We will continue IV antibiotics for the pneumonia. We will wean his oxygen down after extubation to room air. He will likely to be hospitalized for another 2 to 3 days. (2) Sepsis Impression: This is improving. His white count is normal but he does remain febrile. This is likely due to the bacterial or COVID-19 pneumonia. Overall he is improving we will keep him on vancomycin, cefepime, Flagyl IV to cover for potential HCAP as well as aspiration pneumonia. He will need a total of 7 days of antibiotics. We will look to de-escalate to oral antibiotics if he does well after extubation and if he can remain afebrile. (3) Aspiration pneumonia Impression: Concerns for aspiration or HCAP. He has ongoing fevers but this could be due to the COVID-19 pneumonia. Less likely due to bacterial pneumonia given his improvement white count. Nonetheless we will keep him on IV antibiotics for another day and switch to p.o. antibiotics if he does well after extubation. (4) Pneumonia due to COVID-19 virus Impression: He is COVID-positive and slightly contributing to the pneumonia and respiratory failure. He is not on remdesivir given he is requiring mechanical ventilation. We will continue Decadron IV. Continue contact precautions. (5) Methamphetamine abuse Impression: His urine toxicology was positive for methamphetamines. We will discuss the importance of cessation once he is extubated. (6) Rib fracture Impression: He does have a left-sided rib fracture likely due to trauma. Rest of imaging was unremarkable. Qualifiers: Encounter type: initial encounter Rib fracture type: single rib Fracture type: closed Laterality: left Qualified Code(s): S22.32XA - Fracture of one rib, left side, initial encounter for closed fracture
[2021-08-05] MEDS ORDERED: SODIUM CHLORIDE 0.9% MINIBAG 100 ML IV ONE (08:48)
[2021-08-05] MEDS: PANTOPRAZOLE 40 MG VIAL IVP SCH (08:53)
[2021-08-05] MEDS: DEXAMETHASONE 4 MG/ML VIAL IVP SCH (08:53)
[2021-08-05] MEDS: CHLORHEXIDINE GLUCONATE 15 ML UDC PO SCH ×2 (08:53→20:21)
[2021-08-05] MEDS: polyethylene glycoL 3350 17 GM PACKET PO SCH (08:54)
[2021-08-05] MEDS: ENOXAPARIN 40 MG/0.4 ML SYRINGE SUBQ SCH (08:54)
[2021-08-05] MEDS: CEFEPIME 2 GM in SODIUM CHLORIDE 0.9% MINIBAG 100 ML IV SCH ×2 (08:54→21:48)
[2021-08-05] MEDS: hydrALAZINE INJ 20 MG/ML VIAL IVP SCH ×3 (09:22→21:49)
[2021-08-05] MEDS: INSULIN REGULAR HUMAN 300 UNIT/3 ML VIAL SUBQ SCH ×3 (09:23→18:04)
[2021-08-05] MEDS: VANCOMYCIN INJ 1 GM in SODIUM CHLORIDE 0.9% 250 ML IV SCH ×2 (09:24→20:08)
[2021-08-05] MEDS: MORPHINE 2 MG/ML CARPUJECT IVP PRN ×2 (09:26→20:08)
[2021-08-05] MEDS ORDERED: POTASSIUM PHOSPHATE 15 MMOL in SODIUM CHLORIDE 0.9% 250 ML IV ONE (10:34)
[2021-08-05] MEDS ORDERED: SODIUM PHOSPHATE 15 MMOL in SODIUM CHLORIDE 0.9% 250 ML IV ONE (12:00)
[2021-08-05] MEDS ORDERED: ALBUTEROL NEB 2.5 MG/3 ML INH PRN (12:19)
[2021-08-05] MEDS: IPRATROPIUM/ALBUTEROL 3 ML NEB INH SCH ×2 (15:30→18:04)
[2021-08-05] MEDS ORDERED: FUROSEMIDE 40 MG/4 ML VIAL IVP STA (17:25)
[2021-08-06] MEDS: INSULIN REGULAR HUMAN 300 UNIT/3 ML VIAL SUBQ SCH ×4 (00:29→19:00)
[2021-08-06] MEDS: SODIUM CHLORIDE FLUSH 0.9% 10 ML SYRINGE IVP SCH ×3 (01:46→17:49)
[2021-08-06] MEDS: MORPHINE 2 MG/ML CARPUJECT IVP PRN (02:09)
[2021-08-06] MEDS: metroNIDAZOLE 500 MG/100 ML 500 MG/100 ML BAG IV SCH ×3 (03:08→19:50)
[2021-08-06] MEDS: ACETAMINOPHEN 1,000 MG/100 ML 100 ML IV PRN ×3 (03:09→23:59)
[2021-08-06] MEDS: DEXMEDETOMIDINE 400 MCG in SODIUM CHLORIDE 0.9% 100ML 96 ML IV SCH (06:14)
[2021-08-06] MEDS: hydrALAZINE INJ 20 MG/ML VIAL IVP SCH ×4 (06:14→21:18)
[2021-08-06] MEDS: PANTOPRAZOLE 40 MG VIAL IVP SCH (06:14)
[2021-08-06] MEDS: IPRATROPIUM/ALBUTEROL 3 ML NEB INH SCH ×2 (07:56→12:52)
[2021-08-06] MEDS: VANCOMYCIN INJ 1 GM in SODIUM CHLORIDE 0.9% 250 ML IV SCH ×2 (08:40→19:51)
[2021-08-06] MEDS: DEXAMETHASONE 4 MG/ML VIAL IVP SCH (08:55)
[2021-08-06] MEDS: ENOXAPARIN 40 MG/0.4 ML SYRINGE SUBQ SCH (08:56)
[2021-08-06] MEDS: CEFEPIME 2 GM in SODIUM CHLORIDE 0.9% MINIBAG 100 ML IV SCH ×2 (08:57→20:01)
[2021-08-06] MEDS: CHLORHEXIDINE GLUCONATE 15 ML UDC PO SCH ×2 (08:57→20:02)
--- NOTE | 2021-08-06 09:05 | XRAY Report ---
PROCEDURE: Chest 1 View X-Ray INDICATIONS: Worsening hypoxia post extubation. TECHNIQUE: One view of the chest was acquired. COMPARISON: 08/04/2021, 08/01/2021 FINDINGS: The patient's chin overlies the pulmonary apices, right worse than left. Surgical changes and devices: The previously seen endotracheal tube and gastric tubes have been remov ed. Lungs and pleura: No pleural effusions or pneumothorax. Interstitial infiltrates are seen, which are more prominent than on the 08/04/2021 examination. Low lung volumes can be seen, causing a crowded ap pearance to the lung markings. Small bilateral pleural effusions are seen. Mediastinum: The aorta is prominent and tortuous. The cardiac contours are within normal limits. Bones and chest wall: No suspicious bony lesions. Age-appropriate degenerative changes are seen. Overlying soft tissues appear unremarkable. IMPRESSION: Low lung volumes, with worsening interstitial infiltrates. Please consider fluid overloa d versus atypical infiltrate (including COVID pneumonia). Prior removal of the endotracheal tube and the gastric tube. Reviewed by: Laci Sepulveda MD on 08/06/2021 8:04 AM [facility] Approved by: Laci Sepulveda MD on 08/06/2021 8:04 AM [facility] Station ID: [id number]
[2021-08-06] MEDS: FUROSEMIDE 40 MG/4 ML VIAL IVP SCH (09:48)
[2021-08-06] MEDS: polyethylene glycoL 3350 17 GM PACKET PO SCH (10:31)
[2021-08-06] MEDS ORDERED: PROPOFOL 1000 MG/100 ML 1,000 MG/100 ML BOTTLE IV SCH (12:00)
[2021-08-06] MEDS ORDERED: PROPOFOL 200 MG/20 ML VIAL IVP ONE (12:06)
[2021-08-06] MEDS ORDERED: ROCURONIUM 50 MG/5 ML VIAL ONE (12:07)
[2021-08-06] MEDS: fentaNYL 100 MCG/2 ML VIAL IVP PRN (12:42)
[2021-08-06] MEDS: PROPOFOL 1000 MG/100 ML 1,000 MG/100 ML BOTTLE IV SCH ×2 (12:45→22:20)
[2021-08-06] MEDS ORDERED: IPRATROPIUM/ALBUTEROL 3 ML NEB INH PRN (12:50)
--- NOTE | 2021-08-06 13:02 | PROVIDER PROGRESS NOTE ---
Subjective - Prog Note Date Prog Note Date: 08/06/21 - Subjective Subjective: He is quite lethargic this morning. He has had increasing oxygen requirements overnight. Opens eyes when I speak to him but will not answer. Current Medications - Current Medications Current Medications: Active Medications Acetaminophen (Acetaminophen 325 Mg Tablet) 650 mg PO Q6HR PRN PRN Reason: Pain or Fever > 38C (100.4F) Albuterol (Albuterol Neb 2.5 Mg/3 Ml) 2.5 mg INH RTQ4H PRN PRN Reason: Wheezing Last Admin: 08/05/21 12:40 Dose: 2.5 mg Albuterol/Ipratropium (Ipratropium/Albuterol 3 Ml Neb) 3 ml INH RTQID PRN PRN Reason: Wheezing Chlorhexidine Gluconate (Chlorhexidine Gluconate 15 Ml Udc) 15 ml PO BID [facility] Last Admin: 08/06/21 08:57 Dose: 15 ml Dexamethasone (Dexamethasone 4 Mg/Ml Vial) 6 mg IVP DAILY [facility] Last Admin: 08/06/21 08:55 Dose: 6 mg Enoxaparin Sodium (Enoxaparin 40 Mg/0.4 Ml Syringe) 40 mg SUBQ DAILY [facility] Last Admin: 08/06/21 08:56 Dose: Not Given Fentanyl (Fentanyl 100 Mcg/2 Ml Vial) 100 mcg IVP Q2HR PRN PRN Reason: PAIN Last Admin: 08/06/21 12:42 Dose: 100 mcg Furosemide (Furosemide 40 Mg/4 Ml Vial) 40 mg IVP DAILY [facility] Last Admin: 08/06/21 09:48 Dose: 40 mg Hydralazine HCl (Hydralazine Inj 20 Mg/Ml Vial) 10 mg IVP TID [facility] Last Admin: 08/06/21 09:48 Dose: 10 mg Acetaminophen (Ofirmev) 100 mls @ 400 mls/hr IV Q6HR PRN PRN Reason: Pain or Fever > 38C (100.4F) Last Infusion: 08/06/21 03:36 Dose: Infused Cefepime HCl 2 gm/ Sodium (Chloride) 100 mls @ 200 mls/hr IV BID [facility] Last Infusion: 08/06/21 09:45 Dose: Infused Metronidazole (Flagyl 500 Mg/100 Ml) 500 mg in 100 mls @ 100 mls/hr IV Q8H [facility] Last Infusion: 08/06/21 04:45 Dose: Infused Vancomycin HCl 1 gm/ Sodium (Chloride) 250 mls @ 167 mls/hr IV Q12H [facility] Last Infusion: 08/06/21 10:31 Dose: Infused Fentanyl (Fentanyl) 2,500 mcg in 250 mls @ 8.5 mls/hr IV .[id number] [facility]; Protocol Last Titration: 08/05/21 11:05 Dose: 0 mcg/kg/hr, 0 mls/hr Dexmedetomidine HCl 400 mcg/ (Sodium Chloride) 100 mls @ 4.5 mls/hr IV .[id number] [facility]; Protocol Last Titration: 08/06/21 12:40 Dose: 0.8 mcg/kg/hr, 18 mls/hr Sodium Chloride (Normal Saline 0.9%) 500 mls @ 20 mls/hr IV Q24H PRN PRN Reason: TKO RATE Last Infusion: 08/05/21 19:00 Dose: 20 mls/hr Propofol (Diprivan) 1,000 mg in 100 mls @ 5.361 mls/hr IV .[id number] [facility]; Protocol Last Titration: 08/06/21 12:49 Dose: 50 mcg/kg/min, 26.807 mls/hr Insulin Human Regular (Insulin Regular Human 300 Unit/3 Ml Vial) 1 - 9 unit SUBQ Q6HR [facility]; Protocol Last Admin: 08/06/21 06:57 Dose: Not Given Morphine Sulfate (Morphine 2 Mg/Ml Carpuject) 2 mg IVP Q4HR PRN PRN Reason: PAIN Last Admin: 08/06/21 02:09 Dose: 2 mg Ondansetron HCl (Ondansetron 4 Mg/2 Ml Vial) 4 mg IVP Q6HR PRN PRN Reason: Nausea / Vomiting Pantoprazole Sodium (Pantoprazole 40 Mg Vial) 40 mg IVP QDAC [facility] Last Admin: 08/06/21 06:14 Dose: 40 mg Polyethylene Glycol (Polyethylene Glycol 3350 17 Gm Packet) 17 gm PO DAILY [facility] Last Admin: 08/06/21 10:31 Dose: Not Given Sodium Chloride (Sodium Chloride Flush 0.9% 10 Ml Syringe) 10 ml IVP PRN PRN PRN Reason: NEEDED PER PROVIDER ORDERS Last Admin: 08/03/21 21:54 Dose: 10 ml Sodium Chloride (Sodium Chloride Flush 0.9% 10 Ml Syringe) 10 ml IVP 0100,0900,1700 ARNOLD Last Admin: 08/06/21 09:51 Dose: 10 ml Objective - Vital Signs/Intake & Output Reviewed Vital Signs: Yes Vital Signs: Vital Signs Temp Pulse Pulse Resp BP Pulse Ox 08/06/21 12:53 133 H 08/06/21 12:41 136 H 20 169/113 H 80 L 08/06/21 12:33 139 H 18 117/90 H 98 08/06/21 12:30 139 H 18 209/117 H 98 08/06/21 12:13 18 154/100 H 96 08/06/21 12:00 39.7 C H 112 H 36 H 154/100 H 100 08/06/21 11:24 113 H 08/06/21 11:00 39.5 C H 114 H 37 H 151/110 H 99 08/06/21 10:00 39.1 C H 103 H 36 H 185/104 H 89 L Intake & Output: Intake & Output 08/03/21 08/04/21 08/05/21 08/06/21 23:59 23:59 23:59 23:59 Intake Total 5471.352 6966.622 5198.699 720.791 Output Total 1273 2225 5111 7875 Balance 4198.352 5011.622 -1526.301 -1774.209 - Objective General Appearance: positive: Lethargic, Other (He is quite lethargic. Will occasion open his eyes but will not speak) Eyes Bilateral: positive: Conjunctivae nml ENT: positive: Other (Nasal cannula in place. Left preauricular ecchymosis is improved.) Neck: positive: Nml inspection Respiratory: positive: Rales, Rhonchi. negative: No respiratory distress (He does appear to be in distress and is tachypneic) Cardiovascular: positive: Tachycardia. negative: Systolic murmur - Lab Results Fish Bones: 08/05/21 04:48 08/05/21 04:48 Other Labs: Lab Results x24hrs 08/06/21 08/06/21 08/06/21 Range/Units 11:47 06:43 00:04 POC Whole Bld Glucose 136 H 96 106 H (70 - 100) mg/dL 01/21/22 Range/Units 17:52 POC Whole Bld Glucose 141 H (70 - 100) mg/dL Sepsis Event Note (H) - Evaluation Current Stage of Sepsis: Sepsis Possible source of Sepsis: positive: Pulmonary - Sepsis Criteria Sepsis Criteria: Recorded Temperature greater than 38.3C or Less than 36C, Recorded Heart Rate greater than 90 bpm, Recorded Respiratory Rate greater than 20, Respiratory: Increasing oxygen requirements, WBC count greater than 10% bands, DISHING MACHINE OPERATOR: altered consciousness (unrelated to primary neuro pathology), Hematologic: platelets < 100,000; INR > 1.5, or a PTT>60 seconds Assessment/Plan - Problem List (1) Acute respiratory failure with hypoxia Impression: This is secondary to COVID-19 pneumonia as well as likely bacterial pneumonia. He was extubated yesterday afternoon and was doing well until overnight when he had an increase in his oxygen requirements. We did try 40 mg of IV Lasix without improvement in his oxygenation. This morning he is quite lethargic, tachypneic and desaturates on nasal cannula. I ordered a chest x-ray first morning which showed worsening infiltrates. Given his lethargy and increasing oxygen requirements, we will intubate the patient. We will diurese him with Lasix 40 mg IV daily. Continue broad-spectrum antibiotics with vancomycin, cefepime, Flagyl IV especially given his ongoing fevers. Continue Decadron for COVID-19. We will sedate him with propofol and Precedex. We will use fentanyl as needed. His overall prognosis remains quite guarded. (2) Sepsis Impression: This is felt to be secondary to pneumonia. His white count is normal but he continues to have fevers on daily basis. Has been other obvious source of infection. We will keep him on broad-spectrum antibiotics and perform further work-up of his fever as mentioned below with repeat blood cultures and urinalysis. (3) Pneumonia due to COVID-19 virus Impression: This is contributing to respiratory failure with hypoxia. We will keep him on Decadron. He was not treated with remdesivir given he was intubated. Continue contact precautions. (4) Aspiration pneumonia Impression: Initial concern was for pneumonia which was felt to be aspiration given he was found to be obtunded and the infiltrate was probably one-sided. Repeat imaging shows bilateral infiltrates I suspect the pneumonia is likely due to COVID but given he continues to have fevers and is quite hypoxic, we will keep him on IV antibiotics including vancomycin, cefepime, Flagyl for broad-spectrum coverage. Lower respiratory cultures were obtained and currently have no growth but these were obtained after he had been on antibiotics for 72 hours. (5) Fever Impression: Continues to have daily fevers with temperatures as high as 39.5 C. His white count remains normal. The only obvious source of infection to date was in the pneumonia. His blood cultures have been negative as well as urinalysis. We will repeat blood cultures today as well as a urine analysis. We will keep him on IV antibiotics with vancomycin, cefepime, Flagyl. We will check HIV status. (6) Methamphetamine abuse Impression: His urine toxicology was positive for methamphetamines. We we will need to address this when he is able to participate in a conversation. (7) Rib fracture Impression: He does have a left-sided rib fracture likely due to trauma. Rest of imaging was unremarkable. Qualifiers: Encounter type: initial encounter Rib fracture type: single rib Fracture type: closed Laterality: left Qualified Code(s): S22.32XA - Fracture of one rib, left side, initial encounter for closed fracture
--- NOTE | 2021-08-06 13:44 | XRAY Report ---
PROCEDURE: Chest for Line Placement INDICATIONS: new ETT TECHNIQUE: One view of the chest was acquired. COMPARISON: ET tube tip projects approximately 4.4 cm above the bonnie, in satisfactory position. FINDINGS: Surgical changes and devices: None. Lungs and pleura: No pleural effusions or pneumothorax. Diffuse interstitial infiltrates may represe nt interstitial pulmonary edema versus pneumonia. Patchy left basilar atelectasis. Mediastinum: Mediastinal contours appear normal. Heart size is normal. Bones and chest wall: No suspicious bony lesions. Overlying soft tissues appear unremarkable. IMPRESSION: 1. ET tube in satisfactory position. 2. Question interstitial pulmonary edema versus viral pneumonia. Reviewed by: Mt Owen MD on 08/06/2021 1:43 PM PST Approved by: Mt Owen MD on 08/06/2021 1:43 PM PST Station ID: [id number]
--- NOTE | 2021-08-06 14:31 | XRAY Report ---
PROCEDURE: Chest for Line Placement INDICATIONS: New CVC TECHNIQUE: One view of the chest was acquired. COMPARISON: 08/06/2021 at 1225 hours FINDINGS: Surgical changes and devices: ET tube, as before. Interval placement of a right IJ line, projecting t o the superior vena cava.. Lungs and pleura: No pneumothorax. Interstitial change. Patchy left basilar atelectasis. Mediastinum: Mediastinal contours appear normal. Heart size is normal. Bones and chest wall: No suspicious bony lesions. Overlying soft tissues appear unremarkable. IMPRESSION: Interval placement of a right IJ line which projects to the superior vena cava. Reviewed by: Mt Owen MD on 08/06/2021 2:29 PM PST Approved by: Mt Owen MD on 08/06/2021 2:29 PM PST Station ID: [id number]
--- NOTE | 2021-08-06 14:33 | XRAY Report ---
PROCEDURE: Chest for Line Placement INDICATIONS: OG placement TECHNIQUE: One view of the chest was acquired. COMPARISON: 08/06/2021 at 1331 hours FINDINGS: Surgical changes and devices: ET tube barely identified, and top of image. IJ line projects to the mg perior vena cava. Interval placement of an NG tube, the tip which projects to the GE junction. Lungs and pleura: Unchanged pulmonary findings. Patchy left basilar atelectasis. Interstitial change. Mediastinum: Mediastinal contours appear normal. Heart size is normal. Bones and chest wall: No suspicious bony lesions. Overlying soft tissues appear unremarkable. IMPRESSION: Tip of NG tube projects to GE junction. Suggest advancement. Reviewed by: Mt Owen MD on 08/06/2021 2:31 PM PST Approved by: Mt Owen MD on 08/06/2021 2:31 PM PST Station ID: [id number]
[2021-08-06 14:44] LABS: ABG PH 7.52 (7.35-7.45)
[2021-08-06 14:45] LABS: ABG BASE EXCESS 4.8 mmol/L (-2.0-3.0); ABG HCO3 27.4 mmol/L (22.0-26.0); ABG MODE OF VENTILATION ASSIST/CONTROL; ABG OXYGEN SATURATION 98 % (94-98); ABG PCO2 34 mmHg (34-45); ABG PO2 97 mmHg (80-100); ABG TCO2 28.4 MMOL/L (21.0-29.0)
[2021-08-06 14:46] LABS: ABG RESPIRATORY RATE 18 b/min
--- NOTE | 2021-08-06 15:46 | ANESTHESIA PROCEDURE NOTE ---
Anesth Central Line Template - Central Line Central Line Preparation: Unable to obtain consent, Time out completed, Ultra sound used, Sterile prep and drape Central line location: Right IJ Central line type: Triple lumen Central line catheter tip site resides: Superior vena cava (SVC) Central line aftercare: Chlorhexidine disc placed, Secured (sutured), Placement confirmed, No complications, Bundle checklist complete
--- NOTE | 2021-08-06 15:49 | ANESTHESIA PROCEDURE NOTE ---
Diagnosis: respiratory failure Procedure: Intubation, arterial line, central line Consent for Procedure(s) Verified and Reviewed: No Height and Weight: Height 5 ft 9 in Weight (kg) 89.358 kg Body Mass Index 26.0 Vital Signs: Temp Pulse Resp BP Pulse Ox 39.7 C H 101 H 22 79/68 L 98 08/06/21 12:00 08/06/21 15:00 08/06/21 15:00 08/06/21 15:00 08/06/21 15:00 Allergies No Known Drug Allergies Allergy (Verified 08/01/21 18:07) Requesting Provider: Asiya Location: ICU ASA classification: 4-Incapacitating disease Is this case an emergency?: Yes Anes. Monitoring and Equipment: Pulse oximetery, Sterile prep and drape Anes. Procedure Start Time: 12:30 Anes. Procedure Stop Time: 13:50 Procedure Notes: arterial line placed with U/S multiple attempts, successful on right radial #22g. Intubation was uneventful with James, Grade 1 view. See separate CL note.
[2021-08-06 15:57] LABS: HIV RAPID SCREEN NEGATIVE (NEGATIVE)
[2021-08-06 16:01] LABS: BILIRUBIN,URINE NEGATIVE (NEGATIVE); GLUCOSE, URINE (UA) NEGATIVE (NEGATIVE); KETONES,URINE (UA) NEGATIVE (NEGATIVE); LEUKOCYTE ESTERASE, URINE NEGATIVE (NEGATIVE); NITRITE,URINE NEGATIVE (NEGATIVE); OCCULT BLOOD,URINE LARGE (NEGATIVE); PROTEIN,URINE 100 mg/dL (NEGATIVE); UROBILINOGEN,URINE 0.2 (NORMAL) E.U./dL (NORMAL)
[2021-08-06 16:09] LABS: CLARITY,URINE CLEAR (CLEAR)
[2021-08-06 16:30] LABS: BACTERIA,URINE None Seen /HPF (None Seen); SQUAMOUS EPITHELIAL CELL,UR RARE Squamous (<= Few); WBC,URINE 0-3 /HPF (0-3)
[2021-08-07] MEDS: SODIUM CHLORIDE FLUSH 0.9% 10 ML SYRINGE IVP PRN (00:01)
[2021-08-07] MEDS: INSULIN REGULAR HUMAN 300 UNIT/3 ML VIAL SUBQ SCH ×5 (00:02→23:45)
[2021-08-07] MEDS: SODIUM CHLORIDE FLUSH 0.9% 10 ML SYRINGE IVP SCH ×4 (00:03→23:46)
[2021-08-07] MEDS: fentaNYL 100 MCG/2 ML VIAL IVP PRN ×4 (01:41→22:55)
[2021-08-07] MEDS: PROPOFOL 1000 MG/100 ML 1,000 MG/100 ML BOTTLE IV SCH ×5 (03:36→21:44)
[2021-08-07] MEDS: metroNIDAZOLE 500 MG/100 ML 500 MG/100 ML BAG IV SCH ×3 (03:38→20:37)
[2021-08-07 04:54] LABS: ABG BASE EXCESS 4.5 mmol/L (-2.0-3.0); ABG HCO3 26.8 mmol/L (22.0-26.0); ABG OXYGEN SATURATION 95 % (94-98); ABG PCO2 32 mmHg (34-45); ABG PH 7.54 (7.35-7.45); ABG PO2 88 mmHg (80-100); ABG TCO2 27.7 MMOL/L (21.0-29.0); ALLEN TEST POSITIVE
[2021-08-07 04:55] LABS: ABG MODE OF VENTILATION ASSIST/CONTROL; ABG RESPIRATORY RATE 14 b/min
[2021-08-07] MEDS: hydrALAZINE INJ 20 MG/ML VIAL IVP SCH ×3 (05:30→21:44)
[2021-08-07 05:41] LABS: CALCIUM, IONIZED 1.08 mmol/L (1.15-1.33); VBG PH 7.456 (7.31-7.41)
[2021-08-07 05:49] LABS: BASOPHILS % (AUTO) 0.3 %; EOSINOPHILS % (AUTO) 0.3 %; HCT - HEMATOCRIT 37.8 % (42.0-52.0); HGB - HEMOGLOBIN 11.8 g/dL (14.0-18.0); LYMPHOCYTES % (AUTO) 10.4 %; MEAN CORPUSCULAR HEMOGLOBIN 24.6 pg (27.0-31.0); MEAN CORPUSCULAR HGB CONC 31.2 g/dL (32.0-36.0); MEAN CORPUSCULAR VOLUME 78.8 fL (80.0-94.0); MEAN PLATELET VOLUME 11.9 fL (7.4-11.4); MONOCYTES # (AUTO) 0.9 10^3/uL (0.0-1.0); NEUTROPHILS # (AUTO) 6.9 10^3/uL (1.5-6.6); NEUTROPHILS % (AUTO) 75.5 %; NRBC ABSOLUTE COUNT (AUTO) 0.02 x10^3/uL; NUCLEATED RED BLOOD CELLS AUTO 0.2 /100WBC; PLT - PLATELET COUNT 102 10^3/uL (130-450); RED CELL DISTRIBUTION WIDTH 15.6 % (12.0-15.0); WHITE BLOOD COUNT 9.2 x10^3/uL (4.8-10.8)
[2021-08-07 05:52] LABS: CREATININE 0.6 mg/dL (0.6-1.2); MAGNESIUM 2.1 mg/dL (1.7-2.8); POTASSIUM 3.4 mmol/L (3.5-5.0)
[2021-08-07] MEDS: PANTOPRAZOLE 40 MG VIAL IVP SCH (06:37)
[2021-08-07] MEDS: POTASSIUM CHLOR 20 MEQ/100 ML 20 MEQ/100 ML BAG IV SCH ×2 (06:45→08:04)
--- NOTE | 2021-08-07 07:26 | PROVIDER PROGRESS NOTE ---
Subjective - Prog Note Date Prog Note Date: 08/07/21 - Subjective Subjective: He remains intubated and sedated. Current Medications - Current Medications Current Medications: Active Medications Acetaminophen (Acetaminophen 325 Mg Tablet) 650 mg PO Q6HR PRN PRN Reason: Pain or Fever > 38C (100.4F) Albuterol (Albuterol Neb 2.5 Mg/3 Ml) 2.5 mg INH RTQ4H PRN PRN Reason: Wheezing Last Admin: 08/05/21 12:40 Dose: 2.5 mg Albuterol/Ipratropium (Ipratropium/Albuterol 3 Ml Neb) 3 ml INH RTQID PRN PRN Reason: Wheezing Chlorhexidine Gluconate (Chlorhexidine Gluconate 15 Ml Udc) 15 ml PO BID [facility] Last Admin: 08/07/21 09:39 Dose: 15 ml Dexamethasone (Dexamethasone 4 Mg/Ml Vial) 6 mg IVP DAILY [facility] Last Admin: 08/07/21 09:36 Dose: 6 mg Enoxaparin Sodium (Enoxaparin 40 Mg/0.4 Ml Syringe) 40 mg SUBQ DAILY [facility] Last Admin: 08/07/21 11:04 Dose: 40 mg Fentanyl (Fentanyl 100 Mcg/2 Ml Vial) 100 mcg IVP Q2HR PRN PRN Reason: PAIN Last Admin: 08/07/21 09:38 Dose: 100 mcg Furosemide (Furosemide 40 Mg/4 Ml Vial) 40 mg IVP DAILY [facility] Last Admin: 08/07/21 09:39 Dose: 40 mg Hydralazine HCl (Hydralazine Inj 20 Mg/Ml Vial) 10 mg IVP TID [facility] Last Admin: 08/07/21 05:30 Dose: 10 mg Acetaminophen (Ofirmev) 100 mls @ 400 mls/hr IV Q6HR PRN PRN Reason: Pain or Fever > 38C (100.4F) Last Admin: 08/07/21 13:11 Dose: 400 mls/hr Cefepime HCl 2 gm/ Sodium (Chloride) 100 mls @ 200 mls/hr IV BID [facility] Last Infusion: 08/07/21 10:30 Dose: Infused Metronidazole (Flagyl 500 Mg/100 Ml) 500 mg in 100 mls @ 100 mls/hr IV Q8H [facility] Last Infusion: 08/07/21 13:12 Dose: Infused Vancomycin HCl 1 gm/ Sodium (Chloride) 250 mls @ 167 mls/hr IV Q12H [facility] Last Infusion: 08/07/21 09:45 Dose: Infused Fentanyl (Fentanyl) 2,500 mcg in 250 mls @ 8.5 mls/hr IV .[id number] [facility]; Protocol Last Titration: 08/06/21 22:13 Dose: Infused Dexmedetomidine HCl 400 mcg/ (Sodium Chloride) 100 mls @ 4.5 mls/hr IV .[id number] [facility]; Protocol Last Titration: 08/06/21 13:59 Dose: Infused Sodium Chloride (Normal Saline 0.9%) 500 mls @ 20 mls/hr IV Q24H PRN PRN Reason: TKO RATE Last Infusion: 08/06/21 21:33 Dose: Infused Propofol (Diprivan) 1,000 mg in 100 mls @ 5.361 mls/hr IV .[id number] [facility]; Protocol Last Admin: 08/07/21 13:13 Dose: 40 mcg/kg/min, 21.446 mls/hr Insulin Human Regular (Insulin Regular Human 300 Unit/3 Ml Vial) 1 - 9 unit SUBQ Q6HR [facility]; Protocol Last Admin: 08/07/21 12:30 Dose: Not Given Morphine Sulfate (Morphine 2 Mg/Ml Carpuject) 2 mg IVP Q4HR PRN PRN Reason: PAIN Last Admin: 08/07/21 00:00 Dose: 2 mg Ondansetron HCl (Ondansetron 4 Mg/2 Ml Vial) 4 mg IVP Q6HR PRN PRN Reason: Nausea / Vomiting Pantoprazole Sodium (Pantoprazole 40 Mg Vial) 40 mg IVP QDAC [facility] Last Admin: 08/07/21 06:37 Dose: 40 mg Polyethylene Glycol (Polyethylene Glycol 3350 17 Gm Packet) 17 gm PO DAILY [facility] Last Admin: 08/07/21 09:45 Dose: Not Given Sodium Chloride (Sodium Chloride Flush 0.9% 10 Ml Syringe) 10 ml IVP PRN PRN PRN Reason: NEEDED PER PROVIDER ORDERS Last Admin: 08/07/21 00:01 Dose: 10 ml Sodium Chloride (Sodium Chloride Flush 0.9% 10 Ml Syringe) 10 ml IVP 0100,0900,1700 [facility] Last Admin: 08/07/21 11:04 Dose: 10 ml Objective - Vital Signs/Intake & Output Reviewed Vital Signs: Yes Vital Signs: Vital Signs Pulse Resp BP BP Pulse Ox 08/07/21 07:00 115 H 22 109/73 96 08/07/21 06:00 111 H 25 H 126/77 94 08/07/21 05:30 149/89 H 08/07/21 05:00 113 H 28 H 149/89 H 97 08/07/21 04:00 95 27 H 152/96 H 96 Intake & Output: Intake & Output 08/04/21 08/05/21 08/06/21 08/07/21 23:59 23:59 23:59 23:59 Intake Total 6966.622 5198.699 1688.975 383.765 Output Total 1461 6789 3225 1105 Balance 5011.622 -1526.301 -1536.025 -721.235 - Objective General Appearance: positive: Other (Sedated.) Eyes Bilateral: positive: Conjunctivae nml ENT: positive: Other (ET tube in place. Left periauricular ecchymosis is present but improved) Neck: positive: Nml inspection Respiratory: positive: Rhonchi. negative: Rales Cardiovascular: positive: Tachycardia. negative: Irregularly irregular, Systolic murmur Abdomen: positive: Non-tender, No distention. negative: Tenderness Skin: positive: Warm, Dry, Other (Right AKA and left foot imitation noted. Chronic venous stasis changes.) Extremities: positive: No pedal edema - Lab Results Fish Bones: 08/07/21 04:42 08/07/21 04:42 Other Labs: Lab Results x24hrs 08/07/21 08/07/21 08/07/21 Range/Units 04:45 04:42 04:42 WBC (4.8-10.8) x10^3/uL RBC (4.70-6.10) 10^6/uL Hgb (14.0-18.0) g/dL Hct (42.0-52.0) % MCV (80.0-94.0) fL MCH (27.0-31.0) pg MCHC (32.0-36.0) g/dL RDW (12.0-15.0) % Plt Count (130-450) 10^3/uL MPV (7.4-11.4) fL Neut # (Auto) (1.5-6.6) 10^3/uL Lymph # (Auto) (1.5-3.5) 10^3/uL [place] # (Auto) (0.0-1.0) 10^3/uL Eos # (Auto) (0.0-0.7) 10^3/uL Baso # (Auto) (0.0-0.1) 10^3/uL Absolute Nucleated RBC x10^3/uL Nucleated RBC % /100WBC Bld Gas Analysis Time 0452 Sample Site A-LINE ABG pH 7.54 H (7.35-7.45) ABG pCO2 32 L (34-45) mmHg ABG pO2 88 (80-100) mmHg ABG HCO3 26.8 H (22.0-26.0) mmol/L ABG Total CO2 27.7 (21.0-29.0) MMOL/L ABG O2 Saturation 95 (94-98) % ABG Base Excess 4.5 H (-2.0-3.0) mmol/L Madhu Test POSITIVE VBG pH 7.456 H (7.31-7.41) Ionized Calcium 1.08 L (1.15-1.33) mmol/L Respiration Rate 14 b/min O2 Delivery Device VENTILATOR Vent Mode ASSIST/CONTROL FiO2 40.00 Tidal Volume 500 mL PEEP 5 cmH2O Sodium 139 (135-145) mmol/L Potassium 3.4 L (3.5-5.0) mmol/L Chloride 101 (101-111) mmol/L Carbon Dioxide 26 (21-32) mmol/L Anion Gap 12.0 (6-13) BUN 27 H (6-20) mg/dL Creatinine 0.6 (0.6-1.2) mg/dL Estimated GFR (MDRD) 134 (>89) Glucose 112 H (70-100) mg/dL POC Whole Bld Glucose (70 - 100) mg/dL Calcium 8.0 L (8.5-10.3) mg/dL Phosphorus (2.5-4.6) mg/dL Magnesium 2.1 (1.7-2.8) mg/dL Urine Color Urine Clarity (CLEAR) Urine pH (5.0-7.5) PH Ur Specific [place] (1.002-1.030) Urine Protein (NEGATIVE) mg/dL Urine Glucose (UA) (NEGATIVE) mg/dL Urine Ketones (NEGATIVE) mg/dL Urine Occult Blood (NEGATIVE) Urine Nitrite (NEGATIVE) Urine Bilirubin (NEGATIVE) Urine Urobilinogen (NORMAL) E.U./dL Ur Leukocyte Esterase (NEGATIVE) Urine RBC (0-5) /HPF Urine WBC (0-3) /HPF Ur Squamous Epith Cells (<= Few) Urine Bacteria (None Seen) /HPF Ur Microscopic Review HIV 1&2 Antibody Rapid (NEGATIVE) 08/07/21 08/07/21 08/06/21 Range/Units 04:42 04:40 23:10 WBC 9.2 (4.8-10.8) x10^3/uL RBC 4.80 (4.70-6.10) 10^6/uL Hgb 11.8 L (14.0-18.0) g/dL Hct 37.8 L (42.0-52.0) % MCV 78.8 L (80.0-94.0) fL MCH 24.6 L (27.0-31.0) pg MCHC 31.2 L (32.0-36.0) g/dL RDW 15.6 H (12.0-15.0) % Plt Count 102 L (130-450) 10^3/uL MPV 11.9 H (7.4-11.4) fL Neut # (Auto) 6.9 H (1.5-6.6) 10^3/uL Lymph # (Auto) 1.0 L (1.5-3.5) 10^3/uL [place] # (Auto) 0.9 (0.0-1.0) 10^3/uL Eos # (Auto) 0.0 (0.0-0.7) 10^3/uL Baso # (Auto) 0.0 (0.0-0.1) 10^3/uL Absolute Nucleated RBC 0.02 x10^3/uL Nucleated RBC % 0.2 /100WBC Bld Gas Analysis Time Sample Site ABG pH (7.35-7.45) ABG pCO2 (34-45) mmHg ABG pO2 (80-100) mmHg ABG HCO3 (22.0-26.0) mmol/L ABG Total CO2 (21.0-29.0) MMOL/L ABG O2 Saturation (94-98) % ABG Base Excess (-2.0-3.0) mmol/L Madhu Test VBG pH (7.31-7.41) Ionized Calcium (1.15-1.33) mmol/L Respiration Rate b/min O2 Delivery Device Vent Mode FiO2 Tidal Volume mL PEEP cmH2O Sodium (135-145) mmol/L Potassium (3.5-5.0) mmol/L Chloride (101-111) mmol/L Carbon Dioxide (21-32) mmol/L Anion Gap (6-13) BUN (6-20) mg/dL Creatinine (0.6-1.2) mg/dL Estimated GFR (MDRD) (>89) Glucose (70-100) mg/dL POC Whole Bld Glucose 141 H (70 - 100) mg/dL Calcium (8.5-10.3) mg/dL Phosphorus 3.3 (2.5-4.6) mg/dL Magnesium (1.7-2.8) mg/dL Urine Color Urine Clarity (CLEAR) Urine pH (5.0-7.5) PH Ur Specific [place] (1.002-1.030) Urine Protein (NEGATIVE) mg/dL Urine Glucose (UA) (NEGATIVE) mg/dL Urine Ketones (NEGATIVE) mg/dL Urine Occult Blood (NEGATIVE) Urine Nitrite (NEGATIVE) Urine Bilirubin (NEGATIVE) Urine Urobilinogen (NORMAL) E.U./dL Ur Leukocyte Esterase (NEGATIVE) Urine RBC (0-5) /HPF Urine WBC (0-3) /HPF Ur Squamous Epith Cells (<= Few) Urine Bacteria (None Seen) /HPF Ur Microscopic Review HIV 1&2 Antibody Rapid (NEGATIVE) 08/06/21 08/06/21 08/06/21 Range/Units 18:28 15:14 14:50 WBC (4.8-10.8) x10^3/uL RBC (4.70-6.10) 10^6/uL Hgb (14.0-18.0) g/dL Hct (42.0-52.0) % MCV (80.0-94.0) fL MCH (27.0-31.0) pg MCHC (32.0-36.0) g/dL RDW (12.0-15.0) % Plt Count (130-450) 10^3/uL MPV (7.4-11.4) fL Neut # (Auto) (1.5-6.6) 10^3/uL Lymph # (Auto) (1.5-3.5) 10^3/uL [place] # (Auto) (0.0-1.0) 10^3/uL Eos # (Auto) (0.0-0.7) 10^3/uL Baso # (Auto) (0.0-0.1) 10^3/uL Absolute Nucleated RBC x10^3/uL Nucleated RBC % /100WBC Bld Gas Analysis Time Sample Site ABG pH (7.35-7.45) ABG pCO2 (34-45) mmHg ABG pO2 (80-100) mmHg ABG HCO3 (22.0-26.0) mmol/L ABG Total CO2 (21.0-29.0) MMOL/L ABG O2 Saturation (94-98) % ABG Base Excess (-2.0-3.0) mmol/L Madhu Test VBG pH (7.31-7.41) Ionized Calcium (1.15-1.33) mmol/L Respiration Rate b/min O2 Delivery Device Vent Mode FiO2 Tidal Volume mL PEEP cmH2O Sodium (135-145) mmol/L Potassium (3.5-5.0) mmol/L Chloride (101-111) mmol/L Carbon Dioxide (21-32) mmol/L Anion Gap (6-13) BUN (6-20) mg/dL Creatinine (0.6-1.2) mg/dL Estimated GFR (MDRD) (>89) Glucose (70-100) mg/dL POC Whole Bld Glucose 162 H (70 - 100) mg/dL Calcium (8.5-10.3) mg/dL Phosphorus (2.5-4.6) mg/dL Magnesium (1.7-2.8) mg/dL Urine Color YELLOW Urine Clarity CLEAR (CLEAR) Urine pH 6.0 (5.0-7.5) PH Ur Specific [place] 1.025 (1.002-1.030) Urine Protein 100 H (NEGATIVE) mg/dL Urine Glucose (UA) NEGATIVE (NEGATIVE) mg/dL Urine Ketones NEGATIVE (NEGATIVE) mg/dL Urine Occult Blood LARGE H (NEGATIVE) Urine Nitrite NEGATIVE (NEGATIVE) Urine Bilirubin NEGATIVE (NEGATIVE) Urine Urobilinogen 0.2 (NORMAL) (NORMAL) E.U./dL Ur Leukocyte Esterase NEGATIVE (NEGATIVE) Urine RBC 11-25 H (0-5) /HPF Urine WBC 0-3 (0-3) /HPF Ur Squamous Epith Cells RARE Squamous (<= Few) Urine Bacteria None Seen (None Seen) /HPF Ur Microscopic Review INDICATED HIV 1&2 Antibody Rapid NEGATIVE (NEGATIVE) 08/06/21 08/06/21 Range/Units 14:35 11:47 WBC (4.8-10.8) x10^3/uL RBC (4.70-6.10) 10^6/uL Hgb (14.0-18.0) g/dL Hct (42.0-52.0) % MCV (80.0-94.0) fL MCH (27.0-31.0) pg MCHC (32.0-36.0) g/dL RDW (12.0-15.0) % Plt Count (130-450) 10^3/uL MPV (7.4-11.4) fL Neut # (Auto) (1.5-6.6) 10^3/uL Lymph # (Auto) (1.5-3.5) 10^3/uL [place] # (Auto) (0.0-1.0) 10^3/uL Eos # (Auto) (0.0-0.7) 10^3/uL Baso # (Auto) (0.0-0.1) 10^3/uL Absolute Nucleated RBC x10^3/uL Nucleated RBC % /100WBC Bld Gas Analysis Time 1442 Sample Site ABG pH 7.52 H (7.35-7.45) ABG pCO2 34 (34-45) mmHg ABG pO2 97 (80-100) mmHg ABG HCO3 27.4 H (22.0-26.0) mmol/L ABG Total CO2 28.4 (21.0-29.0) MMOL/L ABG O2 Saturation 98 (94-98) % ABG Base Excess 4.8 H (-2.0-3.0) mmol/L Madhu Test NOT APPLICABLE VBG pH (7.31-7.41) Ionized Calcium (1.15-1.33) mmol/L Respiration Rate 18 b/min O2 Delivery Device VENTILATOR Vent Mode ASSIST/CONTROL FiO2 70.00 Tidal Volume 500 mL PEEP 12 cmH2O Sodium (135-145) mmol/L Potassium (3.5-5.0) mmol/L Chloride (101-111) mmol/L Carbon Dioxide (21-32) mmol/L Anion Gap (6-13) BUN (6-20) mg/dL Creatinine (0.6-1.2) mg/dL Estimated GFR (MDRD) (>89) Glucose (70-100) mg/dL POC Whole Bld Glucose 136 H (70 - 100) mg/dL Calcium (8.5-10.3) mg/dL Phosphorus (2.5-4.6) mg/dL Magnesium (1.7-2.8) mg/dL Urine Color Urine Clarity (CLEAR) Urine pH (5.0-7.5) PH Ur Specific [place] (1.002-1.030) Urine Protein (NEGATIVE) mg/dL Urine Glucose (UA) (NEGATIVE) mg/dL Urine Ketones (NEGATIVE) mg/dL Urine Occult Blood (NEGATIVE) Urine Nitrite (NEGATIVE) Urine Bilirubin (NEGATIVE) Urine Urobilinogen (NORMAL) E.U./dL Ur Leukocyte Esterase (NEGATIVE) Urine RBC (0-5) /HPF Urine WBC (0-3) /HPF Ur Squamous Epith Cells (<= Few) Urine Bacteria (None Seen) /HPF Ur Microscopic Review HIV 1&2 Antibody Rapid (NEGATIVE) Sepsis Event Note (H) - Evaluation Current Stage of Sepsis: Sepsis Possible source of Sepsis: positive: Pulmonary - Sepsis Criteria Sepsis Criteria: Recorded Temperature greater than 38.3C or Less than 36C, Recorded Heart Rate greater than 90 bpm, Recorded Respiratory Rate greater than 20, Respiratory: Increasing oxygen requirements, WBC count greater than 10% bands, [employer]: altered consciousness (unrelated to primary neuro pathology), Hematologic: platelets < 100,000; INR > 1.5, or a PTT>60 seconds Assessment/Plan - Problem List (1) Acute respiratory failure with hypoxia Impression: Secondary to COVID-pneumonia as well as suspected bacterial pneumonia. He was intubated again yesterday due to increasing oxygen requirements and lethargic. He is doing well on the ventilator today. FiO2 requirements only 50% with sats in the high 90s. We will keep him on the steroids for COVID-pneumonia as well as the IV antibiotics given his ongoing fevers and hypoxia. We will also continue to diurese him with Lasix IV. Continue sedation with propofol and fentanyl pushes. (2) Sepsis Impression: His white count remains normal but he continues to have daily fevers as high as 39.5 C. The only obvious source of infections to date are the COVID-pneumonia as well as likely bacterial pneumonia. Urinalysis has been unremarkable twice now. Initial blood cultures are negative and repeat blood cultures are positive in 1 set and negative any other which suggest likely contaminant. I suspect his fevers are likely just due to the COVID-pneumonia we will keep him on antibiotics given his ongoing fevers. (3) Pneumonia due to COVID-19 virus Impression: This is contributing to respiratory failure with hypoxia. He remains on a ventilator we will continue Decadron. Continue contact precautions. He also remains on IV antibiotics given concern for bacterial component of infection. (4) Aspiration pneumonia Impression: This is also believed to be contributing to his respiratory failure with hypoxia . He continues to spike a daily fever despite normal white blood cell count. Respiratory cultures have had no growth. We will keep him on vancomycin, cefepime, Flagyl IV. (5) Fever Impression: I suspect is related to the COVID-19 pneumonia or bacterial pneumonia. I did consider repeating imaging today but he had already had a CT on admission of the chest and abdomen pelvis which showed no evidence of infection except for the pneumonia. I am not sure why he continues to have daily fevers. I doubt this is a drug fever. We can consider a lumbar puncture although when he was extubated briefly, he did not show evidence of meningitis. His urinalysis has been unremarkable. We will keep him on broad-spectrum IV antibiotics. HIV was checked and this was negative. We will consider repeat imaging with CT if he continues to spike fevers tomorrow. (6) Methamphetamine abuse Impression: His urine toxicology was positive for methamphetamines. We we will need to address this when he is able to participate in a conversation. (7) Rib fracture Impression: He does have a left-sided rib fracture likely due to trauma. Rest of imaging was unremarkable. Qualifiers: Encounter type: initial encounter Rib fracture type: single rib Fracture type: closed Laterality: left Qualified Code(s): S22.32XA - Fracture of one rib, left side, initial encounter for closed fracture
[2021-08-07] MEDS: VANCOMYCIN INJ 1 GM in SODIUM CHLORIDE 0.9% 250 ML IV SCH ×2 (08:03→20:38)
[2021-08-07] MEDS: CEFEPIME 2 GM in SODIUM CHLORIDE 0.9% MINIBAG 100 ML IV SCH ×2 (09:33→20:52)
[2021-08-07] MEDS: DEXAMETHASONE 4 MG/ML VIAL IVP SCH (09:36)
[2021-08-07] MEDS: CHLORHEXIDINE GLUCONATE 15 ML UDC PO SCH ×2 (09:39→20:39)
[2021-08-07] MEDS: FUROSEMIDE 40 MG/4 ML VIAL IVP SCH (09:39)
[2021-08-07] MEDS: polyethylene glycoL 3350 17 GM PACKET PO SCH (09:45)
[2021-08-07] MEDS: ENOXAPARIN 40 MG/0.4 ML SYRINGE SUBQ SCH (11:04)
[2021-08-07] MEDS: ACETAMINOPHEN 1,000 MG/100 ML 100 ML IV PRN ×2 (13:11→20:37)
[2021-08-07] MEDS: MORPHINE 2 MG/ML CARPUJECT IVP PRN ×2 (20:39)
[2021-08-07] MEDS ORDERED: ROCURONIUM 50 MG/5 ML VIAL ONE (21:10)
[2021-08-07] MEDS ORDERED: ROCURONIUM 50 MG/5 ML VIAL IVP STA (21:12)
--- NOTE | 2021-08-07 21:16 | ED Physician Documentation ---
ED Addendum - Addendum Addendum: 08/07/21 21:14 I was asked to reintubate this gentleman by the hospitalist as he had developed a cuff leak. He was bolused 80 mg of propofol and then 50 mg of rocuronium with good effect. He was easily reintubated with a bougie and a, 7.5 cuffed tube at 23 cm at the teeth. Bilateral breath sounds and good end-tidal waveform on the monitor.
--- NOTE | 2021-08-07 22:19 | XRAY Report ---
PROCEDURE: Post ET Tube 1V CXR INDICATIONS: ETT placement TECHNIQUE: One view of the chest was acquired. COMPARISON: 08/06/2021 FINDINGS: Endotracheal tube tip projects approximately 1 cm above the bonnie. Right IJ catheter terminates in t he upper portion of the SVC. Enteric tube terminates in the distal esophagus. PACS. Airspace opacitie s in the left lung base effusion are similar. IMPRESSION: Advancement of enteric tube recommended by at least 10 cm, currently terminating distal esophagus. Consider approximately 2 cm retraction of the endotracheal tube, which currently terminates at the ca claudette only 1 cm from the mainstem bronchi. Reviewed by: Osito Fung MD on 08/07/2021 10:18 PM PST Approved by: Osito Fung MD on 08/07/2021 10:18 PM PST Station ID: [id number]
[2021-08-07] MEDS ORDERED: SODIUM CHLORIDE 0.9% 250 ML IV ONE (23:05)
[2021-08-07] MEDS: fentaNYL 2,500 MCG/250 ML 2,500 MCG/250 ML BAG IV SCH (23:10)
[2021-08-08] MEDS: PROPOFOL 1000 MG/100 ML 1,000 MG/100 ML BOTTLE IV SCH ×6 (00:51→22:47)
[2021-08-08] MEDS: metroNIDAZOLE 500 MG/100 ML 500 MG/100 ML BAG IV SCH ×3 (04:24→20:10)
[2021-08-08] MEDS: hydrALAZINE INJ 20 MG/ML VIAL IVP SCH ×2 (05:13→13:25)
[2021-08-08 05:49] LABS: BASOPHILS % (AUTO) 0.2 %; EOSINOPHILS % (AUTO) 0.1 %; HCT - HEMATOCRIT 34.6 % (42.0-52.0); HGB - HEMOGLOBIN 10.7 g/dL (14.0-18.0); LYMPHOCYTES # (AUTO) 1.3 10^3/uL (1.5-3.5); LYMPHOCYTES % (AUTO) 14.5 %; MEAN CORPUSCULAR HEMOGLOBIN 24.8 pg (27.0-31.0); MEAN CORPUSCULAR HGB CONC 30.9 g/dL (32.0-36.0); MEAN CORPUSCULAR VOLUME 80.3 fL (80.0-94.0); MEAN PLATELET VOLUME 11.8 fL (7.4-11.4); MONOCYTES # (AUTO) 1.1 10^3/uL (0.0-1.0); MONOCYTES % (AUTO) 11.7 %; NEUTROPHILS # (AUTO) 6.4 10^3/uL (1.5-6.6); NEUTROPHILS % (AUTO) 68.7 %; NRBC ABSOLUTE COUNT (AUTO) 0.02 x10^3/uL; NUCLEATED RED BLOOD CELLS AUTO 0.2 /100WBC; PLT - PLATELET COUNT 127 10^3/uL (130-450); RED BLOOD COUNT 4.31 10^6/uL (4.70-6.10); RED CELL DISTRIBUTION WIDTH 15.9 % (12.0-15.0); WHITE BLOOD COUNT 9.3 x10^3/uL (4.8-10.8)
[2021-08-08 05:58] LABS: ALBUMIN/GLOBULIN RATIO 0.6 (1.0-2.2); BILIRUBIN,TOTAL 0.7 mg/dL (0.2-1.0); CREATININE 0.7 mg/dL (0.6-1.2); MAGNESIUM 2.1 mg/dL (1.7-2.8); PHOSPHORUS 3.1 mg/dL (2.5-4.6); POTASSIUM 3.8 mmol/L (3.5-5.0); TOTAL PROTEIN 5.2 g/dL (6.7-8.2)
[2021-08-08] MEDS ORDERED: POTASSIUM CHLOR 20 MEQ/100 ML 20 MEQ/100 ML BAG IV ONE (06:08)
[2021-08-08] MEDS: INSULIN REGULAR HUMAN 300 UNIT/3 ML VIAL SUBQ SCH ×4 (06:10→23:42)
[2021-08-08] MEDS: PANTOPRAZOLE 40 MG VIAL IVP SCH (06:11)
--- NOTE | 2021-08-08 07:28 | PROVIDER PROGRESS NOTE ---
Subjective - Prog Note Date Prog Note Date: 08/08/21 - Subjective Subjective: Remains intubated and sedated. Current Medications - Current Medications Current Medications: Active Medications Acetaminophen (Acetaminophen 325 Mg Tablet) 650 mg PO Q6HR PRN PRN Reason: Pain or Fever > 38C (100.4F) Albuterol (Albuterol Neb 2.5 Mg/3 Ml) 2.5 mg INH RTQ4H PRN PRN Reason: Wheezing Last Admin: 08/05/21 12:40 Dose: 2.5 mg Albuterol/Ipratropium (Ipratropium/Albuterol 3 Ml Neb) 3 ml INH RTQID PRN PRN Reason: Wheezing Chlorhexidine Gluconate (Chlorhexidine Gluconate 15 Ml Udc) 15 ml PO BID [facility] Last Admin: 08/08/21 08:10 Dose: 15 ml Dexamethasone (Dexamethasone 4 Mg/Ml Vial) 6 mg IVP DAILY [facility] Last Admin: 08/08/21 08:10 Dose: 6 mg Enoxaparin Sodium (Enoxaparin 40 Mg/0.4 Ml Syringe) 40 mg SUBQ DAILY [facility] Last Admin: 08/08/21 08:10 Dose: 40 mg Fentanyl (Fentanyl 100 Mcg/2 Ml Vial) 100 mcg IVP Q2HR PRN PRN Reason: PAIN Last Admin: 08/07/21 22:55 Dose: 100 mcg Furosemide (Furosemide 40 Mg/4 Ml Vial) 40 mg IVP DAILY [facility] Last Admin: 08/08/21 08:10 Dose: 40 mg Hydralazine HCl (Hydralazine Inj 20 Mg/Ml Vial) 10 mg IVP TID [facility] Last Admin: 08/08/21 05:13 Dose: 10 mg Acetaminophen (Ofirmev) 100 mls @ 400 mls/hr IV Q6HR PRN PRN Reason: Pain or Fever > 38C (100.4F) Last Infusion: 08/07/21 20:55 Dose: Infused Cefepime HCl 2 gm/ Sodium (Chloride) 100 mls @ 200 mls/hr IV BID [facility] Last Infusion: 08/08/21 08:45 Dose: Infused Metronidazole (Flagyl 500 Mg/100 Ml) 500 mg in 100 mls @ 100 mls/hr IV Q8H [facility] Last Infusion: 08/08/21 05:29 Dose: Infused Vancomycin HCl 1 gm/ Sodium (Chloride) 250 mls @ 167 mls/hr IV Q12H [facility] Last Admin: 08/08/21 08:10 Dose: 167 mls/hr Fentanyl (Fentanyl) 2,500 mcg in 250 mls @ 8.5 mls/hr IV .[id number] [facility]; Protocol Last Titration: 08/08/21 09:00 Dose: 3 mcg/kg/hr, 25.5 mls/hr Dexmedetomidine HCl 400 mcg/ (Sodium Chloride) 100 mls @ 4.5 mls/hr IV .[id number] [facility]; Protocol Last Admin: 08/08/21 09:15 Dose: Not Given Sodium Chloride (Normal Saline 0.9%) 500 mls @ 20 mls/hr IV Q24H PRN PRN Reason: TKO RATE Last Admin: 08/08/21 08:00 Dose: 20 mls/hr Propofol (Diprivan) 1,000 mg in 100 mls @ 5.361 mls/hr IV .[id number] [facility]; Protocol Last Titration: 08/08/21 08:10 Dose: Infused Insulin Human Regular (Insulin Regular Human 300 Unit/3 Ml Vial) 1 - 9 unit SUBQ Q6HR [facility]; Protocol Last Admin: 08/08/21 06:10 Dose: Not Given Morphine Sulfate (Morphine 2 Mg/Ml Carpuject) 2 mg IVP Q4HR PRN PRN Reason: PAIN Last Admin: 08/07/21 20:39 Dose: 2 mg Ondansetron HCl (Ondansetron 4 Mg/2 Ml Vial) 4 mg IVP Q6HR PRN PRN Reason: Nausea / Vomiting Pantoprazole Sodium (Pantoprazole 40 Mg Vial) 40 mg IVP QDAC [facility] Last Admin: 08/08/21 06:11 Dose: 40 mg Polyethylene Glycol (Polyethylene Glycol 3350 17 Gm Packet) 17 gm PO DAILY [facility] Last Admin: 08/08/21 09:17 Dose: Not Given Sodium Chloride (Sodium Chloride Flush 0.9% 10 Ml Syringe) 10 ml IVP PRN PRN PRN Reason: NEEDED PER PROVIDER ORDERS Last Admin: 08/07/21 00:01 Dose: 10 ml Sodium Chloride (Sodium Chloride Flush 0.9% 10 Ml Syringe) 10 ml IVP 0100,0900,1700 [facility] Last Admin: 08/08/21 09:17 Dose: 10 ml Objective - Vital Signs/Intake & Output Reviewed Vital Signs: Yes Vital Signs: Vital Signs Temp Pulse Pulse Resp BP BP BP 08/08/21 07:00 37.4 C 86 22 89/61 L 92/54 L 08/08/21 06:00 37.4 C 88 42 H 138/76 H 147/65 H 08/08/21 05:15 92 08/08/21 05:13 162/80 H 08/08/21 05:00 37.2 C 85 18 142/89 H 167/81 H 08/08/21 04:00 37.3 C 84 24 100/73 132/74 H Pulse Ox 08/08/21 07:00 92 08/08/21 06:00 92 08/08/21 05:15 08/08/21 05:13 08/08/21 05:00 92 08/08/21 04:00 97 Intake & Output: Intake & Output 08/05/21 08/06/21 08/07/21 08/08/21 23:59 23:59 23:59 23:59 Intake Total 5198.699 4329.217 2823.452 363.457 Output Total 6725 3225 3735 210 Balance -1526.301 -1536.025 -1720.548 153.457 - Objective General Appearance: positive: Other (Sedated.) ENT: positive: ENT inspection nml, Other (ET tube in place.) Neck: positive: Nml inspection Respiratory: positive: No respiratory distress, Rales Cardiovascular: positive: Regular rate & rhythm. negative: Tachycardia Skin: positive: Warm, Dry Extremities: positive: No pedal edema, Other (Right AKA. Left foot amputation.) - Lab Results Fish Bones: 08/08/21 05:05 08/08/21 05:05 Other Labs: Lab Results x24hrs 08/08/21 08/08/21 08/08/21 Range/Units 05:48 05:05 05:05 WBC 9.3 (4.8-10.8) x10^3/uL RBC 4.31 L (4.70-6.10) 10^6/uL Hgb 10.7 L (14.0-18.0) g/dL Hct 34.6 L (42.0-52.0) % MCV 80.3 (80.0-94.0) fL MCH 24.8 L (27.0-31.0) pg MCHC 30.9 L (32.0-36.0) g/dL RDW 15.9 H (12.0-15.0) % Plt Count 127 L (130-450) 10^3/uL MPV 11.8 H (7.4-11.4) fL Neut # (Auto) 6.4 (1.5-6.6) 10^3/uL Lymph # (Auto) 1.3 L (1.5-3.5) 10^3/uL Divide # (Auto) 1.1 H (0.0-1.0) 10^3/uL Eos # (Auto) 0.0 (0.0-0.7) 10^3/uL Baso # (Auto) 0.0 (0.0-0.1) 10^3/uL Absolute Nucleated RBC 0.02 x10^3/uL Nucleated RBC % 0.2 /100WBC Sodium (135-145) mmol/L Potassium (3.5-5.0) mmol/L Chloride (101-111) mmol/L Carbon Dioxide (21-32) mmol/L Anion Gap (6-13) BUN (6-20) mg/dL Creatinine (0.6-1.2) mg/dL Estimated GFR (MDRD) (>89) Glucose (70-100) mg/dL POC Whole Bld Glucose 119 H (70 - 100) mg/dL Calcium (8.5-10.3) mg/dL Phosphorus (2.5-4.6) mg/dL Magnesium (1.7-2.8) mg/dL Total Bilirubin (0.2-1.0) mg/dL AST (10-42) IU/L ALT (10-60) IU/L Alkaline Phosphatase (42-121) IU/L B-Natriuretic Peptide 388 H (5-100) pg/mL Total Protein (6.7-8.2) g/dL Albumin (3.2-5.5) g/dL Globulin (2.1-4.2) g/dL Albumin/Globulin Ratio (1.0-2.2) Prealbumin (18-45) mg/dL 08/08/21 08/07/21 08/07/21 Range/Units 05:05 23:02 18:11 WBC (4.8-10.8) x10^3/uL RBC (4.70-6.10) 10^6/uL Hgb (14.0-18.0) g/dL Hct (42.0-52.0) % MCV (80.0-94.0) fL MCH (27.0-31.0) pg MCHC (32.0-36.0) g/dL RDW (12.0-15.0) % Plt Count (130-450) 10^3/uL MPV (7.4-11.4) fL Neut # (Auto) (1.5-6.6) 10^3/uL Lymph # (Auto) (1.5-3.5) 10^3/uL Divide # (Auto) (0.0-1.0) 10^3/uL Eos # (Auto) (0.0-0.7) 10^3/uL Baso # (Auto) (0.0-0.1) 10^3/uL Absolute Nucleated RBC x10^3/uL Nucleated RBC % /100WBC Sodium 141 (135-145) mmol/L Potassium 3.8 (3.5-5.0) mmol/L Chloride 106 (101-111) mmol/L Carbon Dioxide 27 (21-32) mmol/L Anion Gap 8.0 (6-13) BUN 31 H (6-20) mg/dL Creatinine 0.7 (0.6-1.2) mg/dL Estimated GFR (MDRD) 112 (>89) Glucose 112 H (70-100) mg/dL POC Whole Bld Glucose 130 H (70 - 100) mg/dL Calcium 8.0 L (8.5-10.3) mg/dL Phosphorus 3.1 (2.5-4.6) mg/dL Magnesium 2.1 (1.7-2.8) mg/dL Total Bilirubin 0.7 (0.2-1.0) mg/dL AST 71 H (10-42) IU/L ALT 26 (10-60) IU/L Alkaline Phosphatase 35 L (42-121) IU/L B-Natriuretic Peptide 622 H (5-100) pg/mL Total Protein 5.2 L (6.7-8.2) g/dL Albumin 2.0 L (3.2-5.5) g/dL Globulin 3.2 (2.1-4.2) g/dL Albumin/Globulin Ratio 0.6 L (1.0-2.2) Prealbumin 14 L (18-45) mg/dL 08/07/21 08/07/21 Range/Units 17:56 11:16 WBC (4.8-10.8) x10^3/uL RBC (4.70-6.10) 10^6/uL Hgb (14.0-18.0) g/dL Hct (42.0-52.0) % MCV (80.0-94.0) fL MCH (27.0-31.0) pg MCHC (32.0-36.0) g/dL RDW (12.0-15.0) % Plt Count (130-450) 10^3/uL MPV (7.4-11.4) fL Neut # (Auto) (1.5-6.6) 10^3/uL Lymph # (Auto) (1.5-3.5) 10^3/uL Divide # (Auto) (0.0-1.0) 10^3/uL Eos # (Auto) (0.0-0.7) 10^3/uL Baso # (Auto) (0.0-0.1) 10^3/uL Absolute Nucleated RBC x10^3/uL Nucleated RBC % /100WBC Sodium (135-145) mmol/L Potassium (3.5-5.0) mmol/L Chloride (101-111) mmol/L Carbon Dioxide (21-32) mmol/L Anion Gap (6-13) BUN (6-20) mg/dL Creatinine (0.6-1.2) mg/dL Estimated GFR (MDRD) (>89) Glucose (70-100) mg/dL POC Whole Bld Glucose 136 H 135 H (70 - 100) mg/dL Calcium (8.5-10.3) mg/dL Phosphorus (2.5-4.6) mg/dL Magnesium (1.7-2.8) mg/dL Total Bilirubin (0.2-1.0) mg/dL AST (10-42) IU/L ALT (10-60) IU/L Alkaline Phosphatase (42-121) IU/L B-Natriuretic Peptide (5-100) pg/mL Total Protein (6.7-8.2) g/dL Albumin (3.2-5.5) g/dL Globulin (2.1-4.2) g/dL Albumin/Globulin Ratio (1.0-2.2) Prealbumin (18-45) mg/dL Sepsis Event Note (H) - Evaluation Current Stage of Sepsis: Sepsis Possible source of Sepsis: positive: Pulmonary - Sepsis Criteria Sepsis Criteria: Recorded Temperature greater than 38.3C or Less than 36C, Recorded Heart Rate greater than 90 bpm, Recorded Respiratory Rate greater than 20, Respiratory: Increasing oxygen requirements, WBC count greater than 10% bands, SIPHON OPERATOR: altered consciousness (unrelated to primary neuro pathology), Hemat ologic: platelets < 100,000; INR > 1.5, or a PTT>60 seconds Assessment/Plan - Problem List (1) Acute respiratory failure with hypoxia Impression: This is improving. His oxygen saturations are now in the high 90s on 60% FiO2. This is secondary to COVID-19 pneumonia as well as bacterial pneumonia. We will look to wean his FiO2 in hopes that he may be extubated in 1 to 2 days. We will continue sedation with propofol and fentanyl. Continue vent management as per protocol. (2) Sepsis Impression: This appears to have now resolved. He has been afebrile since yesterday evening and his white count remains normal. This was likely secondary to the COVID-19 pneumonia as well as bacterial pneumonia. Repeat blood cultures are growing coag negative staph which I suspect is a contaminant. If he remains afebrile for the day then we will look to de-escalate his antibiotics. (3) Pneumonia due to COVID-19 virus Impression: This is contributing to respiratory failure with hypoxia. He remains on a ventilator we will continue Decadron. Continue contact precautions. He also remains on IV antibiotics given concern for bacterial component of infection. (4) Aspiration pneumonia Impression: This is also believed to be contributing to his respiratory failure with hypoxia. He is now afebrile suggest the evening and his white count remains normal. Respiratory cultures have had no growth. We will look to de-escalate the antibiotics tomorrow if he remains afebrile. (5) Fever Impression: He is finally fever free since yesterday evening. Suspect this was related to the Covid 19 and bacterial pneumonia. I am hopeful he remained afebrile now that he has been treated with antibiotics for bacterial pneumonia and he has had Covid for over a week. We will continue him on broad-spectrum IV antibiotics and if he remains afebrile today we can begin to de-escalate antibiotics tomorrow. If he does become febrile again then I would repeat a CT of the chest and abdomen pelvis to look for occult infection. HIV was checked and this was negative. Repeat urinalysis was unremarkable. Repeat blood cultures grew coag negative staph in one of the sets which is likely a contaminant. (6) Methamphetamine abuse Impression: His urine toxicology was positive for methamphetamines. We we will need to address this when he is able to participate in a conversation. (7) Rib fracture Impression: He does have a left-sided rib fracture likely due to trauma. Rest of imaging was unremarkable. Qualifiers: Encounter type: initial encounter Rib fracture type: single rib Fracture type: closed Laterality: left Qualified Code(s): S22.32XA - Fracture of one rib, left side, initial encounter for closed fracture
[2021-08-08 07:42] LABS: TRIGLYCERIDES 430 mg/dL
[2021-08-08] MEDS: SODIUM CHLORIDE 0.9% 500 ML IV PRN (08:00)
[2021-08-08 08:05] LABS: LDL CHOLESTEROL,DIRECT 58 mg/dL
[2021-08-08] MEDS: CEFEPIME 2 GM in SODIUM CHLORIDE 0.9% MINIBAG 100 ML IV SCH ×2 (08:10→21:14)
[2021-08-08] MEDS: ENOXAPARIN 40 MG/0.4 ML SYRINGE SUBQ SCH (08:10)
[2021-08-08] MEDS: DEXAMETHASONE 4 MG/ML VIAL IVP SCH (08:10)
[2021-08-08] MEDS: FUROSEMIDE 40 MG/4 ML VIAL IVP SCH (08:10)
[2021-08-08] MEDS: CHLORHEXIDINE GLUCONATE 15 ML UDC PO SCH ×2 (08:10→20:23)
[2021-08-08] MEDS: VANCOMYCIN INJ 1 GM in SODIUM CHLORIDE 0.9% 250 ML IV SCH ×2 (08:10→20:22)
[2021-08-08] MEDS: DEXMEDETOMIDINE 400 MCG in SODIUM CHLORIDE 0.9% 100ML 96 ML IV SCH (09:15)
[2021-08-08] MEDS: polyethylene glycoL 3350 17 GM PACKET PO SCH (09:17)
[2021-08-08] MEDS: SODIUM CHLORIDE FLUSH 0.9% 10 ML SYRINGE IVP SCH ×2 (09:17→17:54)
[2021-08-08] MEDS: fentaNYL 2,500 MCG/250 ML 2,500 MCG/250 ML BAG IV SCH ×2 (13:27→23:15)
--- NOTE | 2021-08-08 15:00 | XRAY Report ---
PROCEDURE: No-Charge 1V Abdomen INDICATIONS: NGT placement TECHNIQUE: 1 view of the abdomen were acquired. COMPARISON: Single view chest x-ray 08/07/2021 FINDINGS: Surgical changes and devices: NG tube projects past GE junction with tip and side-port projecting ove r the proximal stomach. Bowel: No pneumoperitoneum. The bowel gas pattern is normal. Soft tissues: Moderate-sized left and trace right pleural effusions noted. Bibasilar lung patchy air space opacities which are not significant changed compared to prior exam.. No masses; visualized beckie d organ contours appear normal in size. No suspicious abdominal calcifications. Bones: No suspicious bony abnormalities. IMPRESSION: NG tube projects past GE junction with distal tip and side-port projecting over the proximal stomach. Reviewed by: Elizabeth Fagan MD, PhD on 08/08/2021 2:59 PM PST Approved by: Elizabeth Fagan MD, PhD on 08/08/2021 2:59 PM PST Station ID: [id number]
[2021-08-08] MEDS: SODIUM CHLORIDE FLUSH 0.9% 10 ML SYRINGE IVP PRN (20:23)
[2021-08-09] MEDS: SODIUM CHLORIDE FLUSH 0.9% 10 ML SYRINGE IVP SCH ×3 (00:19→16:40)
[2021-08-09] MEDS: SODIUM CHLORIDE 0.9% 500 ML IV PRN ×2 (02:07→19:01)
[2021-08-09] MEDS: PROPOFOL 1000 MG/100 ML 1,000 MG/100 ML BOTTLE IV SCH ×3 (02:58→12:00)
[2021-08-09] MEDS: metroNIDAZOLE 500 MG/100 ML 500 MG/100 ML BAG IV SCH ×3 (04:31→20:20)
[2021-08-09] MEDS: fentaNYL 2,500 MCG/250 ML 2,500 MCG/250 ML BAG IV SCH ×3 (05:11→20:41)
[2021-08-09] MEDS: INSULIN REGULAR HUMAN 300 UNIT/3 ML VIAL SUBQ SCH ×3 (06:10→18:12)
[2021-08-09] MEDS: PANTOPRAZOLE 40 MG VIAL IVP SCH (06:10)
[2021-08-09] MEDS: SODIUM CHLORIDE FLUSH 0.9% 10 ML SYRINGE IVP PRN ×4 (06:12→18:33)
[2021-08-09 06:18] LABS: BASOPHILS % (AUTO) 0.2 %; EOSINOPHILS % (AUTO) 0.1 %; HGB - HEMOGLOBIN 9.3 g/dL (14.0-18.0); LYMPHOCYTES # (AUTO) 1.2 10^3/uL (1.5-3.5); LYMPHOCYTES % (AUTO) 12.3 %; MEAN CORPUSCULAR HEMOGLOBIN 24.4 pg (27.0-31.0); MEAN CORPUSCULAR VOLUME 81.4 fL (80.0-94.0); MEAN PLATELET VOLUME 11.8 fL (7.4-11.4); MONOCYTES # (AUTO) 0.9 10^3/uL (0.0-1.0); MONOCYTES % (AUTO) 9.9 %; NEUTROPHILS # (AUTO) 7.1 10^3/uL (1.5-6.6); NEUTROPHILS % (AUTO) 73.9 %; NRBC ABSOLUTE COUNT (AUTO) 0.02 x10^3/uL; NUCLEATED RED BLOOD CELLS AUTO 0.2 /100WBC; PLT - PLATELET COUNT 150 10^3/uL (130-450); RED BLOOD COUNT 3.81 10^6/uL (4.70-6.10); RED CELL DISTRIBUTION WIDTH 15.8 % (12.0-15.0); WHITE BLOOD COUNT 9.5 x10^3/uL (4.8-10.8)
[2021-08-09 06:19] LABS: CALCIUM, IONIZED 1.15 mmol/L (1.15-1.33); VBG PH 7.398 (7.31-7.41)
[2021-08-09 06:32] LABS: ALBUMIN 1.8 g/dL (3.2-5.5); ALBUMIN/GLOBULIN RATIO 0.6 (1.0-2.2); BILIRUBIN,TOTAL 0.5 mg/dL (0.2-1.0); CREATININE 0.6 mg/dL (0.6-1.2); MAGNESIUM 2.2 mg/dL (1.7-2.8); POTASSIUM 3.6 mmol/L (3.5-5.0); TOTAL PROTEIN 4.8 g/dL (6.7-8.2)
[2021-08-09] MEDS ORDERED: POTASSIUM CHLOR 20 MEQ/100 ML 20 MEQ/100 ML BAG IV ONE (08:00)
[2021-08-09] MEDS: VANCOMYCIN INJ 1 GM in SODIUM CHLORIDE 0.9% 250 ML IV SCH ×2 (09:46→20:22)
[2021-08-09] MEDS: ENOXAPARIN 40 MG/0.4 ML SYRINGE SUBQ SCH (10:04)
[2021-08-09] MEDS: CEFEPIME 2 GM in SODIUM CHLORIDE 0.9% MINIBAG 100 ML IV SCH ×2 (10:05→21:34)
[2021-08-09] MEDS: FUROSEMIDE 40 MG/4 ML VIAL IVP SCH (10:18)
[2021-08-09] MEDS: DEXAMETHASONE 4 MG/ML VIAL IVP SCH (10:18)
[2021-08-09] MEDS: CHLORHEXIDINE GLUCONATE 15 ML UDC PO SCH ×2 (10:24→20:27)
[2021-08-09] MEDS: polyethylene glycoL 3350 17 GM PACKET PO SCH (10:25)
--- NOTE | 2021-08-09 12:00 | PROVIDER PROGRESS NOTE ---
Subjective - Prog Note Date Prog Note Date: 08/09/21 - Subjective Subjective: Per his RN, he is more awake, communicating with his eyes and head, is still on sedatives and intubated. Objective - Vital Signs/Intake & Output Reviewed Vital Signs: Yes Vital Signs: Vital Signs Pulse Pulse Resp BP BP Pulse Ox 08/09/21 11:16 53 L 08/09/21 11:00 53 L 14 86/59 L 87/45 L 94 08/09/21 10:00 54 L 14 91/59 L 91/46 L 94 08/09/21 09:19 60 08/09/21 09:00 65 14 91/59 L 95/48 L 95 08/09/21 08:00 64 14 95/60 93/47 L 94 Intake & Output: Intake & Output 08/06/21 08/07/21 08/08/21 08/09/21 23:59 23:59 23:59 23:59 Intake Total 8621.532 9452.452 2429.869 1911.583 Output Total 7511 3735 1367 606 Balance -1536.025 -8699.164 2302.869 1305.583 - Objective General Appearance: positive: No acute distress, Other (Exam done remotely. He is awake, follows to his name, is still intubated and on iv sedatives.) Eyes Bilateral: positive: Normal inspection ENT: positive: No signs of dehydration Neck: positive: Nml inspection Respiratory: positive: Other (On vent, intubated) Cardiovascular: positive: Regular rate & rhythm Abdomen: positive: Non-tender, Other (Getting ng feeds) Skin: positive: Warm Extremities: positive: No pedal edema Neurologic/Psychiatric: positive: Other (Sedated but arousable) - Lab Results Fish Bones: 08/09/21 05:24 08/09/21 05:24 Other Labs: Lab Results x24hrs 08/09/21 08/09/21 08/09/21 Range/Units 11:40 06:08 05:24 WBC (4.8-10.8) x10^3/uL RBC (4.70-6.10) 10^6/uL Hgb (14.0-18.0) g/dL Hct (42.0-52.0) % MCV (80.0-94.0) fL MCH (27.0-31.0) pg MCHC (32.0-36.0) g/dL RDW (12.0-15.0) % Plt Count (130-450) 10^3/uL MPV (7.4-11.4) fL Neut # (Auto) (1.5-6.6) 10^3/uL Lymph # (Auto) (1.5-3.5) 10^3/uL [place] # (Auto) (0.0-1.0) 10^3/uL Eos # (Auto) (0.0-0.7) 10^3/uL Baso # (Auto) (0.0-0.1) 10^3/uL Absolute Nucleated RBC x10^3/uL Nucleated RBC % /100WBC VBG pH 7.398 (7.31-7.41) Ionized Calcium 1.15 (1.15-1.33) mmol/L Sodium (135-145) mmol/L Potassium (3.5-5.0) mmol/L Chloride (101-111) mmol/L Carbon Dioxide (21-32) mmol/L Anion Gap (6-13) BUN (6-20) mg/dL Creatinine (0.6-1.2) mg/dL Estimated GFR (MDRD) (>89) Glucose (70-100) mg/dL POC Whole Bld Glucose 158 H 137 H (70 - 100) mg/dL Calcium (8.5-10.3) mg/dL Phosphorus (2.5-4.6) mg/dL Magnesium (1.7-2.8) mg/dL Total Bilirubin (0.2-1.0) mg/dL AST (10-42) IU/L ALT (10-60) IU/L Alkaline Phosphatase (42-121) IU/L Total Protein (6.7-8.2) g/dL Albumin (3.2-5.5) g/dL Globulin (2.1-4.2) g/dL Albumin/Globulin Ratio (1.0-2.2) Prealbumin (18-45) mg/dL Triglycerides ( - 149) mg/dL 08/09/21 08/09/21 08/09/21 Range/Units 05:24 05:24 05:24 WBC 9.5 (4.8-10.8) x10^3/uL RBC 3.81 L (4.70-6.10) 10^6/uL Hgb 9.3 L (14.0-18.0) g/dL Hct 31.0 L (42.0-52.0) % MCV 81.4 (80.0-94.0) fL MCH 24.4 L (27.0-31.0) pg MCHC 30.0 L (32.0-36.0) g/dL RDW 15.8 H (12.0-15.0) % Plt Count 150 (130-450) 10^3/uL MPV 11.8 H (7.4-11.4) fL Neut # (Auto) 7.1 H (1.5-6.6) 10^3/uL Lymph # (Auto) 1.2 L (1.5-3.5) 10^3/uL [place] # (Auto) 0.9 (0.0-1.0) 10^3/uL Eos # (Auto) 0.0 (0.0-0.7) 10^3/uL Baso # (Auto) 0.0 (0.0-0.1) 10^3/uL Absolute Nucleated RBC 0.02 x10^3/uL Nucleated RBC % 0.2 /100WBC VBG pH (7.31-7.41) Ionized Calcium (1.15-1.33) mmol/L Sodium 140 (135-145) mmol/L Potassium 3.6 (3.5-5.0) mmol/L Chloride 106 (101-111) mmol/L Carbon Dioxide 25 (21-32) mmol/L Anion Gap 9.0 (6-13) BUN 40 H (6-20) mg/dL Creatinine 0.6 (0.6-1.2) mg/dL Estimated GFR (MDRD) 134 (>89) Glucose 108 H (70-100) mg/dL POC Whole Bld Glucose (70 - 100) mg/dL Calcium 8.0 L (8.5-10.3) mg/dL Phosphorus 3.0 (2.5-4.6) mg/dL Magnesium 2.2 (1.7-2.8) mg/dL Total Bilirubin 0.5 (0.2-1.0) mg/dL AST 66 H (10-42) IU/L ALT 27 (10-60) IU/L Alkaline Phosphatase 32 L (42-121) IU/L Total Protein 4.8 L (6.7-8.2) g/dL Albumin 1.8 L (3.2-5.5) g/dL Globulin 3.0 (2.1-4.2) g/dL Albumin/Globulin Ratio 0.6 L (1.0-2.2) Prealbumin 14 L (18-45) mg/dL Triglycerides 357 H ( - 149) mg/dL 08/08/21 08/08/21 08/08/21 Range/Units 23:40 17:57 17:06 WBC (4.8-10.8) x10^3/uL RBC (4.70-6.10) 10^6/uL Hgb (14.0-18.0) g/dL Hct (42.0-52.0) % MCV (80.0-94.0) fL MCH (27.0-31.0) pg MCHC (32.0-36.0) g/dL RDW (12.0-15.0) % Plt Count (130-450) 10^3/uL MPV (7.4-11.4) fL Neut # (Auto) (1.5-6.6) 10^3/uL Lymph # (Auto) (1.5-3.5) 10^3/uL [place] # (Auto) (0.0-1.0) 10^3/uL Eos # (Auto) (0.0-0.7) 10^3/uL Baso # (Auto) (0.0-0.1) 10^3/uL Absolute Nucleated RBC x10^3/uL Nucleated RBC % /100WBC VBG pH (7.31-7.41) Ionized Calcium (1.15-1.33) mmol/L Sodium (135-145) mmol/L Potassium (3.5-5.0) mmol/L Chloride (101-111) mmol/L Carbon Dioxide (21-32) mmol/L Anion Gap (6-13) BUN (6-20) mg/dL Creatinine (0.6-1.2) mg/dL Estimated GFR (MDRD) (>89) Glucose (70-100) mg/dL POC Whole Bld Glucose 133 H 139 H 135 H (70 - 100) mg/dL Calcium (8.5-10.3) mg/dL Phosphorus (2.5-4.6) mg/dL Magnesium (1.7-2.8) mg/dL Total Bilirubin (0.2-1.0) mg/dL AST (10-42) IU/L ALT (10-60) IU/L Alkaline Phosphatase (42-121) IU/L Total Protein (6.7-8.2) g/dL Albumin (3.2-5.5) g/dL Globulin (2.1-4.2) g/dL Albumin/Globulin Ratio (1.0-2.2) Prealbumin (18-45) mg/dL Triglycerides ( - 149) mg/dL 08/08/21 Range/Units 12:09 WBC (4.8-10.8) x10^3/uL RBC (4.70-6.10) 10^6/uL Hgb (14.0-18.0) g/dL Hct (42.0-52.0) % MCV (80.0-94.0) fL MCH (27.0-31.0) pg MCHC (32.0-36.0) g/dL RDW (12.0-15.0) % Plt Count (130-450) 10^3/uL MPV (7.4-11.4) fL Neut # (Auto) (1.5-6.6) 10^3/uL Lymph # (Auto) (1.5-3.5) 10^3/uL [place] # (Auto) (0.0-1.0) 10^3/uL Eos # (Auto) (0.0-0.7) 10^3/uL Baso # (Auto) (0.0-0.1) 10^3/uL Absolute Nucleated RBC x10^3/uL Nucleated RBC % /100WBC VBG pH (7.31-7.41) Ionized Calcium (1.15-1.33) mmol/L Sodium (135-145) mmol/L Potassium (3.5-5.0) mmol/L Chloride (101-111) mmol/L Carbon Dioxide (21-32) mmol/L Anion Gap (6-13) BUN (6-20) mg/dL Creatinine (0.6-1.2) mg/dL Estimated GFR (MDRD) (>89) Glucose (70-100) mg/dL POC Whole Bld Glucose 134 H (70 - 100) mg/dL Calcium (8.5-10.3) mg/dL Phosphorus (2.5-4.6) mg/dL Magnesium (1.7-2.8) mg/dL Total Bilirubin (0.2-1.0) mg/dL AST (10-42) IU/L ALT (10-60) IU/L Alkaline Phosphatase (42-121) IU/L Total Protein (6.7-8.2) g/dL Albumin (3.2-5.5) g/dL Globulin (2.1-4.2) g/dL Albumin/Globulin Ratio (1.0-2.2) Prealbumin (18-45) mg/dL Triglycerides ( - 149) mg/dL Sepsis Event Note (H) - Evaluation Current Stage of Sepsis: Sepsis Possible source of Sepsis: positive: Pulmonary - Sepsis Criteria Sepsis Criteria: Recorded Temperature greater than 38.3C or Less than 36C, Recorded Heart Rate greater than 90 bpm, Recorded Respiratory Rate greater than 20, Respiratory: Increasing oxygen requirements, WBC count greater than 10% bands, SENIOR ACCOUNTANT: altered consciousness (unrelated to primary neuro pathology), Hematologic: platelets < 100,000; INR > 1.5, or a PTT>60 seconds Assessment/Plan - Problem List (1) Acute respiratory failure with hypoxia Impression: This is improving. His oxygen saturations are now in the high 90s on 60% FiO2. This is secondary to COVID-19 pneumonia as well as bacterial pneumonia. We will look to wean his FiO2 in hopes that he may be extubated in 1 to 2 days. We will continue sedation with fentanyl, wean propofol to off (due to high TG) and use Precedex if needed. Continue vent management as per protocol. (2) Pneumonia due to COVID-19 virus Impression: This is contributing to respiratory failure with hypoxia. He remains on a ventilator we will continue Decadron. Continue contact precautions. He also remains on IV antibiotics given concern for bacterial component of infection. (3) Aspiration pneumonia Impression: This is also believed to be contributing to his respiratory failure with hypoxia. He is now afebrile and his white count remains normal. Respiratory cultures have had no growth. We will look to de-escalate the antibiotics soon if he remains afebrile. (4) Abn EKG Impression: His admission EKG showed deep inferior Q waves. At admission, troponins and Echo were done. His troponins were mildly elevated but did not double (147>> 194>> 187). The Echo showed an inferior wall motion abnormality, consistent with his EKG that had deep inferior Q waves. (5) Ischemic cardiomyopathy Impression Since he was bradycardic today, will not add a B-litzy now. He needs daily ASA. Will check his lipid panel and likely start a statin per ng tube. Will wean Propofol to off due to very high Triglycerides and use a different sedative while he is intubated and on the vent. If he survives this hospitalization, and if he consents, he may be a candidate for cor angiography. (6) Bradycardia Impression: He carmen'd down to 30 when being repositioned today. He was not gagging or being suctioned to consider vagal response. He is not on HR slowing meds. I suspect he may have LV inferior wall ischemia causing the bradycardia, since the Echo showed an inferior wall motion abnormality, consistent with his EKG that had deep inferior Q waves. Will recycle a set of troponins today. Will not use HR-slowing meds. (7) Methamphetamine abuse Impression: His urine toxicology was positive for methamphetamines. We we will need to address this when he is able to participate in a conversation. (8) Rib fracture Impression: He does have a left-sided rib fracture likely due to trauma; we do not know the details of how this happened since he was admitted obtunded and gave no Hx. Rest of imaging at admission was unremarkable for trauma. Qualifiers: Encounter type: subsequent encounter Rib fracture type: single rib Fracture type: closed Laterality: left Qualified Code(s): S22.32XA - Fracture of one rib, left side, initial encounter for closed fracture (9) Hx R AKA Impression: As per Hx (10) Thrombocytopenia Impression: Resolved. This improved daily after admission, suggesting that it was from sepsis or some drug or marrow toxin, like alcohol. (11) Sepsis Impression: This appears to have now resolved. He has been afebrile since yesterday evening and his white count remains normal. This was likely secondary to the COVID-19 pneumonia as well as bacterial pneumonia. Repeat blood cultures are growing coag negative staph which I suspect is a contaminant. If he remains afebrile for the day then we will look to de-escalate his antibiotics. (12) Fever Impression: He is finally fever free for 2 days now. Suspect this was related to the Covid 19 and bacterial pneumonia. I am hopeful he remains afebrile now that he has been treated with antibiotics for bacterial pneumonia and he has had Covid for over a week. We will continue him on broad-spectrum IV antibiotics and if he remains afebrile today we can begin to de-escalate antibiotics soon. If he does become febrile again then I would repeat a CT of the chest and abdomen pelvis to look for occult infection. HIV was checked and this was negative. Repeat urinalysis was unremarkable. Repeat blood cultures grew coag negative staph in one of the sets which is likely a contaminant. CRITICAL CARE TIME SPENT: 60 min
[2021-08-09] MEDS: DEXMEDETOMIDINE 1,000 MCG in SODIUM CHLORIDE 0.9% 240 ML IV PRN (13:28)
[2021-08-09] MEDS: ASPIRIN CHEW 81 MG TABLET NG SCH (14:21)
[2021-08-09] MEDS ORDERED: SODIUM CHLORIDE 0.9% 500 ML IV ONE (15:23)
[2021-08-10] MEDS: INSULIN REGULAR HUMAN 300 UNIT/3 ML VIAL SUBQ SCH ×4 (00:05→18:29)
[2021-08-10] MEDS: SODIUM CHLORIDE FLUSH 0.9% 10 ML SYRINGE IVP SCH ×3 (00:06→18:06)
[2021-08-10] MEDS: metroNIDAZOLE 500 MG/100 ML 500 MG/100 ML BAG IV SCH ×3 (03:56→20:48)
[2021-08-10] MEDS: fentaNYL 2,500 MCG/250 ML 2,500 MCG/250 ML BAG IV SCH ×2 (04:41→12:43)
[2021-08-10 05:19] LABS: BASOPHILS % (AUTO) 0.2 %; HCT - HEMATOCRIT 27.5 % (42.0-52.0); HGB - HEMOGLOBIN 8.2 g/dL (14.0-18.0); LYMPHOCYTES # (AUTO) 1.9 10^3/uL (1.5-3.5); MEAN CORPUSCULAR HEMOGLOBIN 24.6 pg (27.0-31.0); MEAN CORPUSCULAR HGB CONC 29.8 g/dL (32.0-36.0); MEAN CORPUSCULAR VOLUME 82.6 fL (80.0-94.0); MEAN PLATELET VOLUME 11.8 fL (7.4-11.4); MONOCYTES # (AUTO) 1.3 10^3/uL (0.0-1.0); MONOCYTES % (AUTO) 8.1 %; NEUTROPHILS # (AUTO) 11.3 10^3/uL (1.5-6.6); NEUTROPHILS % (AUTO) 73.5 %; NRBC ABSOLUTE COUNT (AUTO) 0.05 x10^3/uL; NUCLEATED RED BLOOD CELLS AUTO 0.3 /100WBC; PLT - PLATELET COUNT 232 10^3/uL (130-450); RED BLOOD COUNT 3.33 10^6/uL (4.70-6.10); RED CELL DISTRIBUTION WIDTH 15.9 % (12.0-15.0); WHITE BLOOD COUNT 15.4 x10^3/uL (4.8-10.8)
[2021-08-10 05:22] LABS: CALCIUM 7.8 mg/dL (8.5-10.3); CREATININE 0.6 mg/dL (0.6-1.2); POTASSIUM 4.3 mmol/L (3.5-5.0)
[2021-08-10 05:24] LABS: CALCIUM, IONIZED 1.14 mmol/L (1.15-1.33); VBG PH 7.396 (7.31-7.41)
[2021-08-10 05:29] LABS: CHOL/HDL RATIO 10.3 (<5.0); CHOLESTEROL 165 mg/dL; HDL CHOLESTEROL 16 mg/dL; LDL CHOLESTEROL,CALCULATED 75 mg/dL; LDL/HDL RATIO 4.7 (<3.6); TRIGLYCERIDES 369 mg/dL; VLDL CHOLESTEROL 74 mg/dL
[2021-08-10] MEDS: PANTOPRAZOLE 40 MG VIAL IVP SCH (06:17)
[2021-08-10 07:47] LABS: MAGNESIUM 2.2 mg/dL (1.7-2.8); PHOSPHORUS 2.7 mg/dL (2.5-4.6)
[2021-08-10] MEDS: VANCOMYCIN INJ 1 GM in SODIUM CHLORIDE 0.9% 250 ML IV SCH ×2 (08:33→20:35)
[2021-08-10] MEDS: DEXMEDETOMIDINE 1,000 MCG in SODIUM CHLORIDE 0.9% 240 ML IV PRN (08:37)
[2021-08-10] MEDS: SODIUM CHLORIDE FLUSH 0.9% 10 ML SYRINGE IVP PRN (08:39)
[2021-08-10] MEDS: CEFEPIME 2 GM in SODIUM CHLORIDE 0.9% MINIBAG 100 ML IV SCH ×2 (08:43→21:45)
[2021-08-10] MEDS: FUROSEMIDE 40 MG/4 ML VIAL IVP SCH (08:49)
[2021-08-10] MEDS: DEXAMETHASONE 4 MG/ML VIAL IVP SCH (08:52)
[2021-08-10] MEDS: ENOXAPARIN 40 MG/0.4 ML SYRINGE SUBQ SCH (11:10)
[2021-08-10] MEDS: CHLORHEXIDINE GLUCONATE 15 ML UDC PO SCH ×2 (11:10→21:47)
[2021-08-10] MEDS: ASPIRIN CHEW 81 MG TABLET NG SCH (11:10)
[2021-08-10] MEDS: polyethylene glycoL 3350 17 GM PACKET PO SCH (11:11)
--- NOTE | 2021-08-10 12:10 | PROVIDER PROGRESS NOTE ---
Subjective - Prog Note Date Prog Note Date: 08/10/21 - Subjective Subjective: Pt arousable, on his sedatives while intubated and on the vent Objective - Vital Signs/Intake & Output Reviewed Vital Signs: Yes Vital Signs: Vital Signs Pulse Pulse Resp BP BP Pulse Ox 08/10/21 11:40 60 08/10/21 09:00 64 15 119/69 136/66 H 94 Intake & Output: Intake & Output 08/07/21 08/08/21 08/09/21 08/10/21 23:59 23:59 23:59 23:59 Intake Total 2014.452 2429.869 4237.780 2394.843 Output Total 3735 1367 1687 877 Balance -6642.567 9056.869 2550.780 1517.843 - Objective General Appearance: positive: No acute distress Eyes Bilateral: positive: Normal inspection ENT: positive: ENT inspection nml, No signs of dehydration, Other (ET tube) Neck: positive: Nml inspection Respiratory: positive: No respiratory distress (sently sedated and on vent this a.m.) Abdomen: positive: No distention Extremities: positive: No pedal edema - Lab Results Fish Bones: 08/11/21 04:25 08/11/21 04:25 Other Labs: Lab Results x24hrs 08/10/21 08/10/21 08/10/21 Range/Units 12:07 08:30 06:02 WBC (4.8-10.8) x10^3/uL RBC (4.70-6.10) 10^6/uL Hgb (14.0-18.0) g/dL Hct (42.0-52.0) % MCV (80.0-94.0) fL MCH (27.0-31.0) pg MCHC (32.0-36.0) g/dL RDW (12.0-15.0) % Plt Count (130-450) 10^3/uL MPV (7.4-11.4) fL Neut # (Auto) (1.5-6.6) 10^3/uL Lymph # (Auto) (1.5-3.5) 10^3/uL [place] # (Auto) (0.0-1.0) 10^3/uL Eos # (Auto) (0.0-0.7) 10^3/uL Baso # (Auto) (0.0-0.1) 10^3/uL Absolute Nucleated RBC x10^3/uL Nucleated RBC % /100WBC VBG pH (7.31-7.41) Ionized Calcium (1.15-1.33) mmol/L Sodium (135-145) mmol/L Potassium (3.5-5.0) mmol/L Chloride (101-111) mmol/L Carbon Dioxide (21-32) mmol/L Anion Gap (6-13) BUN (6-20) mg/dL Creatinine (0.6-1.2) mg/dL Estimated GFR (MDRD) (>89) Glucose (70-100) mg/dL POC Whole Bld Glucose 187 H 144 H (70 - 100) mg/dL Lactic Acid 1.3 (0.5-2.2) mmol/L Calcium (8.5-10.3) mg/dL Phosphorus (2.5-4.6) mg/dL Magnesium (1.7-2.8) mg/dL Troponin I High Sens (2.3-19.7) ng/L Triglycerides ( - 149) mg/dL Cholesterol ( - 199) mg/dL LDL Cholesterol, Calc ( - 129) mg/dL VLDL Cholesterol mg/dL HDL Cholesterol (60 - ) mg/dL LDL/HDL Ratio (<3.6) Cholesterol/HDL Ratio (<5.0) 08/10/21 08/10/21 08/10/21 Range/Units 04:20 04:20 04:20 WBC (4.8-10.8) x10^3/uL RBC (4.70-6.10) 10^6/uL Hgb (14.0-18.0) g/dL Hct (42.0-52.0) % MCV (80.0-94.0) fL MCH (27.0-31.0) pg MCHC (32.0-36.0) g/dL RDW (12.0-15.0) % Plt Count (130-450) 10^3/uL MPV (7.4-11.4) fL Neut # (Auto) (1.5-6.6) 10^3/uL Lymph # (Auto) (1.5-3.5) 10^3/uL [place] # (Auto) (0.0-1.0) 10^3/uL Eos # (Auto) (0.0-0.7) 10^3/uL Baso # (Auto) (0.0-0.1) 10^3/uL Absolute Nucleated RBC x10^3/uL Nucleated RBC % /100WBC VBG pH (7.31-7.41) Ionized Calcium (1.15-1.33) mmol/L Sodium (135-145) mmol/L Potassium (3.5-5.0) mmol/L Chloride (101-111) mmol/L Carbon Dioxide (21-32) mmol/L Anion Gap (6-13) BUN (6-20) mg/dL Creatinine (0.6-1.2) mg/dL Estimated GFR (MDRD) (>89) Glucose (70-100) mg/dL POC Whole Bld Glucose (70 - 100) mg/dL Lactic Acid (0.5-2.2) mmol/L Calcium (8.5-10.3) mg/dL Phosphorus 2.7 (2.5-4.6) mg/dL Magnesium 2.2 (1.7-2.8) mg/dL Troponin I High Sens 33.5 H* (2.3-19.7) ng/L Triglycerides 369 H ( - 149) mg/dL Cholesterol 165 ( - 199) mg/dL LDL Cholesterol, Calc 75 ( - 129) mg/dL VLDL Cholesterol 74 mg/dL HDL Cholesterol 16 L (60 - ) mg/dL LDL/HDL Ratio 4.7 (<3.6) Cholesterol/HDL Ratio 10.3 (<5.0) 08/10/21 08/10/21 08/10/21 Range/Units 04:20 04:20 04:20 WBC 15.4 H (4.8-10.8) x10^3/uL RBC 3.33 L (4.70-6.10) 10^6/uL Hgb 8.2 L (14.0-18.0) g/dL Hct 27.5 L (42.0-52.0) % MCV 82.6 (80.0-94.0) fL MCH 24.6 L (27.0-31.0) pg MCHC 29.8 L (32.0-36.0) g/dL RDW 15.9 H (12.0-15.0) % Plt Count 232 (130-450) 10^3/uL MPV 11.8 H (7.4-11.4) fL Neut # (Auto) 11.3 H (1.5-6.6) 10^3/uL Lymph # (Auto) 1.9 (1.5-3.5) 10^3/uL [place] # (Auto) 1.3 H (0.0-1.0) 10^3/uL Eos # (Auto) 0.0 (0.0-0.7) 10^3/uL Baso # (Auto) 0.0 (0.0-0.1) 10^3/uL Absolute Nucleated RBC 0.05 x10^3/uL Nucleated RBC % 0.3 /100WBC VBG pH 7.396 (7.31-7.41) Ionized Calcium 1.14 L (1.15-1.33) mmol/L Sodium 140 (135-145) mmol/L Potassium 4.3 (3.5-5.0) mmol/L Chloride 110 (101-111) mmol/L Carbon Dioxide 24 (21-32) mmol/L Anion Gap 6.0 (6-13) BUN 47 H (6-20) mg/dL Creatinine 0.6 (0.6-1.2) mg/dL Estimated GFR (MDRD) 134 (>89) Glucose 184 H (70-100) mg/dL POC Whole Bld Glucose (70 - 100) mg/dL Lactic Acid (0.5-2.2) mmol/L Calcium 7.8 L (8.5-10.3) mg/dL Phosphorus (2.5-4.6) mg/dL Magnesium (1.7-2.8) mg/dL Troponin I High Sens (2.3-19.7) ng/L Triglycerides ( - 149) mg/dL Cholesterol ( - 199) mg/dL LDL Cholesterol, Calc ( - 129) mg/dL VLDL Cholesterol mg/dL HDL Cholesterol (60 - ) mg/dL LDL/HDL Ratio (<3.6) Cholesterol/HDL Ratio (<5.0) 08/09/21 08/09/21 08/09/21 Range/Units 23:42 17:46 15:53 WBC (4.8-10.8) x10^3/uL RBC (4.70-6.10) 10^6/uL Hgb (14.0-18.0) g/dL Hct (42.0-52.0) % MCV (80.0-94.0) fL MCH (27.0-31.0) pg MCHC (32.0-36.0) g/dL RDW (12.0-15.0) % Plt Count (130-450) 10^3/uL MPV (7.4-11.4) fL Neut # (Auto) (1.5-6.6) 10^3/uL Lymph # (Auto) (1.5-3.5) 10^3/uL [place] # (Auto) (0.0-1.0) 10^3/uL Eos # (Auto) (0.0-0.7) 10^3/uL Baso # (Auto) (0.0-0.1) 10^3/uL Absolute Nucleated RBC x10^3/uL Nucleated RBC % /100WBC VBG pH (7.31-7.41) Ionized Calcium (1.15-1.33) mmol/L Sodium (135-145) mmol/L Potassium (3.5-5.0) mmol/L Chloride (101-111) mmol/L Carbon Dioxide (21-32) mmol/L Anion Gap (6-13) BUN (6-20) mg/dL Creatinine (0.6-1.2) mg/dL Estimated GFR (MDRD) (>89) Glucose (70-100) mg/dL POC Whole Bld Glucose 150 H 158 H (70 - 100) mg/dL Lactic Acid (0.5-2.2) mmol/L Calcium (8.5-10.3) mg/dL Phosphorus (2.5-4.6) mg/dL Magnesium (1.7-2.8) mg/dL Troponin I High Sens 32.4 H* (2.3-19.7) ng/L Triglycerides ( - 149) mg/dL Cholesterol ( - 199) mg/dL LDL Cholesterol, Calc ( - 129) mg/dL VLDL Cholesterol mg/dL HDL Cholesterol (60 - ) mg/dL LDL/HDL Ratio (<3.6) Cholesterol/HDL Ratio (<5.0) 08/09/21 08/09/21 Range/Units 14:05 12:09 WBC (4.8-10.8) x10^3/uL RBC (4.70-6.10) 10^6/uL Hgb (14.0-18.0) g/dL Hct (42.0-52.0) % MCV (80.0-94.0) fL MCH (27.0-31.0) pg MCHC (32.0-36.0) g/dL RDW (12.0-15.0) % Plt Count (130-450) 10^3/uL MPV (7.4-11.4) fL Neut # (Auto) (1.5-6.6) 10^3/uL Lymph # (Auto) (1.5-3.5) 10^3/uL [place] # (Auto) (0.0-1.0) 10^3/uL Eos # (Auto) (0.0-0.7) 10^3/uL Baso # (Auto) (0.0-0.1) 10^3/uL Absolute Nucleated RBC x10^3/uL Nucleated RBC % /100WBC VBG pH (7.31-7.41) Ionized Calcium (1.15-1.33) mmol/L Sodium (135-145) mmol/L Potassium 4.1 (3.5-5.0) mmol/L Chloride (101-111) mmol/L Carbon Dioxide (21-32) mmol/L Anion Gap (6-13) BUN (6-20) mg/dL Creatinine (0.6-1.2) mg/dL Estimated GFR (MDRD) (>89) Glucose (70-100) mg/dL POC Whole Bld Glucose (70 - 100) mg/dL Lactic Acid (0.5-2.2) mmol/L Calcium (8.5-10.3) mg/dL Phosphorus (2.5-4.6) mg/dL Magnesium (1.7-2.8) mg/dL Troponin I High Sens 37.5 H* (2.3-19.7) ng/L Triglycerides ( - 149) mg/dL Cholesterol ( - 199) mg/dL LDL Cholesterol, Calc ( - 129) mg/dL VLDL Cholesterol mg/dL HDL Cholesterol (60 - ) mg/dL LDL/HDL Ratio (<3.6) Cholesterol/HDL Ratio (<5.0) Sepsis Event Note (H) - Evaluation Current Stage of Sepsis: Sepsis Possible source of Sepsis: positive: Pulmonary - Sepsis Criteria Sepsis Criteria: Recorded Temperature greater than 38.3C or Less than 36C, Recorded Heart Rate greater than 90 bpm, Recorded Respiratory Rate greater than 20, Respiratory: Increasing oxygen requirements, WBC count greater than 10% bands, BUILDING DRAFTER: altered consciousness (unrelated to primary neuro pathology), Hematologic: platelets < 100,000; INR > 1.5, or a PTT>60 seconds Assessment/Plan - Problem List (1) Acute respiratory failure with hypoxia Impression: (1) Acute respiratory failure with hypoxia Impression: This is improving. It is secondary to COVID-19 pneumonia as well as bacterial pneumonia. He may be extubated today. Will continue to wean suppl O2 after that, as tolerated. (2) Hypotension After having the bradycardia 2 days ago, he was then hypotensive with blood pressures dropping to 70-90 systolic. A lactic acid level was not elevated. Troponins were not elevated. We will give saline boluses and his IV pressor (Levophed) will be weaned to off as tolerated. (3) Pneumonia due to COVID-19 virus Impression: This is contributing to respiratory failure with hypoxia. He may be extubated today. Continue contact precautions. He is on Decadron but was not a candidate for Remdesivvir since he was on a ventilator. (4) Aspiration pneumonia Impression: This is also believed to be contributing to his respiratory failure with hypoxia. He is now afebrile and his white count remains normal. Respiratory cultures have had no growth. We will look to de-escalate the antibiotics soon. (5) On mechanical vent Impression: He may be extubated today after needing re-intubation several days ago. (6) Ischemic cardiomyopathy Impression His admission EKG showed deep inferior Q waves. At admission, troponins and Echo were done. His troponins were mildly elevated but did not double (147>> 194>> 187). The Echo showed an inferior wall motion abnormality, consistent with his EKG that had deep inferior Q waves. LVEF is mildly depressed. Since he had marked bradycardic with HR 30 twice 2 days ago, will not add a B- litzy now. He needs daily ASA. Will check his lipid panel and likely start a statin. We weaned Propofol to off due to very high Triglycerides and used a different sedative while he is intubated and on the vent. If he survives this hospitalization, and if he consents, he may be a candidate for cor angiography. (7) Bradycardia Impression: He carmen'd down to 30 twice yesterday. He was not gagging or being suctioned to consider vagal response. He is not on HR slowing meds. I suspected he may have LV inferior wall ischemia causing the bradycardia, since the Echo showed an inferior wall motion abnormality, consistent with his EKG that had deep inferior Q waves. Troponins were re-cycled and were not elevated. Will not use HR-slowing meds. (8) Methamphetamine abuse Impression: His urine toxicology was positive for methamphetamines. We we will need to address this with a SW consult when he is able to participate in a conversation. (9) Rib fracture Impression: He does have a left-sided rib fracture likely due to trauma; we do not know the details of how this happened since he was admitted obtunded and gave no Hx. The rest of his imaging at admission was unremarkable for trauma. 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 This improved daily after admission, suggesting that it was from sepsis or some drug or marrow toxin, like alcohol. (12) Sepsis Impression: This appears to have now resolved. He has been afebrile and his white count remains normal. This was likely secondary to the COVID-19 pneumonia as well as bacterial pneumonia. Repeat blood cultures are growing coag negative staph which I suspect is a contaminant. We will look to de-escalate his antibiotics. (13) Fever Impression: He is finally fever free for several days now. Suspect this was related to the Covid 19 and bacterial pneumonia. We will continue him on broad-spectrum IV antibiotics and begin to de-escalate antibiotics soon. If he does become febrile again then I would repeat a CT of the chest and abdomen pelvis to look for occult infection. HIV was checked and this was negative. Repeat urinalysis was unremarkable. Repeat blood cultures grew coag negative staph in one of the sets which is likely a contaminant.
[2021-08-11] MEDS: MORPHINE 2 MG/ML CARPUJECT IVP PRN ×3 (00:13→20:59)
[2021-08-11] MEDS: INSULIN REGULAR HUMAN 300 UNIT/3 ML VIAL SUBQ SCH ×3 (00:14→12:10)
[2021-08-11] MEDS: SODIUM CHLORIDE 0.9% 500 ML IV PRN (03:48)
[2021-08-11] MEDS: metroNIDAZOLE 500 MG/100 ML 500 MG/100 ML BAG IV SCH ×3 (04:45→20:00)
[2021-08-11] MEDS: SODIUM CHLORIDE FLUSH 0.9% 10 ML SYRINGE IVP SCH ×4 (04:57→20:34)
[2021-08-11 05:15] LABS: CALCIUM, IONIZED 1.11 mmol/L (1.15-1.33); VBG PH 7.468 (7.31-7.41)
[2021-08-11 05:16] LABS: BASOPHILS % (AUTO) 0.1 %; EOSINOPHILS % (AUTO) 0.1 %; HCT - HEMATOCRIT 26.1 % (42.0-52.0); HGB - HEMOGLOBIN 7.9 g/dL (14.0-18.0); LYMPHOCYTES % (AUTO) 12.2 %; MEAN CORPUSCULAR HEMOGLOBIN 24.5 pg (27.0-31.0); MEAN CORPUSCULAR HGB CONC 30.3 g/dL (32.0-36.0); MEAN CORPUSCULAR VOLUME 81.1 fL (80.0-94.0); MEAN PLATELET VOLUME 11.2 fL (7.4-11.4); MONOCYTES % (AUTO) 9.7 %; NEUTROPHILS % (AUTO) 73.9 %; PLT - PLATELET COUNT 222 10^3/uL (130-450); RED BLOOD COUNT 3.22 10^6/uL (4.70-6.10); RED CELL DISTRIBUTION WIDTH 15.9 % (12.0-15.0); WHITE BLOOD COUNT 18.9 x10^3/uL (4.8-10.8)
[2021-08-11 05:24] LABS: CALCIUM 7.9 mg/dL (8.5-10.3); CREATININE 0.6 mg/dL (0.6-1.2); POTASSIUM 3.8 mmol/L (3.5-5.0)
[2021-08-11 05:29] LABS: ABNORMAL LYMPHS % (MANUAL) 0 %
[2021-08-11 05:32] LABS: ALBUMIN 2.3 g/dL (3.2-5.5); ALBUMIN/GLOBULIN RATIO 0.7 (1.0-2.2); BILIRUBIN,TOTAL 0.7 mg/dL (0.2-1.0); CALCIUM 8.2 mg/dL (8.5-10.3); CREATININE 0.6 mg/dL (0.6-1.2); PHOSPHORUS 1.9 mg/dL (2.5-4.6); POTASSIUM 3.8 mmol/L (3.5-5.0); TOTAL PROTEIN 5.5 g/dL (6.7-8.2)
[2021-08-11 05:50] LABS: BAND NEUTROPHILS % (MANUAL) 2 %; DIFFERENTIAL COMMENT MANUAL DIFFERENTIAL; LYMPHOCYTES # (MANUAL) 2.1 10^3/uL (1.5-3.5); LYMPHOCYTES % (MANUAL) 11 %; MONOCYTES # (MANUAL) 1.9 10^3/uL (0.0-1.0); MYELOCYTES % (MANUAL) 2 %; NEUTROPHILS # (MANUAL) 14.6 10^3/uL (1.5-6.6); PLATELET ESTIMATE, MANUAL NORMAL (130-450,000) (NORMAL); RBC MORPHOLOGY (MULTIPLE) NORMAL APPEARANCE (NORMAL)
[2021-08-11] MEDS: PANTOPRAZOLE 40 MG VIAL IVP SCH (06:26)
[2021-08-11] MEDS: VANCOMYCIN INJ 1 GM in SODIUM CHLORIDE 0.9% 250 ML IV SCH ×2 (08:00→20:00)
[2021-08-11] MEDS: NEUTRA-PHOS 250 MG TABLET PO SCH ×2 (08:38→10:08)
[2021-08-11] MEDS: CEFEPIME 2 GM in SODIUM CHLORIDE 0.9% MINIBAG 100 ML IV SCH ×2 (09:50→20:59)
[2021-08-11] MEDS: ENOXAPARIN 40 MG/0.4 ML SYRINGE SUBQ SCH (10:05)
[2021-08-11] MEDS: FUROSEMIDE 40 MG/4 ML VIAL IVP SCH (10:07)
[2021-08-11] MEDS: CHLORHEXIDINE GLUCONATE 15 ML UDC PO SCH ×2 (10:07→20:03)
[2021-08-11] MEDS: polyethylene glycoL 3350 17 GM PACKET PO SCH (10:08)
[2021-08-11] MEDS: ASPIRIN CHEW 81 MG TABLET NG SCH (10:08)
[2021-08-11] MEDS: SCOPOLAMINE PATCH TOP SCH (12:11)
--- NOTE | 2021-08-11 13:09 | PROVIDER PROGRESS NOTE ---
Subjective - Subjective Pt reports feeling: Improved (He is asking his nurse "when can he go home". Cannot remember events of admission (he was obtunded).) Objective - Vital Signs/Intake & Output Reviewed Vital Signs: Yes Vital Signs: Vital Signs Pulse Resp BP BP Pulse Ox 08/11/21 12:00 110 H 32 H 160/100 H 164/89 H 92 08/11/21 11:00 101 H 29 H 160/106 H 142/101 H 08/11/21 10:00 104 H 29 H 161/96 H 130/105 H Intake & Output: Intake & Output 08/08/21 08/09/21 08/10/21 08/11/21 23:59 23:59 23:59 23:59 Intake Total 2429.869 4237.780 3370.989 1532.167 Output Total 1367 1687 2512 3050 Balance 3399.694 8732.780 858.989 -1517.833 - Objective General Appearance: positive: No acute distress (eval done remotely), Alert Eyes Bilateral: positive: Normal inspection ENT: positive: No signs of dehydration, Other (has feeding tube in place) Neck: positive: Nml inspection Respiratory: positive: No respiratory distress (wearing O2 via nasal HiFlow) Cardiovascular: positive: Regular rate & rhythm Abdomen: positive: No distention Skin: positive: Warm, Dry Extremities: positive: No pedal edema Neurologic/Psychiatric: positive: Other (Non-focal) - Lab Results Fish Bones: 08/11/21 04:25 08/11/21 04:25 Other Labs: Lab Results x24hrs 08/11/21 08/11/21 08/11/21 Range/Units 11:38 05:54 04:25 WBC (4.8-10.8) x10^3/uL RBC (4.70-6.10) 10^6/uL Hgb (14.0-18.0) g/dL Hct (42.0-52.0) % MCV (80.0-94.0) fL MCH (27.0-31.0) pg MCHC (32.0-36.0) g/dL RDW (12.0-15.0) % Plt Count (130-450) 10^3/uL MPV (7.4-11.4) fL Neut # (Auto) Lymph # (Auto) [place] # (Auto) Eos # (Auto) Baso # (Auto) Absolute Nucleated RBC Total Counted Band Neuts % (Manual) (0 - 10) % Abnorm Lymph % (Manual) % Myelocytes % ( - 0) % Nucleated RBC % Neutrophils # (Manual) (1.5-6.6) 10^3/uL Lymphocytes # (Manual) (1.5-3.5) 10^3/uL Monocytes # (Manual) (0.0-1.0) 10^3/uL Eosinophils # (Manual) (0-0.7) 10^3/uL Basophils # (Manual) (0-0.1) 10^3/uL Differential Comment Platelet Estimate (NORMAL) RBC Morph Micro Appear (NORMAL) VBG pH 7.468 H (7.31-7.41) Ionized Calcium 1.11 L (1.15-1.33) mmol/L Sodium (135-145) mmol/L Potassium (3.5-5.0) mmol/L Chloride (101-111) mmol/L Carbon Dioxide (21-32) mmol/L Anion Gap (6-13) BUN (6-20) mg/dL Creatinine (0.6-1.2) mg/dL Estimated GFR (MDRD) (>89) Glucose (70-100) mg/dL POC Whole Bld Glucose 139 H 127 H (70 - 100) mg/dL Calcium (8.5-10.3) mg/dL Phosphorus (2.5-4.6) mg/dL Magnesium (1.7-2.8) mg/dL Total Bilirubin (0.2-1.0) mg/dL AST (10-42) IU/L ALT (10-60) IU/L Alkaline Phosphatase (42-121) IU/L Total Protein (6.7-8.2) g/dL Albumin (3.2-5.5) g/dL Globulin (2.1-4.2) g/dL Albumin/Globulin Ratio (1.0-2.2) Prealbumin (18-45) mg/dL 08/11/21 08/11/21 08/11/21 Range/Units 04:25 04:25 04:25 WBC 18.9 H (4.8-10.8) x10^3/uL RBC 3.22 L (4.70-6.10) 10^6/uL Hgb 7.9 L (14.0-18.0) g/dL Hct 26.1 L (42.0-52.0) % MCV 81.1 (80.0-94.0) fL MCH 24.5 L (27.0-31.0) pg MCHC 30.3 L (32.0-36.0) g/dL RDW 15.9 H (12.0-15.0) % Plt Count 222 (130-450) 10^3/uL MPV 11.2 (7.4-11.4) fL Neut # (Auto) Not Reportable Lymph # (Auto) Not Reportable [place] # (Auto) Not Reportable Eos # (Auto) Not Reportable Baso # (Auto) Not Reportable Absolute Nucleated RBC Not Reportable Total Counted 100 Band Neuts % (Manual) 2 (0 - 10) % Abnorm Lymph % (Manual) 0 % Myelocytes % 2 H ( - 0) % Nucleated RBC % Not Reportable Neutrophils # (Manual) 14.6 H (1.5-6.6) 10^3/uL Lymphocytes # (Manual) 2.1 (1.5-3.5) 10^3/uL Monocytes # (Manual) 1.9 H (0.0-1.0) 10^3/uL Eosinophils # (Manual) 0.0 (0-0.7) 10^3/uL Basophils # (Manual) 0.0 (0-0.1) 10^3/uL Differential Comment MANUAL DIFFERENTIAL Platelet Estimate NORMAL (130-450,000) (NORMAL) RBC Morph Micro Appear NORMAL APPEARANCE (NORMAL) VBG pH (7.31-7.41) Ionized Calcium (1.15-1.33) mmol/L Sodium 143 138 (135-145) mmol/L Potassium 3.8 3.8 (3.5-5.0) mmol/L Chloride 109 104 (101-111) mmol/L Carbon Dioxide 25 25 (21-32) mmol/L Anion Gap 9.0 9.0 (6-13) BUN 29 H 29 H (6-20) mg/dL Creatinine 0.6 0.6 (0.6-1.2) mg/dL Estimated GFR (MDRD) 134 134 (>89) Glucose 117 H 113 H (70-100) mg/dL POC Whole Bld Glucose (70 - 100) mg/dL Calcium 8.2 L 7.9 L (8.5-10.3) mg/dL Phosphorus 1.9 L (2.5-4.6) mg/dL Magnesium 2.0 (1.7-2.8) mg/dL Total Bilirubin 0.7 (0.2-1.0) mg/dL AST 52 H (10-42) IU/L ALT 30 (10-60) IU/L Alkaline Phosphatase 40 L (42-121) IU/L Total Protein 5.5 L (6.7-8.2) g/dL Albumin 2.3 L (3.2-5.5) g/dL Globulin 3.2 (2.1-4.2) g/dL Albumin/Globulin Ratio 0.7 L (1.0-2.2) Prealbumin 24 (18-45) mg/dL 08/11/21 08/10/21 Range/Units 00:02 18:02 WBC (4.8-10.8) x10^3/uL RBC (4.70-6.10) 10^6/uL Hgb (14.0-18.0) g/dL Hct (42.0-52.0) % MCV (80.0-94.0) fL MCH (27.0-31.0) pg MCHC (32.0-36.0) g/dL RDW (12.0-15.0) % Plt Count (130-450) 10^3/uL MPV (7.4-11.4) fL Neut # (Auto) Lymph # (Auto) [place] # (Auto) Eos # (Auto) Baso # (Auto) Absolute Nucleated RBC Total Counted Band Neuts % (Manual) (0 - 10) % Abnorm Lymph % (Manual) % Myelocytes % ( - 0) % Nucleated RBC % Neutrophils # (Manual) (1.5-6.6) 10^3/uL Lymphocytes # (Manual) (1.5-3.5) 10^3/uL Monocytes # (Manual) (0.0-1.0) 10^3/uL Eosinophils # (Manual) (0-0.7) 10^3/uL Basophils # (Manual) (0-0.1) 10^3/uL Differential Comment Platelet Estimate (NORMAL) RBC Morph Micro Appear (NORMAL) VBG pH (7.31-7.41) Ionized Calcium (1.15-1.33) mmol/L Sodium (135-145) mmol/L Potassium (3.5-5.0) mmol/L Chloride (101-111) mmol/L Carbon Dioxide (21-32) mmol/L Anion Gap (6-13) BUN (6-20) mg/dL Creatinine (0.6-1.2) mg/dL Estimated GFR (MDRD) (>89) Glucose (70-100) mg/dL POC Whole Bld Glucose 118 H 152 H (70 - 100) mg/dL Calcium (8.5-10.3) mg/dL Phosphorus (2.5-4.6) mg/dL Magnesium (1.7-2.8) mg/dL Total Bilirubin (0.2-1.0) mg/dL AST (10-42) IU/L ALT (10-60) IU/L Alkaline Phosphatase (42-121) IU/L Total Protein (6.7-8.2) g/dL Albumin (3.2-5.5) g/dL Globulin (2.1-4.2) g/dL Albumin/Globulin Ratio (1.0-2.2) Prealbumin (18-45) mg/dL Sepsis Event Note (H) - Evaluation Current Stage of Sepsis: Sepsis Possible source of Sepsis: positive: Pulmonary - Sepsis Criteria Sepsis Criteria: Recorded Temperature greater than 38.3C or Less than 36C, Recorded Heart Rate greater than 90 bpm, Recorded Respiratory Rate greater than 20, Respiratory: Increasing oxygen requirements, WBC count greater than 10% bands, AIR POLLUTION SPECIALIST: altered consciousness (unrelated to primary neuro pathology), He matologic: platelets < 100,000; INR > 1.5, or a PTT>60 seconds Assessment/Plan - Problem List (1) Acute respiratory failure with hypoxia Impression: This is secondary to COVID-19 pneumonia as well as bacterial (or aspiration) pneumonia. He was extubated and taken oiff the vent yesterday afternoon and is saturating on HiFlow suppl O2 today. NG tube feeds still continue. He needs a swallowing eval by ST today in order to change to oral feeds and oral meds. Will continue to wean suppl O2 after that, as tolerated. Will transfer out of ICU today. (2) Pneumonia due to COVID-19 virus Impression: This is contributing to respiratory failure with hypoxia. He was extubated yesterday. Continue contact precautions until OKd by Infectious Dis nurse to stop. He is on Decadron but was not a candidate for Remdesivvir since he was on a ventilator. Will ask Pharmacy to determine if he should get it now, at day #10 of hospitalization, since he still has a cough and desaturates. (3) Aspiration pneumonia Impression: This was also believed to be contributing to his respiratory failure with hypoxia. Respiratory cultures have had no growth. Will de-escalate to oral antibiotics soon, if he passes swallow eval. (4) Ischemic cardiomyopathy Impression His admission EKG showed deep inferior Q waves. At admission, troponins and Echo were done. His troponins were mildly elevated but did not double (147>> 194>> 187). The Echo showed an inferior wall motion abnormality, consistent with his EKG that had deep inferior Q waves. LVEF is mildly depressed. Since he had marked bradycardic with HR 30 twice, 3 days ago, will not add a B- litzy now. He needs daily ASA. Will soom be decreasing iv/ng maintenance fluids to prevent CHF. Will check his lipid panel and likely start a statin when he can take oral meds If he survives this hospitalization, and if he consents, he may be a candidate for cor angiography. (5) Methamphetamine abuse Impression: His urine toxicology was positive for methamphetamines. We we will need to address this with a SW consult when he is able to participate in a meaningful conversation. Also, his living situation will be addressed (?was he homeless). (6) Rib fracture Impression: He does have a left-sided rib fracture likely due to trauma; we do not know the details of how this happened since he was admitted obtunded and gave no Hx. The rest of his imaging at admission was unremarkable for trauma. Qualifiers: Encounter type: subsequent encounter Rib fracture type: single rib Fracture type: closed Laterality: left Qualified Code(s): S22.32XA - Fracture of one rib, left side, initial encounter for closed fracture (7) Hx R AKA Impression: As per Hx (8) Thrombocytopenia Impression: Resolved. This improved daily after admission, suggesting that it was from sepsis or some drug or marrow toxin, like alcohol. (9) Sepsis Impression: Resolved (10) Hypotension Resolved (11) Bradycardia Impression: Resolved. He was not on and is on no HR slowing meds. (12) AMS Resolved. He presented obtunded and was intubated in ER. We need SW input
[2021-08-11] MEDS ORDERED: carvediloL 3.125 MG TABLET PO ONE (16:57)
[2021-08-11] MEDS: carvediloL 3.125 MG TABLET PO SCH (20:31)
[2021-08-11] MEDS: SODIUM CHLORIDE FLUSH 0.9% 10 ML SYRINGE IVP PRN (20:34)
[2021-08-12] MEDS: metroNIDAZOLE 500 MG/100 ML 500 MG/100 ML BAG IV SCH ×3 (04:19→20:43)
[2021-08-12] MEDS: SODIUM CHLORIDE FLUSH 0.9% 10 ML SYRINGE IVP PRN ×3 (04:20→12:32)
[2021-08-12 05:01] LABS: BASOPHILS % (AUTO) 0.2 %; EOSINOPHILS % (AUTO) 1.2 %; HCT - HEMATOCRIT 25.7 % (42.0-52.0); HGB - HEMOGLOBIN 7.7 g/dL (14.0-18.0); LYMPHOCYTES % (AUTO) 13.4 %; MEAN CORPUSCULAR HEMOGLOBIN 24.7 pg (27.0-31.0); MEAN CORPUSCULAR VOLUME 82.4 fL (80.0-94.0); MEAN PLATELET VOLUME 10.7 fL (7.4-11.4); NEUTROPHILS % (AUTO) 73.3 %; PLT - PLATELET COUNT 231 10^3/uL (130-450); RED BLOOD COUNT 3.12 10^6/uL (4.70-6.10); RED CELL DISTRIBUTION WIDTH 16.3 % (12.0-15.0)
[2021-08-12 05:03] LABS: ABNORMAL LYMPHS % (MANUAL) 0 %; BAND NEUTROPHILS % (MANUAL) 0 %
[2021-08-12 05:07] LABS: CALCIUM, IONIZED 1.11 mmol/L (1.15-1.33); VBG PH 7.452 (7.31-7.41)
[2021-08-12 05:14] LABS: CALCIUM 7.9 mg/dL (8.5-10.3); CREATININE 0.6 mg/dL (0.6-1.2); MAGNESIUM 2.1 mg/dL (1.7-2.8); PHOSPHORUS 2.7 mg/dL (2.5-4.6); POTASSIUM 3.4 mmol/L (3.5-5.0)
[2021-08-12 05:24] LABS: LYMPHOCYTES # (MANUAL) 3.8 10^3/uL (1.5-3.5); LYMPHOCYTES % (MANUAL) 20 %; MONOCYTES # (MANUAL) 1.9 10^3/uL (0.0-1.0); MYELOCYTES % (MANUAL) 1 %; NEUTROPHILS # (MANUAL) 13.1 10^3/uL (1.5-6.6); PLATELET ESTIMATE, MANUAL NORMAL (130-450,000) (NORMAL); PLATELET MORPHOLOGY NORMAL APPEARANCE (NORMAL); RBC MORPHOLOGY (MULTIPLE) NORMAL APPEARANCE (NORMAL); WBC MORPHOLOGY (MULTIPLE) NORMAL APPEARANCE (NORMAL)
[2021-08-12 05:25] LABS: DIFFERENTIAL COMMENT MANUAL DIFFERENTIAL
[2021-08-12] MEDS: PANTOPRAZOLE 40 MG VIAL IVP SCH (06:26)
[2021-08-12] MEDS: POTASSIUM CHLOR 20 MEQ/100 ML 20 MEQ/100 ML BAG IV SCH ×2 (06:28→07:55)
[2021-08-12] MEDS: VANCOMYCIN INJ 1 GM in SODIUM CHLORIDE 0.9% 250 ML IV SCH ×2 (08:24→20:41)
[2021-08-12] MEDS: CEFEPIME 2 GM in SODIUM CHLORIDE 0.9% MINIBAG 100 ML IV SCH ×2 (09:21→21:42)
[2021-08-12] MEDS: CHLORHEXIDINE GLUCONATE 15 ML UDC PO SCH ×2 (09:31→20:46)
[2021-08-12] MEDS: carvediloL 3.125 MG TABLET PO SCH ×2 (09:31→20:45)
[2021-08-12] MEDS: ASPIRIN CHEW 81 MG TABLET NG SCH (09:31)
[2021-08-12] MEDS: FUROSEMIDE 40 MG/4 ML VIAL IVP SCH (09:31)
[2021-08-12] MEDS: SODIUM CHLORIDE FLUSH 0.9% 10 ML SYRINGE IVP SCH ×2 (09:32→19:09)
[2021-08-12] MEDS: ENOXAPARIN 40 MG/0.4 ML SYRINGE SUBQ SCH (09:32)
[2021-08-12] MEDS: polyethylene glycoL 3350 17 GM PACKET PO SCH (09:32)
[2021-08-12] MEDS: ACETAMINOPHEN 325 MG TABLET PO PRN ×2 (09:35→23:45)
[2021-08-12] MEDS ORDERED: POTASSIUM CHLOR 20 MEQ/100 ML 20 MEQ/100 ML BAG IV ONE (10:38)
--- NOTE | 2021-08-12 12:36 | PROVIDER PROGRESS NOTE ---
Subjective - Prog Note Date Prog Note Date: 08/12/21 - Subjective Pt reports feeling: Improved (Alert, appears comfortable, reports occais abdominal pain, has no appetite) Objective - Vital Signs/Intake & Output Reviewed Vital Signs: Yes Vital Signs: Vital Signs Temp Pulse Resp BP Pulse Ox 08/12/21 12:26 37.6 C 91 31 H 128/73 95 08/12/21 09:00 88 34 H 158/87 H 90 L Intake & Output: Intake & Output 08/09/21 08/10/21 08/11/21 08/12/21 23:59 23:59 23:59 23:59 Intake Total 4237.780 3370.989 3194.667 767.500 Output Total 1687 2512 4135 2235 Balance 2550.780 858.989 -940.333 -1467.500 - Objective General Appearance: positive: No acute distress, Other (Thin white male, appears disheveled, wearing HiFlow n.c. O2, is curemtly getting martinez trimmed) Eyes Bilateral: positive: Normal inspection ENT: positive: No signs of dehydration, Other (poor dentition) Neck: positive: Other (Unable to assess with long martinez) Respiratory: positive: Rhonchi (R side anteriorly), Other (Increased AP diameter) Cardiovascular: positive: Regular rate & rhythm, No murmur Abdomen: positive: Non-tender, No distention Skin: positive: Warm, Dry Extremities: positive: Other (R AKA, L toes all amputated) Neurologic/Psychiatric: positive: Oriented x3, Other (Non-focal) - Lab Results Fish Bones: 08/12/21 04:30 08/12/21 10:17 Other Labs: Lab Results x24hrs 08/12/21 08/12/21 08/12/21 Range/Units 10:17 04:30 04:30 WBC (4.8-10.8) x10^3/uL RBC (4.70-6.10) 10^6/uL Hgb (14.0-18.0) g/dL Hct (42.0-52.0) % MCV (80.0-94.0) fL MCH (27.0-31.0) pg MCHC (32.0-36.0) g/dL RDW (12.0-15.0) % Plt Count (130-450) 10^3/uL MPV (7.4-11.4) fL Neut # (Auto) Lymph # (Auto) [place] # (Auto) Eos # (Auto) Baso # (Auto) Absolute Nucleated RBC Total Counted Band Neuts % (Manual) (0 - 10) % Abnorm Lymph % (Manual) % Myelocytes % ( - 0) % Nucleated RBC % Neutrophils # (Manual) (1.5-6.6) 10^3/uL Lymphocytes # (Manual) (1.5-3.5) 10^3/uL Monocytes # (Manual) (0.0-1.0) 10^3/uL Eosinophils # (Manual) (0-0.7) 10^3/uL Basophils # (Manual) (0-0.1) 10^3/uL Differential Comment WBC Morphology (NORMAL) Platelet Estimate (NORMAL) Platelet Morphology (NORMAL) RBC Morph Micro Appear (NORMAL) VBG pH 7.452 H (7.31-7.41) Ionized Calcium 1.11 L (1.15-1.33) mmol/L Sodium 138 (135-145) mmol/L Potassium 3.8 3.4 L (3.5-5.0) mmol/L Chloride 102 (101-111) mmol/L Carbon Dioxide 27 (21-32) mmol/L Anion Gap 9.0 (6-13) BUN 23 H (6-20) mg/dL Creatinine 0.6 (0.6-1.2) mg/dL Estimated GFR (MDRD) 134 (>89) Glucose 96 (70-100) mg/dL Calcium 7.9 L (8.5-10.3) mg/dL Phosphorus 2.7 (2.5-4.6) mg/dL Magnesium 2.1 (1.7-2.8) mg/dL 08/12/21 Range/Units 04:30 WBC 19.0 H (4.8-10.8) x10^3/uL RBC 3.12 L (4.70-6.10) 10^6/uL Hgb 7.7 L (14.0-18.0) g/dL Hct 25.7 L (42.0-52.0) % MCV 82.4 (80.0-94.0) fL MCH 24.7 L (27.0-31.0) pg MCHC 30.0 L (32.0-36.0) g/dL RDW 16.3 H (12.0-15.0) % Plt Count 231 (130-450) 10^3/uL MPV 10.7 (7.4-11.4) fL Neut # (Auto) Not Reportable Lymph # (Auto) Not Reportable [place] # (Auto) Not Reportable Eos # (Auto) Not Reportable Baso # (Auto) Not Reportable Absolute Nucleated RBC Not Reportable Total Counted 100 Band Neuts % (Manual) 0 (0 - 10) % Abnorm Lymph % (Manual) 0 % Myelocytes % 1 H ( - 0) % Nucleated RBC % Not Reportable Neutrophils # (Manual) 13.1 H (1.5-6.6) 10^3/uL Lymphocytes # (Manual) 3.8 H (1.5-3.5) 10^3/uL Monocytes # (Manual) 1.9 H (0.0-1.0) 10^3/uL Eosinophils # (Manual) 0.0 (0-0.7) 10^3/uL Basophils # (Manual) 0.0 (0-0.1) 10^3/uL Differential Comment MANUAL DIFFERENTIAL WBC Morphology NORMAL APPEARANCE (NORMAL) Platelet Estimate NORMAL (130-450,000) (NORMAL) Platelet Morphology NORMAL APPEARANCE (NORMAL) RBC Morph Micro Appear NORMAL APPEARANCE (NORMAL) VBG pH (7.31-7.41) Ionized Calcium (1.15-1.33) mmol/L Sodium (135-145) mmol/L Potassium (3.5-5.0) mmol/L Chloride (101-111) mmol/L Carbon Dioxide (21-32) mmol/L Anion Gap (6-13) BUN (6-20) mg/dL Creatinine (0.6-1.2) mg/dL Estimated GFR (MDRD) (>89) Glucose (70-100) mg/dL Calcium (8.5-10.3) mg/dL Phosphorus (2.5-4.6) mg/dL Magnesium (1.7-2.8) mg/dL Sepsis Event Note (H) - Evaluation Current Stage of Sepsis: Sepsis Possible source of Sepsis: positive: Pulmonary - Sepsis Criteria Sepsis Criteria: Recorded Temperature greater than 38.3C or Less than 36C, Recorded Heart Rate greater than 90 bpm, Recorded Respiratory Rate greater than 20, Respiratory: Increasing oxygen requirements, WBC count greater than 10% bands, CAROUSEL OPERATOR: altered consciousness (unrelated to primary neuro pathology), Hematologic: platelets < 100,000; INR > 1.5, or a PTT>60 seconds Assessment/Plan - Problem List (1) Acute respiratory failure with hypoxia Impression: (1) Acute respiratory failure with hypoxia Impression: This is secondary to COVID-19 pneumonia as well as bacterial (and aspiration) pn eumonia. He was extubated and taken off the vent 2 days ago and is saturating adequately on HiFlow suppl O2 today. He passed a swallowing eval by ST yesterday, a pureed diet is ordered. Will continue to wean suppl O2 as tolerated. Will remain in ICU due to FIO2 setting still very high at 70% (2) Pneumonia due to COVID-19 virus Impression: This is contributing to respiratory failure with hypoxia. He was extubated 2 days ago (for the 2nd time). Isolation precautions DCd by Infectious Dis nurse. He finished Decadron and was not a candidate for Remdesivvir since he was on a ventilator. (3) Aspiration pneumonia Impression: This was also believed to be contributing to his respiratory failure with hypoxia. Respiratory cultures have had no growth. He has copious secretions, is coughing up white sputum. RT started Acapella device Will recheck a CXR and hopefully de-escalate to oral antibiotics soon. (4) Ischemic cardiomyopathy Impression His admission EKG showed deep inferior Q waves. At admission, troponins and Echo were done. His troponins were mildly elevated but did not double (147>> 194>> 187). The Echo showed an inferior wall motion abnormality, consistent with his EKG that had deep inferior Q waves. LVEF is mildly depressed. Since he had marked bradycardic with HR 30 several times, a B-litzy was not started until he developed recurrent PSVT yesterday (see #5). He will be on daily ASA, statin We stopped iv/ng maintenance fluids to prevent CHF. If he survives this hospitalization, and if he consents, he may be a candidate for cor angiography. (5) PSVT Yesterday late afternoon, he went into PSVT that was sustained at a rate of 160, it broke spontaneously after 15-20 sec. His blood pressure was stable with this. He was not symptomatic. Then Coreg 3.125 twice daily was started. Today there have been 4-5 beat runs of PSVT but not sustained. Remain on telemetry. We will not increase his Coreg dose yet because of the significant bradycardia that was seen several days ago (6) Methamphetamine abuse Impression: His urine toxicology was positive for methamphetamines. We we will need to address this with a SW consult when he is able to participate in a meaningful conversation. Also, his living situation will be addressed (?was he homeless). (7) Rib fracture Impression: He does have a left-sided rib fracture likely due to trauma; we do not know the details of how this happened since he was admitted obtunded and gave no Hx. The rest of his imaging at admission was unremarkable for trauma. Qualifiers: Encounter type: subsequent encounter Rib fracture type: single rib Fracture type: closed Laterality: left Qualified Code(s): S22.32XA - Fracture of one rib, left side, initial encounter for closed fracture (8) Hx R AKA Impression: As per Hx (9) Thrombocytopenia Impression: Resolved. This improved daily after admission, suggesting that it was from sepsis or some drug or marrow toxin, like alcohol. (10) Sepsis Impression: Resolved (11) Hypotension Resolved (12) Bradycardia Impression: Resolved. He was not on and is on no HR slowing meds. (13) AMS Resolved. He presented obtunded and was intubated in ER. We will need SW input re: his drug use.
--- NOTE | 2021-08-12 15:25 | XRAY Report ---
PROCEDURE: Chest 1 View X-Ray INDICATIONS: COVID and bacterial PNA, F/U infiltrates TECHNIQUE: One view of the chest was acquired. COMPARISON: 08/06/2021. FINDINGS: Surgical changes and devices: None. Lungs and pleura: Patchy opacities in the left lung base have increased in size. Opacities noted in the right lung base. Small to moderate sized right pleural effusion and moderate s ized left pleural effusion. Mediastinum: Mediastinal contours appear normal. Heart size is normal. Bones and chest wall: No suspicious bony lesions. Overlying soft tissues appear unremarkable. IMPRESSION: 1. Worsening left basilar pneumonia. 2. New patchy opacities in the right lung base which could represent pneumonia or atelectasis. 3. Enlarging left pleural effusion and new right pleural effusion. Reviewed by: Elizabeth Fagan MD, PhD on 08/12/2021 3:24 PM PST Approved by: Elizabeth Fagan MD, PhD on 08/12/2021 3:24 PM PST Station ID: [id number]
[2021-08-12] MEDS: MORPHINE 2 MG/ML CARPUJECT IVP PRN (20:46)
[2021-08-12] MEDS: ATORVASTATIN 10 MG TABLET PO SCH (20:46)
[2021-08-13] MEDS: metroNIDAZOLE 500 MG/100 ML 500 MG/100 ML BAG IV SCH ×3 (04:34→20:29)
[2021-08-13] MEDS: SODIUM CHLORIDE FLUSH 0.9% 10 ML SYRINGE IVP SCH ×5 (04:34→20:32)
[2021-08-13] MEDS: FUROSEMIDE 40 MG/4 ML VIAL IVP SCH ×2 (05:35→15:35)
[2021-08-13] MEDS: SODIUM CHLORIDE FLUSH 0.9% 10 ML SYRINGE IVP PRN (05:36)
[2021-08-13] MEDS: PANTOPRAZOLE 40 MG TABLET PO SCH (05:57)
[2021-08-13 06:07] LABS: CALCIUM, IONIZED 1.1 mmol/L (1.15-1.33); VBG PH 7.442 (7.31-7.41)
[2021-08-13 06:09] LABS: BASOPHILS % (AUTO) 0.2 %; EOSINOPHILS # (AUTO) 0.3 10^3/uL (0.0-0.7); EOSINOPHILS % (AUTO) 1.7 %; HCT - HEMATOCRIT 24.6 % (42.0-52.0); HGB - HEMOGLOBIN 7.4 g/dL (14.0-18.0); LYMPHOCYTES # (AUTO) 2.1 10^3/uL (1.5-3.5); LYMPHOCYTES % (AUTO) 13.6 %; MEAN CORPUSCULAR HEMOGLOBIN 24.7 pg (27.0-31.0); MEAN CORPUSCULAR HGB CONC 30.1 g/dL (32.0-36.0); MEAN CORPUSCULAR VOLUME 82.3 fL (80.0-94.0); MEAN PLATELET VOLUME 10.9 fL (7.4-11.4); MONOCYTES # (AUTO) 1.2 10^3/uL (0.0-1.0); MONOCYTES % (AUTO) 7.9 %; NEUTROPHILS # (AUTO) 11.4 10^3/uL (1.5-6.6); NEUTROPHILS % (AUTO) 73.7 %; NRBC ABSOLUTE COUNT (AUTO) 0.03 x10^3/uL; NUCLEATED RED BLOOD CELLS AUTO 0.2 /100WBC; PLT - PLATELET COUNT 225 10^3/uL (130-450); RED BLOOD COUNT 2.99 10^6/uL (4.70-6.10); RED CELL DISTRIBUTION WIDTH 17.1 % (12.0-15.0); WHITE BLOOD COUNT 15.4 x10^3/uL (4.8-10.8)
[2021-08-13 06:18] LABS: CALCIUM 7.9 mg/dL (8.5-10.3); CREATININE 0.5 mg/dL (0.6-1.2); MAGNESIUM 2.2 mg/dL (1.7-2.8); POTASSIUM 3.6 mmol/L (3.5-5.0)
[2021-08-13] MEDS ORDERED: POTASSIUM CHLOR 20 MEQ/100 ML 20 MEQ/100 ML BAG IV ONE (06:26)
[2021-08-13] MEDS: CALCIUM CARBONATE CHEW 500 MG TABLET PO SCH ×2 (06:57→11:22)
[2021-08-13] MEDS: CHLORHEXIDINE GLUCONATE 15 ML UDC PO SCH ×2 (08:42→20:33)
[2021-08-13] MEDS: carvediloL 3.125 MG TABLET PO SCH ×2 (08:42→20:33)
[2021-08-13] MEDS: MULTIVITAMIN W/MINERALS TABLET PO SCH (08:42)
[2021-08-13] MEDS: CEFEPIME 2 GM in SODIUM CHLORIDE 0.9% MINIBAG 100 ML IV SCH ×2 (08:42→21:24)
[2021-08-13] MEDS: ASPIRIN CHEW 81 MG TABLET NG SCH (08:42)
[2021-08-13] MEDS: polyethylene glycoL 3350 17 GM PACKET PO SCH (08:43)
[2021-08-13] MEDS: ENOXAPARIN 40 MG/0.4 ML SYRINGE SUBQ SCH (08:43)
[2021-08-13] MEDS: VANCOMYCIN INJ 1 GM in SODIUM CHLORIDE 0.9% 250 ML IV SCH ×2 (09:25→20:24)
[2021-08-13 10:04] LABS: BILIRUBIN,URINE NEGATIVE (NEGATIVE); GLUCOSE, URINE (UA) NEGATIVE (NEGATIVE); KETONES,URINE (UA) NEGATIVE (NEGATIVE); LEUKOCYTE ESTERASE, URINE NEGATIVE (NEGATIVE); NITRITE,URINE NEGATIVE (NEGATIVE); OCCULT BLOOD,URINE TRACE-INTA (NEGATIVE); PH,URINE 6.5 PH (5.0-7.5); PROTEIN,URINE NEGATIVE (NEGATIVE); UROBILINOGEN,URINE 0.2 (NORMAL) E.U./dL (NORMAL)
[2021-08-13 10:10] LABS: CLARITY,URINE CLEAR (CLEAR)
[2021-08-13 10:15] LABS: BACTERIA,URINE Few /HPF (None Seen); MUCUS,URINE Few Strands; SQUAMOUS EPITHELIAL CELL,UR FEW Squamous (<= Few); WBC,URINE 0-3 /HPF (0-3)
--- NOTE | 2021-08-13 13:14 | PROVIDER PROGRESS NOTE ---
Subjective - Prog Note Date Prog Note Date: 08/13/21 - Subjective Pt reports feeling: Improved (Feels better, able to speak in entire sentences, more alert, able to make jokes, still poor apetite and feels very weak.) Objective - Vital Signs/Intake & Output Reviewed Vital Signs: Yes Vital Signs: Vital Signs Temp Pulse Resp BP Pulse Ox 08/13/21 11:17 0.1 C L 99 34 H 139/84 H 96 Intake & Output: Intake & Output 08/10/21 08/11/21 08/12/21 08/13/21 23:59 23:59 23:59 23:59 Intake Total 3370.989 3194.667 6370.316 5163 Output Total 2512 6475 2700 2535 Balance 858.989 -940.333 -1285.833 -1505 - Objective General Appearance: positive: No acute distress, Alert, Other (Disheveled, even after martinez was shaved yesterday) Eyes Bilateral: positive: Normal inspection, No lid inflammation ENT: positive: No signs of dehydration, Other (Wearing nasal HiFlow cannula, por dentition w/ all front teeth missing.) Neck: positive: Nml inspection Respiratory: positive: No respiratory distress, Breath sounds nml, Other (Increased AP diameter) Cardiovascular: positive: Regular rate & rhythm, No murmur Abdomen: positive: Non-tender, No distention Skin: positive: Warm, Dry Extremities: positive: Other (R AKA,) Neurologic/Psychiatric: positive: Oriented x3, Motor nml, Other (Mo nystagmus or tremors) - Lab Results Fish Bones: 08/13/21 05:00 08/13/21 08:35 Other Labs: Lab Results x24hrs 08/13/21 08/13/21 08/13/21 Range/Units 08:45 08:35 08:35 WBC (4.8-10.8) x10^3/uL RBC (4.70-6.10) 10^6/uL Hgb (14.0-18.0) g/dL Hct (42.0-52.0) % MCV (80.0-94.0) fL MCH (27.0-31.0) pg MCHC (32.0-36.0) g/dL RDW (12.0-15.0) % Plt Count (130-450) 10^3/uL MPV (7.4-11.4) fL Neut # (Auto) (1.5-6.6) 10^3/uL Lymph # (Auto) (1.5-3.5) 10^3/uL [place] # (Auto) (0.0-1.0) 10^3/uL Eos # (Auto) (0.0-0.7) 10^3/uL Baso # (Auto) (0.0-0.1) 10^3/uL Absolute Nucleated RBC x10^3/uL Nucleated RBC % /100WBC VBG pH (7.31-7.41) Ionized Calcium (1.15-1.33) mmol/L Sodium (135-145) mmol/L Potassium 3.9 (3.5-5.0) mmol/L Chloride (101-111) mmol/L Carbon Dioxide (21-32) mmol/L Anion Gap (6-13) BUN (6-20) mg/dL Creatinine (0.6-1.2) mg/dL Estimated GFR (MDRD) (>89) Glucose (70-100) mg/dL Calcium (8.5-10.3) mg/dL Phosphorus (2.5-4.6) mg/dL Magnesium (1.7-2.8) mg/dL Urine Color YELLOW Urine Clarity CLEAR (CLEAR) Urine pH 6.5 (5.0-7.5) PH Ur Specific [place] 1.010 (1.002-1.030) Urine Protein NEGATIVE (NEGATIVE) mg/dL Urine Glucose (UA) NEGATIVE (NEGATIVE) mg/dL Urine Ketones NEGATIVE (NEGATIVE) mg/dL Urine Occult Blood TRACE-INTA (NEGATIVE) Urine Nitrite NEGATIVE (NEGATIVE) Urine Bilirubin NEGATIVE (NEGATIVE) Urine Urobilinogen 0.2 (NORMAL) (NORMAL) E.U./dL Ur Leukocyte Esterase NEGATIVE (NEGATIVE) Urine RBC 6-10 H (0-5) /HPF Urine WBC 0-3 (0-3) /HPF Ur Squamous Epith Cells FEW Squamous (<= Few) Urine Bacteria Few (None Seen) /HPF Urine Casts 6-10 Hyaline Casts /LPF Urine Mucus Few Strands Urine Culture Comments NOT INDICATED Last Dose Date 08/12/21 Last Dose Time 2030 Vancomycin Trough 16.0 (10.0-20.0) ug/mL 08/13/21 08/13/21 08/13/21 Range/Units 05:00 05:00 05:00 WBC 15.4 H (4.8-10.8) x10^3/uL RBC 2.99 L (4.70-6.10) 10^6/uL Hgb 7.4 L (14.0-18.0) g/dL Hct 24.6 L (42.0-52.0) % MCV 82.3 (80.0-94.0) fL MCH 24.7 L (27.0-31.0) pg MCHC 30.1 L (32.0-36.0) g/dL RDW 17.1 H (12.0-15.0) % Plt Count 225 (130-450) 10^3/uL MPV 10.9 (7.4-11.4) fL Neut # (Auto) 11.4 H (1.5-6.6) 10^3/uL Lymph # (Auto) 2.1 (1.5-3.5) 10^3/uL [place] # (Auto) 1.2 H (0.0-1.0) 10^3/uL Eos # (Auto) 0.3 (0.0-0.7) 10^3/uL Baso # (Auto) 0.0 (0.0-0.1) 10^3/uL Absolute Nucleated RBC 0.03 x10^3/uL Nucleated RBC % 0.2 /100WBC VBG pH 7.442 H (7.31-7.41) Ionized Calcium 1.10 L (1.15-1.33) mmol/L Sodium 139 (135-145) mmol/L Potassium 3.6 (3.5-5.0) mmol/L Chloride 105 (101-111) mmol/L Carbon Dioxide 26 (21-32) mmol/L Anion Gap 8.0 (6-13) BUN 22 H (6-20) mg/dL Creatinine 0.5 L (0.6-1.2) mg/dL Estimated GFR (MDRD) 165 (>89) Glucose 92 (70-100) mg/dL Calcium 7.9 L (8.5-10.3) mg/dL Phosphorus 3.0 (2.5-4.6) mg/dL Magnesium 2.2 (1.7-2.8) mg/dL Urine Color Urine Clarity (CLEAR) Urine pH (5.0-7.5) PH Ur Specific [place] (1.002-1.030) Urine Protein (NEGATIVE) mg/dL Urine Glucose (UA) (NEGATIVE) mg/dL Urine Ketones (NEGATIVE) mg/dL Urine Occult Blood (NEGATIVE) Urine Nitrite (NEGATIVE) Urine Bilirubin (NEGATIVE) Urine Urobilinogen (NORMAL) E.U./dL Ur Leukocyte Esterase (NEGATIVE) Urine RBC (0-5) /HPF Urine WBC (0-3) /HPF Ur Squamous Epith Cells (<= Few) Urine Bacteria (None Seen) /HPF Urine Casts /LPF Urine Mucus Urine Culture Comments Last Dose Date Last Dose Time Vancomycin Trough (10.0-20.0) ug/mL 08/12/21 Range/Units 15:16 WBC (4.8-10.8) x10^3/uL RBC (4.70-6.10) 10^6/uL Hgb (14.0-18.0) g/dL Hct (42.0-52.0) % MCV (80.0-94.0) fL MCH (27.0-31.0) pg MCHC (32.0-36.0) g/dL RDW (12.0-15.0) % Plt Count (130-450) 10^3/uL MPV (7.4-11.4) fL Neut # (Auto) (1.5-6.6) 10^3/uL Lymph # (Auto) (1.5-3.5) 10^3/uL [place] # (Auto) (0.0-1.0) 10^3/uL Eos # (Auto) (0.0-0.7) 10^3/uL Baso # (Auto) (0.0-0.1) 10^3/uL Absolute Nucleated RBC x10^3/uL Nucleated RBC % /100WBC VBG pH (7.31-7.41) Ionized Calcium (1.15-1.33) mmol/L Sodium (135-145) mmol/L Potassium 3.9 (3.5-5.0) mmol/L Chloride (101-111) mmol/L Carbon Dioxide (21-32) mmol/L Anion Gap (6-13) BUN (6-20) mg/dL Creatinine (0.6-1.2) mg/dL Estimated GFR (MDRD) (>89) Glucose (70-100) mg/dL Calcium (8.5-10.3) mg/dL Phosphorus (2.5-4.6) mg/dL Magnesium (1.7-2.8) mg/dL Urine Color Urine Clarity (CLEAR) Urine pH (5.0-7.5) PH Ur Specific [place] (1.002-1.030) Urine Protein (NEGATIVE) mg/dL Urine Glucose (UA) (NEGATIVE) mg/dL Urine Ketones (NEGATIVE) mg/dL Urine Occult Blood (NEGATIVE) Urine Nitrite (NEGATIVE) Urine Bilirubin (NEGATIVE) Urine Urobilinogen (NORMAL) E.U./dL Ur Leukocyte Esterase (NEGATIVE) Urine RBC (0-5) /HPF Urine WBC (0-3) /HPF Ur Squamous Epith Cells (<= Few) Urine Bacteria (None Seen) /HPF Urine Casts /LPF Urine Mucus Urine Culture Comments Last Dose Date Last Dose Time Vancomycin Trough (10.0-20.0) ug/mL Sepsis Event Note (H) - Evaluation Current Stage of Sepsis: Sepsis Possible source of Sepsis: positive: Pulmonary - Sepsis Criteria Sepsis Criteria: Recorded Temperature greater than 38.3C or Less than 36C, Recorded Heart Rate greater than 90 bpm, Recorded Respiratory Rate greater than 20, Respiratory: Increasing oxygen requirements, WBC count greater than 10% bands, CASTING CARRIER: altered consciousness (unrelated to primary neuro pathology), Hematologic: platelets < 100,000; INR > 1.5, or a PTT>60 seconds Assessment/Plan - Problem List (1) Acute respiratory failure with hypoxia Impression: This is secondary to COVID-19 pneumonia as well as bacterial (and aspiration) pneumonia. He was extubated and taken off the vent 3 days ago and is saturating adequately on HiFlow suppl O2 today. He passed a swallowing eval by ST and his diet is advancing Will continue to wean suppl O2 as tolerated. Will remain in ICU due to FIO2 setting still very high at 70>> 50% I suspect he has COPD by his cough and his barrel chest and he was smoking until this admission. Possibly out of ICU tomorrow (2) Pneumonia due to COVID-19 virus Impression: This is contributing to respiratory failure with hypoxia. He was extubated 2 days ago (for the 2nd time). Isolation precautions DCd by Infectious Dis nurse. He finished Decadron and was not a candidate for Remdesivvir since he was on a ventilator. (3) Aspiration pneumonia Impression: This was also believed to be contributing to his respiratory failure with hypoxia. Respiratory cultures have had no growth. He had copious secretions after extubation, is coughing up white sputum. RT started Acapella device A CXR yesterday showed volume overload. (4) Ischemic cardiomyopathy Impression His admission EKG showed deep inferior Q waves. At admission, troponins and Echo were done. His troponins were mildly elevated but did not double (147>> 194>> 187). The Echo showed an inferior wall motion abnormality, consistent with his EKG that had deep inferior Q waves. LVEF is mildly depressed. Since he had marked bradycardic with HR 30 several times, a B-litzy was not started until he developed recurrent PSVT yesterday (see #5). He is on daily baby ASA, statin We stopped iv/ng maintenance fluids to prevent CHF. A CXR done yesterday showed volume overload and his Lasix dose was increased If he survives this hospitalization, and if he consents, he may be a candidate for cor angiography. (5) PSVT 2 days ago, he went into PSVT that was sustained at a rate of 160, it broke spontaneously after 15-20 sec. His blood pressure was stable with this. He was not symptomatic. Then Coreg 3.125 twice daily was started. Remain on telemetry. We will not increase his Coreg dose yet because of the significant bradycardia that was seen several days ago (6) Methamphetamine abuse Impression: His urine toxicology was positive for methamphetamines. We we will need to address this with a SW consult when he is able to participate in a meaningful conversation. Also, his living situation was addressed with SW seeing him today and confirmed that he is homeless. (7) Rib fracture Impression: He does have a left-sided rib fracture likely due to trauma; we do not know the details of how this happened since he was admitted obtunded and gave no Hx. The rest of his imaging at admission was unremarkable for trauma. Qualifiers: Encounter type: subsequent encounter Rib fracture type: single rib Fracture type: closed Laterality: left Qualified Code(s): S22.32XA - Fracture of one rib, left side, initial encounter for closed fracture (8) Hx R AKA Impression: As per Hx alomg with L trans metatarsal amputation (has a stump) (9) Homeless single person Impression: As per the SW vickie done today. Since he is extremely deconditioned and working with PT, he will likely need a SNF for PT and OT rehab, however a final DCh plan needs to be worked out. (10) Thrombocytopenia Impression: Resolved. This improved daily after admission, suggesting that it was from sepsis or some drug or marrow toxin, like alcohol. (11) Sepsis Impression: Resolved (12) Hypotension Resolved (13) Bradycardia Impression: Resolved. He was not on and is on no HR slowing meds. (14) AMS Resolved. He presented obtunded and was intubated in ER. We will need SW input re: his drug use.
[2021-08-13] MEDS: MORPHINE 2 MG/ML CARPUJECT IVP PRN (15:36)
[2021-08-13] MEDS: ATORVASTATIN 10 MG TABLET PO SCH (20:32)
[2021-08-14] MEDS: metroNIDAZOLE 500 MG/100 ML 500 MG/100 ML BAG IV SCH ×3 (04:21→21:01)
[2021-08-14 05:32] LABS: CALCIUM, IONIZED 1.11 mmol/L (1.15-1.33); VBG PH 7.452 (7.31-7.41)
[2021-08-14 05:45] LABS: PHOSPHORUS 2.9 mg/dL (2.5-4.6)
[2021-08-14] MEDS: FUROSEMIDE 40 MG/4 ML VIAL IVP SCH (06:49)
[2021-08-14] MEDS: PANTOPRAZOLE 40 MG TABLET PO SCH (06:50)
[2021-08-14] MEDS ORDERED: INSULIN ASPART 300 UNIT/3 ML PEN SUBQ SCH (08:00)
[2021-08-14] MEDS: VANCOMYCIN INJ 1 GM in SODIUM CHLORIDE 0.9% 250 ML IV SCH ×2 (10:08→21:07)
[2021-08-14] MEDS: MULTIVITAMIN W/MINERALS TABLET PO SCH (10:09)
[2021-08-14] MEDS: ASPIRIN CHEW 81 MG TABLET NG SCH (10:09)
[2021-08-14] MEDS: carvediloL 3.125 MG TABLET PO SCH ×2 (10:09→21:07)
[2021-08-14] MEDS: CEFEPIME 2 GM in SODIUM CHLORIDE 0.9% MINIBAG 100 ML IV SCH ×2 (10:09→21:08)
[2021-08-14] MEDS: POTASSIUM CHLORIDE 20 MEQ TABLET PO SCH ×2 (10:10→13:23)
[2021-08-14] MEDS: polyethylene glycoL 3350 17 GM PACKET PO SCH (10:10)
[2021-08-14] MEDS: CHLORHEXIDINE GLUCONATE 15 ML UDC PO SCH ×2 (10:10→22:07)
[2021-08-14] MEDS: ENOXAPARIN 40 MG/0.4 ML SYRINGE SUBQ SCH (10:10)
[2021-08-14] MEDS: SODIUM CHLORIDE FLUSH 0.9% 10 ML SYRINGE IVP SCH ×2 (10:10→17:50)
[2021-08-14] MEDS: LEVALBUTEROL 1.25 MG/3 ML NEB INH SCH ×3 (10:30→21:35)
[2021-08-14] MEDS: SCOPOLAMINE PATCH TOP SCH (13:23)
[2021-08-14] MEDS: MORPHINE 2 MG/ML CARPUJECT IVP PRN (13:24)
--- NOTE | 2021-08-14 17:37 | PROVIDER PROGRESS NOTE ---
Assessment/Plan - Problem List (1) Acute respiratory failure with hypoxia Assessment/Plan: This was secondary to COVID-19 pneumonia as well as bacterial (and aspiration) pneumonia. He was extubated and taken off the vent several days ago and is saturating adequately on HiFlow suppl O2 today, able to be brought down on his FIO2 settings, since a sat of 88% will be acceptable, as I suspect he has COPD (by his barrel chest and he was smoking until this admission). Titrate suppl O2 down Plan to transfer out of ICU today (2) Pneumonia due to COVID-19 virus Impression: This was contributing to respiratory failure with hypoxia. Isolation precautions DCd by Infectious Dis nurse several days ago. He finished Decadron and was not a candidate for Remdesivvir since he was on a ventilator. (3) Aspiration pneumonia Impression: This was also believed to be contributing to his respiratory failure with hypoxia. Respiratory cultures have had no growth. He had copious secretions after extubation, is coughing up white sputum. RT started Acapella device which helped alot. Will soon stop antibx, since he is finishing an empiric course (of 14 days) after today (4) Ischemic cardiomyopathy Impression His admission EKG showed deep inferior Q waves. At admission, troponins and Echo were done. His troponins were mildly elevated but did not double (147>> 194>> 187). The Echo showed an inferior wall motion abnormality, consistent with his EKG that had deep inferior Q waves. LVEF is mildly depressed. Since he had marked bradycardic with HR 30 several times, a B-litzy was not started until he developed recurrent PSVT yesterday (see #15). He is on daily baby ASA, statin and he needed Lasix for several doses. We stopped Lasix. If he survives this hospitalization, and if he consents, he may be a candidate for cor angiography. (5) Methamphetamine abuse Impression: His urine toxicology was positive for methamphetamines. We we will need to address this with a SW consult when he is able to participate in a meaningful conversation. Also, his living situation was addressed with SW seeing him and confirmed that he is homeless. (6) Rib fracture Impression: He does have a left-sided rib fracture diagnosed at admission, likely due to trauma; we do not know the details of how this happened since he was admitted obtunded and gave no Hx. The rest of his imaging at admission was unremarkable for trauma. Qualifiers: Encounter type: subsequent encounter Rib fracture type: single rib Fracture type: closed Laterality: left Qualified Code(s): S22.32XA - Fracture of one rib, left side, initial encounter for closed fracture (7) Deconditioning He has become very weak from deconditioning, being in the ICU for 12 days PT has started. He will likely need SNF for PT rehab, however, because he is homeless status, a final DCh plan is not known yet. (8) Hx R AKA Impression: As per Hx along with L trans metatarsal amputation. He is wearing his L shoe today. (9) Homeless single person Impression: As per the SW evel done today. Since he is extremely deconditioned and working with PT, he will likely need a SNF for PT and OT rehab, however a final DCh plan needs to be worked out. (10) Thrombocytopenia Impression: Resolved. This improved daily after admission, suggesting that it was from sepsis or some drug or marrow toxin, like alcohol. (11) Sepsis Impression: Resolved (12) Hypotension Impression: Resolved (13) Bradycardia Impression: Resolved. He was not on and is on no HR slowing meds. (14) AMS Impression: Resolved. He presented obtunded and was intubated in ER. We will need SW input re: his drug use. (15) PSVT Impression: Resolved Several days ago,he went into PSVT that was sustained at a rate of 160, it broke spontaneously after 15-20 sec. His blood pressure was stable with this. He was not symptomatic. Then Coreg 3.125 twice daily was started. None seen further - Current Meds Current Meds: Current Medications Generic Name Dose Route Start Last Admin Trade Name Freq PRN Reason Stop Dose Admin Acetaminophen 650 mg 08/01/21 21:56 08/12/21 23:45 Acetaminophen 325 Mg Tablet PO 650 mg Q6HR PRN Administration Pain or Fever > 38C (100.4F) Albuterol 2.5 mg 08/05/21 12:19 08/05/21 12:40 Albuterol Neb 2.5 Mg/3 Ml INH 2.5 mg RTQ4H PRN Administration Wheezing Aspirin 81 mg 08/09/21 13:08 08/14/21 10:09 Aspirin Chew 81 Mg Tablet NG 81 mg DAILY ARNOLD Administration Atorvastatin Calcium 10 mg 08/12/21 21:00 08/13/21 20:32 Atorvastatin 10 Mg Tablet PO 10 mg QPM ARNOLD Administration Carvedilol 3.125 mg 08/11/21 21:00 08/14/21 10:09 Carvedilol 3.125 Mg Tablet PO 3.125 mg BID ARNOLD Administration Chlorhexidine Gluconate 15 ml 08/01/21 23:30 08/14/21 10:10 Chlorhexidine Gluconate 15 Ml Udc PO 15 ml BID ARNOLD Administration Enoxaparin Sodium 40 mg 08/02/21 09:00 08/14/21 10:10 Enoxaparin 40 Mg/0.4 Ml Syringe SUBQ 40 mg DAILY ARNOLD Administration Cefepime HCl 2 gm/ Sodium 100 mls @ 200 mls/hr 08/02/21 09:00 08/14/21 11:00 Chloride IV 08/15/21 09:29 Infused BID ARNOLD Infusion Metronidazole 500 mg in 100 mls @ 100 mls/hr 08/02/21 04:00 08/14/21 14:30 Flagyl 500 Mg/100 Ml IV 08/15/21 12:59 Infused Q8H ARNOLD Infusion Vancomycin HCl 1 gm/ Sodium 250 mls @ 167 mls/hr 08/02/21 08:00 08/14/21 11:45 Chloride IV 08/15/21 09:29 Infused Q12H ARNOLD Infusion Levalbuterol HCl 1.25 mg 08/14/21 08:00 08/14/21 13:33 Levalbuterol 1.25 Mg/3 Ml Neb INH 1.25 mg TID ARNOLD Administration Morphine Sulfate 2 mg 08/01/21 23:15 08/14/21 13:24 Morphine 2 Mg/Ml Carpuject IVP 2 mg Q4HR PRN Administration PAIN Multivitamins/Minerals 1 tab 08/13/21 08:00 08/14/21 10:09 Multivitamin W/Minerals Tablet PO 1 tab DAILYWM ARNOLD Administration Pantoprazole Sodium 40 mg 08/13/21 07:00 08/14/21 06:50 Pantoprazole 40 Mg Tablet PO 40 mg QDAC ARNOLD Administration Polyethylene Glycol 17 gm 08/05/21 09:00 08/14/21 10:10 Polyethylene Glycol 3350 17 Gm Packet PO Not Given DAILY [facility] Scopolamine HBr 1 patch 08/11/21 12:00 08/14/21 13:23 Scopolamine Patch TOP 1 patch Q3D ARNOLD Administration Sodium Chloride 10 ml 08/01/21 21:49 08/12/21 12:32 Sodium Chloride Flush 0.9% 10 Ml Syringe IVP 20 ml PRN PRN Administration NEEDED PER PROVIDER ORDERS Sodium Chloride 10 ml 08/02/21 01:00 08/14/21 10:10 Sodium Chloride Flush 0.9% 10 Ml Syringe IVP 10 ml 0100,0900,1700 ARNOLD Administration Sodium Chloride 20 ml 08/12/21 21:23 08/13/21 05:36 Sodium Chloride Flush 0.9% 10 Ml Syringe IVP 20 ml PRN PRN Administration After Blood Draw - Lab Result Fish Bone Diagrams: 08/13/21 05:00 08/14/21 04:30 - Additional Planning My Orders: My Active Orders 08/14/21 Guaiac [OCCULT BLOOD IN PAT. SINGLE] [RAPID] Urgent 08/14/21 07:28 Nebulizer/MDI Tx. [RC] .TID Resp Teach Nebulizer/MDI [RC] .ONCE 08/14/21 08:00 Levalbuterol [Xopenex] 1.25 mg INH TID 08/14/21 15:17 Transfer [Admit \ Transfer \ Status] [RC] .ONCE 08/14/21 15:30 Nutrition Consult [CONS] Routine 08/14/21 15:38 Telemetry- [RC] Q4HR 08/14/21 Dinner DIET [Regular Diet] [DIET] 08/15/21 06:00 FUROSEMIDE INJ 40mg VIAL [LASIX INJ 40 mg VIAL] 40 mg IVP 0600 Subjective - Subjective Patient Reports: Feeling Better, Resting Comfortably Nursing Reports: Other (Very weak, cannot lift himself with arms) Objective Vital Signs: Vital Signs - 24 hr 08/13/21 08/13/21 08/13/21 18:00 20:00 20:45 Temperature 37.5 C Heart Rate Heart Rate [ 100 103 H Monitoring electrodes] Respiratory 37 H 39 H 38 H Rate Blood Pressure 122/91 H 120/83 H [Left Brachial artery] Blood Pressure [Right Brachial artery] O2 Saturation 97 96 91 L 08/13/21 08/14/21 08/14/21 23:00 00:00 01:30 Temperature 37.7 C Heart Rate Heart Rate [ 86 Monitoring electrodes] Respiratory 36 H 33 H Rate Blood Pressure [Left Brachial artery] Blood Pressure 125/76 [Right Brachial artery] O2 Saturation 93 93 08/14/21 08/14/21 08/14/21 03:00 06:00 08:33 Temperature Heart Rate 89 Heart Rate [ 89 95 Monitoring electrodes] Respiratory 36 H 38 H 18 Rate Blood Pressure [Left Brachial artery] Blood Pressure 131/73 H 130/74 [Right Brachial artery] O2 Saturation 93 95 08/14/21 08/14/21 08/14/21 08:50 08:52 12:00 Temperature 37.1 C 36.6 C Heart Rate 89 Heart Rate [ 98 103 H Monitoring electrodes] Respiratory 19 27 H 26 H Rate Blood Pressure [Left Brachial artery] Blood Pressure 133/79 H 117/76 [Right Brachial artery] O2 Saturation 94 95 08/14/21 08/14/21 08/14/21 13:41 14:00 15:00 Temperature Heart Rate 100 Heart Rate [ 98 101 H Monitoring electrodes] Respiratory 26 H 26 H 30 H Rate Blood Pressure [Left Brachial artery] Blood Pressure 109/76 114/70 [Right Brachial artery] O2 Saturation 95 96 Oxygen O2 Source Room air I&O (Last 24 Hrs): Intake and Output Totals x24h 08/12/21 08/13/21 08/14/21 23:59 23:59 23:59 Intake Total 1546.489 9911 1460 Output Total 2700 3285 625 Balance -1285.833 -1465 835 General: Alert HEENT: Mucous membr. moist/pink, Other (Essentially edentulous, only 1 tooth present) Neck: Supple Neuro: Alert, Non Focal (generalized weakness) Respiratory: No respiratory distress, Breath sounds nml Abdomen: Normal bowel sounds, Soft Extremities: No edema, Other (Has R AKA, and L transmetatarsal amputations) - Results Results: Laboratory Results WBC 15.4 x10^3/uL (4.8-10.8) H 08/13/21 05:00 RBC 2.99 10^6/uL (4.70-6.10) L 08/13/21 05:00 Hgb 7.4 g/dL (14.0-18.0) L 08/13/21 05:00 Hct 24.6 % (42.0-52.0) L 08/13/21 05:00 MCV 82.3 fL (80.0-94.0) 08/13/21 05:00 MCH 24.7 pg (27.0-31.0) L 08/13/21 05:00 MCHC 30.1 g/dL (32.0-36.0) L 08/13/21 05:00 RDW 17.1 % (12.0-15.0) H 08/13/21 05:00 Plt Count 225 10^3/uL (130-450) 08/13/21 05:00 MPV 10.9 fL (7.4-11.4) 08/13/21 05:00 Neut # (Auto) 11.4 10^3/uL (1.5-6.6) H 08/13/21 05:00 Lymph # (Auto) 2.1 10^3/uL (1.5-3.5) 08/13/21 05:00 Peach # (Auto) 1.2 10^3/uL (0.0-1.0) H 08/13/21 05:00 Eos # (Auto) 0.3 10^3/uL (0.0-0.7) 08/13/21 05:00 Baso # (Auto) 0.0 10^3/uL (0.0-0.1) 08/13/21 05:00 Absolute Nucleated RBC 0.03 x10^3/uL 08/13/21 05:00 Total Counted 100 08/12/21 04:30 Band Neuts % (Manual) 0 % (0-10) 08/12/21 04:30 Reactive Lymphs % (Man) 4 % 08/01/21 18:06 Abnorm Lymph % (Manual) 0 % 08/12/21 04:30 Myelocytes % 1 % (-0) H 08/12/21 04:30 Nucleated RBC % 0.2 /100WBC 08/13/21 05:00 Neutrophils # (Manual) 13.1 10^3/uL (1.5-6.6) H 08/12/21 04:30 Lymphocytes # (Manual) 3.8 10^3/uL (1.5-3.5) H 08/12/21 04:30 Monocytes # (Manual) 1.9 10^3/uL (0.0-1.0) H 08/12/21 04:30 Eosinophils # (Manual) 0.0 10^3/uL (0-0.7) 08/12/21 04:30 Basophils # (Manual) 0.0 10^3/uL (0-0.1) 08/12/21 04:30 Differential Comment MANUAL DIFFERENTIAL 08/12/21 04:30 WBC Morphology NORMAL APPEARANCE (NORMAL) 08/12/21 04:30 Platelet Estimate NORMAL (130-450,000) (NORMAL) 08/12/21 04:30 Platelet Morphology NORMAL APPEARANCE (NORMAL) 08/12/21 04:30 RBC Morph Micro Appear NORMAL APPEARANCE (NORMAL) 08/12/21 04:30 PT 11.5 secs (9.9-12.6) 08/01/21 18:06 INR 1.0 (0.8-1.2) 08/01/21 18:06 D-Dimer 669.9 ng/mL (200.0-255.0) H 08/01/21 18:06 Bld Gas Analysis Time 0452 08/07/21 04:45 Sample Site A-LINE 08/07/21 04:45 ABG pH 7.54 (7.35-7.45) H 08/07/21 04:45 ABG pCO2 32 mmHg (34-45) L 08/07/21 04:45 ABG pO2 88 mmHg (80-100) 08/07/21 04:45 ABG HCO3 26.8 mmol/L (22.0-26.0) H 08/07/21 04:45 ABG Total CO2 27.7 MMOL/L (21.0-29.0) 08/07/21 04:45 ABG O2 Saturation 95 % (94-98) 08/07/21 04:45 ABG Base Excess 4.5 mmol/L (-2.0-3.0) H 08/07/21 04:45 Madhu Test POSITIVE 08/07/21 04:45 VBG pH 7.452 (7.31-7.41) H 08/14/21 04:30 VBG pCO2 46.6 mmHg (41-51) 08/01/21 18:06 VBG pO2 24.4 mmHg (25-47) L 08/01/21 18:06 VBG HCO3 27.8 mmol/L (23-28) 08/01/21 18:06 VBG Total CO2 29.3 mmol/L (24-29) H 08/01/21 18:06 VBG O2 Saturation 40.2 % (60-80) L 08/01/21 18:06 VBG Base Excess 2.3 mmol/L (-2 - +2) H 08/01/21 18:06 Ionized Calcium 1.11 mmol/L (1.15-1.33) L 08/14/21 04:30 Respiration Rate 14 b/min 08/07/21 04:45 O2 Delivery Device VENTILATOR 08/07/21 04:45 Vent Mode ASSIST/CONTROL 08/07/21 04:45 FiO2 40.00 08/07/21 04:45 Tidal Volume 500 mL 08/07/21 04:45 PEEP 5 cmH2O 08/07/21 04:45 EPAP 5 cmH2O 08/04/21 05:50 Sodium 139 mmol/L (135-145) 08/13/21 05:00 Potassium 3.0 mmol/L (3.5-5.0) L 08/14/21 04:30 Chloride 105 mmol/L (101-111) 08/13/21 05:00 Carbon Dioxide 26 mmol/L (21-32) 08/13/21 05:00 Anion Gap 8.0 (6-13) 08/13/21 05:00 BUN 22 mg/dL (6-20) H 08/13/21 05:00 Creatinine 0.5 mg/dL (0.6-1.2) L 08/13/21 05:00 Estimated GFR (MDRD) 165 (>89) 08/13/21 05:00 Glucose 92 mg/dL (70-100) 08/13/21 05:00 POC Whole Bld Glucose 139 mg/dL (70 - 100) H 08/11/21 11:38 Lactic Acid 1.3 mmol/L (0.5-2.2) 08/10/21 08:30 Calcium 7.9 mg/dL (8.5-10.3) L 08/13/21 05:00 Phosphorus 2.9 mg/dL (2.5-4.6) 08/14/21 04:30 Magnesium 2.0 mg/dL (1.7-2.8) 08/14/21 04:30 Total Bilirubin 0.7 mg/dL (0.2-1.0) 08/11/21 04:25 AST 52 IU/L (10-42) H 08/11/21 04:25 ALT 30 IU/L (10-60) 08/11/21 04:25 Alkaline Phosphatase 40 IU/L (42-121) L 08/11/21 04:25 Total Creatine Kinase 408 IU/L (22-269) H 08/01/21 18:06 Troponin I High Sens 33.5 ng/L (2.3-19.7) H* 08/10/21 04:20 B-Natriuretic Peptide 388 pg/mL (5-100) H 08/08/21 05:05 Total Protein 5.5 g/dL (6.7-8.2) L 08/11/21 04:25 Albumin 2.3 g/dL (3.2-5.5) L 08/11/21 04:25 Globulin 3.2 g/dL (2.1-4.2) 08/11/21 04:25 Albumin/Globulin Ratio 0.7 (1.0-2.2) L 08/11/21 04:25 Prealbumin 24 mg/dL (18-45) 08/11/21 04:25 Triglycerides 369 mg/dL (-149) H 08/10/21 04:20 Cholesterol 165 mg/dL (-199) 08/10/21 04:20 LDL Cholesterol Direct 58 mg/dL (-129) 08/08/21 05:05 LDL Cholesterol, Calc 75 mg/dL (-129) 08/10/21 04:20 VLDL Cholesterol 74 mg/dL 08/10/21 04:20 HDL Cholesterol 16 mg/dL (60-) L 08/10/21 04:20 LDL/HDL Ratio 4.7 (<3.6) 08/10/21 04:20 dLDL/HDL Ratio Not Reportable 08/08/21 05:05 Cholesterol/HDL Ratio 10.3 (<5.0) 08/10/21 04:20 Lipase 40 U/L (22-51) 08/01/21 18:06 TSH 0.18 uIU/mL (0.34-5.60) L 08/01/21 18:06 Free T4 1.00 ng/dL (0.58-1.64) 08/02/21 06:00 Urine Color YELLOW 08/13/21 08:45 Urine Clarity CLEAR (CLEAR) 08/13/21 08:45 Urine pH 6.5 PH (5.0-7.5) 08/13/21 08:45 Ur Specific [place] 1.010 (1.002-1.030) 08/13/21 08:45 Urine Protein NEGATIVE mg/dL (NEGATIVE) 08/13/21 08:45 Urine Glucose (UA) NEGATIVE mg/dL (NEGATIVE) 08/13/21 08:45 Urine Ketones NEGATIVE mg/dL (NEGATIVE) 08/13/21 08:45 Urine Occult Blood TRACE-INTA (NEGATIVE) 08/13/21 08:45 Urine Nitrite NEGATIVE (NEGATIVE) 08/13/21 08:45 Urine Bilirubin NEGATIVE (NEGATIVE) 08/13/21 08:45 Urine Urobilinogen 0.2 (NORMAL) E.U./dL (NORMAL) 08/13/21 08:45 Ur Leukocyte Esterase NEGATIVE (NEGATIVE) 08/13/21 08:45 Urine RBC 6-10 /HPF (0-5) H 08/13/21 08:45 Urine WBC 0-3 /HPF (0-3) 08/13/21 08:45 Ur Epithelial Cells FEW Renal Tubular /HPF (<= Few) 08/01/21 18:25 Ur Squamous Epith Cells FEW Squamous (<= Few) 08/13/21 08:45 Urine Bacteria Few /HPF (None Seen) 08/13/21 08:45 Urine Casts 0-2 Granular Casts /LPF6-10 Hyaline Casts /LPF 08/13/21 08:45 Urine Casts 0-2 Granular Casts /LPF6-10 Hyaline Casts /LPF 08/13/21 08:45 Urine Mucus Few Strands 08/13/21 08:45 Ur Microscopic Review INDICATED 08/06/21 14:50 Urine Culture Comments NOT INDICATED 08/13/21 08:45 Nasal Adenovirus (PCR) NOT DETECTED 08/01/21 18:26 Nasal B. parapertussis DNA (PCR) NOT DETECTED 08/01/21 18:26 Nasal Coronavir 229E PCR NOT DETECTED 08/01/21 18:26 Nasal Coronavir HKU1 PCR NOT DETECTED 08/01/21 18:26 Nasal Coronavir NL63 PCR NOT DETECTED 08/01/21 18:26 Nasal Coronavir OC43 PCR NOT DETECTED 08/01/21 18:26 Nasal Enterovir/Rhinovir PCR NOT DETECTED 08/01/21 18:26 Nasal Influenza B PCR NOT DETECTED 08/01/21 18:26 Nasal Influenza A PCR NOT DETECTED 08/01/21 18:26 Nasal Parainfluen 1 PCR NOT DETECTED 08/01/21 18:26 Nasal Parainfluen 2 PCR NOT DETECTED 08/01/21 18:26 Nasal Parainfluen 3 PCR NOT DETECTED 08/01/21 18:26 Nasal Parainfluen 4 PCR NOT DETECTED 08/01/21 18:26 Nasal RSV (PCR) NOT DETECTED 08/01/21 18:26 Nasal Screen MRSA (PCR) NEGATIVE (NEGATIVE) 08/01/21 22:46 Nasal B.pertussis DNA PCR NOT DETECTED 08/01/21 18:26 Nasal C.pneumoniae (PCR) NOT DETECTED 08/01/21 18:26 John Human Metapneumo PCR NOT DETECTED 08/01/21 18:26 Nasal M.pneumoniae (PCR) NOT DETECTED 08/01/21 18:26 Nasal SARS-CoV-2 (PCR) DETECTED A 08/01/21 18:26 Last Dose Date 08/12/21 08/13/21 08:35 Last Dose Time 2030 08/13/21 08:35 Vancomycin Trough 16.0 ug/mL (10.0-20.0) 08/13/21 08:35 Salicylates < 6.0 mg/dL 08/01/21 18:06 Urine Opiates Screen POSITIVE (NEGATIVE) H 08/01/21 18:25 Ur Oxycodone Screen NEGATIVE (NEGATIVE) 08/01/21 18:25 Urine Methadone Screen NEGATIVE (NEGATIVE) 08/01/21 18:25 Ur Propoxyphene Screen NEGATIVE (NEGATIVE) 08/01/21 18:25 Acetaminophen < 10 ug/mL (10-30) L 08/01/21 18:06 Ur Barbiturates Screen NEGATIVE (NEGATIVE) 08/01/21 18:25 Ur Tricyclics Screen NEGATIVE (NEGATIVE) 08/01/21 18:25 Ur Phencyclidine Scrn NEGATIVE (NEGATIVE) 08/01/21 18:25 Ur Amphetamine Screen POSITIVE (NEGATIVE) H 08/01/21 18:25 U Methamphetamines Scrn POSITIVE (NEGATIVE) H 08/01/21 18:25 U Benzodiazepines Scrn NEGATIVE (NEGATIVE) 08/01/21 18:25 Urine Cocaine Screen NEGATIVE (NEGATIVE) 08/01/21 18:25 U Cannabinoids Screen NEGATIVE (NEGATIVE) 08/01/21 18:25 Ethyl Alcohol < 5.0 mg/dL 08/01/21 18:06 HIV 1&2 Antibody Rapid NEGATIVE (NEGATIVE) 08/06/21 15:14 Sepsis Event Note (H) - Evaluation Current Stage of Sepsis: Sepsis Possible source of Sepsis: positive: Pulmonary - Sepsis Criteria Sepsis Criteria: Recorded Temperature greater than 38.3C or Less than 36C, Recorded Heart Rate greater than 90 bpm, Recorded Respiratory Rate greater than 20, Respiratory: Increasing oxygen requirements, WBC count greater than 10% bands, [employer]: altered consciousness (unrelated to primary neuro pathology), He matologic: platelets < 100,000; INR > 1.5, or a PTT>60 seconds
[2021-08-14] MEDS: ATORVASTATIN 10 MG TABLET PO SCH (21:07)
[2021-08-14] MEDS: SODIUM CHLORIDE FLUSH 0.9% 10 ML SYRINGE IVP PRN ×2 (21:08)
[2021-08-15] MEDS: SODIUM CHLORIDE FLUSH 0.9% 10 ML SYRINGE IVP SCH ×3 (00:24→18:12)
[2021-08-15] MEDS: SODIUM CHLORIDE FLUSH 0.9% 10 ML SYRINGE IVP PRN ×4 (00:24→06:36)
[2021-08-15] MEDS: ACETAMINOPHEN 325 MG TABLET PO PRN (00:25)
[2021-08-15] MEDS: metroNIDAZOLE 500 MG/100 ML 500 MG/100 ML BAG IV SCH ×2 (04:31→12:54)
[2021-08-15] MEDS: ZINC OXIDE 20% OINT 30 GM TUBE TOP PRN (04:32)
[2021-08-15] MEDS: LEVALBUTEROL 1.25 MG/3 ML NEB INH SCH ×3 (05:42→19:31)
[2021-08-15] MEDS ORDERED: FUROSEMIDE 40 MG/4 ML VIAL IVP SCH (06:00)
[2021-08-15] MEDS: PANTOPRAZOLE 40 MG TABLET PO SCH (06:36)
[2021-08-15] MEDS: MULTIVITAMIN W/MINERALS TABLET PO SCH (09:27)
[2021-08-15] MEDS: VANCOMYCIN INJ 1 GM in SODIUM CHLORIDE 0.9% 250 ML IV SCH (09:27)
[2021-08-15] MEDS: ASPIRIN CHEW 81 MG TABLET NG SCH (09:27)
[2021-08-15] MEDS: CEFEPIME 2 GM in SODIUM CHLORIDE 0.9% MINIBAG 100 ML IV SCH (09:28)
[2021-08-15] MEDS: carvediloL 3.125 MG TABLET PO SCH ×2 (09:28→21:17)
[2021-08-15] MEDS: CHLORHEXIDINE GLUCONATE 15 ML UDC PO SCH ×2 (09:29→21:17)
[2021-08-15] MEDS: ENOXAPARIN 40 MG/0.4 ML SYRINGE SUBQ SCH (09:29)
[2021-08-15] MEDS: polyethylene glycoL 3350 17 GM PACKET PO SCH (09:30)
[2021-08-15 13:25] LABS: CALCIUM 8.2 mg/dL (8.5-10.3); CREATININE 0.7 mg/dL (0.6-1.2); POTASSIUM 3.6 mmol/L (3.5-5.0)
--- NOTE | 2021-08-15 17:35 | PROVIDER PROGRESS NOTE ---
Assessment/Plan - Problem List (1) Acute respiratory failure with hypoxia Assessment/Plan: (1) Acute respiratory failure with hypoxia Assessment/Plan: Improving. This was secondary to COVID-19 pneumonia as well as bacterial (and aspiration) pneumonia. He was extubated and taken off the vent several days ago and is saturating adequately on HiFlow suppl O2 then n.c. at low settings. He was transferred out of ICU yesterday. I suspect he has COPD (by his barrel chest and he was smoking until this admission). Titrate suppl O2 down as possible (2) Pneumonia due to COVID-19 virus Impression: This was contributing to respiratory failure with hypoxia. He finished Decadron and was not a candidate for Remdesivvir since he was on a ventilator. Isolation precautions DCd by Infectious Dis nurse several days ago. (3) Aspiration pneumonia Impression: This was also believed to be contributing to his respiratory failure with hypoxia. Respiratory cultures have had no growth. He had copious secretions after extubation, is coughing up white sputum. RT started Acapella device which helped alot, as well as Mucinex and a Scopalamine patch. Today he will finish an empiric course of 14 days of antibx (4) Ischemic cardiomyopathy Impression His admission EKG showed deep inferior Q waves. At admission, troponins and Echo were done. His troponins were mildly elevated but did not double (147>> 194>> 187). The Echo showed an inferior wall motion abnormality, consistent with his EKG that had deep inferior Q waves. LVEF is mildly depressed. Since he had marked bradycardic with HR 30 several times, a B-litzy was not started until he developed recurrent PSVT yesterday (see #15). He is on daily baby ASA, statin and he needed Lasix for several doses. We stopped Lasix. If he survives this hospitalization, and if he consents, he may be a candidate for cor angiography. (5) Deconditioning He has become very weak from deconditioning, being in the ICU for 12 days PT has started. He will likely need SNF for PT rehab, however, because he is homeless status, a final [facility] plan is not known yet. (6) Methamphetamine abuse Impression: His urine toxicology was positive for methamphetamines. We we will need to address this with a SW consult when he is able to participate in a meaningful conversation. Also, his living situation was addressed with SW seeing him and confirmed that he is homeless. (7) Rib fracture Impression: He does have a left-sided rib fracture diagnosed at admission, likely due to trauma; we do not know the details of how this happened since he was admitted obtunded and gave no Hx. The rest of his imaging at admission was unremarkable for trauma. 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 He is wearing his L shoe today. (9) Homeless single person Impression: As per the SW evel done today. Since he is extremely deconditioned and working with PT, he will likely need a SNF for PT and OT rehab, however a final [facility] plan needs to be worked out. (10) Thrombocytopenia Impression: Resolved. This improved daily after admission, suggesting that it was from sepsis or some drug or marrow toxin, like alcohol. (11) Sepsis Impression: Resolved (12) Hypotension Impression: Resolved (13) Bradycardia Impression: Resolved. He was not on and is on no HR slowing meds. (14) AMS Impression: Resolved. He presented obtunded and was intubated in ER. We will need SW input re: his drug use. (15) PSVT Impression: Resolved Several days ago, he went into PSVT that was sustained at a rate of 160, it broke spontaneously after 15-20 sec. His blood pressure was stable with this. He was not symptomatic. Then Coreg 3.125 twice daily was started. None seen further - Current Meds Current Meds: Current Medications Generic Name Dose Route Start Last Admin Trade Name Freq PRN Reason Stop Dose Admin Acetaminophen 650 mg 08/01/21 21:56 08/15/21 00:25 Acetaminophen 325 Mg Tablet PO 650 mg Q6HR PRN Administration Pain or Fever > 38C (100.4F) Albuterol 2.5 mg 08/05/21 12:19 08/05/21 12:40 Albuterol Neb 2.5 Mg/3 Ml INH 2.5 mg RTQ4H PRN Administration Wheezing Aspirin 81 mg 08/09/21 13:08 08/15/21 09:27 Aspirin Chew 81 Mg Tablet NG 81 mg DAILY ARNOLD Administration Atorvastatin Calcium 10 mg 08/12/21 21:00 08/14/21 21:07 Atorvastatin 10 Mg Tablet PO 10 mg QPM ARNOLD Administration Carvedilol 3.125 mg 08/11/21 21:00 08/15/21 09:28 Carvedilol 3.125 Mg Tablet PO 3.125 mg BID ARNOLD Administration Chlorhexidine Gluconate 15 ml 08/01/21 23:30 08/15/21 09:29 Chlorhexidine Gluconate 15 Ml Udc PO 15 ml BID ARNOLD Administration Enoxaparin Sodium 40 mg 08/02/21 09:00 08/15/21 09:29 Enoxaparin 40 Mg/0.4 Ml Syringe SUBQ 40 mg DAILY ARNOLD Administration Levalbuterol HCl 1.25 mg 08/14/21 08:00 08/15/21 11:23 Levalbuterol 1.25 Mg/3 Ml Neb INH 1.25 mg TID ARNOLD Administration Morphine Sulfate 2 mg 08/01/21 23:15 08/14/21 13:24 Morphine 2 Mg/Ml Carpuject IVP 2 mg Q4HR PRN Administration PAIN Multi-Ingredient Ointment 1 applic 08/15/21 00:29 08/15/21 04:32 Zinc Oxide 20% Oint 30 Gm Tube TOP 1 applic PRN PRN Administration Skin Care Multivitamins/Minerals 1 tab 08/13/21 08:00 08/15/21 09:27 Multivitamin W/Minerals Tablet PO 1 tab DAILYWM ARNOLD Administration Pantoprazole Sodium 40 mg 08/13/21 07:00 08/15/21 06:36 Pantoprazole 40 Mg Tablet PO 40 mg QDAC ARNOLD Administration Polyethylene Glycol 17 gm 08/05/21 09:00 08/15/21 09:30 Polyethylene Glycol 3350 17 Gm Packet PO Not Given DAILY [facility] Scopolamine HBr 1 patch 08/11/21 12:00 08/14/21 13:23 Scopolamine Patch TOP 1 patch Q3D ARNOLD Administration Sodium Chloride 10 ml 08/01/21 21:49 08/15/21 06:36 Sodium Chloride Flush 0.9% 10 Ml Syringe IVP 10 ml PRN PRN Administration NEEDED PER PROVIDER ORDERS Sodium Chloride 10 ml 08/02/21 01:00 08/15/21 09:30 Sodium Chloride Flush 0.9% 10 Ml Syringe IVP 10 ml 0100,0900,1700 ARNLOD Administration Sodium Chloride 20 ml 08/12/21 21:23 08/15/21 04:31 Sodium Chloride Flush 0.9% 10 Ml Syringe IVP 20 ml PRN PRN Administration After Blood Draw - Lab Result Fish Bone Diagrams: 08/13/21 05:00 08/15/21 13:09 - Additional Planning My Orders: My Active Orders 08/15/21 00:29 Zinc Oxide 20% Oint [Zinc Oxide] 1 applic TOP PRN PRN 08/15/21 Dinner Regular Diet [DIET] 08/16/21 05:00 BMP - BASIC METABOLIC PANEL [CHEM] DAILYLAB CBC - COMP BLD CT W/AUTO DIFF [HEME] DAILYLAB MAGNESIUM [CHEM] DAILYLAB 08/17/21 05:00 BMP - BASIC METABOLIC PANEL [CHEM] DAILYLAB CBC - COMP BLD CT W/AUTO DIFF [HEME] DAILYLAB 08/18/21 05:00 BMP - BASIC METABOLIC PANEL [CHEM] DAILYLAB CBC - COMP BLD CT W/AUTO DIFF [HEME] DAILYLAB Subjective - Subjective Patient Reports: Resting Comfortably (Feels tired after alot of PT today) Objective Vital Signs: Vital Signs - 24 hr 08/14/21 08/14/21 08/14/21 17:36 21:00 21:35 Temperature 37.7 C 37.4 C Heart Rate 92 Heart Rate [ 98 97 Monitoring electrodes] Respiratory 29 H 35 H 26 H Rate Blood Pressure 130/77 [Left Brachial artery] Blood Pressure 103/71 [Right Brachial artery] O2 Saturation 94 93 08/14/21 08/15/21 08/15/21 22:00 00:20 02:22 Temperature 38.4 C H 37.5 C Heart Rate Heart Rate [ 92 84 Monitoring electrodes] Respiratory 36 H 35 H 35 H Rate Blood Pressure 100/61 [Left Brachial artery] Blood Pressure [Right Brachial artery] O2 Saturation 91 L 91 L 94 08/15/21 08/15/21 08/15/21 03:55 05:43 06:00 Temperature 37.4 C Heart Rate 82 Heart Rate [ 81 76 Monitoring electrodes] Respiratory 33 H 30 H 34 H Rate Blood Pressure 124/76 118/75 [Left Brachial artery] Blood Pressure [Right Brachial artery] O2 Saturation 90 L 95 08/15/21 08/15/21 08/15/21 08:01 12:00 15:00 Temperature 37.4 C 37.9 C 38.1 C H Heart Rate Heart Rate [ 88 90 91 Monitoring electrodes] Respiratory 30 H 24 26 H Rate Blood Pressure 134/83 H 109/72 [Left Brachial artery] Blood Pressure [Right Brachial artery] O2 Saturation 92 96 93 Oxygen O2 Source Room air I&O (Last 24 Hrs): Intake and Output Totals x24h 08/13/21 08/14/21 08/15/21 23:59 23:59 23:59 Intake Total 1820 1910 1090 Output Total 3285 625 102 Balance -1465 1285 988 General: Alert, Oriented x3 HEENT: Mucous membr. moist/pink, Other (edentulous except one lower tooth) Neck: Supple, No JVD Neuro: Alert, Non Focal, Other (very weak upper extrem) Cardiovascular: Regular rate, No murmurs Respiratory: No respiratory distress, Breath sounds nml, Other (Increased AP di ameter) Abdomen: Normal bowel sounds, Soft Extremities: No edema, Other (R AKA and S/P L transmetatarsal amput (wears a L shoe)) - Results Results: Laboratory Results WBC 15.4 x10^3/uL (4.8-10.8) H 08/13/21 05:00 RBC 2.99 10^6/uL (4.70-6.10) L 08/13/21 05:00 Hgb 7.4 g/dL (14.0-18.0) L 08/13/21 05:00 Hct 24.6 % (42.0-52.0) L 08/13/21 05:00 MCV 82.3 fL (80.0-94.0) 08/13/21 05:00 MCH 24.7 pg (27.0-31.0) L 08/13/21 05:00 MCHC 30.1 g/dL (32.0-36.0) L 08/13/21 05:00 RDW 17.1 % (12.0-15.0) H 08/13/21 05:00 Plt Count 225 10^3/uL (130-450) 08/13/21 05:00 MPV 10.9 fL (7.4-11.4) 08/13/21 05:00 Neut # (Auto) 11.4 10^3/uL (1.5-6.6) H 08/13/21 05:00 Lymph # (Auto) 2.1 10^3/uL (1.5-3.5) 08/13/21 05:00 [place] # (Auto) 1.2 10^3/uL (0.0-1.0) H 08/13/21 05:00 Eos # (Auto) 0.3 10^3/uL (0.0-0.7) 08/13/21 05:00 Baso # (Auto) 0.0 10^3/uL (0.0-0.1) 08/13/21 05:00 Absolute Nucleated RBC 0.03 x10^3/uL 08/13/21 05:00 Total Counted 100 08/12/21 04:30 Band Neuts % (Manual) 0 % (0-10) 08/12/21 04:30 Reactive Lymphs % (Man) 4 % 08/01/21 18:06 Abnorm Lymph % (Manual) 0 % 08/12/21 04:30 Myelocytes % 1 % (-0) H 08/12/21 04:30 Nucleated RBC % 0.2 /100WBC 08/13/21 05:00 Neutrophils # (Manual) 13.1 10^3/uL (1.5-6.6) H 08/12/21 04:30 Lymphocytes # (Manual) 3.8 10^3/uL (1.5-3.5) H 08/12/21 04:30 Monocytes # (Manual) 1.9 10^3/uL (0.0-1.0) H 08/12/21 04:30 Eosinophils # (Manual) 0.0 10^3/uL (0-0.7) 08/12/21 04:30 Basophils # (Manual) 0.0 10^3/uL (0-0.1) 08/12/21 04:30 Differential Comment MANUAL DIFFERENTIAL 08/12/21 04:30 WBC Morphology NORMAL APPEARANCE (NORMAL) 08/12/21 04:30 Platelet Estimate NORMAL (130-450,000) (NORMAL) 08/12/21 04:30 Platelet Morphology NORMAL APPEARANCE (NORMAL) 08/12/21 04:30 RBC Morph Micro Appear NORMAL APPEARANCE (NORMAL) 08/12/21 04:30 PT 11.5 secs (9.9-12.6) 08/01/21 18:06 INR 1.0 (0.8-1.2) 08/01/21 18:06 D-Dimer 669.9 ng/mL (200.0-255.0) H 08/01/21 18:06 Bld Gas Analysis Time 0452 08/07/21 04:45 Sample Site A-LINE 08/07/21 04:45 ABG pH 7.54 (7.35-7.45) H 08/07/21 04:45 ABG pCO2 32 mmHg (34-45) L 08/07/21 04:45 ABG pO2 88 mmHg (80-100) 08/07/21 04:45 ABG HCO3 26.8 mmol/L (22.0-26.0) H 08/07/21 04:45 ABG Total CO2 27.7 MMOL/L (21.0-29.0) 08/07/21 04:45 ABG O2 Saturation 95 % (94-98) 08/07/21 04:45 ABG Base Excess 4.5 mmol/L (-2.0-3.0) H 08/07/21 04:45 Madhu Test POSITIVE 08/07/21 04:45 VBG pH 7.452 (7.31-7.41) H 08/14/21 04:30 VBG pCO2 46.6 mmHg (41-51) 08/01/21 18:06 VBG pO2 24.4 mmHg (25-47) L 08/01/21 18:06 VBG HCO3 27.8 mmol/L (23-28) 08/01/21 18:06 VBG Total CO2 29.3 mmol/L (24-29) H 08/01/21 18:06 VBG O2 Saturation 40.2 % (60-80) L 08/01/21 18:06 VBG Base Excess 2.3 mmol/L (-2 - +2) H 08/01/21 18:06 Ionized Calcium 1.11 mmol/L (1.15-1.33) L 08/14/21 04:30 Respiration Rate 14 b/min 08/07/21 04:45 O2 Delivery Device VENTILATOR 08/07/21 04:45 Vent Mode ASSIST/CONTROL 08/07/21 04:45 FiO2 40.00 08/07/21 04:45 Tidal Volume 500 mL 08/07/21 04:45 PEEP 5 cmH2O 08/07/21 04:45 EPAP 5 cmH2O 08/04/21 05:50 Sodium 137 mmol/L (135-145) 08/15/21 13:09 Potassium 3.6 mmol/L (3.5-5.0) 08/15/21 13:09 Chloride 104 mmol/L (101-111) 08/15/21 13:09 Carbon Dioxide 25 mmol/L (21-32) 08/15/21 13:09 Anion Gap 8.0 (6-13) 08/15/21 13:09 BUN 23 mg/dL (6-20) H 08/15/21 13:09 Creatinine 0.7 mg/dL (0.6-1.2) 08/15/21 13:09 Estimated GFR (MDRD) 112 (>89) 08/15/21 13:09 Glucose 137 mg/dL (70-100) H 08/15/21 13:09 POC Whole Bld Glucose 139 mg/dL (70 - 100) H 08/11/21 11:38 Lactic Acid 1.3 mmol/L (0.5-2.2) 08/10/21 08:30 Calcium 8.2 mg/dL (8.5-10.3) L 08/15/21 13:09 Phosphorus 2.9 mg/dL (2.5-4.6) 08/14/21 04:30 Magnesium 2.0 mg/dL (1.7-2.8) 08/15/21 13:09 Total Bilirubin 0.7 mg/dL (0.2-1.0) 08/11/21 04:25 AST 52 IU/L (10-42) H 08/11/21 04:25 ALT 30 IU/L (10-60) 08/11/21 04:25 Alkaline Phosphatase 40 IU/L (42-121) L 08/11/21 04:25 Total Creatine Kinase 408 IU/L (22-269) H 08/01/21 18:06 Troponin I High Sens 33.5 ng/L (2.3-19.7) H* 08/10/21 04:20 B-Natriuretic Peptide 388 pg/mL (5-100) H 08/08/21 05:05 Total Protein 5.5 g/dL (6.7-8.2) L 08/11/21 04:25 Albumin 2.3 g/dL (3.2-5.5) L 08/11/21 04:25 Globulin 3.2 g/dL (2.1-4.2) 08/11/21 04:25 Albumin/Globulin Ratio 0.7 (1.0-2.2) L 08/11/21 04:25 Prealbumin 24 mg/dL (18-45) 08/11/21 04:25 Triglycerides 369 mg/dL (-149) H 08/10/21 04:20 Cholesterol 165 mg/dL (-199) 08/10/21 04:20 LDL Cholesterol Direct 58 mg/dL (-129) 08/08/21 05:05 LDL Cholesterol, Calc 75 mg/dL (-129) 08/10/21 04:20 VLDL Cholesterol 74 mg/dL 08/10/21 04:20 HDL Cholesterol 16 mg/dL (60-) L 08/10/21 04:20 LDL/HDL Ratio 4.7 (<3.6) 08/10/21 04:20 dLDL/HDL Ratio Not Reportable 08/08/21 05:05 Cholesterol/HDL Ratio 10.3 (<5.0) 08/10/21 04:20 Lipase 40 U/L (22-51) 08/01/21 18:06 TSH 0.18 uIU/mL (0.34-5.60) L 08/01/21 18:06 Free T4 1.00 ng/dL (0.58-1.64) 08/02/21 06:00 Urine Color YELLOW 08/13/21 08:45 Urine Clarity CLEAR (CLEAR) 08/13/21 08:45 Urine pH 6.5 PH (5.0-7.5) 08/13/21 08:45 Ur Specific Holt 1.010 (1.002-1.030) 08/13/21 08:45 Urine Protein NEGATIVE mg/dL (NEGATIVE) 08/13/21 08:45 Urine Glucose (UA) NEGATIVE mg/dL (NEGATIVE) 08/13/21 08:45 Urine Ketones NEGATIVE mg/dL (NEGATIVE) 08/13/21 08:45 Urine Occult Blood TRACE-INTA (NEGATIVE) 08/13/21 08:45 Urine Nitrite NEGATIVE (NEGATIVE) 08/13/21 08:45 Urine Bilirubin NEGATIVE (NEGATIVE) 08/13/21 08:45 Urine Urobilinogen 0.2 (NORMAL) E.U./dL (NORMAL) 08/13/21 08:45 Ur Leukocyte Esterase NEGATIVE (NEGATIVE) 08/13/21 08:45 Urine RBC 6-10 /HPF (0-5) H 08/13/21 08:45 Urine WBC 0-3 /HPF (0-3) 08/13/21 08:45 Ur Epithelial Cells FEW Renal Tubular /HPF (<= Few) 08/01/21 18:25 Ur Squamous Epith Cells FEW Squamous (<= Few) 08/13/21 08:45 Urine Bacteria Few /HPF (None Seen) 08/13/21 08:45 Urine Casts 0-2 Granular Casts /LPF6-10 Hyaline Casts /LPF 08/13/21 08:45 Urine Casts 0-2 Granular Casts /LPF6-10 Hyaline Casts /LPF 08/13/21 08:45 Urine Mucus Few Strands 08/13/21 08:45 Ur Microscopic Review INDICATED 08/06/21 14:50 Urine Culture Comments NOT INDICATED 08/13/21 08:45 Nasal Adenovirus (PCR) NOT DETECTED 08/01/21 18:26 Nasal B. parapertussis DNA (PCR) NOT DETECTED 08/01/21 18:26 Nasal Coronavir 229E PCR NOT DETECTED 08/01/21 18:26 Nasal Coronavir HKU1 PCR NOT DETECTED 08/01/21 18:26 Nasal Coronavir NL63 PCR NOT DETECTED 08/01/21 18:26 Nasal Coronavir OC43 PCR NOT DETECTED 08/01/21 18:26 Nasal Enterovir/Rhinovir PCR NOT DETECTED 08/01/21 18:26 Nasal Influenza B PCR NOT DETECTED 08/01/21 18:26 Nasal Influenza A PCR NOT DETECTED 08/01/21 18:26 Nasal Parainfluen 1 PCR NOT DETECTED 08/01/21 18:26 Nasal Parainfluen 2 PCR NOT DETECTED 08/01/21 18:26 Nasal Parainfluen 3 PCR NOT DETECTED 08/01/21 18:26 Nasal Parainfluen 4 PCR NOT DETECTED 08/01/21 18:26 Nasal RSV (PCR) NOT DETECTED 08/01/21 18:26 Nasal Screen MRSA (PCR) NEGATIVE (NEGATIVE) 08/01/21 22:46 Nasal B.pertussis DNA PCR NOT DETECTED 08/01/21 18:26 Nasal C.pneumoniae (PCR) NOT DETECTED 08/01/21 18:26 John Human Metapneumo PCR NOT DETECTED 08/01/21 18:26 Nasal M.pneumoniae (PCR) NOT DETECTED 08/01/21 18:26 Nasal SARS-CoV-2 (PCR) DETECTED A 08/01/21 18:26 Last Dose Date 08/12/21 08/13/21 08:35 Last Dose Time 2030 08/13/21 08:35 Vancomycin Trough 16.0 ug/mL (10.0-20.0) 08/13/21 08:35 Salicylates < 6.0 mg/dL 08/01/21 18:06 Urine Opiates Screen POSITIVE (NEGATIVE) H 08/01/21 18:25 Ur Oxycodone Screen NEGATIVE (NEGATIVE) 08/01/21 18:25 Urine Methadone Screen NEGATIVE (NEGATIVE) 08/01/21 18:25 Ur Propoxyphene Screen NEGATIVE (NEGATIVE) 08/01/21 18:25 Acetaminophen < 10 ug/mL (10-30) L 08/01/21 18:06 Ur Barbiturates Screen NEGATIVE (NEGATIVE) 08/01/21 18:25 Ur Tricyclics Screen NEGATIVE (NEGATIVE) 08/01/21 18:25 Ur Phencyclidine Scrn NEGATIVE (NEGATIVE) 08/01/21 18:25 Ur Amphetamine Screen POSITIVE (NEGATIVE) H 08/01/21 18:25 U Methamphetamines Scrn POSITIVE (NEGATIVE) H 08/01/21 18:25 U Benzodiazepines Scrn NEGATIVE (NEGATIVE) 08/01/21 18:25 Urine Cocaine Screen NEGATIVE (NEGATIVE) 08/01/21 18:25 U Cannabinoids Screen NEGATIVE (NEGATIVE) 08/01/21 18:25 Ethyl Alcohol < 5.0 mg/dL 08/01/21 18:06 HIV 1&2 Antibody Rapid NEGATIVE (NEGATIVE) 08/06/21 15:14 Sepsis Event Note (H) - Evaluation Current Stage of Sepsis: Sepsis Possible source of Sepsis: positive: Pulmonary - Sepsis Criteria Sepsis Criteria: Recorded Temperature greater than 38.3C or Less than 36C, Recorded Heart Rate greater than 90 bpm, Recorded Respiratory Rate greater than 20, Respiratory: Increasing oxygen requirements, WBC count greater than 10% bands, BU[employer]ING MACHINE [employer]ENDER: altered consciousness (unrelated to primary neuro pathology), Hematologic: platelets < 100,000; INR > 1.5, or a PTT>60 seconds
[2021-08-15] MEDS: MORPHINE 2 MG/ML CARPUJECT IVP PRN (18:13)
[2021-08-15] MEDS: GABAPENTIN 300 MG CAPSULE PO SCH (21:17)
[2021-08-15] MEDS: ATORVASTATIN 10 MG TABLET PO SCH (21:17)
[2021-08-16] MEDS: ACETAMINOPHEN 325 MG TABLET PO PRN ×2 (02:11→14:24)
[2021-08-16] MEDS: SODIUM CHLORIDE FLUSH 0.9% 10 ML SYRINGE IVP SCH ×3 (04:57→20:56)
[2021-08-16] MEDS: SODIUM CHLORIDE FLUSH 0.9% 10 ML SYRINGE IVP PRN (04:57)
[2021-08-16 05:20] LABS: BASOPHILS % (AUTO) 0.3 %; EOSINOPHILS # (AUTO) 0.3 10^3/uL (0.0-0.7); EOSINOPHILS % (AUTO) 1.8 %; HCT - HEMATOCRIT 25.5 % (42.0-52.0); HGB - HEMOGLOBIN 7.6 g/dL (14.0-18.0); LYMPHOCYTES % (AUTO) 13.8 %; MEAN CORPUSCULAR HEMOGLOBIN 25.4 pg (27.0-31.0); MEAN CORPUSCULAR HGB CONC 29.8 g/dL (32.0-36.0); MEAN CORPUSCULAR VOLUME 85.3 fL (80.0-94.0); MEAN PLATELET VOLUME 10.6 fL (7.4-11.4); MONOCYTES # (AUTO) 1.2 10^3/uL (0.0-1.0); MONOCYTES % (AUTO) 8.3 %; NEUTROPHILS % (AUTO) 75.1 %; PLT - PLATELET COUNT 204 10^3/uL (130-450); RED BLOOD COUNT 2.99 10^6/uL (4.70-6.10); RED CELL DISTRIBUTION WIDTH 18.8 % (12.0-15.0); WHITE BLOOD COUNT 14.7 x10^3/uL (4.8-10.8)
[2021-08-16 05:32] LABS: CALCIUM 8.2 mg/dL (8.5-10.3); CREATININE 0.6 mg/dL (0.6-1.2); MAGNESIUM 2.1 mg/dL (1.7-2.8); POTASSIUM 3.7 mmol/L (3.5-5.0)
[2021-08-16] MEDS: GABAPENTIN 300 MG CAPSULE PO SCH ×3 (06:19→20:57)
[2021-08-16] MEDS: PANTOPRAZOLE 40 MG TABLET PO SCH (06:19)
--- NOTE | 2021-08-16 07:39 | PROVIDER PROGRESS NOTE ---
Subjective - Prog Note Date Prog Note Date: 08/16/21 Prog Note Time: 13:40 - Subjective Subjective: This gentleman has been here for 15 days. He is a 71-year-old white male who is homeless, and has been evaluated for frostbite several times in the emergency room this past winter. He was found outside in the elements by his friends who brought him inside to sleep in a couch. When he became incontinent, confused and somnolent they called an ambulance. In the emergency room he was intubated for acute respiratory failure with hypoxia, respiratory depression, and was also found to have Covid pneumonia. Aspiration pneumonia. Sepsis. Positive methamphetamines on tox urine culture. Left rib fracture. And dehydration with prerenal azotemia. Extubated August 11. That afternoon he had a run of PSVT. Copious, copious secretions after extubation. He has no recollection of what happened.He has completed antibiotic therapy. We are now working on strengthening and conditioning improvement He continues to be confused, and can get occasionally angry. Incontinent of urine and stool. Completely dependent on the nurses for activities of daily living. Current Medications - Current Medications Current Medications: Active Medications Acetaminophen (Acetaminophen 325 Mg Tablet) 650 mg PO Q6HR PRN PRN Reason: Pain or Fever > 38C (100.4F) Last Admin: 08/16/21 02:11 Dose: 650 mg Albuterol (Albuterol Neb 2.5 Mg/3 Ml) 2.5 mg INH RTQ4H PRN PRN Reason: Wheezing Last Admin: 08/05/21 12:40 Dose: 2.5 mg Albuterol/Ipratropium (Ipratropium/Albuterol 3 Ml Neb) 3 ml INH RTQID PRN PRN Reason: Wheezing Aspirin (Aspirin Chew 81 Mg Tablet) 81 mg NG DAILY [facility] Last Admin: 08/15/21 09:27 Dose: 81 mg Atorvastatin Calcium (Atorvastatin 10 Mg Tablet) 10 mg PO QPM [facility] Last Admin: 08/15/21 21:17 Dose: 10 mg Carvedilol (Carvedilol 3.125 Mg Tablet) 3.125 mg PO BID [facility] Last Admin: 08/15/21 21:17 Dose: 3.125 mg Chlorhexidine Gluconate (Chlorhexidine Gluconate 15 Ml Udc) 15 ml PO BID [facility] Last Admin: 08/15/21 21:17 Dose: 15 ml Enoxaparin Sodium (Enoxaparin 40 Mg/0.4 Ml Syringe) 40 mg SUBQ DAILY [facility] Last Admin: 08/15/21 09:29 Dose: 40 mg Gabapentin (Gabapentin 300 Mg Capsule) 300 mg PO TID [facility] Last Admin: 08/16/21 06:19 Dose: 300 mg Levalbuterol HCl (Levalbuterol 1.25 Mg/3 Ml Neb) 1.25 mg INH TID [facility] Last Admin: 08/15/21 19:31 Dose: 1.25 mg Morphine Sulfate (Morphine 2 Mg/Ml Carpuject) 2 mg IVP Q4HR PRN PRN Reason: PAIN Last Admin: 08/15/21 18:13 Dose: 2 mg Multi-Ingredient Ointment (Zinc Oxide 20% Oint 30 Gm Tube) 1 applic TOP PRN PRN PRN Reason: Skin Care Last Admin: 08/15/21 04:32 Dose: 1 applic Multivitamins/Minerals (Multivitamin W/Minerals Tablet) 1 tab PO DAILYWM [facility] Last Admin: 08/15/21 09:27 Dose: 1 tab Ondansetron HCl (Ondansetron 4 Mg/2 Ml Vial) 4 mg IVP Q6HR PRN PRN Reason: Nausea / Vomiting Pantoprazole Sodium (Pantoprazole 40 Mg Tablet) 40 mg PO QDAC [facility] Last Admin: 08/16/21 06:19 Dose: 40 mg Polyethylene Glycol (Polyethylene Glycol 3350 17 Gm Packet) 17 gm PO DAILY [facility] Last Admin: 08/15/21 09:30 Dose: Not Given Scopolamine HBr (Scopolamine Patch) 1 patch TOP Q3D [facility] Last Admin: 08/14/21 13:23 Dose: 1 patch Sodium Chloride (Sodium Chloride Flush 0.9% 10 Ml Syringe) 10 ml IVP PRN PRN PRN Reason: NEEDED PER PROVIDER ORDERS Last Admin: 08/15/21 06:36 Dose: 10 ml Sodium Chloride (Sodium Chloride Flush 0.9% 10 Ml Syringe) 10 ml IVP 01 00,0900,1700 [facility] Last Admin: 08/16/21 04:57 Dose: 20 ml Sodium Chloride (Sodium Chloride Flush 0.9% 10 Ml Syringe) 20 ml IVP PRN PRN PRN Reason: After Blood Draw Last Admin: 08/16/21 04:57 Dose: 20 ml Tamsulosin HCl (Tamsulosin 0.4 Mg Capsule) 0.4 mg PO DAILY [facility] Objective - Vital Signs/Intake & Output Reviewed Vital Signs: Yes Vital Signs: Vital Signs x48h Temp Pulse Resp BP Pulse Ox 08/16/21 06:19 88 29 H 133/75 H 95 08/16/21 04:16 37.8 C 86 35 H 132/78 H 93 08/16/21 00:00 37.9 C 91 38 H 120/72 88 L Intake & Output: Intake & Output 08/13/21 08/14/21 08/15/21 08/16/21 23:59 23:59 23:59 23:59 Intake Total 1820 1910 1390 300 Output Total 3285 625 103 Balance -1465 1285 1287 300 - Objective General Appearance: positive: Other (Sitting up in bed, mouth hanging open, drool out of his lower lip. Appears slightly sedated or with psychomotor retardation.) Eyes Bilateral: positive: PERRL, EOMI ENT: positive: No signs of dehydration, Other (Poor dentition with gingivitis and dental caries and halitosis) Neck: positive: No JVD. negative: Stiff neck Respiratory: positive: No respiratory distress, Rhonchi (Are present. Will cough up phlegm but swallow it.). negative: Wheezes, Rales Cardiovascular: positive: Regular rate & rhythm. negative: Gallop/S4, Friction rub Abdomen: positive: Non-tender, No organomegaly, Nml bowel sounds, No distention Skin: positive: Warm, Dry Extremities: positive: No pedal edema, Other (Right AKA, left toes with "frostbite" he says and that resulted in L transmetatarsal amp as well.) Neurologic/Psychiatric: positive: CN's nml (2-12), Motor nml, Disoriented to time, Slurred/abnml speech (Psychomotor retardation) - Lab Results Fish Bones: 08/16/21 04:55 08/16/21 04:55 Other Labs: Lab Results x24hrs 08/16/21 08/16/21 08/15/21 Range/Units 04:55 04:55 13:09 WBC 14.7 H (4.8-10.8) x10^3/uL RBC 2.99 L (4.70-6.10) 10^6/uL Hgb 7.6 L (14.0-18.0) g/dL Hct 25.5 L (42.0-52.0) % MCV 85.3 (80.0-94.0) fL MCH 25.4 L (27.0-31.0) pg MCHC 29.8 L (32.0-36.0) g/dL RDW 18.8 H (12.0-15.0) % Plt Count 204 (130-450) 10^3/uL MPV 10.6 (7.4-11.4) fL Neut # (Auto) 11.0 H (1.5-6.6) 10^3/uL Lymph # (Auto) 2.0 (1.5-3.5) 10^3/uL [place] # (Auto) 1.2 H (0.0-1.0) 10^3/uL Eos # (Auto) 0.3 (0.0-0.7) 10^3/uL Baso # (Auto) 0.0 (0.0-0.1) 10^3/uL Absolute Nucleated RBC 0.00 x10^3/uL Nucleated RBC % 0.0 /100WBC Sodium 137 137 (135-145) mmol/L Potassium 3.7 3.6 (3.5-5.0) mmol/L Chloride 103 104 (101-111) mmol/L Carbon Dioxide 26 25 (21-32) mmol/L Anion Gap 8.0 8.0 (6-13) BUN 22 H 23 H (6-20) mg/dL Creatinine 0.6 0.7 (0.6-1.2) mg/dL Estimated GFR (MDRD) 134 112 (>89) Glucose 116 H 137 H (70-100) mg/dL Calcium 8.2 L 8.2 L (8.5-10.3) mg/dL Magnesium 2.1 2.0 (1.7-2.8) mg/dL ABX Reporting Has patient been on IV antibiotics over the past 48 hours?: Yes Sepsis Event Note (H) - Evaluation Current Stage of Sepsis: Sepsis Possible source of Sepsis: positive: Pulmonary - Sepsis Criteria Sepsis Criteria: Recorded Temperature greater than 38.3C or Less than 36C, Recorded Heart Rate greater than 90 bpm, Recorded Respiratory Rate greater than 20, Respiratory: Increasing oxygen requirements, WBC count greater than 10% bands, GUIDE CRUISE: altered consciousness (unrelated to primary neuro pathology), Hematologic: platelets < 100,000; INR > 1.5, or a PTT>60 seconds Assessment/Plan - Problem List (1) Acute respiratory failure with hypoxia Impression: Improving. This was secondary to COVID-19 pneumonia as well as bacterial (and aspiration) pneumonia. He was extubated and taken off the vent 08/11 and is saturating adequately on HiFlow suppl O2 then n.c. at low settings. He was transferred out of ICU 08/15/21 and is a Med Surg boarder Suspected that he has COPD (by his barrel chest and he was smoking until this admission). Respiratory rate continues seem to be the mid 20s. Shallow. Fast. 1 L nasal cannula is saturating about 97%. Titrate suppl O2 down as possible (2) Pneumonia due to COVID-19 virus Impression: This was contributing to respiratory failure with hypoxia. He finished Decadron and was not a candidate for Remdesivir since he was on a ventilator. Isolation precautions DCd by Infectious Dis nurse several days ago. (3) Aspiration pneumonia Impression: This was also believed to be contributing to his respiratory failure with hypoxia. Respiratory cultures have had no growth. He had copious secretions after extubation, is coughing up white sputum. RT started Acapella device which helped alot, as well as Mucinex and a Scopalamine patch. 08/15/21 he finished an empiric course of 14 days of antibx (4) Ischemic cardiomyopathy Impression His admission EKG showed deep inferior Q waves. At admission, troponins and Echo were done. His troponins were mildly elevated but did not double (147>> 194>> 187). The Echo showed an inferior wall motion abnormality, consistent with his EKG that had deep inferior Q waves. LVEF is mildly depressed. 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 He is on daily baby ASA, statin and he needed Lasix for several doses. We stopped Lasix. If he survives this hospitalization, and if he consents, he may be a candidate for cor angiography. (5) Deconditioning He has become very weak from deconditioning, being in the ICU for 12 days. This is the main reason he remains in the hospital. PT has started. He will likely need SNF for PT rehab, however, because he is homeless status, a final DCh plan is not known yet. Most of the SNFs are declining to take him since he is homeless. This will be a significant barrier for dc for us. (6) Methamphetamine abuse Impression: His urine toxicology was positive for methamphetamines. We will need to address this with a SW consult when he is able to participate in a meaningful conversation. Also, his living situation was addressed with SW seeing him and confirmed that he is homeless. (7) Rib fracture Impression: He does have a left-sided rib fracture diagnosed at admission, likely due to trauma; we do not know the details of how this happened since he was admitted obtunded and gave no Hx. The rest of his imaging at admission was unremarkable for trauma. 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 He is wearing his L shoe today. (9) Homeless single person Impression: As per the SW ivoneel done today. Since he is extremely deconditioned and working with PT, he will likely need a SNF for PT and OT rehab, however a final DCh plan needs to be worked out. (10) Thrombocytopenia Impression: Resolved. This improved daily after admission, suggesting that it was from sepsis or some drug or marrow toxin, like alcohol. (11) Sepsis Impression: Resolved (12) Hypotension Impression: Resolved (13) Bradycardia Impression: Resolved. He was not on and is on no HR slowing meds. (14) AMS Impression: Resolved. He presented obtunded and was intubated in ER. We will need SW input re: his drug use. (15) PSVT Impression: Resolved Several days ago, he went into PSVT that was sustained at a rate of 160, it broke spontaneously after 15-20 sec. His blood pressure was stable with this. He was not symptomatic. Then Coreg 3.125 twice daily was started. None seen further
[2021-08-16] MEDS: LEVALBUTEROL 1.25 MG/3 ML NEB INH SCH ×3 (08:30→19:48)
[2021-08-16] MEDS: ASPIRIN CHEW 81 MG TABLET NG SCH (09:29)
[2021-08-16] MEDS: MULTIVITAMIN W/MINERALS TABLET PO SCH (09:29)
[2021-08-16] MEDS: carvediloL 3.125 MG TABLET PO SCH ×2 (09:30→20:56)
[2021-08-16] MEDS: TAMSULOSIN 0.4 MG CAPSULE PO SCH (09:30)
[2021-08-16] MEDS: ENOXAPARIN 40 MG/0.4 ML SYRINGE SUBQ SCH (09:30)
[2021-08-16] MEDS: polyethylene glycoL 3350 17 GM PACKET PO SCH (11:13)
[2021-08-16] MEDS: CHLORHEXIDINE GLUCONATE 15 ML UDC PO SCH ×2 (14:46→20:56)
[2021-08-16] MEDS: ATORVASTATIN 10 MG TABLET PO SCH (20:56)
[2021-08-17] MEDS: SODIUM CHLORIDE FLUSH 0.9% 10 ML SYRINGE IVP SCH ×3 (01:30→15:52)
[2021-08-17] MEDS: ZINC OXIDE 20% OINT 30 GM TUBE TOP PRN ×2 (01:30→06:36)
[2021-08-17 05:50] LABS: BASOPHILS % (AUTO) 0.2 %; EOSINOPHILS # (AUTO) 0.3 10^3/uL (0.0-0.7); HCT - HEMATOCRIT 26.5 % (42.0-52.0); HGB - HEMOGLOBIN 7.9 g/dL (14.0-18.0); LYMPHOCYTES # (AUTO) 1.6 10^3/uL (1.5-3.5); LYMPHOCYTES % (AUTO) 11.7 %; MEAN CORPUSCULAR HEMOGLOBIN 25.1 pg (27.0-31.0); MEAN CORPUSCULAR HGB CONC 29.8 g/dL (32.0-36.0); MEAN CORPUSCULAR VOLUME 84.1 fL (80.0-94.0); MEAN PLATELET VOLUME 10.9 fL (7.4-11.4); MONOCYTES # (AUTO) 0.9 10^3/uL (0.0-1.0); MONOCYTES % (AUTO) 6.7 %; NEUTROPHILS % (AUTO) 78.8 %; PLT - PLATELET COUNT 221 10^3/uL (130-450); RED BLOOD COUNT 3.15 10^6/uL (4.70-6.10); RED CELL DISTRIBUTION WIDTH 19.1 % (12.0-15.0)
[2021-08-17 05:56] LABS: CALCIUM 8.2 mg/dL (8.5-10.3); CREATININE 0.6 mg/dL (0.6-1.2); POTASSIUM 3.9 mmol/L (3.5-5.0)
[2021-08-17] MEDS: GABAPENTIN 300 MG CAPSULE PO SCH ×3 (06:06→20:50)
[2021-08-17] MEDS: PANTOPRAZOLE 40 MG TABLET PO SCH (06:06)
[2021-08-17] MEDS: polyethylene glycoL 3350 17 GM PACKET PO SCH (08:46)
[2021-08-17] MEDS: ASPIRIN CHEW 81 MG TABLET NG SCH (08:46)
[2021-08-17] MEDS: carvediloL 3.125 MG TABLET PO SCH ×2 (08:46→20:50)
[2021-08-17] MEDS: MULTIVITAMIN W/MINERALS TABLET PO SCH (08:46)
[2021-08-17] MEDS: ENOXAPARIN 40 MG/0.4 ML SYRINGE SUBQ SCH (08:46)
[2021-08-17] MEDS: CHLORHEXIDINE GLUCONATE 15 ML UDC PO SCH (08:46)
[2021-08-17] MEDS: TAMSULOSIN 0.4 MG CAPSULE PO SCH (08:47)
--- NOTE | 2021-08-17 08:54 | XRAY Report ---
PROCEDURE: Chest 1 View X-Ray INDICATIONS: tachypnea TECHNIQUE: One view of the chest was acquired. COMPARISON: 08/12/2021 FINDINGS: Surgical changes and devices: Right-sided central venous catheter tip is in the region of SVC.. Lungs and pleura: Persistent pulmonary vascular congestion and persistent small to moderate left-side d pleural effusion is seen. There is interval improvement in right lung aeration. Left lower lobe inf iltrate/atelectasis is present. No gross pneumothorax. Mediastinum: Mediastinal contours appear normal. Heart size is enlarged. Bones and chest wall: No suspicious bony lesions. Overlying soft tissues appear unremarkable. IMPRESSION: Interval improvement in right lung aeration. Persistent small to moderate left pleural effusion with left lower lobe infiltrate/atelectasis. Cardiomegaly and mild pulmonary vascular congestion. No gross pneumothorax. Reviewed by: Enoc Quintero MD on 08/17/2021 8:52 AM PST Approved by: Enoc Quintero MD on 08/17/2021 8:52 AM PST Station ID: [id number]
--- NOTE | 2021-08-17 11:15 | PHARMACY PROGRESS NOTE ---
- Best Possible Medication History Admit Date and Time: 08/01/21 2149 Processed by: Pharmacy Medication History completed: Yes Patient Interview: Completed As the person ultimately responsible for medication therapy, providers are able to order a medication from an existing home medication list in [facility] via the "Reconcile Routine" prior to Confirmation of that medication by it application support analyst. Such practice is discouraged except when the physician, in their clinical dave gment, deems that a medical need exists for a medication without regard to previous use.
[2021-08-17] MEDS: LEVALBUTEROL 1.25 MG/3 ML NEB INH SCH ×3 (11:19→19:20)
[2021-08-17] MEDS: SCOPOLAMINE PATCH TOP SCH (13:01)
--- NOTE | 2021-08-17 15:06 | PROVIDER PROGRESS NOTE ---
Subjective - Prog Note Date Prog Note Date: 08/17/21 Prog Note Time: 14:58 - Subjective Subjective: he has no insight into illness. I am seeing him be tachypneic but he doesn't recognize it as such. WBC has been elevated since August 10. The highest has been is 19,000 and he is 14,000 today. Last temperature August 15 at 38.1. He varies between 91% to 96% on room air. Occ his pulse will be above 90. All he can tell me is that "i'm weak and I don't know if I can't stand for too long or walk for too much" He is getting up to the bathroom but needs assist. RN has been feeding him. cough is weak and infrequent. denies sob or chest pain. No abd pain Current Medications - Current Medications Current Medications: Active Medications Acetaminophen (Acetaminophen 325 Mg Tablet) 650 mg PO Q6HR PRN PRN Reason: Pain or Fever > 38C (100.4F) Last Admin: 08/16/21 14:24 Dose: 650 mg Albuterol (Albuterol Neb 2.5 Mg/3 Ml) 2.5 mg INH RTQ4H PRN PRN Reason: Wheezing Last Admin: 08/05/21 12:40 Dose: 2.5 mg Albuterol/Ipratropium (Ipratropium/Albuterol 3 Ml Neb) 3 ml INH RTQID PRN PRN Reason: Wheezing Aspirin (Aspirin Chew 81 Mg Tablet) 81 mg NG DAILY [facility] Last Admin: 08/17/21 08:46 Dose: 81 mg Atorvastatin Calcium (Atorvastatin 10 Mg Tablet) 10 mg PO QPM [facility] Last Admin: 08/16/21 20:56 Dose: 10 mg Carvedilol (Carvedilol 3.125 Mg Tablet) 3.125 mg PO BID [facility] Last Admin: 08/17/21 08:46 Dose: 3.125 mg Enoxaparin Sodium (Enoxaparin 40 Mg/0.4 Ml Syringe) 40 mg SUBQ DAILY [facility] Last Admin: 08/17/21 08:46 Dose: 40 mg Gabapentin (Gabapentin 300 Mg Capsule) 300 mg PO TID [facility] Last Admin: 08/17/21 13:01 Dose: 300 mg Cefepime HCl 2 gm/ Sodium (Chloride) 100 mls @ 200 mls/hr IV Q8HR [facility] Stop: 08/24/21 14:59 Levalbuterol HCl (Levalbuterol 1.25 Mg/3 Ml Neb) 1.25 mg INH TID [facility] Last Admin: 08/17/21 13:10 Dose: 1.25 mg Morphine Sulfate (Morphine 2 Mg/Ml Carpuject) 2 mg IVP Q4HR PRN PRN Reason: PAIN Last Admin: 08/15/21 18:13 Dose: 2 mg Multi-Ingredient Ointment (Zinc Oxide 20% Oint 30 Gm Tube) 1 applic TOP PRN PRN PRN Reason: Skin Care Last Admin: 08/17/21 06:36 Dose: 1 applic Multivitamins/Minerals (Multivitamin W/Minerals Tablet) 1 tab PO DAILYWM [facility] Last Admin: 08/17/21 08:46 Dose: 1 tab Ondansetron HCl (Ondansetron 4 Mg/2 Ml Vial) 4 mg IVP Q6HR PRN PRN Reason: Nausea / Vomiting Pantoprazole Sodium (Pantoprazole 40 Mg Tablet) 40 mg PO QDAC [facility] Last Admin: 08/17/21 06:06 Dose: 40 mg Polyethylene Glycol (Polyethylene Glycol 3350 17 Gm Packet) 17 gm PO DAILY [facility] Last Admin: 08/17/21 08:46 Dose: 17 gm Saccharomyces Boulardii (Saccharomyces Boulardii 250 Mg Capsule) 250 mg PO B IDWM [facility] Scopolamine HBr (Scopolamine Patch) 1 patch TOP Q3D [facility] Last Admin: 08/17/21 13:01 Dose: 1 patch Sodium Chloride (Sodium Chloride Flush 0.9% 10 Ml Syringe) 10 ml IVP PRN PRN PRN Reason: NEEDED PER PROVIDER ORDERS Last Admin: 08/15/21 06:36 Dose: 10 ml Sodium Chloride (Sodium Chloride Flush 0.9% 10 Ml Syringe) 10 ml IVP 0100,0900,1700 [facility] Last Admin: 08/17/21 08:47 Dose: 10 ml Sodium Chloride (Sodium Chloride Flush 0.9% 10 Ml Syringe) 20 ml IVP PRN PRN PRN Reason: After Blood Draw Last Admin: 08/16/21 04:57 Dose: 20 ml Tamsulosin HCl (Tamsulosin 0.4 Mg Capsule) 0.4 mg PO DAILY [facility] Last Admin: 08/17/21 08:47 Dose: 0.4 mg Gabapentin [Neurontin] 300 mg PO TID 08/17/21 amLODIPine [Norvasc] 5 mg PO DAILY 08/17/21 Objective - Vital Signs/Intake & Output Reviewed Vital Signs: Yes Vital Signs: Vital Signs x48h Temp Pulse Pulse Resp BP Pulse Ox 08/17/21 13:10 90 26 H 08/17/21 11:23 36.6 C 92 24 129/74 96 08/17/21 11:22 36.9 C 90 22 92 08/17/21 07:47 95 28 H 142/74 H 91 L Intake & Output: Intake & Output 08/14/21 08/15/21 08/16/21 08/17/21 23:59 23:59 23:59 23:59 Intake Total 1910 1390 2200 962 Output Total 625 103 Balance 1285 1287 2200 962 - Objective General Appearance: positive: No acute distress, Alert, Other (his breathing is shallow and unlabored but >20 most of the time, disheveled slack face w mouth open and lower lip protruding at times.) Eyes Bilateral: positive: PERRL, EOMI ENT: positive: No signs of dehydration Neck: positive: No JVD. negative: Stiff neck Respiratory: positive: No respiratory distress, Rhonchi (faint and mid lung but not constant). negative: Wheezes, Rales Cardiovascular: positive: Regular rate & rhythm. negative: Gallop/S4, Friction rub Abdomen: positive: Non-tender, No organomegaly, Nml bowel sounds, No distention, Other (incontinent of urine) Skin: positive: Warm, Dry (scaling left leg) Extremities: positive: Full ROM, No pedal edema, Other (AKA on one leg, the other w onychomycosis, dry, scaling skin) Neurologic/Psychiatric: positive: Oriented x3 (most times but occ slow with date or why he's here.), CN's nml (2-12). negative: Motor nml (psychomotor slowness), Mood/affect nml - Lab Results Fish Bones: 08/17/21 05:21 08/17/21 05:21 Other Labs: Lab Results x24hrs 08/17/21 08/17/21 Range/Units 05:21 05:21 WBC 14.0 H (4.8-10.8) x10^3/uL RBC 3.15 L (4.70-6.10) 10^6/uL Hgb 7.9 L (14.0-18.0) g/dL Hct 26.5 L (42.0-52.0) % MCV 84.1 (80.0-94.0) fL MCH 25.1 L (27.0-31.0) pg MCHC 29.8 L (32.0-36.0) g/dL RDW 19.1 H (12.0-15.0) % Plt Count 221 (130-450) 10^3/uL MPV 10.9 (7.4-11.4) fL Neut # (Auto) 11.0 H (1.5-6.6) 10^3/uL Lymph # (Auto) 1.6 (1.5-3.5) 10^3/uL [place] # (Auto) 0.9 (0.0-1.0) 10^3/uL Eos # (Auto) 0.3 (0.0-0.7) 10^3/uL Baso # (Auto) 0.0 (0.0-0.1) 10^3/uL Absolute Nucleated RBC 0.00 x10^3/uL Nucleated RBC % 0.0 /100WBC Sodium 135 (135-145) mmol/L Potassium 3.9 (3.5-5.0) mmol/L Chloride 103 (101-111) mmol/L Carbon Dioxide 23 (21-32) mmol/L Anion Gap 9.0 (6-13) BUN 22 H (6-20) mg/dL Creatinine 0.6 (0.6-1.2) mg/dL Estimated GFR (MDRD) 134 (>89) Glucose 141 H (70-100) mg/dL Calcium 8.2 L (8.5-10.3) mg/dL ABX Reporting Has patient been on IV antibiotics over the past 48 hours?: Yes Sepsis Event Note (H) - Evaluation Current Stage of Sepsis: Sepsis Possible source of Sepsis: positive: Pulmonary - Sepsis Criteria Sepsis Criteria: Recorded Temperature greater than 38.3C or Less than 36C, Recorded Heart Rate greater than 90 bpm, Recorded Respiratory Rate greater than 20, Respiratory: Increasing oxygen requirements, WBC count greater than 10% bands, DIRECTOR DRUG SAFETY: altered consciousness (unrelated to primary neuro pathology), Hematologic: platelets < 100,000; INR > 1.5, or a PTT>60 seconds Assessment/Plan - Problem List (1) Physical deconditioning Impression: This is his main problem now. He has become very weak from deconditioning, being in the ICU for 12 days. This is the main reason he remains in the hospital. PT has started. He will likely need SNF for PT rehab, however, because he is homeless status, a final DCh plan is not known yet. Most of the SNFs are declining to take him since he is homeless. This will be a significant barrier for dc for us.He has Medicaid. Health and community services will be visiting with him later this week. (2) Acute respiratory failure with hypoxia Impression: Improving. This was secondary to COVID-19 pneumonia as well as bacterial (and aspiration) pneumonia. He was extubated and taken off the vent 08/11 and is saturating adequately on HiFlow suppl O2 then n.c. at low settings. He was transferred out of ICU 08/15/21 and is a Med Surg boarder Suspected that he has COPD (by his barrel chest and he was smoking until this admission). Respiratory rate continues to be the mid 20s. BMP doesn't have an anion gap, nor is there high/low C02. Breathing Shallow. Fast. 1 L nasal cannula is saturating about 97%. Titrate suppl O2 down as possible I will check CXR and evaluate for another pneumonia. (3) Pneumonia due to COVID-19 virus resolved. Impression: This was contributing to respiratory failure with hypoxia. He finished Decadron and was not a candidate for Remdesivir since he was on a ventilator. Isolation precautions DCd by Infectious Dis nurse several days ago. (4) Aspiration pneumonia Impression: This was also believed to be contributing to his respiratory failure with hypoxia. Respiratory cultures have had no growth. He had copious secretions after extubation, is coughing up white sputum. RT started Acapella device which helped alot, as well as Mucinex and a Scopalamine patch. 08/15/21 he finished an empiric course of 14 days of antibx If chest xray is without improvment, start Ceftazidime. (5) Ischemic cardiomyopathy Impression His admission EKG showed deep inferior Q waves. At admission, troponins and Echo were done. His troponins were mildly elevated but did not double (147>> 194>> 187). The Echo showed an inferior wall motion abnormality, consistent with his EKG that had deep inferior Q waves. LVEF is mildly depressed. 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 He is on daily baby ASA, statin and he needed Lasix for several doses. We stopped Lasix. If he survives this hospitalization, and if he consents, he may be a candidate for cor angiography. (6) Methamphetamine abuse Impression: His urine toxicology was positive for methamphetamines. We will need to address this with a SW consult when he is able to participate in a meaningful conversation. Also, his living situation was addressed with SW seeing him and confirmed that he is homeless. (7) Rib fracture Impression: He does have a left-sided rib fracture diagnosed at admission, likely due to trauma; we do not know the details of how this happened since he was admitted obtunded and gave no Hx. The rest of his imaging at admission was unremarkable for trauma. 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 He is wearing his L shoe today. (9) Homeless single person Impression: As per the HUEY evel done today. Since he is extremely deconditioned and working with PT, he will likely need a SNF for PT and OT rehab, however a final DCh plan needs to be worked out. (10) Thrombocytopenia Impression: Resolved. This improved daily after admission, suggesting that it was from sepsis or some drug or marrow toxin, like alcohol. (11) Sepsis Impression: Resolved (12) Hypotension Impression: Resolved (13) Bradycardia Impression: Resolved. He was not on and is on no HR slowing meds. (14) AMS Impression: Resolved. He presented obtunded and was intubated in ER. We will need SW input re: his drug use. (15) PSVT Impression: Resolved Several days ago, he went into PSVT that was sustained at a rate of 160, it broke spontaneously after 15-20 sec. His blood pressure was stable with this. He was not symptomatic. Then Coreg 3.125 twice daily was started. None seen further
[2021-08-17] MEDS: CEFEPIME 2 GM in SODIUM CHLORIDE 0.9% MINIBAG 100 ML IV SCH ×2 (15:53→21:06)
[2021-08-17] MEDS: SACCHAROMYCES BOULARDII 250 MG CAPSULE PO SCH (17:16)
[2021-08-17] MEDS: ATORVASTATIN 10 MG TABLET PO SCH (20:50)
[2021-08-18] MEDS: SODIUM CHLORIDE FLUSH 0.9% 10 ML SYRINGE IVP SCH ×3 (01:20→17:05)
[2021-08-18] MEDS: LEVALBUTEROL 1.25 MG/3 ML NEB INH SCH ×3 (05:57→22:14)
[2021-08-18 05:59] LABS: BASOPHILS % (AUTO) 0.3 %; EOSINOPHILS # (AUTO) 0.2 10^3/uL (0.0-0.7); HCT - HEMATOCRIT 27.5 % (42.0-52.0); HGB - HEMOGLOBIN 8.1 g/dL (14.0-18.0); LYMPHOCYTES # (AUTO) 1.4 10^3/uL (1.5-3.5); MEAN CORPUSCULAR HEMOGLOBIN 25.2 pg (27.0-31.0); MEAN CORPUSCULAR HGB CONC 29.5 g/dL (32.0-36.0); MEAN CORPUSCULAR VOLUME 85.4 fL (80.0-94.0); MEAN PLATELET VOLUME 10.8 fL (7.4-11.4); MONOCYTES # (AUTO) 0.9 10^3/uL (0.0-1.0); MONOCYTES % (AUTO) 7.4 %; NEUTROPHILS # (AUTO) 9.2 10^3/uL (1.5-6.6); NEUTROPHILS % (AUTO) 77.7 %; PLT - PLATELET COUNT 203 10^3/uL (130-450); RED BLOOD COUNT 3.22 10^6/uL (4.70-6.10); RED CELL DISTRIBUTION WIDTH 19.3 % (12.0-15.0); WHITE BLOOD COUNT 11.9 x10^3/uL (4.8-10.8)
[2021-08-18 06:05] LABS: CALCIUM 8.2 mg/dL (8.5-10.3); CREATININE 0.6 mg/dL (0.6-1.2); POTASSIUM 3.7 mmol/L (3.5-5.0)
[2021-08-18] MEDS: PANTOPRAZOLE 40 MG TABLET PO SCH (06:08)
[2021-08-18] MEDS: GABAPENTIN 300 MG CAPSULE PO SCH ×3 (06:08→21:17)
[2021-08-18] MEDS: CEFEPIME 2 GM in SODIUM CHLORIDE 0.9% MINIBAG 100 ML IV SCH ×3 (06:09→21:16)
[2021-08-18] MEDS: ASPIRIN CHEW 81 MG TABLET NG SCH (09:08)
[2021-08-18] MEDS: ENOXAPARIN 40 MG/0.4 ML SYRINGE SUBQ SCH (09:08)
[2021-08-18] MEDS: carvediloL 3.125 MG TABLET PO SCH ×2 (09:08→21:17)
[2021-08-18] MEDS: polyethylene glycoL 3350 17 GM PACKET PO SCH (09:08)
[2021-08-18] MEDS: MULTIVITAMIN W/MINERALS TABLET PO SCH (09:08)
[2021-08-18] MEDS: SACCHAROMYCES BOULARDII 250 MG CAPSULE PO SCH ×2 (09:08→17:05)
[2021-08-18] MEDS: TAMSULOSIN 0.4 MG CAPSULE PO SCH (09:09)
--- NOTE | 2021-08-18 12:45 | PROVIDER PROGRESS NOTE ---
Subjective - Prog Note Date Prog Note Date: 08/18/21 Prog Note Time: 12:49 - Subjective Pt reports feeling: Improved Subjective: He is very complementary about the care he is receiving here. He says that the nurse aides and the nurses are absolutely wonderful people. He says that physical therapy works with him. In fact he states that "everyone walks in the store tries to help me". He denies chest pain. Cough. When I asked him about shortness of breath he is not aware that he is breathing slightly on the fast side and shrugs if I ask him about shortness of breath. He says it is just not really present. He feels str onger today. He tells me that he is able to hold up his head without a lot of effort. The last few days it was even hard to hold up his head. He is sitting up in bed. Denies abdominal pain. Denies any limb pain. Sometimes his butt aches from sitting in the bed for so long. Current Medications - Current Medications Current Medications: Active Medications Acetaminophen (Acetaminophen 325 Mg Tablet) 650 mg PO Q6HR PRN PRN Reason: Pain or Fever > 38C (100.4F) Last Admin: 08/16/21 14:24 Dose: 650 mg Albuterol (Albuterol Neb 2.5 Mg/3 Ml) 2.5 mg INH RTQ4H PRN PRN Reason: Wheezing Last Admin: 08/05/21 12:40 Dose: 2.5 mg Albuterol/Ipratropium (Ipratropium/Albuterol 3 Ml Neb) 3 ml INH RTQID PRN PRN Reason: Wheezing Aspirin (Aspirin Chew 81 Mg Tablet) 81 mg NG DAILY [facility] Last Admin: 08/18/21 09:08 Dose: 81 mg Atorvastatin Calcium (Atorvastatin 10 Mg Tablet) 10 mg PO QPM [facility] Last Admin: 08/17/21 20:50 Dose: 10 mg Carvedilol (Carvedilol 3.125 Mg Tablet) 3.125 mg PO BID [facility] Last Admin: 08/18/21 09:08 Dose: 3.125 mg Enoxaparin Sodium (Enoxaparin 40 Mg/0.4 Ml Syringe) 40 mg SUBQ DAILY [facility] Last Admin: 08/18/21 09:08 Dose: 40 mg Furosemide (Furosemide 40 Mg/4 Ml Vial) 40 mg IVP ONCE STA Stop: 08/18/21 12:48 Gabapentin (Gabapentin 300 Mg Capsule) 300 mg PO TID [facility] Last Admin: 08/18/21 06:08 Dose: 300 mg Cefepime HCl 2 gm/ Sodium (Chloride) 100 mls @ 200 mls/hr IV Q8HR [facility] Stop: 08/24/21 14:59 Last Infusion: 08/18/21 06:47 Dose: Infused Levalbuterol HCl (Levalbuterol 1.25 Mg/3 Ml Neb) 1.25 mg INH TID [facility] Last Admin: 08/18/21 05:57 Dose: 1.25 mg Morphine Sulfate (Morphine 2 Mg/Ml Carpuject) 2 mg IVP Q4HR PRN PRN Reason: PAIN Last Admin: 08/15/21 18:13 Dose: 2 mg Multi-Ingredient Ointment (Zinc Oxide 20% Oint 30 Gm Tube) 1 applic TOP PRN PRN PRN Reason: Skin Care Last Admin: 08/17/21 06:36 Dose: 1 applic Multivitamins/Minerals (Multivitamin W/Minerals Tablet) 1 tab PO DAILYWM [facility] Last Admin: 08/18/21 09:08 Dose: 1 tab Ondansetron HCl (Ondansetron 4 Mg/2 Ml Vial) 4 mg IVP Q6HR PRN PRN Reason: Nausea / Vomiting Pantoprazole Sodium (Pantoprazole 40 Mg Tablet) 40 mg PO QDAC [facility] Last Admin: 08/18/21 06:08 Dose: 40 mg Polyethylene Glycol (Polyethylene Glycol 3350 17 Gm Packet) 17 gm PO DAILY [facility] Last Admin: 08/18/21 09:08 Dose: 17 gm Saccharomyces Boulardii (Saccharomyces Boulardii 250 Mg Capsule) 250 mg PO BIDWM [facility] Last Admin: 08/18/21 09:08 Dose: 250 mg Scopolamine HBr (Scopolamine Patch) 1 patch TOP Q3D [facility] Last Admin: 08/17/21 13:01 Dose: 1 patch Sodium Chloride (Sodium Chloride Flush 0.9% 10 Ml Syringe) 10 ml IVP PRN PRN PRN Reason: NEEDED PER PROVIDER ORDERS Last Admin: 08/15/21 06:36 Dose: 10 ml Sodium Chloride (Sodium Chloride Flush 0.9% 10 Ml Syringe) 10 ml IVP 0100,090 0,1700 [facility] Last Admin: 08/18/21 09:09 Dose: 10 ml Sodium Chloride (Sodium Chloride Flush 0.9% 10 Ml Syringe) 20 ml IVP PRN PRN PRN Reason: After Blood Draw Last Admin: 08/16/21 04:57 Dose: 20 ml Tamsulosin HCl (Tamsulosin 0.4 Mg Capsule) 0.4 mg PO DAILY [facility] Last Admin: 08/18/21 09:09 Dose: 0.4 mg Gabapentin [Neurontin] 300 mg PO TID 08/17/21 amLODIPine [Norvasc] 5 mg PO DAILY 08/17/21 Objective - Vital Signs/Intake & Output Reviewed Vital Signs: Yes Vital Signs: Vital Signs x48h Temp Pulse Pulse Resp BP Pulse Ox 08/18/21 08:00 37.3 C 97 24 147/90 H 93 08/18/21 05:58 98 24 08/18/21 05:00 36.5 C 95 22 137/77 H 92 Intake & Output: Intake & Output 08/15/21 08/16/21 08/17/21 08/18/21 23:59 23:59 23:59 23:59 Intake Total 1390 2200 1462 440 Output Total 103 Balance 1287 2200 1462 440 - Objective General Appearance: positive: No acute distress, Alert, Other (Disheveled, bearded, long haired white male who looks older than stated age, some of his teeth are gone. 5 foot, 9 inches, 80.5 kg) Eyes Bilateral: positive: PERRL, EOMI ENT: positive: No signs of dehydration Neck: positive: No JVD Respiratory: positive: No respiratory distress, Other (Good air excursion. No wheezing.). negative: Wheezes, Rales, Rhonchi Cardiovascular: positive: Regular rate & rhythm. negative: JVD present, Gallop/S4 Abdomen: positive: Non-tender, No organomegaly, Nml bowel sounds, No distention Skin: positive: Warm, Dry Extremities: positive: Full ROM, Pedal edema Neurologic/Psychiatric: positive: Oriented x3, CN's nml (2-12). negative: Motor nml (Severe generalized weakness. Requiring complete care.) - Lab Results Fish Bones: 08/18/21 05:18 08/18/21 05:18 Other Labs: Lab Results x24hrs 08/18/21 08/18/21 Range/Units 05:18 05:18 WBC 11.9 H (4.8-10.8) x10^3/uL RBC 3.22 L (4.70-6.10) 10^6/uL Hgb 8.1 L (14.0-18.0) g/dL Hct 27.5 L (42.0-52.0) % MCV 85.4 (80.0-94.0) fL MCH 25.2 L (27.0-31.0) pg MCHC 29.5 L (32.0-36.0) g/dL RDW 19.3 H (12.0-15.0) % Plt Count 203 (130-450) 10^3/uL MPV 10.8 (7.4-11.4) fL Neut # (Auto) 9.2 H (1.5-6.6) 10^3/uL Lymph # (Auto) 1.4 L (1.5-3.5) 10^3/uL Eddy # (Auto) 0.9 (0.0-1.0) 10^3/uL Eos # (Auto) 0.2 (0.0-0.7) 10^3/uL Baso # (Auto) 0.0 (0.0-0.1) 10^3/uL Absolute Nucleated RBC 0.00 x10^3/uL Nucleated RBC % 0.0 /100WBC Sodium 133 L (135-145) mmol/L Potassium 3.7 (3.5-5.0) mmol/L Chloride 100 L (101-111) mmol/L Carbon Dioxide 23 (21-32) mmol/L Anion Gap 10.0 (6-13) BUN 17 (6-20) mg/dL Creatinine 0.6 (0.6-1.2) mg/dL Estimated GFR (MDRD) 134 (>89) Glucose 143 H (70-100) mg/dL Calcium 8.2 L (8.5-10.3) mg/dL ABX Reporting Has patient been on IV antibiotics over the past 48 hours?: Yes Sepsis Event Note (H) - Evaluation Current Stage of Sepsis: Sepsis Possible source of Sepsis: positive: Pulmonary - Sepsis Criteria Sepsis Criteria: Recorded Temperature greater than 38.3C or Less than 36C, Recorded Heart Rate greater than 90 bpm, Recorded Respiratory Rate greater than 20, Respiratory: Increasing oxygen requirements, WBC count greater than 10% bands, PROFESSOR OF MUSIC: altered consciousness (unrelated to primary neuro pathology), Hematologic: platelets < 100,000; INR > 1.5, or a PTT>60 seconds Assessment/Plan - Problem List (1) Physical deconditioning Impression: This is his main problem now. He has become very weak from deconditioning, being in the ICU for 12 days. This is the main reason he remains in the hospit al. PT has started. He will likely need SNF for PT rehab, however, because he is homeless status, a final [facility] plan is not known yet. Most of the SNFs are declining to take him since he is homeless. This will be a significant barrier for dc for us.He has Medicaid. Health and community services will be visiting with him later this week. Right now he is able to sit up in the bed. Holding up his head. He needs nurses to feed him since he does not have the strength to bring the fork to his mouth. Then use a Braxton lift to get him to a chair. Goal is to have the patient be able to go from supine to sitting, sitting to standing and take a few steps with a walker to a bedside commode or to a chair. We would also like him to be able to feed himself. (2) Acute respiratory failure with hypoxia Impression: Improving. This was secondary to COVID-19 pneumonia as well as bacterial (and aspiration) pneumonia. He was extubated and taken off the vent 08/11 and is saturating adequately on HiFlow suppl O2 then n.c. at low settings. He was transferred out of ICU 08/15/21 and is a Med Surg boarder Suspected that he has COPD (by his barrel chest and he was smoking until this admission). He has had subtle increase in respiratory rate with consistent tachypnea for 2-3 days. I was worried about another pneumonia and had a chest x-ray done August 17. It was compared to August 12. He had interval improvement in the right lung aeration. Persistent small to moderate left pleural effusion with left lower lobe infiltrate and atelectasis. Cardiomegaly and mild vascular congestion. Ceftaz ordered. Day #2. I find him to be more alert, head is up with more strength, way more chatty today than he was with me yesterday. Continues to have a respiratory rate at 22-24. He denies shortness of breath and does not know why he is breathing that fast. (3) Pneumonia due to COVID-19 virus resolved. Impression: This was contributing to respiratory failure with hypoxia. He finished Decadron and was not a candidate for Remdesivir since he was on a ventilator. Isolation precautions DCd by Infectious Dis nurse several days ago. (4) Aspiration pneumonia Impression: This was also believed to be contributing to his respiratory failure with hypoxia. Respiratory cultures have had no growth. He had copious secretions after extubation, is coughing up white sputum. RT s tarted Acapella device which helped alot, as well as Mucinex and a Scopalamine patch. 08/15/21 he finished an empiric course of 14 days of antibx 2/2 CXR with improved R lung but L at risk. Ceftax started . (5) Ischemic cardiomyopathy Impression His admission EKG showed deep inferior Q waves. At admission, troponins and Echo were done. His troponins were mildly elevated but did not double (147>> 194>> 187). The Echo showed an inferior wall motion abnormality, consistent with his EKG that had deep inferior Q waves. LVEF is mildly depressed. 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 He is on daily baby ASA, statin and he needed Lasix for several doses. We stopped Lasix. If he survives this hospitalization, and if he consents, he may be a candidate for cor angiography. August 14: +[phone] August 15: +1287 August 1: No output recorded. +2199 2: No output recorded, +1462 I will give a dose of lasix today. (6) Methamphetamine abuse Impression: His urine toxicology was positive for methamphetamines. We will need to address this with a SW consult when he is able to participate in a meaningful conversation. Also, his living situation was addressed with SW seeing him and confirmed that he is homeless. (7) Rib fracture Impression: He does have a left-sided rib fracture diagnosed at admission, likely due to trauma; we do not know the details of how this happened since he was admitted obtunded and gave no Hx. The rest of his imaging at admission was unremarkable for trauma. 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 He is wearing his L shoe today. (9) Homeless single person Impression: As per the SW evel done today. Since he is extremely deconditioned and working with PT, he will likely need a SNF for PT and OT rehab, however a final [facility] plan needs to be worked out. (10) Thrombocytopenia Impression: Resolved. This improved daily after admission, suggesting that it was from sepsis or some drug or marrow toxin, like alcohol. (11) Sepsis Impression: Resolved (12) Hypotension Impression: Resolved (13) Bradycardia Impression: Resolved. He was not on and is on no HR slowing meds. (14) AMS Impression: Resolved. He presented obtunded and was intubated in ER. We will need input re: his drug use. (15) PSVT Impression: Resolved Several days ago, he went into PSVT that was sustained at a rate of 160, it broke spontaneously after 15-20 sec. His blood pressure was stable with this. He was not symptomatic. Then Coreg 3.125 twice daily was started. None seen further
[2021-08-18] MEDS ORDERED: FUROSEMIDE 40 MG/4 ML VIAL IVP STA (12:47)
[2021-08-18] MEDS: ATORVASTATIN 10 MG TABLET PO SCH (21:17)
[2021-08-19] MEDS: SODIUM CHLORIDE FLUSH 0.9% 10 ML SYRINGE IVP SCH ×3 (00:16→17:06)
[2021-08-19] MEDS: CEFEPIME 2 GM in SODIUM CHLORIDE 0.9% MINIBAG 100 ML IV SCH ×3 (06:54→21:11)
[2021-08-19] MEDS: GABAPENTIN 300 MG CAPSULE PO SCH ×3 (06:55→21:11)
[2021-08-19] MEDS: PANTOPRAZOLE 40 MG TABLET PO SCH (06:55)
[2021-08-19] MEDS: TAMSULOSIN 0.4 MG CAPSULE PO SCH (08:58)
[2021-08-19] MEDS: carvediloL 3.125 MG TABLET PO SCH ×2 (08:58→21:11)
[2021-08-19] MEDS: ASPIRIN CHEW 81 MG TABLET NG SCH (08:58)
[2021-08-19] MEDS: polyethylene glycoL 3350 17 GM PACKET PO SCH (08:59)
[2021-08-19] MEDS: MULTIVITAMIN W/MINERALS TABLET PO SCH (08:59)
[2021-08-19] MEDS: SACCHAROMYCES BOULARDII 250 MG CAPSULE PO SCH ×2 (08:59→17:06)
[2021-08-19] MEDS: ENOXAPARIN 40 MG/0.4 ML SYRINGE SUBQ SCH (09:02)
[2021-08-19] MEDS: LEVALBUTEROL 1.25 MG/3 ML NEB INH SCH ×3 (10:56→21:53)
--- NOTE | 2021-08-19 15:16 | PROVIDER PROGRESS NOTE ---
Subjective - Prog Note Date Prog Note Date: 08/19/21 Prog Note Time: 15:14 - Subjective Subjective: 4 days ago he called up a friend and asked him to come pick him up today. He wanted to go home. Today, in speaking to home and community services, he hung up on them. He states he did not want to be placed in a custodial facility because he would "lose all his money". And he wanted his friend to take care of him. However he failed to share with his friend that he is a 2 person max assist. He did not share all of this with us until this morning. We explained to he and his friend that we were happy to let him go. From a medical perspective he is stable, however very very weak. We described what a 2 person max assist was to his friend. With that in mind his friend said that he cannot come home with him. Mr. Johnson needs to be able to stand and pivot and maybe walk a step or 2 before he can come home. As such Mr. Johnson is now willing to finish the interview with home and community services. Understands that he will be going to a custodial facility for temporary placement to increase his strength. And then from there he can go stay with his friend. Current Medications - Current Medications Current Medications: Active Medications Acetaminophen (Acetaminophen 325 Mg Tablet) 650 mg PO Q6HR PRN PRN Reason: Pain or Fever > 38C (100.4F) Last Admin: 08/16/21 14:24 Dose: 650 mg Albuterol (Albuterol Neb 2.5 Mg/3 Ml) 2.5 mg INH RTQ4H PRN PRN Reason: Wheezing Last Admin: 08/05/21 12:40 Dose: 2.5 mg Albuterol/Ipratropium (Ipratropium/Albuterol 3 Ml Neb) 3 ml INH RTQID PRN PRN Reason: Wheezing Aspirin (Aspirin Chew 81 Mg Tablet) 81 mg NG DAILY [facility] Last Admin: 08/19/21 08:58 Dose: 81 mg Atorvastatin Calcium (Atorvastatin 10 Mg Tablet) 10 mg PO QPM [facility] Last Admin: 08/18/21 21:17 Dose: 10 mg Carvedilol (Carvedilol 3.125 Mg Tablet) 3.125 mg PO BID [facility] Last Admin: 08/19/21 08:58 Dose: 3.125 mg Enoxaparin Sodium (Enoxaparin 40 Mg/0.4 Ml Syringe) 40 mg SUBQ DAILY [facility] Last Admin: 08/19/21 09:02 Dose: 40 mg Gabapentin (Gabapentin 300 Mg Capsule) 300 mg PO TID [facility] Last Admin: 08/19/21 13:29 Dose: 300 mg Cefepime HCl 2 gm/ Sodium (Chloride) 100 mls @ 200 mls/hr IV Q8HR [facility] Stop: 08/24/21 14:59 Last Infusion: 08/19/21 14:00 Dose: Infused Levalbuterol HCl (Levalbuterol 1.25 Mg/3 Ml Neb) 1.25 mg INH TID [facility] Last Admin: 08/19/21 14:17 Dose: 1.25 mg Morphine Sulfate (Morphine 2 Mg/Ml Carpuject) 2 mg IVP Q4HR PRN PRN Reason: PAIN Last Admin: 08/15/21 18:13 Dose: 2 mg Multi-Ingredient Ointment (Zinc Oxide 20% Oint 30 Gm Tube) 1 applic TOP PRN PRN PRN Reason: Skin Care Last Admin: 08/17/21 06:36 Dose: 1 applic Multivitamins/Minerals (Multivitamin W/Minerals Tablet) 1 tab PO DAILYWM [facility] Last Admin: 08/19/21 08:59 Dose: Not Given Ondansetron HCl (Ondansetron 4 Mg/2 Ml Vial) 4 mg IVP Q6HR PRN PRN Reason: Nausea / Vomiting Pantoprazole Sodium (Pantoprazole 40 Mg Tablet) 40 mg PO QDAC [facility] Last Admin: 08/19/21 06:55 Dose: 40 mg Polyethylene Glycol (Polyethylene Glycol 3350 17 Gm Packet) 17 gm PO DAILY [facility] Last Admin: 08/19/21 08:59 Dose: 17 gm Saccharomyces Boulardii (Saccharomyces Boulardii 250 Mg Capsule) 250 mg PO BIDWM [facility] Last Admin: 08/19/21 08:59 Dose: 250 mg Scopolamine HBr (Scopolamine Patch) 1 patch TOP Q3D [facility] Last Admin: 08/17/21 13:01 Dose: 1 patch Sodium Chloride (Sodium Chloride Flush 0.9% 10 Ml Syringe) 10 ml IVP PRN PRN PRN Reason: NEEDED PER PROVIDER ORDERS Last Admin: 08/15/21 06:36 Dose: 10 ml Sodium Chloride (Sodium Chloride Flush 0.9% 10 Ml Syringe) 10 ml IVP 0100,0900,1700 [facility] Last Admin: 08/19/21 07:45 Dose: 10 ml Sodium Chloride (Sodium Chloride Flush 0.9% 10 Ml Syringe) 20 ml IVP PRN PRN PRN Reason: After Blood Draw Last Admin: 08/16/21 04:57 Dose: 20 ml Tamsulosin HCl (Tamsulosin 0.4 Mg Capsule) 0.4 mg PO DAILY [facility] Last Admin: 08/19/21 08:58 Dose: 0.4 mg Gabapentin [Neurontin] 300 mg PO TID 08/17/21 amLODIPine [Norvasc] 5 mg PO DAILY 08/17/21 Objective - Vital Signs/Intake & Output Reviewed Vital Signs: Yes Vital Signs: Vital Signs x48h Temp Pulse Pulse Resp BP Pulse Ox 08/19/21 14:20 94 24 08/19/21 12:18 36.3 C L 86 24 110/70 97 08/19/21 09:14 36.3 C L 95 18 123/75 93 Intake & Output: Intake & Output 08/16/21 08/17/21 08/18/21 08/19/21 23:59 23:59 23:59 23:59 Intake Total 2200 1462 1697 840 Output Total 675 Balance 2200 1462 1022 840 - Objective General Appearance: positive: No acute distress, Alert, Other (Disheveled, bearded white male. Looks older than stated age. Alert, normal speech pattern.) Eyes Bilateral: positive: PERRL, EOMI ENT: positive: No signs of dehydration Neck: positive: No JVD. negative: Stiff neck Respiratory: positive: No respiratory distress, Rhonchi (here and there than clear w a mod weak cough). negative: Wheezes, Rales Cardiovascular: positive: Regular rate & rhythm. negative: Gallop/S4, Friction rub Abdomen: positive: Non-tender, No organomegaly, Nml bowel sounds, No distention Skin: positive: Warm, Dry, Pallor Extremities: positive: Full ROM, No pedal edema, Other (AKA) Neurologic/Psychiatric: positive: Oriented x3, CN's nml (2-12). negative: Motor nml (he can't even feed himself he is so weak. but moves all extrem. Needs a lift to get to a chair to sit. cannot stand due to AKA.) - Lab Results Fish Bones: 08/18/21 05:18 08/18/21 05:18 ABX Reporting Has patient been on IV antibiotics over the past 48 hours?: Yes Sepsis Event Note (H) - Evaluation Current Stage of Sepsis: Sepsis Possible source of Sepsis: positive: Pulmonary - Sepsis Criteria Sepsis Criteria: Recorded Temperature greater than 38.3C or Less than 36C, Recorded Heart Rate greater than 90 bpm, Recorded Respiratory Rate greater than 20, Respiratory: Increasing oxygen requirements, WBC count greater than 10% bands, CAR SCRUBBER: altered consciousness (unrelated to primary neuro pathology), Hematologic: platelets < 100,000; INR > 1.5, or a PTT>60 seconds Assessment/Plan - Problem List (1) Physical deconditioning Impression: .This is his main problem now. He has become very weak from deconditioning, regla ng in the ICU for 12 days. This is the main reason he remains in the hospital. PT has started. He will likely need SNF for PT rehab, however, because he is homeless status, a final [facility] plan was not known yet. Most of the SNFs are declining to take him since he is homeless. Home and community services attempted to meet with him today. But he hung up on them when he realized that all of his finances will be tied up in a custodial facility if he were to be permanently placed there. He did not understand that this was a temporary arrangement if he had other plans. The other plans being that he was going to go live with his friend. He did not share that with us. As such we now have a different discharge plan. He will remeet with home and community services. This will establish funds that he can use to have private duty caregiver in personal home. It is possible he could even be paying his own friend to take care of him. As such the current discharge plan is to get Medicaid for him to go to custodial facility for rehab. Once he is done with rehab he will go live with his friend. His friend, who spoke with social work, verified all of this and plans on taking him in. Right now he is able to sit up in the bed. Holding up his head. He needs nurses to feed him since he does not have the strength to bring the fork to his mouth. Then use a Braxton lift to get him to a chair. Goal is to have the patient be able to go from supine to sitting, sitting to standing and take a few hop steps with a walker to a bedside commode or to a chair (using a prosthetic?). We would also like him to be able to feed himself. (2) Acute respiratory failure with hypoxia Impression: Improving. This was secondary to COVID-19 pneumonia as well as bacterial (and aspiration) pneumonia. He was extubated and taken off the vent 08/11 and is s aturating adequately on HiFlow suppl O2 then n.c. at low settings. He was transferred out of ICU 08/15/21 and is a Med Surg boarder Suspected that he has COPD (by his barrel chest and he was smoking until this admission). He has had subtle increase in respiratory rate with consistent tachypnea for 2-3 days. I was worried about another pneumonia and had a chest x-ray done August 17. It was compared to August 12. He had interval improvement in the right lung aeration. Persistent small to moderate left pleural effusion with left lower lobe infiltrate and atelectasis. Cardiomegaly and mild vascular congestion. Cefipime not ceftaz ordered. Day #3. I find him to be more alert, head is up with more strength, way more chatty the day after I started abx than he was with me on 08/16. Continues to have a respiratory rate at 22-24. He denies shortness of breath and does not know why he is breathing that fast. continue for 5-7 days. (3) Pneumonia due to COVID-19 virus resolved. Impression: This was contributing to respiratory failure with hypoxia. He finished Decadron and was not a candidate for Remdesivir since he was on a ventilator. Isolation precautions DCd by Infectious Dis nurse several days ago. (4) Aspiration pneumonia Impression: This was also believed to be contributing to his respiratory failure with hypoxia. Respiratory cultures have had no growth. He had copious secretions after extubation, is coughing up white sputum. RT started Acapella device which helped alot, as well as Mucinex and a Scopalamine patch. 08/15/21 he finished an empiric course of 14 days of antibx 08/17 CXR with improved R lung but L at risk. Cefipime started . (5) Ischemic cardiomyopathy Impression His admission EKG showed deep inferior Q waves. At admission, troponins and Echo were done. His troponins were mildly elevated but did not double (147>> 194>> 187). The Echo showed an inferior wall motion abnormality, consistent with his EKG that had deep inferior Q waves. LVEF is mildly depressed. 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 He is on daily baby ASA, statin and he needed Lasix for several doses. We stopped Lasix. If he survives this hospitalization, and if he consents, he may be a candidate for cor angiography. August 14: +1285 August 15: +1287 August 1: No output recorded. +2199 2: No output recorded, +1462>80.5Kg August 3: +1022. Lasix given. 80Kg>>79 kg today (6) Methamphetamine abuse Impression: His urine toxicology was positive for methamphetamines. Addressed with him by SW. Opportunities for rehab offered. (7) Rib fracture Impression: He does have a left-sided rib fracture diagnosed at admission, likely due to t rauma; we do not know the details of how this happened since he was admitted obtunded and gave no Hx. The rest of his imaging at admission was unremarkable for trauma. 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 (9) Homeless single person Impression: As per the HUEY johnston done today. Since he is extremely deconditioned and working with PT, he will likely need a SNF for PT and OT rehab, however a final [facility] plan needs to be worked out. (10) Thrombocytopenia Impression: Resolved. This improved daily after admission, suggesting that it was from sepsis or some drug or marrow toxin, like alcohol. (11) Sepsis Impression: Resolved (12) Hypotension Impression: Resolved (13) Bradycardia Impression: Resolved. He was not on and is on no HR slowing meds. (14) AMS Impression: Resolved. He presented obtunded and was intubated in ER. We will need SW input re: his drug use. (15) PSVT Impression: Resolved Several days ago, he went into PSVT that was sustained at a rate of 160, it broke spontaneously after 15-20 sec. His blood pressure was stable with this. He was not symptomatic. Then Coreg 3.125 twice daily was started. None seen further Tele stopped today.
[2021-08-19] MEDS: ATORVASTATIN 10 MG TABLET PO SCH (21:11)
[2021-08-20] MEDS: SODIUM CHLORIDE FLUSH 0.9% 10 ML SYRINGE IVP SCH ×3 (01:06→17:16)
[2021-08-20] MEDS: CEFEPIME 2 GM in SODIUM CHLORIDE 0.9% MINIBAG 100 ML IV SCH ×3 (06:35→21:26)
[2021-08-20] MEDS: GABAPENTIN 300 MG CAPSULE PO SCH ×3 (06:36→21:23)
[2021-08-20] MEDS: PANTOPRAZOLE 40 MG TABLET PO SCH (06:36)
[2021-08-20] MEDS: LEVALBUTEROL 1.25 MG/3 ML NEB INH SCH ×2 (07:46→13:00)
[2021-08-20] MEDS: TAMSULOSIN 0.4 MG CAPSULE PO SCH (07:50)
[2021-08-20] MEDS: SACCHAROMYCES BOULARDII 250 MG CAPSULE PO SCH ×2 (07:50→17:16)
[2021-08-20] MEDS: ENOXAPARIN 40 MG/0.4 ML SYRINGE SUBQ SCH (07:50)
[2021-08-20] MEDS: polyethylene glycoL 3350 17 GM PACKET PO SCH (07:50)
[2021-08-20] MEDS: ASPIRIN CHEW 81 MG TABLET NG SCH (07:50)
[2021-08-20] MEDS: carvediloL 3.125 MG TABLET PO SCH ×2 (07:50→20:05)
[2021-08-20] MEDS: MULTIVITAMIN W/MINERALS TABLET PO SCH (07:50)
[2021-08-20] MEDS: SCOPOLAMINE PATCH TOP SCH (13:09)
--- NOTE | 2021-08-20 16:28 | PROVIDER PROGRESS NOTE ---
Subjective - Prog Note Date Prog Note Date: 08/20/21 Prog Note Time: 16:28 - Subjective Subjective: Patient had a sputum culture submitted August 17 when he had his fever and I started him on antibiotics for possible worsening pneumonia. Sputum is growing out gram-negative growth. Blood cultures from for resection are negative. The patient has no new complaints. He had a bowel movement today and that makes him happy. Yesterday was the day of him trying to leave the hospital and we were happy to let him go but we pointed out the impracticality of him leaving. He is incontinent of urine. Incontinent of stool. Needs a diaper. Is a two-person max assist. Cannot stand even hop on his leg and needs a Braxton lift. The friend that was going to pick him up did not realize the level of his dependence and backed out of picking him up and taking him home. So Mr. Johnson is back to applying with home and community services. Hopefully he can be placed in a correction facility to get strong enough to be able to go to was a friend's apartment after discharge. Current Medications - Current Medications Current Medications: Active Medications Acetaminophen (Acetaminophen 325 Mg Tablet) 650 mg PO Q6HR PRN PRN Reason: Pain or Fever > 38C (100.4F) Last Admin: 08/16/21 14:24 Dose: 650 mg Albuterol (Albuterol Neb 2.5 Mg/3 Ml) 2.5 mg INH RTQ4H PRN PRN Reason: Wheezing Last Admin: 08/05/21 12:40 Dose: 2.5 mg Albuterol/Ipratropium (Ipratropium/Albuterol 3 Ml Neb) 3 ml INH RTQID PRN PRN Reason: Wheezing Aspirin (Aspirin Chew 81 Mg Tablet) 81 mg NG DAILY [facility] Last Admin: 08/20/21 07:50 Dose: 81 mg Atorvastatin Calcium (Atorvastatin 10 Mg Tablet) 10 mg PO QPM [facility] Last Admin: 08/19/21 21:11 Dose: 10 mg Carvedilol (Carvedilol 3.125 Mg Tablet) 3.125 mg PO BID [facility] Last Admin: 08/20/21 07:50 Dose: 3.125 mg Enoxaparin Sodium (Enoxaparin 40 Mg/0.4 Ml Syringe) 40 mg SUBQ DAILY [facility] Last Admin: 08/20/21 07:50 Dose: 40 mg Gabapentin (Gabapentin 300 Mg Capsule) 300 mg PO TID [facility] Last Admin: 08/20/21 14:17 Dose: 300 mg Cefepime HCl 2 gm/ Sodium (Chloride) 100 mls @ 200 mls/hr IV Q8HR [facility] Stop: 08/24/21 14:59 Last Infusion: 08/20/21 15:20 Dose: Infused Levalbuterol HCl (Levalbuterol 1.25 Mg/3 Ml Neb) 1.25 mg INH TID [facility] Last Admin: 08/20/21 13:00 Dose: 1.25 mg Morphine Sulfate (Morphine 2 Mg/Ml Carpuject) 2 mg IVP Q4HR PRN PRN Reason: PAIN Last Admin: 08/15/21 18:13 Dose: 2 mg Multi-Ingredient Ointment (Zinc Oxide 20% Oint 30 Gm Tube) 1 applic TOP PRN PRN PRN Reason: Skin Care Last Admin: 08/17/21 06:36 Dose: 1 applic Multivitamins/Minerals (Multivitamin W/Minerals Tablet) 1 tab PO DAILYWM [facility] Last Admin: 08/20/21 07:50 Dose: 1 tab Ondansetron HCl (Ondansetron 4 Mg/2 Ml Vial) 4 mg IVP Q6HR PRN PRN Reason: Nausea / Vomiting Pantoprazole Sodium (Pantoprazole 40 Mg Tablet) 40 mg PO QDAC [facility] Last Admin: 08/20/21 06:36 Dose: 40 mg Polyethylene Glycol (Polyethylene Glycol 3350 17 Gm Packet) 17 gm PO DAILY [facility] Last Admin: 08/20/21 07:50 Dose: 17 gm Saccharomyces Boulardii (Saccharomyces Boulardii 250 Mg Capsule) 250 mg PO BIDWM [facility] Last Admin: 08/20/21 07:50 Dose: 250 mg Scopolamine HBr (Scopolamine Patch) 1 patch TOP Q3D [facility] Last Admin: 08/20/21 13:09 Dose: 1 patch Sodium Chloride (Sodium Chloride Flush 0.9% 10 Ml Syringe) 10 ml IVP PRN PRN PRN Reason: NEEDED PER PROVIDER ORDERS Last Admin: 08/15/21 06:36 Dose: 10 ml Sodium Chloride (Sodium Chloride Flush 0.9% 10 Ml Syringe) 10 ml IVP 0100,0900,1700 [facility] Last Admin: 08/20/21 07:51 Dose: 10 ml Sodium Chloride (Sodium Chloride Flush 0.9% 10 Ml Syringe) 20 ml IVP PRN PRN PRN Reason: After Blood Draw Last Admin: 08/16/21 04:57 Dose: 20 ml Tamsulosin HCl (Tamsulosin 0.4 Mg Capsule) 0.4 mg PO DAILY [facility] Last Admin: 08/20/21 07:50 Dose: 0.4 mg Gabapentin [Neurontin] 300 mg PO TID 08/17/21 amLODIPine [Norvasc] 5 mg PO DAILY 08/17/21 Objective - Vital Signs/Intake & Output Reviewed Vital Signs: Yes Vital Signs: Vital Signs x48h Temp Pulse Pulse Resp BP Pulse Ox 08/20/21 16:06 36.8 C 96 24 126/80 95 08/20/21 13:00 36.8 C 90 100 17 106/67 96 Intake & Output: Intake & Output 08/17/21 08/18/21 08/19/21 08/20/21 23:59 23:59 23:59 23:59 Intake Total 1462 1697 1502 1470.000 Output Total 675 350 550 Balance 1462 1022 1152 920.000 - Objective General Appearance: positive: Alert, Other (Disheveled male, bearded, long hair. A couple of times I had to ask him to please clean his martinez because he has old dried food in there.) Eyes Bilateral: positive: PERRL, EOMI ENT: positive: No signs of dehydration, Other (Some of his teeth are missing, some of them are cracked. Dental caries.) Neck: positive: No JVD. negative: Stiff neck Respiratory: positive: No respiratory distress. negative: Wheezes, Rales, Rhonchi Cardiovascular: positive: Regular rate & rhythm. negative: Gallop/S4 Abdomen: positive: Non-tender, No organomegaly, Nml bowel sounds, No distention Skin: positive: Warm, Dry, Other (I have failed to note on previous physical exams that this patient has had a stage II left buttock pressure ulcer that is about 3 x 1 cm. This developed when he was in the ICU on a ventilator. There is no worsening. There is no induration or cellulitis. Wound care protocol ongoing.) Neurologic/Psychiatric: positive: Oriented x3, CN's nml (2-12), Motor nml, Se nsation nml (Moderate generalized weakness. Over the course of this last week he was so weak that he could not hold his head up. He is now holding his head up and nursing and aides are prompting him to feed himself. At the beginning of this week he required the nurses to feed him. He is cooperative with PT) - Lab Results Fish Bones: 08/18/21 05:18 08/18/21 05:18 Sepsis Event Note (H) - Evaluation Current Stage of Sepsis: Resolved (7 days ago) Possible source of Sepsis: positive: Pulmonary - Sepsis Criteria Sepsis Criteria: Recorded Temperature greater than 38.3C or Less than 36C, Recorded Heart Rate greater than 90 bpm, Recorded Respiratory Rate greater than 20, Respiratory: Increasing oxygen requirements, WBC count greater than 10% bands, LOSS CONTROL ENGINEER: altered consciousness (unrelated to primary neuro pathology), Luis tologic: platelets < 100,000; INR > 1.5, or a PTT>60 seconds Assessment/Plan - Problem List (1) Physical deconditioning Impression: When he was admitted to the hospital he had homeless status. In the last few days a friend has stepped up and stated that they will take him home with them. But he needs to be rehabilitated to the point that he can stand to pivot on his good leg. The patient hang up on home and community services yesterday and promises to follow through on a phone call with him next week. At this time plan is for transition to correction facility for rehab, after rehab he will be going with his friend Adenike. I am asking the nurses to prompt him to feed himself. He is working with them. They have to use a Braxton lift to get him up to a chair. In the rehab unit, goal is to get him to have enough strength to go from supine to sitting, sitting to standing on that one good leg. Using crutches or a walker of some type to then get him to a wheelchair. If he can do those things he can go live with his friend. He also needs to be able to feed himself. (2) Acute respiratory failure with hypoxia Impression: Improving. This was secondary to COVID-19 pneumonia as well as bacterial (and aspiration) pneumonia. He was extubated and taken off the vent 08/11 and is saturating adequately on HiFlow suppl O2 then n.c. at low settings. He was transferred out of ICU 08/15/21 and is a Med Surg boarder Suspected that he has COPD (by his barrel chest and he was smoking until this admission). He has had subtle increase in respiratory rate with consistent tachypnea for 2-3 days. I was worried about another pneumonia and had a chest x-ray done Feb ruary 2. It was compared to August 12. He had interval improvement in the right lung aeration. Persistent small to moderate left pleural effusion with left lower lobe infiltrate and atelectasis. Cardiomegaly and mild vascular congestion. Cefipime not ceftaz ordered. Day #4. I find him to be more alert, head is up with more strength, way more chatty the day after I started abx than he was with me on 08/16. Continues to have a respiratory rate at 22-24. He denies shortness of breath and does not know why he is breathing that fast. continue for 5-7 days. He has gram-negative growth on his sputum. I will review the sensitivities once available. No change in the cefepime.White cell count has started to come down. He started at 15,000 and has come down to 11.9 thousand on August 18. I will check CBC tomorrow. (3) Pneumonia due to COVID-19 virus resolved. Impression: This was contributing to respiratory failure with hypoxia. He finished Decadron and was not a candidate for Remdesivir since he was on a ventilator. Isolation precautions DCd by Infectious Dis nurse several days ago. (4) Aspiration pneumonia Impression: This was also believed to be contributing to his respiratory failure with hypo lawrence. Respiratory cultures have had no growth. He had copious secretions after extubation, is coughing up white sputum. RT started Acapella device which helped alot, as well as Mucinex and a Scopalamine patch. 08/15/21 he finished an empiric course of 14 days of antibx 2/2 CXR with improved R lung but L at risk. Cefipime started . (5) Ischemic cardiomyopathy Impression His admission EKG showed deep inferior Q waves. At admission, troponins and Echo were done. His troponins were mildly elevated but did not double (147>> 194>> 187). The Echo showed an inferior wall motion abnormality, consistent with his EKG that had deep inferior Q waves. LVEF is mildly depressed but final reading was 55-60%. Segmental wall motion abnormality was seen. 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 He is on daily baby ASA, statin and he needed Lasix for several doses. We stopped Lasix as regular dose. Since EF relatively intact, no CLINTON ordered. If he survives this hospitalization, and if he consents, he may be a candidate for cor angiography. Weight on admission was 80 kg. He peaked at 93 kg on August 05. August 14: +1285 August 15: +1287 August 1: No output recorded. +2199 2: No output recorded, +1462>80.5Kg August 3: +1022. Lasix given. 80Kg>>79 kg today August 4: +1152. Weight is 79.5 kg lasix again today (6) Methamphetamine abuse Impression: His urine toxicology was positive for methamphetamines. Addressed with him by HUEY. Opportunities for rehab offered. (7) Rib fracture Impression: He does have a left-sided rib fracture diagnosed at admission, likely due to trauma; we do not know the details of how this happened since he was admitted obtunded and gave no Hx. The rest of his imaging at admission was unremarkable for trauma. 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 (9) Homeless single person Impression: As per the HUEY johnston done today. Since he is extremely deconditioned and working with PT, he will likely need a SNF for PT and OT rehab, however a final DCh plan needs to be worked out. (10) Thrombocytopenia Impression: Resolved. This improved daily after admission, suggesting that it was from sepsis or some drug or marrow toxin, like alcohol. (11) Sepsis Impression: Resolved (12) Hypotension Impression: Resolved (13) Bradycardia Impression: Resolved. He was not on and is on no HR slowing meds. (14) AMS Impression: Resolved. He presented obtunded and was intubated in ER. We will need SW input re: his drug use. (15) PSVT Impression: Resolved Several days ago, he went into PSVT that was sustained at a rate of 160, it broke spontaneously after 15-20 sec. His blood pressure was stable with this. He was not symptomatic. Then Coreg 3.125 twice daily was started. None seen further Tele stopped today.
[2021-08-20] MEDS ORDERED: FUROSEMIDE 40 MG/4 ML VIAL IVP STA (16:35)
[2021-08-20] MEDS: MORPHINE 2 MG/ML CARPUJECT IVP PRN (17:23)
[2021-08-20] MEDS: ATORVASTATIN 10 MG TABLET PO SCH (20:05)
[2021-08-21] MEDS: SODIUM CHLORIDE FLUSH 0.9% 10 ML SYRINGE IVP SCH ×3 (00:13→16:56)
[2021-08-21] MEDS: LEVALBUTEROL 1.25 MG/3 ML NEB INH SCH ×3 (00:13→13:07)
[2021-08-21] MEDS: PANTOPRAZOLE 40 MG TABLET PO SCH (05:34)
[2021-08-21] MEDS: GABAPENTIN 300 MG CAPSULE PO SCH ×3 (05:34→21:46)
[2021-08-21] MEDS: CEFEPIME 2 GM in SODIUM CHLORIDE 0.9% MINIBAG 100 ML IV SCH ×2 (05:34→12:50)
[2021-08-21 05:55] LABS: BASOPHILS # (AUTO) 0.1 10^3/uL (0.0-0.1); BASOPHILS % (AUTO) 0.5 %; EOSINOPHILS # (AUTO) 0.4 10^3/uL (0.0-0.7); EOSINOPHILS % (AUTO) 3.7 %; HCT - HEMATOCRIT 31.9 % (42.0-52.0); HGB - HEMOGLOBIN 9.4 g/dL (14.0-18.0); LYMPHOCYTES # (AUTO) 1.6 10^3/uL (1.5-3.5); LYMPHOCYTES % (AUTO) 16.8 %; MEAN CORPUSCULAR HEMOGLOBIN 25.4 pg (27.0-31.0); MEAN CORPUSCULAR HGB CONC 29.5 g/dL (32.0-36.0); MEAN CORPUSCULAR VOLUME 86.2 fL (80.0-94.0); MONOCYTES # (AUTO) 0.8 10^3/uL (0.0-1.0); MONOCYTES % (AUTO) 8.3 %; NEUTROPHILS # (AUTO) 6.9 10^3/uL (1.5-6.6); NEUTROPHILS % (AUTO) 70.3 %; PLT - PLATELET COUNT 193 10^3/uL (130-450); RED CELL DISTRIBUTION WIDTH 20.3 % (12.0-15.0); WHITE BLOOD COUNT 9.8 x10^3/uL (4.8-10.8)
[2021-08-21 06:16] LABS: SLIDE REVIEW? Indicated
[2021-08-21 06:37] LABS: PLATELET ESTIMATE, MANUAL NORMAL (130-450,000) (NORMAL); PLATELET MORPHOLOGY NORMAL APPEARANCE (NORMAL); RBC MORPHOLOGY (MULTIPLE) 2+ ANISOCYTOSIS (NORMAL); WBC MORPHOLOGY (MULTIPLE) NORMAL APPEARANCE (NORMAL)
[2021-08-21] MEDS: SACCHAROMYCES BOULARDII 250 MG CAPSULE PO SCH ×2 (09:28→17:50)
[2021-08-21] MEDS: TAMSULOSIN 0.4 MG CAPSULE PO SCH (09:28)
[2021-08-21] MEDS: ASPIRIN CHEW 81 MG TABLET NG SCH (09:29)
[2021-08-21] MEDS: ENOXAPARIN 40 MG/0.4 ML SYRINGE SUBQ SCH (09:29)
[2021-08-21] MEDS: carvediloL 3.125 MG TABLET PO SCH ×2 (09:29→21:46)
[2021-08-21] MEDS: MULTIVITAMIN W/MINERALS TABLET PO SCH (09:30)
[2021-08-21] MEDS: polyethylene glycoL 3350 17 GM PACKET PO SCH (09:30)
--- NOTE | 2021-08-21 13:53 | PROVIDER PROGRESS NOTE ---
Progress Note August 21, 2021 1:48 PM He feels increasingly stronger. At the beginning of the week he could barely hold up his head and did not have any truncal stability. He is now able to sit up in a wheelchair and look out our lobby window to enjoyed the view for an hour at a time. I also found him using his arms above his head to hold onto the trap chery to reposition himself in bed. He is able to sit now, and go to a standing position but is fatigued by that. Almost a standby assist with that but still needs a 1 person assist. So he is gradually getting better and better. Respiratory culture that I noted yesterday is now growing out E. coli. No fever. No new cough. No chest pain. No shortness of breath. His main complaint is being lonely. He just wants to get out of here. He is eating 75 to 100% of his food. Active Medications Acetaminophen (Acetaminophen 325 Mg Tablet) 650 mg PO Q6HR PRN PRN Reason: Pain or Fever > 38C (100.4F) Last Admin: 08/16/21 14:24 Dose: 650 mg Albuterol (Albuterol Neb 2.5 Mg/3 Ml) 2.5 mg INH RTQ4H PRN PRN Reason: Wheezing Last Admin: 08/05/21 12:40 Dose: 2.5 mg Albuterol/Ipratropium (Ipratropium/Albuterol 3 Ml Neb) 3 ml INH RTQID PRN PRN Reason: Wheezing Aspirin (Aspirin Chew 81 Mg Tablet) 81 mg NG DAILY [facility] Last Admin: 08/21/21 09:29 Dose: 81 mg Atorvastatin Calcium (Atorvastatin 10 Mg Tablet) 10 mg PO QPM [facility] Last Admin: 08/20/21 20:05 Dose: 10 mg Carvedilol (Carvedilol 3.125 Mg Tablet) 3.125 mg PO BID [facility] Last Admin: 08/21/21 09:29 Dose: 3.125 mg Enoxaparin Sodium (Enoxaparin 40 Mg/0.4 Ml Syringe) 40 mg SUBQ DAILY [facility] Last Admin: 08/21/21 09:29 Dose: 40 mg Gabapentin (Gabapentin 300 Mg Capsule) 300 mg PO TID [facility] Last Admin: 08/21/21 12:50 Dose: 300 mg Cefepime HCl 2 gm/ Sodium (Chloride) 100 mls @ 200 mls/hr IV Q8HR [facility] Stop: 08/24/21 14:59 Last Infusion: 08/21/21 13:40 Dose: Infused Levalbuterol HCl (Levalbuterol 1.25 Mg/3 Ml Neb) 1.25 mg INH TID [facility] Last Admin: 08/21/21 13:07 Dose: Not Given Morphine Sulfate (Morphine 2 Mg/Ml Carpuject) 2 mg IVP Q4HR PRN PRN Reason: PAIN Last Admin: 08/20/21 17:23 Dose: 2 mg Multi-Ingredient Ointment (Zinc Oxide 20% Oint 30 Gm Tube) 1 applic TOP PRN PRN PRN Reason: Skin Care Last Admin: 08/17/21 06:36 Dose: 1 applic Multivitamins/Minerals (Multivitamin W/Minerals Tablet) 1 tab PO DAILYWM [facility] Last Admin: 08/21/21 09:30 Dose: Not Given Ondansetron HCl (Ondansetron 4 Mg/2 Ml Vial) 4 mg IVP Q6HR PRN PRN Reason: Nausea / Vomiting Pantoprazole Sodium (Pantoprazole 40 Mg Tablet) 40 mg PO QDAC [facility] Last Admin: 08/21/21 05:34 Dose: 40 mg Polyethylene Glycol (Polyethylene Glycol 3350 17 Gm Packet) 17 gm PO DAILY [facility] Last Admin: 08/21/21 09:30 Dose: Not Given Saccharomyces Boulardii (Saccharomyces Boulardii 250 Mg Capsule) 250 mg PO BIDWM [facility] Last Admin: 08/21/21 09:28 Dose: 250 mg Scopolamine HBr (Scopolamine Patch) 1 patch TOP Q3D [facility] Last Admin: 08/20/21 13:09 Dose: 1 patch Sodium Chloride (Sodium Chloride Flush 0.9% 10 Ml Syringe) 10 ml IVP PRN PRN PRN Reason: NEEDED PER PROVIDER ORDERS Last Admin: 08/15/21 06:36 Dose: 10 ml Sodium Chloride (Sodium Chloride Flush 0.9% 10 Ml Syringe) 10 ml IVP 0100,0900,1700 [facility] Last Admin: 08/21/21 09:30 Dose: 10 ml Sodium Chloride (Sodium Chloride Flush 0.9% 10 Ml Syringe) 20 ml IVP PRN PRN PRN Reason: After Blood Draw Last Admin: 08/16/21 04:57 Dose: 20 ml Tamsulosin HCl (Tamsulosin 0.4 Mg Capsule) 0.4 mg PO DAILY [facility] Last Admin: 08/21/21 09:28 Dose: 0.4 mg Temperature 36.6. Heart rate 96. Blood pressure 114/72. Respirations 16. 95% on room air. 5 foot 9 inch disheveled male with long hair, martinez. Weight 75 kg. Neck is supple without bruits or JVD. He only has 1 tooth left on the lower jaw. The rest are gone. Lungs have coarse upper airway sounds but otherwise clear. No labored respiration or increased respiratory effort with speaking to me or moving around. Regular rate and rhythm. Abdomen is soft, nontender, normal bowel sounds, no masses AKA with healed stump. Alert, oriented, lucid speech. Right facial droop that is chronic for him. No focal deficits. Last labs were August 18 and sodium was 133, potassium 3.4. Random glucose 143. Today's CBC shows a white cell count of 9.8 which is normal. He started out at 19,000 on August 12 and gradually came down. Hemoglobin is 9.4. Platelet 193. Respiratory culture August 17 is growing out E. coli. Blood culture from the day is negative. Assessment/plan 1. Physical deconditioning is the main problem that keeps him in the hospital. Recent development of a tinge of pneumonia has resulted in antibiotics. He is working with physical therapy, and the plan is to discharge him to care home facility once he meets with home and community services. From the care home facility, he plans on moving in with his friend Adenike. Adenike has already met with social work and agrees that she will be having him live with her and she will take care of him but he needs to be able to stand to pivot, and transfer to things like a wheelchair, chair, etc. before she can take him home. We are awaiting insurance authorization to be able to follow through on this plan. 2. Acute respiratory failure with hypoxia resolved. This was secondary to Covid pneumonia as well as aspiration pneumonia. Extubated on August 11 and was requiring high flow nasal cannula. Since that time he has gradually decreased his oxygen needs and has been on room air for close to 10 days. By August 17 and noted a 2- 3-day rise in respiratory rate. I did a chest x-ray and it showed possible persistent pneumonia and I put him on cefepime. Today is day #5. 3. Pneumonia due to COVID-19 virus has resolved and he is was not a candidate for remdesivir or monoclonal antibody. 4. Aspiration pneumonia resolved 5. E. coli pneumonia identified August 17. Has been on ceftaz and today's day #5. We will switch him over to Levaquin p.o. for 2-3 more days. 6. Ischemic cardiomyopathy. LVEF mildly depressed with a final echo reading of 50 to 60%. He has had positive fluid balance and has never really been negative. But weight has been successfully going down. He was 80.5 kg on August 17, 79.5 kg August 19. And 75 kg today after a dose of lasix yesterday. He is on aspirin, Lipitor, Coreg. Lasix is being given here and there depending on fluid status and hypoxia.
[2021-08-21] MEDS: ATORVASTATIN 10 MG TABLET PO SCH (21:46)
[2021-08-22] MEDS: PANTOPRAZOLE 40 MG TABLET PO SCH (06:32)
[2021-08-22] MEDS: GABAPENTIN 300 MG CAPSULE PO SCH ×3 (06:32→20:58)
[2021-08-22] MEDS: SODIUM CHLORIDE FLUSH 0.9% 10 ML SYRINGE IVP SCH ×3 (06:36→16:52)
[2021-08-22] MEDS: ASPIRIN CHEW 81 MG TABLET NG SCH (08:13)
[2021-08-22] MEDS: SACCHAROMYCES BOULARDII 250 MG CAPSULE PO SCH ×2 (08:13→16:52)
[2021-08-22] MEDS: carvediloL 3.125 MG TABLET PO SCH ×2 (08:13→20:58)
[2021-08-22] MEDS: levoFLOXacin 250 MG TABLET PO SCH (08:13)
[2021-08-22] MEDS: MULTIVITAMIN W/MINERALS TABLET PO SCH (08:13)
[2021-08-22] MEDS: TAMSULOSIN 0.4 MG CAPSULE PO SCH (08:13)
[2021-08-22] MEDS: ENOXAPARIN 40 MG/0.4 ML SYRINGE SUBQ SCH (08:13)
[2021-08-22] MEDS: polyethylene glycoL 3350 17 GM PACKET PO SCH (08:15)
[2021-08-22] MEDS: SODIUM CHLORIDE FLUSH 0.9% 10 ML SYRINGE IVP PRN (08:16)
[2021-08-22] MEDS: LEVALBUTEROL 1.25 MG/3 ML NEB INH SCH (08:22)
[2021-08-22] MEDS ORDERED: LEVALBUTEROL 1.25 MG/3 ML NEB INH PRN (11:33)
--- NOTE | 2021-08-22 15:21 | PROVIDER PROGRESS NOTE ---
Progress Note August 22, 2021 3:18 Continues to get stronger. PT reports good progress. I can see it from when I came on service August 16 to now. He had poor truncal stability, could not hold up his head when I met him. He is now sitting by himself. He is now starting to stand with standby assist and before he was needing a Braxton lift. But he still max assist in certain areas and cannot be left alone to stand by himself. Oxygenation is anywhere from 91 to 99% on room air. Blood pressures been stable. Eating 75 to 100% of his food. Active Medications Acetaminophen (Acetaminophen 325 Mg Tablet) 650 mg PO Q6HR PRN PRN Reason: Pain or Fever > 38C (100.4F) Last Admin: 08/16/21 14:24 Dose: 650 mg Albuterol (Albuterol Neb 2.5 Mg/3 Ml) 2.5 mg INH RTQ4H PRN PRN Reason: Wheezing Last Admin: 08/05/21 12:40 Dose: 2.5 mg Albuterol/Ipratropium (Ipratropium/Albuterol 3 Ml Neb) 3 ml INH RTQID PRN PRN Reason: Wheezing Aspirin (Aspirin Chew 81 Mg Tablet) 81 mg NG DAILY [facility] Last Admin: 08/22/21 08:13 Dose: 81 mg Atorvastatin Calcium (Atorvastatin 10 Mg Tablet) 10 mg PO QPM [facility] Last Admin: 08/21/21 21:46 Dose: 10 mg Carvedilol (Carvedilol 3.125 Mg Tablet) 3.125 mg PO BID [facility] Last Admin: 08/22/21 08:13 Dose: 3.125 mg Enoxaparin Sodium (Enoxaparin 40 Mg/0.4 Ml Syringe) 40 mg SUBQ DAILY [facility] Last Admin: 08/22/21 08:13 Dose: 40 mg Gabapentin (Gabapentin 300 Mg Capsule) 300 mg PO TID [facility] Last Admin: 08/22/21 13:30 Dose: 300 mg Levalbuterol HCl (Levalbuterol 1.25 Mg/3 Ml Neb) 1.25 mg INH TID PRN PRN Reason: wheezing Levofloxacin (Levofloxacin 250 Mg Tablet) 750 mg PO DAILY [facility] Last Admin: 08/22/21 08:13 Dose: 750 mg Morphine Sulfate (Morphine 2 Mg/Ml Carpuject) 2 mg IVP Q4HR PRN PRN Reason: PAIN Last Admin: 08/20/21 17:23 Dose: 2 mg Multi-Ingredient Ointment (Zinc Oxide 20% Oint 30 Gm Tube) 1 applic TOP PRN PRN PRN Reason: Skin Care Last Admin: 08/17/21 06:36 Dose: 1 applic Multivitamins/Minerals (Multivitamin W/Minerals Tablet) 1 tab PO DAILYWM [facility] Last Admin: 08/22/21 08:13 Dose: Not Given Ondansetron HCl (Ondansetron 4 Mg/2 Ml Vial) 4 mg IVP Q6HR PRN PRN Reason: Nausea / Vomiting Pantoprazole Sodium (Pantoprazole 40 Mg Tablet) 40 mg PO QDAC [facility] Last Admin: 08/22/21 06:32 Dose: 40 mg Polyethylene Glycol (Polyethylene Glycol 3350 17 Gm Packet) 17 gm PO DAILY [facility] Last Admin: 08/22/21 08:15 Dose: Not Given Saccharomyces Boulardii (Saccharomyces Boulardii 250 Mg Capsule) 250 mg PO BIDWM [facility] Last Admin: 08/22/21 08:13 Dose: 250 mg Scopolamine HBr (Scopolamine Patch) 1 patch TOP Q3D [facility] Last Admin: 08/20/21 13:09 Dose: 1 patch Sodium Chloride (Sodium Chloride Flush 0.9% 10 Ml Syringe) 10 ml IVP PRN PRN PRN Reason: NEEDED PER PROVIDER ORDERS Last Admin: 08/15/21 06:36 Dose: 10 ml Sodium Chloride (Sodium Chloride Flush 0.9% 10 Ml Syringe) 10 ml IVP 0100,0900,1700 [facility] Last Admin: 08/22/21 08:16 Dose: 10 ml Sodium Chloride (Sodium Chloride Flush 0.9% 10 Ml Syringe) 20 ml IVP PRN PRN PRN Reason: After Blood Draw Last Admin: 08/22/21 08:16 Dose: 20 ml Tamsulosin HCl (Tamsulosin 0.4 Mg Capsule) 0.4 mg PO DAILY [facility] Last Admin: 08/22/21 08:13 Dose: 0.4 mg Temperature 36.5. Heart rate 107. Blood pressure 112/66. Respirations 19. 99% on room air. Disheveled male, alert, oriented, facial droop, only 1 tooth in his head. Neck has shotty adenopathy but supple and without JVD Regular rate and rhythm Lungs are clear to auscultation and percussion there is no rhonchi or wheezing Abdomen is soft, nontender, normal bowel sounds He has an AKA, the unaffected leg is nontender and no edema Alert and oriented to person place and time. Cooperative. Last labs August 18 for BMP. And CBC was August 21. Patient stable. 1. Physical deconditioning is the main problem that keeps him in the hospital. Recent development of a tinge of pneumonia has resulted in antibiotics. He is working with physical therapy, and the plan is to discharge him to retirement facility once he meets with home and community services. From the retirement facility, he plans on moving in with his friend Adenike. Adenike has already met with social work and agrees that she will be having him live with her and she will take care of him but he needs to be able to stand to pivot, and transfer to things like a wheelchair, chair, etc. before she can take him home. We are awaiting insurance authorization to be able to follow through on this plan. 2. Acute respiratory failure with hypoxia resolved. This was secondary to Covid pneumonia as well as aspiration pneumonia. Extubated on August 11 and was requiring high flow nasal cannula. Since that time he has gradually decreased his oxygen needs and has been on room air for close consistently since 08/16. 2- 3-day rise in respiratory rate noted 08/18. I did a chest x-ray and it showed possible persistent pneumonia and I put him on cefepime. He completed 5 days yesterday and I switched him to levaquin today. Will need ?2-3 more days then done. 3. Pneumonia due to COVID-19 virus has resolved and he is was not a candidate for remdesivir or monoclonal antibody. 4. Aspiration pneumonia resolved 5. E. coli pneumonia identified August 17. Has been on ceftaz and 08/21 was #5. We will switch him over to Levaquin p.o. for 2-3 more days. 6. Ischemic cardiomyopathy. LVEF mildly depressed with a final echo reading of 50 to 60%. He has had positive fluid balance and has never really been negative. But weight has been successfully going down. He was 80.5 kg on August 17, 79.5 kg August 19. And 75 kg 08/21 after a dose of lasix 08/20. He is 73 kg today. He is on aspirin, Lipitor, Coreg. Lasix is being given here and there depending on fluid status and hypoxia. I will not give today.
[2021-08-22] MEDS: ATORVASTATIN 10 MG TABLET PO SCH (20:58)
[2021-08-22] MEDS: MORPHINE 2 MG/ML CARPUJECT IVP PRN (20:58)
[2021-08-23] MEDS: SODIUM CHLORIDE FLUSH 0.9% 10 ML SYRINGE IVP SCH ×3 (06:53→17:00)
[2021-08-23] MEDS: PANTOPRAZOLE 40 MG TABLET PO SCH (06:54)
[2021-08-23] MEDS: GABAPENTIN 300 MG CAPSULE PO SCH ×3 (06:54→21:11)
[2021-08-23] MEDS: carvediloL 3.125 MG TABLET PO SCH ×2 (08:20→21:11)
[2021-08-23] MEDS: levoFLOXacin 250 MG TABLET PO SCH (08:20)
[2021-08-23] MEDS: ASPIRIN CHEW 81 MG TABLET NG SCH (08:21)
[2021-08-23] MEDS: TAMSULOSIN 0.4 MG CAPSULE PO SCH (08:21)
[2021-08-23] MEDS: ENOXAPARIN 40 MG/0.4 ML SYRINGE SUBQ SCH (08:21)
[2021-08-23] MEDS: SACCHAROMYCES BOULARDII 250 MG CAPSULE PO SCH ×2 (08:21→17:00)
[2021-08-23] MEDS: polyethylene glycoL 3350 17 GM PACKET PO SCH (08:24)
[2021-08-23] MEDS: MULTIVITAMIN W/MINERALS TABLET PO SCH (08:24)
--- NOTE | 2021-08-23 09:08 | XRAY Report ---
PROCEDURE: Chest 1 View X-Ray INDICATIONS: sob TECHNIQUE: One view of the chest was acquired. COMPARISON: CXR 08/17/2021, 08/12/2021. CT pulmonary angiogram 08/01/2021. FINDINGS: Surgical changes and devices: Right IJ central venous line with the catheter tip at the lower third o f the SVC. Lungs and pleura: No significant pleural effusions or pneumothorax. Opacity at the left lung base is stable to slightly decreased. Mild opacity in the right midlung field is overall similar. Mediastinum: Mediastinal contours appear normal. Heart size is normal. Bones and chest wall: No suspicious bony lesions. Overlying soft tissues appear unremarkable. IMPRESSION: Left lower lobe opacity is stable to slightly decreased. This is consistent with pneumonia. Possible pneumonia or atelectasis in the right midlung field is similar. Reviewed by: Dennis Colvin MD on 08/23/2021 9:06 AM [facility] Approved by: Dennis Colvin MD on 08/23/2021 9:06 AM [facility] Station ID: [id number]
[2021-08-23] MEDS: FUROSEMIDE 20 MG TABLET PO SCH ×2 (09:12→13:31)
[2021-08-23] MEDS: SCOPOLAMINE PATCH TOP SCH (11:26)
--- NOTE | 2021-08-23 13:46 | PROVIDER PROGRESS NOTE ---
Assessment/Plan - Problem List (1) Physical deconditioning Assessment/Plan: Patient present significantly physical deconditioning. Plan is continue PT and OT, discharge to SNF then patient's friend will care for pt. Consult with social work for disposition planning. In the rehab unit, goal is to get him to have enough strength to go from supine to sitting, sitting to standing on that one good leg. Using crutches or a walker of some type to then get him to a wheelchair. If he can do those things he can go live with his friend. He also needs to be able to feed himself. (2) Acute respiratory failure with hypoxia Impression: Significantly improved, patient had a 96% oxygen saturation on room air. Patient has no acute respiratory distress. (3) Pneumonia due to COVID-19 virus resolved. Impression: This was contributing to respiratory failure with hypoxia. He finished Decadron and was not a candidate for Remdesivir since he was on a ventilator. Isolation precautions DCd by Infectious Dis nurse several days ago. (4) Aspiration pneumonia Impression: improved, Chest x-ray show left lower lobe opacity is stable to slightly decreased. will continue Levaquin now. Continue aspiration pneumonia precaution. (5) Ischemic cardiomyopathy The Echo showed an inferior wall motion abnormality, consistent with his EKG that had deep inferior Q waves. LVEF is mildly depressed but final reading was 55-60%. Segmental wall motion abnormality was seen. 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 He is on daily baby ASA, statin, pt has coreg now. his HR is around 90-100. (6) Methamphetamine abuse Impression: His urine toxicology was positive for methamphetamines. Addressed with him by HUEY. Opportunities for rehab offered. (7) Rib fracture Impression: He does have a left-sided rib fracture diagnosed at admission, likely due to trauma; we do not know the details of how this happened since he was admitted obtunded and gave no Hx. The rest of his imaging at admission was unremarkable for trauma. (8) Hx R AKA Impression: As per Hx along with L trans metatarsal amputation. (9) Homeless single person Impression: As per the HUEY johnston done today. Since he is extremely deconditioned and working with PT, he will likely need a SNF for PT and OT rehab, however a final ILh plan needs to be worked out. (10) Thrombocytopenia Impression: Resolved. This improved daily after admission, suggesting that it was from sepsis or some drug or marrow toxin, like alcohol. (11) Sepsis Impression: Resolved (12) Hypotension Impression: Resolved (13) Bradycardia Impression: Resolved. He was not on and is on no HR slowing meds. (14) AMS Impression: Resolved. He presented obtunded and was intubated in ER. We will need SW input re: his drug use. (15) PSVT Impression: Resolved Several days ago, he went into PSVT that was sustained at a rate of 160, it broke spontaneously after 15-20 sec. His blood pressure was stable with this. He was not symptomatic. Then Coreg 3.125 twice daily was started. None seen further Tele stopped today. (16) Stage II pressure ulcer left buttock size is around 3 x 1 cm. We are following wound protocol and encouraging the patient to rotate off that area. nurse turn and reposition for skin care - Current Meds Current Meds: Current Medications Generic Name Dose Route Start Last Admin Trade Name Freq PRN Reason Stop Dose Admin Acetaminophen 650 mg 08/01/21 21:56 08/16/21 14:24 Acetaminophen 325 Mg Tablet PO 650 mg Q6HR PRN Administration Pain or Fever > 38C (100.4F) Albuterol 2.5 mg 08/05/21 12:19 08/05/21 12:40 Albuterol Neb 2.5 Mg/3 Ml INH 2.5 mg RTQ4H PRN Administration Wheezing Aspirin 81 mg 08/09/21 13:08 08/23/21 08:21 Aspirin Chew 81 Mg Tablet NG 81 mg DAILY ARNOLD Administration Atorvastatin Calcium 10 mg 08/12/21 21:00 08/22/21 20:58 Atorvastatin 10 Mg Tablet PO 10 mg QPM ARNOLD Administration Carvedilol 3.125 mg 08/11/21 21:00 08/23/21 08:20 Carvedilol 3.125 Mg Tablet PO 3.125 mg BID ARNOLD Administration Enoxaparin Sodium 40 mg 08/02/21 09:00 08/23/21 08:21 Enoxaparin 40 Mg/0.4 Ml Syringe SUBQ 40 mg DAILY ARNOLD Administration Furosemide 20 mg 08/23/21 09:00 08/23/21 13:31 Furosemide 20 Mg Tablet PO 20 mg BIDDIURETIC ARNOLD Administration Gabapentin 300 mg 08/15/21 22:00 08/23/21 13:31 Gabapentin 300 Mg Capsule PO 300 mg TID ARNOLD Administration Levofloxacin 750 mg 08/22/21 09:00 08/23/21 08:20 Levofloxacin 250 Mg Tablet PO 750 mg DAILY ARNOLD Administration Morphine Sulfate 2 mg 08/01/21 23:15 08/22/21 20:58 Morphine 2 Mg/Ml Carpuject IVP 2 mg Q4HR PRN Administration PAIN Multi-Ingredient Ointment 1 applic 08/15/21 00:29 08/17/21 06:36 Zinc Oxide 20% Oint 30 Gm Tube TOP 1 applic PRN PRN Administration Skin Care Multivitamins/Minerals 1 tab 08/13/21 08:00 08/23/21 08:24 Multivitamin W/Minerals Tablet PO Not Given DAILYWM [facility] Pantoprazole Sodium 40 mg 08/13/21 07:00 08/23/21 06:54 Pantoprazole 40 Mg Tablet PO 40 mg QDAC ARNOLD Administration Polyethylene Glycol 17 gm 08/05/21 09:00 08/23/21 08:24 Polyethylene Glycol 3350 17 Gm Packet PO Not Given DAILY ARNOLD Saccharomyces Boulardii 250 mg 08/17/21 17:00 08/23/21 08:21 Saccharomyces Boulardii 250 Mg Capsule PO 250 mg BIDWM [facility] Administration Scopolamine HBr 1 patch 08/11/21 12:00 08/23/21 11:26 Scopolamine Patch TOP 1 patch Q3D ARNOLD Administration Sodium Chloride 10 ml 08/01/21 21:49 08/15/21 06:36 Sodium Chloride Flush 0.9% 10 Ml Syringe IVP 10 ml PRN PRN Administration NEEDED PER PROVIDER ORDERS Sodium Chloride 10 ml 08/02/21 01:00 08/23/21 08:22 Sodium Chloride Flush 0.9% 10 Ml Syringe IVP 10 ml 0100,0900,1700 [facility] Administration Sodium Chloride 20 ml 08/12/21 21:23 08/22/21 08:16 Sodium Chloride Flush 0.9% 10 Ml Syringe IVP 20 ml PRN PRN Administration After Blood Draw Tamsulosin HCl 0.4 mg 08/16/21 09:00 08/23/21 08:21 Tamsulosin 0.4 Mg Capsule PO 0.4 mg DAILY [facility] Administration - Lab Result Fish Bone Diagrams: 08/21/21 04:30 08/18/21 05:18 - Additional Planning My Orders: My Active Orders 08/23/21 09:00 Furosemide [Lasix] 20 mg PO BIDDIURETIC 08/23/21 13:44 Wound Care - MAC [RC] .ONCE 08/24/21 05:00 BMP - BASIC METABOLIC PANEL [CHEM] DAILYLAB BNP - B-NATRIURETIC PEPTIDE [IAI] DAILYLAB CBC - COMP BLD CT W/AUTO DIFF [HEME] DAILYLAB 08/25/21 05:00 BMP - BASIC METABOLIC PANEL [CHEM] DAILYLAB CBC - COMP BLD CT W/AUTO DIFF [HEME] DAILYLAB 08/26/21 05:00 BMP - BASIC METABOLIC PANEL [CHEM] DAILYLAB CBC - COMP BLD CT W/AUTO DIFF [HEME] DAILYLAB Subjective - Subjective Patient Reports: Resting Comfortably Objective Vital Signs: Vital Signs - 24 hr 08/22/21 08/22/21 08/23/21 15:48 20:53 00:37 Temperature 36.5 C 36.3 C L 36.9 C Heart Rate [ 94 91 58 L Brachial] Respiratory 24 22 20 Rate Blood Pressure 122/79 117/70 120/71 [Right Brachial artery] O2 Saturation 97 96 91 L 08/23/21 08/23/21 08/23/21 06:42 07:48 12:20 Temperature 36.7 C 36.3 C L 36.7 C Heart Rate [ 96 96 103 H Brachial] Respiratory 24 20 20 Rate Blood Pressure 132/96 H 132/74 H 107/65 [Right Brachial artery] O2 Saturation 93 92 96 Oxygen O2 Source Room air I&O (Last 24 Hrs): Intake and Output Totals x24h 08/21/21 08/22/21 08/23/21 23:59 23:59 23:59 Intake Total 1340 1200 480 Output Total 1325 750 500 Balance 15 450 -20 General: Alert, Cooperative, No acute distress HEENT: Atraumatic Neck: Supple Lymphatic: no adenopathy Neuro: Alert, Non Focal Cardiovascular: Regular rate, Normal S1, Normal S2 Respiratory: Chest non-tender, No respiratory distress Abdomen: Normal bowel sounds, Soft Extremities: Normal pulses - Results Results: Laboratory Results WBC 9.8 x10^3/uL (4.8-10.8) 08/21/21 04:30 RBC 3.70 10^6/uL (4.70-6.10) L 08/21/21 04:30 Hgb 9.4 g/dL (14.0-18.0) L 08/21/21 04:30 Hct 31.9 % (42.0-52.0) L 08/21/21 04:30 MCV 86.2 fL (80.0-94.0) 08/21/21 04:30 MCH 25.4 pg (27.0-31.0) L 08/21/21 04:30 MCHC 29.5 g/dL (32.0-36.0) L 08/21/21 04:30 RDW 20.3 % (12.0-15.0) H 08/21/21 04:30 Plt Count 193 10^3/uL (130-450) 08/21/21 04:30 MPV 11.0 fL (7.4-11.4) 08/21/21 04:30 Neut # (Auto) 6.9 10^3/uL (1.5-6.6) H 08/21/21 04:30 Lymph # (Auto) 1.6 10^3/uL (1.5-3.5) 08/21/21 04:30 Rush # (Auto) 0.8 10^3/uL (0.0-1.0) 08/21/21 04:30 Eos # (Auto) 0.4 10^3/uL (0.0-0.7) 08/21/21 04:30 Baso # (Auto) 0.1 10^3/uL (0.0-0.1) 08/21/21 04:30 Absolute Nucleated RBC 0.00 x10^3/uL 08/21/21 04:30 Total Counted 100 08/12/21 04:30 Band Neuts % (Manual) 0 % (0-10) 08/12/21 04:30 Reactive Lymphs % (Man) 4 % 08/01/21 18:06 Abnorm Lymph % (Manual) 0 % 08/12/21 04:30 Myelocytes % 1 % (-0) H 08/12/21 04:30 Nucleated RBC % 0.0 /100WBC 08/21/21 04:30 Neutrophils # (Manual) 13.1 10^3/uL (1.5-6.6) H 08/12/21 04:30 Lymphocytes # (Manual) 3.8 10^3/uL (1.5-3.5) H 08/12/21 04:30 Monocytes # (Manual) 1.9 10^3/uL (0.0-1.0) H 08/12/21 04:30 Eosinophils # (Manual) 0.0 10^3/uL (0-0.7) 08/12/21 04:30 Basophils # (Manual) 0.0 10^3/uL (0-0.1) 08/12/21 04:30 Differential Comment MANUAL DIFFERENTIAL 08/12/21 04:30 Manual Slide Review Indicated 08/21/21 04:30 WBC Morphology NORMAL APPEARANCE (NORMAL) 08/21/21 04:30 Platelet Estimate NORMAL (130-450,000) (NORMAL) 08/21/21 04:30 Platelet Morphology NORMAL APPEARANCE (NORMAL) 08/21/21 04:30 RBC Morph Micro Appear 2+ ANISOCYTOSIS (NORMAL) 08/21/21 04:30 PT 11.5 secs (9.9-12.6) 08/01/21 18:06 INR 1.0 (0.8-1.2) 08/01/21 18:06 D-Dimer 669.9 ng/mL (200.0-255.0) H 08/01/21 18:06 Bld Gas Analysis Time 0452 08/07/21 04:45 Sample Site A-LINE 08/07/21 04:45 ABG pH 7.54 (7.35-7.45) H 08/07/21 04:45 ABG pCO2 32 mmHg (34-45) L 08/07/21 04:45 ABG pO2 88 mmHg (80-100) 08/07/21 04:45 ABG HCO3 26.8 mmol/L (22.0-26.0) H 08/07/21 04:45 ABG Total CO2 27.7 MMOL/L (21.0-29.0) 08/07/21 04:45 ABG O2 Saturation 95 % (94-98) 08/07/21 04:45 ABG Base Excess 4.5 mmol/L (-2.0-3.0) H 08/07/21 04:45 Madhu Test POSITIVE 08/07/21 04:45 VBG pH 7.452 (7.31-7.41) H 08/14/21 04:30 VBG pCO2 46.6 mmHg (41-51) 08/01/21 18:06 VBG pO2 24.4 mmHg (25-47) L 08/01/21 18:06 VBG HCO3 27.8 mmol/L (23-28) 08/01/21 18:06 VBG Total CO2 29.3 mmol/L (24-29) H 08/01/21 18:06 VBG O2 Saturation 40.2 % (60-80) L 08/01/21 18:06 VBG Base Excess 2.3 mmol/L (-2 - +2) H 08/01/21 18:06 Ionized Calcium 1.11 mmol/L (1.15-1.33) L 08/14/21 04:30 Respiration Rate 14 b/min 08/07/21 04:45 O2 Delivery Device VENTILATOR 08/07/21 04:45 Vent Mode ASSIST/CONTROL 08/07/21 04:45 FiO2 40.00 08/07/21 04:45 Tidal Volume 500 mL 08/07/21 04:45 PEEP 5 cmH2O 08/07/21 04:45 EPAP 5 cmH2O 08/04/21 05:50 Sodium 133 mmol/L (135-145) L 08/18/21 05:18 Potassium 3.7 mmol/L (3.5-5.0) 08/18/21 05:18 Chloride 100 mmol/L (101-111) L 08/18/21 05:18 Carbon Dioxide 23 mmol/L (21-32) 08/18/21 05:18 Anion Gap 10.0 (6-13) 08/18/21 05:18 BUN 17 mg/dL (6-20) 08/18/21 05:18 Creatinine 0.6 mg/dL (0.6-1.2) 08/18/21 05:18 Estimated GFR (MDRD) 134 (>89) 08/18/21 05:18 Glucose 143 mg/dL (70-100) H 08/18/21 05:18 POC Whole Bld Glucose 139 mg/dL (70 - 100) H 08/11/21 11:38 Lactic Acid 1.3 mmol/L (0.5-2.2) 08/10/21 08:30 Calcium 8.2 mg/dL (8.5-10.3) L 08/18/21 05:18 Phosphorus 2.9 mg/dL (2.5-4.6) 08/14/21 04:30 Magnesium 2.1 mg/dL (1.7-2.8) 08/16/21 04:55 Total Bilirubin 0.7 mg/dL (0.2-1.0) 08/11/21 04:25 AST 52 IU/L (10-42) H 08/11/21 04:25 ALT 30 IU/L (10-60) 08/11/21 04:25 Alkaline Phosphatase 40 IU/L (42-121) L 08/11/21 04:25 Total Creatine Kinase 408 IU/L (22-269) H 08/01/21 18:06 Troponin I High Sens 33.5 ng/L (2.3-19.7) H* 08/10/21 04:20 B-Natriuretic Peptide 388 pg/mL (5-100) H 08/08/21 05:05 Total Protein 5.5 g/dL (6.7-8.2) L 08/11/21 04:25 Albumin 2.3 g/dL (3.2-5.5) L 08/11/21 04:25 Globulin 3.2 g/dL (2.1-4.2) 08/11/21 04:25 Albumin/Globulin Ratio 0.7 (1.0-2.2) L 08/11/21 04:25 Prealbumin 24 mg/dL (18-45) 08/11/21 04:25 Triglycerides 369 mg/dL (-149) H 08/10/21 04:20 Cholesterol 165 mg/dL (-199) 08/10/21 04:20 LDL Cholesterol Direct 58 mg/dL (-129) 08/08/21 05:05 LDL Cholesterol, Calc 75 mg/dL (-129) 08/10/21 04:20 VLDL Cholesterol 74 mg/dL 08/10/21 04:20 HDL Cholesterol 16 mg/dL (60-) L 08/10/21 04:20 LDL/HDL Ratio 4.7 (<3.6) 08/10/21 04:20 dLDL/HDL Ratio Not Reportable 08/08/21 05:05 Cholesterol/HDL Ratio 10.3 (<5.0) 08/10/21 04:20 Lipase 40 U/L (22-51) 08/01/21 18:06 TSH 0.18 uIU/mL (0.34-5.60) L 08/01/21 18:06 Free T4 1.00 ng/dL (0.58-1.64) 08/02/21 06:00 Urine Color YELLOW 08/13/21 08:45 Urine Clarity CLEAR (CLEAR) 08/13/21 08:45 Urine pH 6.5 PH (5.0-7.5) 08/13/21 08:45 Ur Specific [place] 1.010 (1.002-1.030) 08/13/21 08:45 Urine Protein NEGATIVE mg/dL (NEGATIVE) 08/13/21 08:45 Urine Glucose (UA) NEGATIVE mg/dL (NEGATIVE) 08/13/21 08:45 Urine Ketones NEGATIVE mg/dL (NEGATIVE) 08/13/21 08:45 Urine Occult Blood TRACE-INTA (NEGATIVE) 08/13/21 08:45 Urine Nitrite NEGATIVE (NEGATIVE) 08/13/21 08:45 Urine Bilirubin NEGATIVE (NEGATIVE) 08/13/21 08:45 Urine Urobilinogen 0.2 (NORMAL) E.U./dL (NORMAL) 08/13/21 08:45 Ur Leukocyte Esterase NEGATIVE (NEGATIVE) 08/13/21 08:45 Urine RBC 6-10 /HPF (0-5) H 08/13/21 08:45 Urine WBC 0-3 /HPF (0-3) 08/13/21 08:45 Ur Epithelial Cells FEW Renal Tubular /HPF (<= Few) 08/01/21 18:25 Ur Squamous Epith Cells FEW Squamous (<= Few) 08/13/21 08:45 Urine Bacteria Few /HPF (None Seen) 08/13/21 08:45 Urine Casts 0-2 Granular Casts /LPF6-10 Hyaline Casts /LPF 08/13/21 08:45 Urine Casts 0-2 Granular Casts /LPF6-10 Hyaline Casts /LPF 08/13/21 08:45 Urine Mucus Few Strands 08/13/21 08:45 Ur Microscopic Review INDICATED 08/06/21 14:50 Urine Culture Comments NOT INDICATED 08/13/21 08:45 Nasal Adenovirus (PCR) NOT DETECTED 08/01/21 18:26 Nasal B. parapertussis DNA (PCR) NOT DETECTED 08/01/21 18:26 Nasal Coronavir 229E PCR NOT DETECTED 08/01/21 18:26 Nasal Coronavir HKU1 PCR NOT DETECTED 08/01/21 18:26 Nasal Coronavir NL63 PCR NOT DETECTED 08/01/21 18:26 Nasal Coronavir OC43 PCR NOT DETECTED 08/01/21 18:26 Nasal Enterovir/Rhinovir PCR NOT DETECTED 08/01/21 18:26 Nasal Influenza B PCR NOT DETECTED 08/01/21 18:26 Nasal Influenza A PCR NOT DETECTED 08/01/21 18:26 Nasal Parainfluen 1 PCR NOT DETECTED 08/01/21 18:26 Nasal Parainfluen 2 PCR NOT DETECTED 08/01/21 18:26 Nasal Parainfluen 3 PCR NOT DETECTED 08/01/21 18:26 Nasal Parainfluen 4 PCR NOT DETECTED 08/01/21 18:26 Nasal RSV (PCR) NOT DETECTED 08/01/21 18:26 Nasal Screen MRSA (PCR) NEGATIVE (NEGATIVE) 08/01/21 22:46 Nasal B.pertussis DNA PCR NOT DETECTED 08/01/21 18:26 Nasal C.pneumoniae (PCR) NOT DETECTED 08/01/21 18:26 John Human Metapneumo PCR NOT DETECTED 08/01/21 18:26 Nasal M.pneumoniae (PCR) NOT DETECTED 08/01/21 18:26 Nasal SARS-CoV-2 (PCR) DETECTED A 08/01/21 18:26 Last Dose Date 08/12/21 08/13/21 08:35 Last Dose Time 2030 08/13/21 08:35 Vancomycin Trough 16.0 ug/mL (10.0-20.0) 08/13/21 08:35 Salicylates < 6.0 mg/dL 08/01/21 18:06 Urine Opiates Screen POSITIVE (NEGATIVE) H 08/01/21 18:25 Ur Oxycodone Screen NEGATIVE (NEGATIVE) 08/01/21 18:25 Urine Methadone Screen NEGATIVE (NEGATIVE) 08/01/21 18:25 Ur Propoxyphene Screen NEGATIVE (NEGATIVE) 08/01/21 18:25 Acetaminophen < 10 ug/mL (10-30) L 08/01/21 18:06 Ur Barbiturates Screen NEGATIVE (NEGATIVE) 08/01/21 18:25 Ur Tricyclics Screen NEGATIVE (NEGATIVE) 08/01/21 18:25 Ur Phencyclidine Scrn NEGATIVE (NEGATIVE) 08/01/21 18:25 Ur Amphetamine Screen POSITIVE (NEGATIVE) H 08/01/21 18:25 U Methamphetamines Scrn POSITIVE (NEGATIVE) H 08/01/21 18:25 U Benzodiazepines Scrn NEGATIVE (NEGATIVE) 08/01/21 18:25 Urine Cocaine Screen NEGATIVE (NEGATIVE) 08/01/21 18:25 U Cannabinoids Screen NEGATIVE (NEGATIVE) 08/01/21 18:25 Ethyl Alcohol < 5.0 mg/dL 08/01/21 18:06 HIV 1&2 Antibody Rapid NEGATIVE (NEGATIVE) 08/06/21 15:14 Sepsis Event Note (H) - Evaluation Current Stage of Sepsis: Resolved (7 days ago) Possible source of Sepsis: positive: Pulmonary - Sepsis Criteria Sepsis Criteria: Recorded Temperature greater than 38.3C or Less than 36C, Recorded Heart Rate greater than 90 bpm, Recorded Respiratory Rate greater than 20, Respiratory: Increasing oxygen requirements, WBC count greater than 10% bands, [employer]: altered consciousness (unrelated to primary neuro pathology), Hematologic: platelets < 100,000; INR > 1.5, or a PTT>60 seconds ABX Reporting Has patient been on IV antibiotics over the past 48 hours?: Yes Current Medications - Current Medications Current Medications: Active Medications Acetaminophen (Acetaminophen 325 Mg Tablet) 650 mg PO Q6HR PRN PRN Reason: Pain or Fever > 38C (100.4F) Last Admin: 08/16/21 14:24 Dose: 650 mg Albuterol (Albuterol Neb 2.5 Mg/3 Ml) 2.5 mg INH RTQ4H PRN PRN Reason: Wheezing Last Admin: 08/05/21 12:40 Dose: 2.5 mg Albuterol/Ipratropium (Ipratropium/Albuterol 3 Ml Neb) 3 ml INH RTQID PRN PRN Reason: Wheezing Aspirin (Aspirin Chew 81 Mg Tablet) 81 mg NG DAILY [facility] Last Admin: 08/23/21 08:21 Dose: 81 mg Atorvastatin Calcium (Atorvastatin 10 Mg Tablet) 10 mg PO QPM [facility] Last Admin: 08/22/21 20:58 Dose: 10 mg Carvedilol (Carvedilol 3.125 Mg Tablet) 3.125 mg PO BID [facility] Last Admin: 08/23/21 08:20 Dose: 3.125 mg Enoxaparin Sodium (Enoxaparin 40 Mg/0.4 Ml Syringe) 40 mg SUBQ DAILY [facility] Last Admin: 08/23/21 08:21 Dose: 40 mg Gabapentin (Gabapentin 300 Mg Capsule) 300 mg PO TID [facility] Last Admin: 08/23/21 13:31 Dose: 300 mg Levalbuterol HCl (Levalbuterol 1.25 Mg/3 Ml Neb) 1.25 mg INH TID PRN PRN Reason: wheezing Levofloxacin (Levofloxacin 250 Mg Tablet) 750 mg PO DAILY [facility] Last Admin: 08/23/21 08:20 Dose: 750 mg Morphine Sulfate (Morphine 2 Mg/Ml Carpuject) 2 mg IVP Q4HR PRN PRN Reason: PAIN Last Admin: 08/22/21 20:58 Dose: 2 mg Multi-Ingredient Ointment (Zinc Oxide 20% Oint 30 Gm Tube) 1 applic TOP PRN PRN PRN Reason: Skin Care Last Admin: 08/17/21 06:36 Dose: 1 applic Multivitamins/Minerals (Multivitamin W/Minerals Tablet) 1 tab PO DAILYWM [facility] Last Admin: 08/23/21 08:24 Dose: Not Given Ondansetron HCl (Ondansetron 4 Mg/2 Ml Vial) 4 mg IVP Q6HR PRN PRN Reason: Nausea / Vomiting Pantoprazole Sodium (Pantoprazole 40 Mg Tablet) 40 mg PO QDAC [facility] Last Admin: 08/23/21 06:54 Dose: 40 mg Polyethylene Glycol (Polyethylene Glycol 3350 17 Gm Packet) 17 gm PO DAILY [facility] Last Admin: 08/23/21 08:24 Dose: Not Given Saccharomyces Boulardii (Saccharomyces Boulardii 250 Mg Capsule) 250 mg PO BIDWM [facility] Last Admin: 08/23/21 08:21 Dose: 250 mg Scopolamine HBr (Scopolamine Patch) 1 patch TOP Q3D [facility] Last Admin: 08/23/21 11:26 Dose: 1 patch Sodium Chloride (Sodium Chloride Flush 0.9% 10 Ml Syringe) 10 ml IVP PRN PRN PRN Reason: NEEDED PER PROVIDER ORDERS Last Admin: 08/15/21 06:36 Dose: 10 ml Sodium Chloride (Sodium Chloride Flush 0.9% 10 Ml Syringe) 10 ml IVP 0100,0900,1700 [facility] Last Admin: 08/23/21 08:22 Dose: 10 ml Sodium Chloride (Sodium Chloride Flush 0.9% 10 Ml Syringe) 20 ml IVP PRN PRN PRN Reason: After Blood Draw Last Admin: 08/22/21 08:16 Dose: 20 ml Tamsulosin HCl (Tamsulosin 0.4 Mg Capsule) 0.4 mg PO DAILY [facility] Last Admin: 08/23/21 08:21 Dose: 0.4 mg Gabapentin [Neurontin] 300 mg PO TID 08/17/21 amLODIPine [Norvasc] 5 mg PO DAILY 08/17/21
[2021-08-23] MEDS: ATORVASTATIN 10 MG TABLET PO SCH (21:11)
[2021-08-24] MEDS: SODIUM CHLORIDE FLUSH 0.9% 10 ML SYRINGE IVP SCH ×2 (03:24→10:39)
[2021-08-24 04:49] LABS: BASOPHILS # (AUTO) 0.1 10^3/uL (0.0-0.1); BASOPHILS % (AUTO) 0.6 %; EOSINOPHILS # (AUTO) 0.8 10^3/uL (0.0-0.7); EOSINOPHILS % (AUTO) 10.6 %; HCT - HEMATOCRIT 34.8 % (42.0-52.0); HGB - HEMOGLOBIN 10.3 g/dL (14.0-18.0); LYMPHOCYTES # (AUTO) 1.9 10^3/uL (1.5-3.5); LYMPHOCYTES % (AUTO) 24.7 %; MEAN CORPUSCULAR HEMOGLOBIN 25.7 pg (27.0-31.0); MEAN CORPUSCULAR HGB CONC 29.6 g/dL (32.0-36.0); MEAN CORPUSCULAR VOLUME 86.8 fL (80.0-94.0); MEAN PLATELET VOLUME 10.1 fL (7.4-11.4); MONOCYTES # (AUTO) 0.9 10^3/uL (0.0-1.0); NEUTROPHILS # (AUTO) 4.1 10^3/uL (1.5-6.6); NEUTROPHILS % (AUTO) 52.5 %; PLT - PLATELET COUNT 201 10^3/uL (130-450); RED BLOOD COUNT 4.01 10^6/uL (4.70-6.10); RED CELL DISTRIBUTION WIDTH 20.4 % (12.0-15.0); WHITE BLOOD COUNT 7.8 x10^3/uL (4.8-10.8)
[2021-08-24 04:55] LABS: CALCIUM 9.4 mg/dL (8.5-10.3); CREATININE 0.7 mg/dL (0.6-1.2); POTASSIUM 4.1 mmol/L (3.5-5.0)
[2021-08-24 05:00] LABS: SLIDE REVIEW? Indicated
[2021-08-24 05:17] LABS: PLATELET ESTIMATE, MANUAL NORMAL (130-450,000) (NORMAL)
[2021-08-24] MEDS: PANTOPRAZOLE 40 MG TABLET PO SCH (06:07)
[2021-08-24] MEDS: GABAPENTIN 300 MG CAPSULE PO SCH ×2 (06:08→14:32)
[2021-08-24] MEDS ORDERED: FUROSEMIDE 20 MG TABLET PO SCH (09:00)
--- NOTE | 2021-08-24 09:27 | PROVIDER PROGRESS NOTE ---
Assessment/Plan - Problem List (1) Physical deconditioning Assessment/Plan: 08/24 pt report he ate all his breakfast, stable condition now. pt is pending d/c to SNF, Continue consult with social work for disposition planning. 08/23 Patient present significantly physical deconditioning. Plan is continue PT a nd OT, discharge to SNF then patient's friend will care for pt. Consult with social work for disposition planning. In the rehab unit, goal is to get him to have enough strength to go from supine to sitting, sitting to standing on that one good leg. Using crutches or a walker of some type to then get him to a wheelchair. If he can do those things he can go live with his friend. He also needs to be able to feed himself. (2) Acute respiratory failure with hypoxia Impression: Significantly improved, patient had a 96% oxygen saturation on room air. Patient has no acute respiratory distress. (3) Pneumonia due to COVID-19 virus resolved. Impression: This was contributing to respiratory failure with hypoxia. He finished Decadron and was not a candidate for Remdesivir since he was on a ventilator. Isolation precautions DCd by Infectious Dis nurse several days ago. (4) Aspiration pneumonia Impression: 08/24, improved, patient continued to have stable respiratory status, Continue finish aspiration pneumonia treatment course with the Levaquin. improved, Chest x-ray show left lower lobe opacity is stable to slightly decreased. will continue Levaquin now. Continue aspiration pneumonia precaution. (5) Ischemic cardiomyopathy The Echo showed an inferior wall motion abnormality, consistent with his EKG that had deep inferior Q waves. LVEF is mildly depressed but final reading was 55-60%. Segmental wall motion abnormality was seen. 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 He is on daily baby ASA, statin, pt has coreg now. his HR is around 90-100. (6) Methamphetamine abuse Impression: His urine toxicology was positive for methamphetamines. Addressed with him by HUEY. Opportunities for rehab offered. (7) Rib fracture Impression: He does have a left-sided rib fracture diagnosed at admission, likely due to trauma; we do not know the details of how this happened since he was admitted obtunded and gave no Hx. The rest of his imaging at admission was unremarkable for trauma. (8) Hx R AKA Impression: As per Hx along with L trans metatarsal amputation. (9) Homeless single person Impression: 08/24 per PT and OT recommendation, patient is planning to discharge to SNF then per social work report, patient's friend will take care of him at her home. As per the SW evel done today. Since he is extremely deconditioned and working with PT, he will likely need a SNF for PT and OT rehab, however a final DCh plan needs to be worked out. (10) Thrombocytopenia Impression: Resolved. This improved daily after admission, suggesting that it was from sepsis or some drug or marrow toxin, like alcohol. (11) Sepsis Impression: Resolved (12) Hypotension Impression: Resolved (13) Bradycardia Impression: Resolved. He was not on and is on no HR slowing meds. (14) AMS Impression: Resolved. He presented obtunded and was intubated in ER. We will need SW input re: his drug use. (15) PSVT Impression: Resolved Several days ago, he went into PSVT that was sustained at a rate of 160, it broke spontaneously after 15-20 sec. His blood pressure was stable with this. He was not symptomatic. Then Coreg 3.125 twice daily was started. None seen further Tele stopped today. (16) Stage II pressure ulcer left buttock size is around 3 x 1 cm. We are following wound protocol and encouraging the patient to rotate off that area. nurse turn and reposition for skin care - Current Meds Current Meds: Current Medications Generic Name Dose Route Start Last Admin Trade Name Freq PRN Reason Stop Dose Admin Acetaminophen 650 mg 08/01/21 21:56 08/16/21 14:24 Acetaminophen 325 Mg Tablet PO 650 mg Q6HR PRN Administration Pain or Fever > 38C (100.4F) Albuterol 2.5 mg 08/05/21 12:19 08/05/21 12:40 Albuterol Neb 2.5 Mg/3 Ml INH 2.5 mg RTQ4H PRN Administration Wheezing Aspirin 81 mg 08/09/21 13:08 08/23/21 08:21 Aspirin Chew 81 Mg Tablet NG 81 mg DAILY ARNOLD Administration Atorvastatin Calcium 10 mg 08/12/21 21:00 08/23/21 21:11 Atorvastatin 10 Mg Tablet PO 10 mg QPM ARNOLD Administration Carvedilol 3.125 mg 08/11/21 21:00 08/23/21 21:11 Carvedilol 3.125 Mg Tablet PO Not Given BID ARNOLD Enoxaparin Sodium 40 mg 08/02/21 09:00 08/23/21 08:21 Enoxaparin 40 Mg/0.4 Ml Syringe SUBQ 40 mg DAILY ARNOLD Administration Gabapentin 300 mg 08/15/21 22:00 08/24/21 06:08 Gabapentin 300 Mg Capsule PO 300 mg TID ARNOLD Administration Levofloxacin 750 mg 08/22/21 09:00 08/23/21 08:20 Levofloxacin 250 Mg Tablet PO 750 mg DAILY ARNOLD Administration Morphine Sulfate 2 mg 08/01/21 23:15 08/22/21 20:58 Morphine 2 Mg/Ml Carpuject IVP 2 mg Q4HR PRN Administration PAIN Multi-Ingredient Ointment 1 applic 08/15/21 00:29 08/17/21 06:36 Zinc Oxide 20% Oint 30 Gm Tube TOP 1 applic PRN PRN Administration Skin Care Multivitamins/Minerals 1 tab 08/13/21 08:00 08/23/21 08:24 Multivitamin W/Minerals Tablet PO Not Given DAILYWM [facility] Pantoprazole Sodium 40 mg 08/13/21 07:00 08/24/21 06:07 Pantoprazole 40 Mg Tablet PO 40 mg QDAC ARNOLD Administration Polyethylene Glycol 17 gm 08/05/21 09:00 08/23/21 08:24 Polyethylene Glycol 3350 17 Gm Packet PO Not Given DAILY ARNOLD Saccharomyces Boulardii 250 mg 08/17/21 17:00 08/23/21 17:00 Saccharomyces Boulardii 250 Mg Capsule PO 250 mg BIDWM [facility] Administration Scopolamine HBr 1 patch 08/11/21 12:00 08/23/21 11:26 Scopolamine Patch TOP 1 patch Q3D ARNOLD Administration Sodium Chloride 10 ml 08/01/21 21:49 08/15/21 06:36 Sodium Chloride Flush 0.9% 10 Ml Syringe IVP 10 ml PRN PRN Administration NEEDED PER PROVIDER ORDERS Sodium Chloride 10 ml 08/02/21 01:00 08/24/21 03:24 Sodium Chloride Flush 0.9% 10 Ml Syringe IVP 10 ml 0100,0900,1700 ARNOLD Administration Sodium Chloride 20 ml 08/12/21 21:23 08/22/21 08:16 Sodium Chloride Flush 0.9% 10 Ml Syringe IVP 20 ml PRN PRN Administration After Blood Draw Tamsulosin HCl 0.4 mg 08/16/21 09:00 08/23/21 08:21 Tamsulosin 0.4 Mg Capsule PO 0.4 mg DAILY ARNOLD Administration - Lab Result Fish Bone Diagrams: 08/24/21 04:20 08/24/21 04:20 - Additional Planning My Orders: My Active Orders 08/23/21 13:44 Wound Care - MAC [RC] .ONCE 08/23/21 13:47 Turn and Reposition [RC] PRN Subjective - Subjective Patient Reports: Resting Comfortably, No Complaints Objective Vital Signs: Vital Signs - 24 hr 08/23/21 08/23/21 08/23/21 12:20 16:23 20:37 Temperature 36.7 C 36.7 C 36.3 C L Heart Rate [ 103 H 100 99 Brachial] Respiratory 20 26 H 18 Rate Blood Pressure 105/65 [Left Brachial artery] Blood Pressure 107/65 109/69 [Right Brachial artery] O2 Saturation 96 94 95 08/24/21 08/24/21 08/24/21 00:38 04:24 07:58 Temperature 36.6 C 36.9 C Heart Rate [ 94 94 98 Brachial] Respiratory 22 20 20 Rate Blood Pressure [Left Brachial artery] Blood Pressure 122/74 134/79 H 142/86 H [Right Brachial artery] O2 Saturation 96 98 95 Oxygen O2 Source Room air I&O (Last 24 Hrs): Intake and Output Totals x24h 08/22/21 08/23/21 08/24/21 23:59 23:59 23:59 Intake Total 1200 1080 1140 Output Total 750 950 730 Balance 450 130 410 General: Alert, Cooperative, No acute distress HEENT: Atraumatic Neck: Supple Lymphatic: no adenopathy Neuro: Alert, Non Focal Cardiovascular: Regular rate, Normal S1, Normal S2 Respiratory: Chest non-tender, No respiratory distress Abdomen: Normal bowel sounds, Soft Extremities: Normal pulses - Results Results: Laboratory Results WBC 7.8 x10^3/uL (4.8-10.8) 08/24/21 04:20 RBC 4.01 10^6/uL (4.70-6.10) L 08/24/21 04:20 Hgb 10.3 g/dL (14.0-18.0) L 08/24/21 04:20 Hct 34.8 % (42.0-52.0) L 08/24/21 04:20 MCV 86.8 fL (80.0-94.0) 08/24/21 04:20 MCH 25.7 pg (27.0-31.0) L 08/24/21 04:20 MCHC 29.6 g/dL (32.0-36.0) L 08/24/21 04:20 RDW 20.4 % (12.0-15.0) H 08/24/21 04:20 Plt Count 201 10^3/uL (130-450) 08/24/21 04:20 MPV 10.1 fL (7.4-11.4) 08/24/21 04:20 Neut # (Auto) 4.1 10^3/uL (1.5-6.6) 08/24/21 04:20 Lymph # (Auto) 1.9 10^3/uL (1.5-3.5) 08/24/21 04:20 Day # (Auto) 0.9 10^3/uL (0.0-1.0) 08/24/21 04:20 Eos # (Auto) 0.8 10^3/uL (0.0-0.7) H 08/24/21 04:20 Baso # (Auto) 0.1 10^3/uL (0.0-0.1) 08/24/21 04:20 Absolute Nucleated RBC 0.00 x10^3/uL 08/24/21 04:20 Total Counted 100 08/12/21 04:30 Band Neuts % (Manual) 0 % (0-10) 08/12/21 04:30 Reactive Lymphs % (Man) 4 % 08/01/21 18:06 Abnorm Lymph % (Manual) 0 % 08/12/21 04:30 Myelocytes % 1 % (-0) H 08/12/21 04:30 Nucleated RBC % 0.0 /100WBC 08/24/21 04:20 Neutrophils # (Manual) 13.1 10^3/uL (1.5-6.6) H 08/12/21 04:30 Lymphocytes # (Manual) 3.8 10^3/uL (1.5-3.5) H 08/12/21 04:30 Monocytes # (Manual) 1.9 10^3/uL (0.0-1.0) H 08/12/21 04:30 Eosinophils # (Manual) 0.0 10^3/uL (0-0.7) 08/12/21 04:30 Basophils # (Manual) 0.0 10^3/uL (0-0.1) 08/12/21 04:30 Differential Comment MANUAL DIFFERENTIAL 08/12/21 04:30 Manual Slide Review Indicated 08/24/21 04:20 WBC Morphology NORMAL APPEARANCE (NORMAL) 08/21/21 04:30 Platelet Estimate NORMAL (130-450,000) (NORMAL) 08/24/21 04:20 Platelet Morphology NORMAL APPEARANCE (NORMAL) 08/21/21 04:30 RBC Morph Micro Appear 1+ ANISOCYTOSIS (NORMAL) 1+ MICROCYTOSIS (NORMAL) 2+ HYPOCHROMASIA (NORMAL) 1+ POLYCHROMASIA (NORMAL) 1+ OVALOCYTES (NORMAL) 08/24/21 04:20 RBC Morph Micro Appear 1+ ANISOCYTOSIS (NORMAL) 1+ MICROCYTOSIS (NORMAL) 2+ HYPOCHROMASIA (NORMAL) 1+ POLYCHROMASIA (NORMAL) 1+ OVALOCYTES (NORMAL) 08/24/21 04:20 RBC Morph Micro Appear 1+ ANISOCYTOSIS (NORMAL) 1+ MICROCYTOSIS (NORMAL) 2+ HYPOCHROMASIA (NORMAL) 1+ POLYCHROMASIA (NORMAL) 1+ OVALOCYTES (NORMAL) 08/24/21 04:20 RBC Morph Micro Appear 1+ ANISOCYTOSIS (NORMAL) 1+ MICROCYTOSIS (NORMAL) 2+ HYPOCHROMASIA (NORMAL) 1+ POLYCHROMASIA (NORMAL) 1+ OVALOCYTES (NORMAL) 08/24/21 04:20 RBC Morph Micro Appear 1+ ANISOCYTOSIS (NORMAL) 1+ MICROCYTOSIS (NORMAL) 2+ HYPOCHROMASIA (NORMAL) 1+ POLYCHROMASIA (NORMAL) 1+ OVALOCYTES (NORMAL) 08/24/21 04:20 PT 11.5 secs (9.9-12.6) 08/01/21 18:06 INR 1.0 (0.8-1.2) 08/01/21 18:06 D-Dimer 669.9 ng/mL (200.0-255.0) H 08/01/21 18:06 Bld Gas Analysis Time 0452 08/07/21 04:45 Sample Site A-LINE 08/07/21 04:45 ABG pH 7.54 (7.35-7.45) H 08/07/21 04:45 ABG pCO2 32 mmHg (34-45) L 08/07/21 04:45 ABG pO2 88 mmHg (80-100) 08/07/21 04:45 ABG HCO3 26.8 mmol/L (22.0-26.0) H 08/07/21 04:45 ABG Total CO2 27.7 MMOL/L (21.0-29.0) 08/07/21 04:45 ABG O2 Saturation 95 % (94-98) 08/07/21 04:45 ABG Base Excess 4.5 mmol/L (-2.0-3.0) H 08/07/21 04:45 Madhu Test POSITIVE 08/07/21 04:45 VBG pH 7.452 (7.31-7.41) H 08/14/21 04:30 VBG pCO2 46.6 mmHg (41-51) 08/01/21 18:06 VBG pO2 24.4 mmHg (25-47) L 08/01/21 18:06 VBG HCO3 27.8 mmol/L (23-28) 08/01/21 18:06 VBG Total CO2 29.3 mmol/L (24-29) H 08/01/21 18:06 VBG O2 Saturation 40.2 % (60-80) L 08/01/21 18:06 VBG Base Excess 2.3 mmol/L (-2 - +2) H 08/01/21 18:06 Ionized Calcium 1.11 mmol/L (1.15-1.33) L 08/14/21 04:30 Respiration Rate 14 b/min 08/07/21 04:45 O2 Delivery Device VENTILATOR 08/07/21 04:45 Vent Mode ASSIST/CONTROL 08/07/21 04:45 FiO2 40.00 08/07/21 04:45 Tidal Volume 500 mL 08/07/21 04:45 PEEP 5 cmH2O 08/07/21 04:45 EPAP 5 cmH2O 08/04/21 05:50 Sodium 139 mmol/L (135-145) 08/24/21 04:20 Potassium 4.1 mmol/L (3.5-5.0) 08/24/21 04:20 Chloride 103 mmol/L (101-111) 08/24/21 04:20 Carbon Dioxide 28 mmol/L (21-32) 08/24/21 04:20 Anion Gap 8.0 (6-13) 08/24/21 04:20 BUN 20 mg/dL (6-20) 08/24/21 04:20 Creatinine 0.7 mg/dL (0.6-1.2) 08/24/21 04:20 Estimated GFR (MDRD) 112 (>89) 08/24/21 04:20 Glucose 116 mg/dL (70-100) H 08/24/21 04:20 POC Whole Bld Glucose 139 mg/dL (70 - 100) H 08/11/21 11:38 Lactic Acid 1.3 mmol/L (0.5-2.2) 08/10/21 08:30 Calcium 9.4 mg/dL (8.5-10.3) 08/24/21 04:20 Phosphorus 2.9 mg/dL (2.5-4.6) 08/14/21 04:30 Magnesium 2.1 mg/dL (1.7-2.8) 08/16/21 04:55 Total Bilirubin 0.7 mg/dL (0.2-1.0) 08/11/21 04:25 AST 52 IU/L (10-42) H 08/11/21 04:25 ALT 30 IU/L (10-60) 08/11/21 04:25 Alkaline Phosphatase 40 IU/L (42-121) L 08/11/21 04:25 Total Creatine Kinase 408 IU/L (22-269) H 08/01/21 18:06 Troponin I High Sens 33.5 ng/L (2.3-19.7) H* 08/10/21 04:20 B-Natriuretic Peptide 76 pg/mL (5-100) 08/24/21 04:20 Total Protein 5.5 g/dL (6.7-8.2) L 08/11/21 04:25 Albumin 2.3 g/dL (3.2-5.5) L 08/11/21 04:25 Globulin 3.2 g/dL (2.1-4.2) 08/11/21 04:25 Albumin/Globulin Ratio 0.7 (1.0-2.2) L 08/11/21 04:25 Prealbumin 24 mg/dL (18-45) 08/11/21 04:25 Triglycerides 369 mg/dL (-149) H 08/10/21 04:20 Cholesterol 165 mg/dL (-199) 08/10/21 04:20 LDL Cholesterol Direct 58 mg/dL (-129) 08/08/21 05:05 LDL Cholesterol, Calc 75 mg/dL (-129) 08/10/21 04:20 VLDL Cholesterol 74 mg/dL 08/10/21 04:20 HDL Cholesterol 16 mg/dL (60-) L 08/10/21 04:20 LDL/HDL Ratio 4.7 (<3.6) 08/10/21 04:20 dLDL/HDL Ratio Not Reportable 08/08/21 05:05 Cholesterol/HDL Ratio 10.3 (<5.0) 08/10/21 04:20 Lipase 40 U/L (22-51) 08/01/21 18:06 TSH 0.18 uIU/mL (0.34-5.60) L 08/01/21 18:06 Free T4 1.00 ng/dL (0.58-1.64) 08/02/21 06:00 Urine Color YELLOW 08/13/21 08:45 Urine Clarity CLEAR (CLEAR) 08/13/21 08:45 Urine pH 6.5 PH (5.0-7.5) 08/13/21 08:45 Ur Specific [place] 1.010 (1.002-1.030) 08/13/21 08:45 Urine Protein NEGATIVE mg/dL (NEGATIVE) 08/13/21 08:45 Urine Glucose (UA) NEGATIVE mg/dL (NEGATIVE) 08/13/21 08:45 Urine Ketones NEGATIVE mg/dL (NEGATIVE) 08/13/21 08:45 Urine Occult Blood TRACE-INTA (NEGATIVE) 08/13/21 08:45 Urine Nitrite NEGATIVE (NEGATIVE) 08/13/21 08:45 Urine Bilirubin NEGATIVE (NEGATIVE) 08/13/21 08:45 Urine Urobilinogen 0.2 (NORMAL) E.U./dL (NORMAL) 08/13/21 08:45 Ur Leukocyte Esterase NEGATIVE (NEGATIVE) 08/13/21 08:45 Urine RBC 6-10 /HPF (0-5) H 08/13/21 08:45 Urine WBC 0-3 /HPF (0-3) 08/13/21 08:45 Ur Epithelial Cells FEW Renal Tubular /HPF (<= Few) 08/01/21 18:25 Ur Squamous Epith Cells FEW Squamous (<= Few) 08/13/21 08:45 Urine Bacteria Few /HPF (None Seen) 08/13/21 08:45 Urine Casts 0-2 Granular Casts /LPF6-10 Hyaline Casts /LPF 08/13/21 08:45 Urine Casts 0-2 Granular Casts /LPF6-10 Hyaline Casts /LPF 08/13/21 08:45 Urine Mucus Few Strands 08/13/21 08:45 Ur Microscopic Review INDICATED 08/06/21 14:50 Urine Culture Comments NOT INDICATED 08/13/21 08:45 Nasal Adenovirus (PCR) NOT DETECTED 08/01/21 18:26 Nasal B. parapertussis DNA (PCR) NOT DETECTED 08/01/21 18:26 Nasal Coronavir 229E PCR NOT DETECTED 08/01/21 18:26 Nasal Coronavir HKU1 PCR NOT DETECTED 08/01/21 18:26 Nasal Coronavir NL63 PCR NOT DETECTED 08/01/21 18:26 Nasal Coronavir OC43 PCR NOT DETECTED 08/01/21 18:26 Nasal Enterovir/Rhinovir PCR NOT DETECTED 08/01/21 18:26 Nasal Influenza B PCR NOT DETECTED 08/01/21 18:26 Nasal Influenza A PCR NOT DETECTED 08/01/21 18:26 Nasal Parainfluen 1 PCR NOT DETECTED 08/01/21 18:26 Nasal Parainfluen 2 PCR NOT DETECTED 08/01/21 18:26 Nasal Parainfluen 3 PCR NOT DETECTED 08/01/21 18:26 Nasal Parainfluen 4 PCR NOT DETECTED 08/01/21 18:26 Nasal RSV (PCR) NOT DETECTED 08/01/21 18:26 Nasal Screen MRSA (PCR) NEGATIVE (NEGATIVE) 08/01/21 22:46 Nasal B.pertussis DNA PCR NOT DETECTED 08/01/21 18:26 Nasal C.pneumoniae (PCR) NOT DETECTED 08/01/21 18:26 John Human Metapneumo PCR NOT DETECTED 08/01/21 18:26 Nasal M.pneumoniae (PCR) NOT DETECTED 08/01/21 18:26 Nasal SARS-CoV-2 (PCR) DETECTED A 08/01/21 18:26 Last Dose Date 08/12/21 08/13/21 08:35 Last Dose Time 202908/13/21 08:35 Vancomycin Trough 16.0 ug/mL (10.0-20.0) 08/13/21 08:35 Salicylates < 6.0 mg/dL 08/01/21 18:06 Urine Opiates Screen POSITIVE (NEGATIVE) H 08/01/21 18:25 Ur Oxycodone Screen NEGATIVE (NEGATIVE) 08/01/21 18:25 Urine Methadone Screen NEGATIVE (NEGATIVE) 08/01/21 18:25 Ur Propoxyphene Screen NEGATIVE (NEGATIVE) 08/01/21 18:25 Acetaminophen < 10 ug/mL (10-30) L 08/01/21 18:06 Ur Barbiturates Screen NEGATIVE (NEGATIVE) 08/01/21 18:25 Ur Tricyclics Screen NEGATIVE (NEGATIVE) 08/01/21 18:25 Ur Phencyclidine Scrn NEGATIVE (NEGATIVE) 08/01/21 18:25 Ur Amphetamine Screen POSITIVE (NEGATIVE) H 08/01/21 18:25 U Methamphetamines Scrn POSITIVE (NEGATIVE) H 08/01/21 18:25 U Benzodiazepines Scrn NEGATIVE (NEGATIVE) 08/01/21 18:25 Urine Cocaine Screen NEGATIVE (NEGATIVE) 08/01/21 18:25 U Cannabinoids Screen NEGATIVE (NEGATIVE) 08/01/21 18:25 Ethyl Alcohol < 5.0 mg/dL 08/01/21 18:06 HIV 1&2 Antibody Rapid NEGATIVE (NEGATIVE) 08/06/21 15:14 Sepsis Event Note (H) - Evaluation Current Stage of Sepsis: Resolved (7 days ago) Possible source of Sepsis: positive: Pulmonary - Sepsis Criteria Sepsis Criteria: Recorded Temperature greater than 38.3C or Less than 36C, Recorded Heart Rate greater than 90 bpm, Recorded Respiratory Rate greater than 20, Respiratory: Increasing oxygen requirements, WBC count greater than 10% bands, UTILITY ARBORIST: altered consciousness (unrelated to primary neuro pathology), Hematologic: platelets < 100,000; INR > 1.5, or a PTT>60 seconds ABX Reporting Has patient been on IV antibiotics over the past 48 hours?: Yes Current Medications - Current Medications Current Medications: Active Medications Acetaminophen (Acetaminophen 325 Mg Tablet) 650 mg PO Q6HR PRN PRN Reason: Pain or Fever > 38C (100.4F) Last Admin: 08/16/21 14:24 Dose: 650 mg Albuterol (Albuterol Neb 2.5 Mg/3 Ml) 2.5 mg INH RTQ4H PRN PRN Reason: Wheezing Last Admin: 08/05/21 12:40 Dose: 2.5 mg Albuterol/Ipratropium (Ipratropium/Albuterol 3 Ml Neb) 3 ml INH RTQID PRN PRN Reason: Wheezing Aspirin (Aspirin Chew 81 Mg Tablet) 81 mg NG DAILY [facility] Last Admin: 08/23/21 08:21 Dose: 81 mg Atorvastatin Calcium (Atorvastatin 10 Mg Tablet) 10 mg PO QPM [facility] Last Admin: 08/23/21 21:11 Dose: 10 mg Carvedilol (Carvedilol 3.125 Mg Tablet) 3.125 mg PO BID [facility] Last Admin: 08/23/21 21:11 Dose: Not Given Enoxaparin Sodium (Enoxaparin 40 Mg/0.4 Ml Syringe) 40 mg SUBQ DAILY [facility] Last Admin: 08/23/21 08:21 Dose: 40 mg Gabapentin (Gabapentin 300 Mg Capsule) 300 mg PO TID [facility] Last Admin: 08/24/21 06:08 Dose: 300 mg Levalbuterol HCl (Levalbuterol 1.25 Mg/3 Ml Neb) 1.25 mg INH TID PRN PRN Reason: wheezing Levofloxacin (Levofloxacin 250 Mg Tablet) 750 mg PO DAILY [facility] Last Admin: 08/23/21 08:20 Dose: 750 mg Morphine Sulfate (Morphine 2 Mg/Ml Carpuject) 2 mg IVP Q4HR PRN PRN Reason: PAIN Last Admin: 08/22/21 20:58 Dose: 2 mg Multi-Ingredient Ointment (Zinc Oxide 20% Oint 30 Gm Tube) 1 applic TOP PRN PRN PRN Reason: Skin Care Last Admin: 08/17/21 06:36 Dose: 1 applic Multivitamins/Minerals (Multivitamin W/Minerals Tablet) 1 tab PO DAILYWM [facility] Last Admin: 08/23/21 08:24 Dose: Not Given Ondansetron HCl (Ondansetron 4 Mg/2 Ml Vial) 4 mg IVP Q6HR PRN PRN Reason: Nausea / Vomiting Pantoprazole Sodium (Pantoprazole 40 Mg Tablet) 40 mg PO QDAC [facility] Last Admin: 08/24/21 06:07 Dose: 40 mg Polyethylene Glycol (Polyethylene Glycol 3350 17 Gm Packet) 17 gm PO DAILY [facility] Last Admin: 08/23/21 08:24 Dose: Not Given Saccharomyces Boulardii (Saccharomyces Boulardii 250 Mg Capsule) 250 mg PO BIDWM [facility] Last Admin: 08/23/21 17:00 Dose: 250 mg Scopolamine HBr (Scopolamine Patch) 1 patch TOP Q3D [facility] Last Admin: 08/23/21 11:26 Dose: 1 patch Sodium Chloride (Sodium Chloride Flush 0.9% 10 Ml Syringe) 10 ml IVP PRN PRN PRN Reason: NEEDED PER PROVIDER ORDERS Last Admin: 08/15/21 06:36 Dose: 10 ml Sodium Chloride (Sodium Chloride Flush 0.9% 10 Ml Syringe) 10 ml IVP 0100,0900,1700 [facility] Last Admin: 08/24/21 03:24 Dose: 10 ml Sodium Chloride (Sodium Chloride Flush 0.9% 10 Ml Syringe) 20 ml IVP PRN PRN PRN Reason: After Blood Draw Last Admin: 08/22/21 08:16 Dose: 20 ml Tamsulosin HCl (Tamsulosin 0.4 Mg Capsule) 0.4 mg PO DAILY [facility] Last Admin: 08/23/21 08:21 Dose: 0.4 mg Gabapentin [Neurontin] 300 mg PO TID 08/17/21 amLODIPine [Norvasc] 5 mg PO DAILY 08/17/21
--- NOTE | 2021-08-24 10:21 | Discharge Plan ---
"Discharge Plan for SNF / [facility] - Discharge Plan And Transition Orders Problem Reviewed?: Yes Disposition: [address] Swing Bed DC/Xfer Condition: Stable Allergies and Adverse Reactions: Allergies Allergy/AdvReac Type Severity Reaction Status Date / Time onion AdvReac Cramps Verified 08/18/21 12:36 Health Concerns: weakness and physical deconditioning Plan of Treatment: continue PT/OT strength training, continue current medical schedule and care, continue skin care in swing bed Care Goals: Stabilization and improvement of his medical conditions Assessment: Discussed the care plan with the patient, answered his questions and he understood - SNF / CUSTODIAL Transition Orders Admit to (Facility): [facility] swing bed Under the care of (Name): Medical team of [facility] Discharge Diagnosis: Physical deconditioning, acute respiratory failure with hypoxia, pneumonia due to COVID-19, Aspiration pneumonia, Ischemic cardiomyopathy, Methamphetamine abusive, rib fracture, history of right AKA, homeless single patient, thromb ocytopenia, sepsis, hypotension, bradycardia, AMS, PSVT, Stage II pressure ulcer left buttock Medicare Certification Statement: I certify that Post Hospital correction care is medically necessary on a continuing basis for any of the conditions for which she/he is receiving care during hospitalization. Notify PCP of admission and forward orders to primary provider for signature. Weight on admission and: Weekly Call PCP immediately if weight increases by: 2 kg Other Notification Orders: Call PCP immediately if patient develops dyspnea, chest pain/tightness or edema. House Bowel Program: Yes Additional Bowel Program Orders: If no BM after 2 days, nurse may give M.O.M. 30ml PO PRN and/or ducolax Supp 1 DC and/or VÍCTOR 250mg P.O., and/or senna 1-2 tabs PO. On day 3 nurse may give repeat above order until residents constipation is resolved. Annual Influenza Vaccine (between Mar 16 and October 13): Yes Two-step PPD per [facility] [phone] or approved exception documents: Yes Treatments & Other Orders: continue PT/OT strength training, continue current medical schedule and care, continue skin care in swing bed Medication Orders: PLEASE REFER TO THE DISCHARGE MEDICATION LIST. Insulin Orders?: No - Medications New Prescriptions: carvediloL [Coreg] 3.125 mg PO BID #60 tablet Ipratropium/Albuterol [Duoneb] 3 ml INH RTQID PRN #10 neb PRN Reason: Wheezing Tamsulosin [Flomax] 0.4 mg PO DAILY #30 cap Saccharomyces Boulardii [Florastor] 250 mg PO BIDWM #10 cap levoFLOXacin [Levaquin] 750 mg PO DAILY #12 tablet Atorvastatin [Lipitor] 10 mg PO QPM #30 tablet Pantoprazole [Protonix] 40 mg PO QDAC #30 tablet Aspirin Chewable [[facility] [place] Aspirin] 81 mg PO DAILY #30 tablet Multivitamin W/Minerals [Theragran M] 1 tab PO DAILYWM #30 tablet Scopolamine Patch [Transderm-Scop] 1 patch TOP Q3D #3 patch Levalbuterol [Xopenex] 1.25 mg INH TID PRN #10 neb PRN Reason: wheezing Zinc Oxide 20% Oint [Zinc Oxide] 1 applic TOP PRN PRN #1 tub PRN Reason: Skin Care - Diet Type: Geriatric Texture: Regular Liquids: Thin May have monthly special meal: Yes - Therapies | Activity Therapy: Evaluation | Treat if indicated: PT, OT Rehabilitation Potential: Maximize functional status Activity: Activity as Tolerated"
[2021-08-24] MEDS: carvediloL 3.125 MG TABLET PO SCH (10:38)
[2021-08-24] MEDS: SACCHAROMYCES BOULARDII 250 MG CAPSULE PO SCH (10:38)
[2021-08-24] MEDS: ASPIRIN CHEW 81 MG TABLET NG SCH (10:38)
[2021-08-24] MEDS: levoFLOXacin 250 MG TABLET PO SCH (10:38)
[2021-08-24] MEDS: TAMSULOSIN 0.4 MG CAPSULE PO SCH (10:38)
[2021-08-24] MEDS: ENOXAPARIN 40 MG/0.4 ML SYRINGE SUBQ SCH (10:38)
[2021-08-24] MEDS: polyethylene glycoL 3350 17 GM PACKET PO SCH (10:39)
[2021-08-24] MEDS: MULTIVITAMIN W/MINERALS TABLET PO SCH (10:39)
[2021-08-24] MEDS: SODIUM CHLORIDE FLUSH 0.9% 10 ML SYRINGE IVP PRN (10:39)
--- NOTE | 2021-08-24 11:39 | DISCHARGE SUMMARY ---
Discharge Summary Admit Date: 08/01/21 Discharge Date: 08/24/21 Discharging Provider: Jono Roberson Primary Care Provider: Marge Rubin Condition at Discharge: Stable Discharge Disposition: 61 Swing Bed DC/Xfer Discharge Facility Name: [facility], Swing bed - DIAGNOSES Discharge Diagnoses with Status of Each Condition: (1) Physical deconditioning improved, continue Swing bed strength train at [facility]. (2) Acute respiratory failure with hypoxia resolved. pt has 93-96% O2 sat on room air (3) Pneumonia due to COVID-19 virus resolved. resolved (4) Aspiration pneumonia significantly improved, continue Levaquin to finish the treatment course (5) Ischemic cardiomyopathy The Echo showed an inferior wall motion abnormality, LVEF EF 55-60%, but Segmental wall motion abnormality was seen. Since he had marked bradycardic with HR 30 several times, his B-litzy was not started until he developed recurrent PSVT 08/11/21. He is on daily baby ASA, statin, pt has coreg now. his HR is around 90-100. (6) Methamphetamine abuse His urine toxicology was positive for methamphetamines. Addressed with him by HUEY. Opportunities for rehab offered. (7) Rib fracture He does have a left-sided rib fracture diagnosed at admission, likely due to trauma, pt has stable respiratory status as the above. continue pain control (8) Hx R AKA As per Hx along with L trans metatarsal amputation. (9) Homeless single person pt is d/c to Swing be at [facility] now, per social services analyst, pt is likely taken care of by his friend after d/c from Swing bed, continue social services analyst help (10) Thrombocytopenia Resolved (11) Sepsis Resolved (12) Hypotension Resolved (13) Bradycardia Resolved (14) AMS Resolved. (15) PSVT Resolved. pt is on Coreg 3.125 twice daily (16) Stage II pressure ulcer left buttock size is around 3 x 1 cm. pt may continue skin care protocol in [facility] swing bed - HPI History of Present Illness: refer from Dr. Connie Valles's HPI on 08/01/21 This is a 71-year-old white male with prior history of hypertension, prostatitis or prostate CA, prior remote trauma to the right foot then he developed "black toes" and eventually had a right AKA. He has presented multiple times to our ED for Dx of frostbite to toes, unresponsiveness, unconscious, lethargic, legal drawing of blood, fit for confinement. He appears disheveled and may be homeless. He was "found by friends" per the ambulance run sheet. Friends put him on their couch where he was incontinent of urine and had slurred speech. He was noted to have difficulty breathing and an ambulance was called. His GCS at the scene was 12-13. His glu was 134. In the ED, his respiratory rate was 40 and temperature 39.9C. He was intubated and put on a ventilator in the ED. His work-up showed that he has infiltrate on chest x-ray consistent with aspiration pneumonia, his respiratory PCR is COVID positive, white blood count is 11 with 14% bands and low platelets, D-dimer is elevated. Toxicology was positive for methamphetamines and opiates. The patient underwent a chest CTA that did not show pulmonary embolism but described the lung parenchymal infiltrate. He also had abdomen and pelvis CT, head CT and neck CT because of concern for trauma and they found a left rib fracture. He is being admitted to the ICU on a mechanical ventilator. - HOSPITAL COURSE Hospital Course: Patient was admitted for acute respiratory failure with hypoxia and intubated in the ICU, COVID-19 infection, sepsis, hyponatremia, REBECCA, illicit drug abuse, AKA, Aspiration pneumonia, Rib fracture, Homeless social status, Patient also develop bradycardia, then he patient developed PSVT. Patient finished COVID-19 treatment course. Patient had antibiotics treated for aspiration pneumonia. Patient had Coreg to control patient's PSVT, Patient had an intravenous IV fluids. Patient had PT and OT evaluation and treatment. Patient severe physical deconditioning was gradually improved. Patient was recommended to discharge to swing bed in [facility]. - ALLERGIES Allergies/Adverse Reactions: Allergies Allergy/AdvReac Type Severity Reaction Status Date / Time onion AdvReac Cramps Verified 08/18/21 12:36 - MEDICATIONS Home Medications: Ambulatory Orders Medication Instructions Recorded Confirmed Gabapentin [Neurontin] 300 mg PO TID 08/17/21 08/17/21 Aspirin Chewable [St Brayden 81 mg PO DAILY #30 tablet 08/24/21 Aspirin] Atorvastatin [Lipitor] 10 mg PO QPM #30 tablet 08/24/21 Ipratropium/Albuterol [Duoneb] 3 ml INH RTQID PRN #10 neb 08/24/21 Levalbuterol [Xopenex] 1.25 mg INH TID PRN #10 neb 08/24/21 Multivitamin W/Minerals [Theragran 1 tab PO DAILYWM #30 tablet 08/24/21 M] Pantoprazole [Protonix] 40 mg PO QDAC #30 tablet 08/24/21 Saccharomyces Boulardii [Florastor] 250 mg PO BIDWM #10 cap 08/24/21 Scopolamine Patch [Transderm-Scop] 1 patch TOP Q3D #3 patch 08/24/21 Tamsulosin [Flomax] 0.4 mg PO DAILY #30 cap 08/24/21 Zinc Oxide 20% Oint [Zinc Oxide] 1 applic TOP PRN PRN #1 tub 08/24/21 carvediloL [Coreg] 3.125 mg PO BID #60 tablet 08/24/21 levoFLOXacin [Levaquin] 750 mg PO DAILY #12 tablet 08/24/21 - PHYSICAL EXAM AT DISCHARGE General Appearance: positive: No acute distress, Alert. negative: Lethargic Eyes Bilateral: positive: Normal inspection, No lid inflammation ENT: positive: ENT inspection nml. negative: Purulent nasal drainage, Dry mucous membranes Neck: positive: Nml inspection, Trachea midline. negative: Tracheal deviation Respiratory: positive: Chest non-tender, No respiratory distress. negative: Wheezes Cardiovascular: positive: Regular rate & rhythm. negative: Tachycardia, Bradycardia, Systolic murmur Peripheral Pulses: positive: 2+ Abdomen: positive: Non-tender, Nml bowel sounds, No distention. negative: Te nderness Back: positive: Nml inspection Skin: positive: Warm, Dry, Other (buttock area with erythema, skin tear ). negative: Cyanosis Extremities: positive: Non-tender, Other (right AKA) Neurologic/Psychiatric: positive: Oriented x3, Sensation nml. negative: Weakness, Sensory loss, Facial droop, Slurred/abnml speech, Depressed mood/affect - LABS Result Diagrams: 08/24/21 04:20 08/24/21 04:20 - SEPSIS Current Stage of Sepsis: Resolved (7 days ago) Possible source of Sepsis: Pulmonary Sepsis Criteria: Recorded Temperature greater than 38.3C or Less than 36C, R ecorded Heart Rate greater than 90 bpm, Recorded Respiratory Rate greater than 20, Respiratory: Increasing oxygen requirements, WBC count greater than 10% bands, AIRLINE COUNTER AGENT: altered consciousness (unrelated to primary neuro pathology), Hematologic: platelets < 100,000; INR > 1.5, or a PTT>60 seconds - FOLLOW UP Follow Up: pt may followup with swing bed care in [facility]. - TIME SPENT Time Spent in Discharge (Minutes): 30
[2021-08-24 16:03] VITALS: BP 110/61
== END 2021-08-24 16:25 | disposition swing bed (61) | DRG 870 ==
LOC: EDUNIT# → ED 17:57 → ICU 21:49 → MS2 08-16 11:15
PROVIDERS: ADMIT Internal Medicine; ATTEND Nurse Practitioner Gerontology
PROC: 3E0333Z Introduction of Anti-inflammatory into Peripheral Vein, Percutaneous Approach (ICD-10-PCS; principal; 2021-08-01)
PROC: 5A1955Z Respiratory Ventilation, Greater than 96 Consecutive Hours (ICD-10-PCS; 2021-08-01)
PROC: 02HV33Z Insertion of Infusion Device into Superior Vena Cava, Percutaneous Approach (ICD-10-PCS; 2021-08-06)
PROC: 0BH17EZ Insertion of Endotracheal Airway into Trachea, Via Natural or Artificial Opening (ICD-10-PCS; 2021-08-07)
DX: A41.89 Other specified sepsis (principal); U07.1 COVID-19; F17.200 Nicotine dependence, unspecified, uncomplicated; J96.02 Acute respiratory failure with hypercapnia; J12.82 Pneumonia due to coronavirus disease 2019; J69.0 Pneumonitis due to inhalation of food and vomit; J96.01 Acute respiratory failure with hypoxia; J15.5 Pneumonia due to Escherichia coli; S22.32XA Fracture of one rib, left side, initial encounter for closed fracture; E87.1 Hypo-osmolality and hyponatremia; N17.9 Acute kidney failure, unspecified; R53.1 Weakness; N40.0 Benign prostatic hyperplasia without lower urinary tract symptoms; I25.5 Ischemic cardiomyopathy; R00.1 Bradycardia, unspecified; F15.10 Other stimulant abuse, uncomplicated; X58.XXXA Exposure to other specified factors, initial encounter; Z89.611 Acquired absence of right leg above knee; Z59.00 Homelessness unspecified; I95.9 Hypotension, unspecified; I47.9 Paroxysmal tachycardia, unspecified; L89.322 Pressure ulcer of left buttock, stage 2; I10 Essential (primary) hypertension; R41.0 Disorientation, unspecified; D69.59 Other secondary thrombocytopenia; R94.31 Abnormal electrocardiogram [ECG] [EKG]; Z72.3 Lack of physical exercise; Z78.1 Physical restraint status; R32 Unspecified urinary incontinence; I87.8 Other specified disorders of veins; Z89.422 Acquired absence of other left toe(s)
CPT/HCPCS: 31500; 36415; 36600; 70450; 71045; 71275; 72125; 74018; 74177; 80048; 80053; 80061; 80202; 80306; 80307; 81001; 82272; 82330; 82550; 82803; 83605; 83690; 83721; 83735; 83880; 84100; 84132; 84134; 84439; 84443; 84478; 84484; 85025; 85379; 85610; 86703; 87040; 87070; 87077; 87150; 87181; 87205; 87631; 92610; 93005; 93306; 93308; 94002; 94003; 94640; 94660; 94664; 96365; 96368; 96375; 97110; 97162; 97167; 97530; 99291; A9270; G0480; J0131; J1650; J1815; J3010; J3370; J3490; J7120; Q9967; 0202U; 80320; 80329; 81003; 87086; 94770

== ENCOUNTER 2021-08-24 11:49 | Inpatient (IN) | payer MEDICARE, MEDICAID ==
[2021-08-24] MEDS ORDERED: ACETAMINOPHEN 325 MG TABLET PO PRN (12:44)
[2021-08-24] MEDS ORDERED: IPRATROPIUM/ALBUTEROL 3 ML NEB INH PRN (12:49)
[2021-08-24] MEDS ORDERED: LEVALBUTEROL 1.25 MG/3 ML NEB INH PRN (12:49)
[2021-08-24] MEDS: GABAPENTIN 300 MG CAPSULE PO SCH ×2 (17:16→23:36)
[2021-08-24] MEDS: carvediloL 3.125 MG TABLET PO SCH (20:58)
[2021-08-24] MEDS: ATORVASTATIN 10 MG TABLET PO SCH (20:58)
--- NOTE | 2021-08-25 07:18 | HISTORY & PHYSICAL EXAMINATION ---
Chief Complaint - Chief Complaint Chief Complaint: gneralized weakness, physical deconditioning History of Present Illness - Admitted From Admitted From:: [facility] - History Obtained From Records Reviewed: yes History obtained from: patient and medical records - History of Present Illness HPI Comment/Other: Patient is a 71-year-old male who was initially admitted to [facility] on 08/01/2021 after he presented via EMS unresponsive and in respiratory distress. He is homeless and has been found by friend. At the time of that initial presentation his GCS was 12-13. His respiratory rate was in the 40s and had a temperature of 39.9 C. Further work-up indicated he was Covid positive. He was intubated in the ED and subsequently admitted to the ICU. He was treated for COVID-19 and extubated on 08/10/2021. He was transferred out of the ICU on 08/11/2021. He was also diagnosed with ischemic cardiomyopathy during that hospital stay. He had an echocardiogram which showed inferior wall motion abnormality. He has a medical history significant for methamphetamine use. He also has a right AKA and left transmetatarsal amputation. He has a history of peripheral vascular disease. After this prolonged hospital stay the patient became very weak from deconditioning PT was initiated during his hospital stay he was determined to be in need of shelter facility for PT rehab. However placement has been a problem due to his homeless status. He was finally transitioned to the swing bed and [facility] for 1 week rehab after which it is planned that he will be discharged to go live with a friend. At bedside today he was resting comfortably in bed. He denied chest pain, dyspnea, nausea or vomiting. He reported some lower abdominal pain which he usually notices upon waking up in the morning. His last bowel movement was yesterday. He denies fever or chills. He worked with physical therapy today. The focus was on getting him to be able to stand using a walker pivot to sit in his wheelchair. He denied any other complaints. History - Past Medical History Cardiovascular: reports: Hypertension Respiratory: reports: None Neuro: reports: None Endocrine/Autoimmune: reports: None GI: reports: None : reports: Other HEENT: reports: None Psych: reports: None Musculoskeletal: reports: None Derm: reports: None MRSA Hx?: No - Past Surgical History General: reports: Other Ortho: reports: Amputation - Family & Social History Family History Comment/Other: He reports that he does not have any family relatives because they are and did not discuss any further Living Situation: Unknown Social History Notes: Patient was homeless prior to admission to the hospital on 08/01/2021. He smokes about half a pack of cigarettes daily. Has been smoking for about 50 years. He denies alcohol use. He uses methamphetamine. - POLST Patient has POLST: No POLST Status: Full Code Meds/Allgy - Home Medications Home Medications: Ambulatory Orders Medication Instructions Recorded Confirmed Gabapentin [Neurontin] 300 mg PO TID 08/17/21 08/17/21 Aspirin Chewable [St Brayden 81 mg PO DAILY #30 tablet 08/24/21 Aspirin] Atorvastatin [Lipitor] 10 mg PO QPM #30 tablet 08/24/21 Ipratropium/Albuterol [Duoneb] 3 ml INH RTQID PRN #10 neb 08/24/21 Levalbuterol [Xopenex] 1.25 mg INH TID PRN #10 neb 08/24/21 Multivitamin W/Minerals [Theragran 1 tab PO DAILYWM #30 tablet 08/24/21 M] Pantoprazole [Protonix] 40 mg PO QDAC #30 tablet 08/24/21 Saccharomyces Boulardii [Florastor] 250 mg PO BIDWM #10 cap 08/24/21 Scopolamine Patch [Transderm-Scop] 1 patch TOP Q3D #3 patch 08/24/21 Tamsulosin [Flomax] 0.4 mg PO DAILY #30 cap 08/24/21 Zinc Oxide 20% Oint [Zinc Oxide] 1 applic TOP PRN PRN #1 tub 08/24/21 carvediloL [Coreg] 3.125 mg PO BID #60 tablet 08/24/21 levoFLOXacin [Levaquin] 750 mg PO DAILY #12 tablet 08/24/21 - Allergies Allergies/Adverse Reactions: Allergies Allergy/AdvReac Type Severity Reaction Status Date / Time onion AdvReac Cramps Verified 08/18/21 12:36 Review of Systems - Constitutional Constitutional: reports: Weakness. denies: Fatigue, Fever, Chills, Malaise - Eyes Eyes: denies: Pain, Vision loss, Dipolpia - Ears, Nose & Throat Ears, Nose & Throat: denies: Ear pain - Cardiovascular Cariovascular: denies: Chest pain, Lightheadedness, Syncope - Respiratory Respiratory: denies: Cough, Wheezing, SOB at rest - Gastrointestinal Gastrointestinal: reports: Abdominal pain. denies: Constipation, Diarrhea, Nausea, Vomiting, Reflux/heartburn - Genitourinary Genitourinary: denies: Dysuria, Frequency, Urgency, Hematuria - Musculoskeletal Musculoskeletal: denies: Muscle pain, Back pain - Integumentary Integumentary: denies: Rash, Pruritis - Neurological Neurological: denies: Focal weakness - Psychiatric Psychiatric: denies: Depression, Anxiety - Endocrine Endocrine: denies: Polyuria, Polydypsia - Hematologic/Lymphatic Hematologic/Lymphatic: denies: Anemia, Bruising, Petechiae Prior Level of Functionality: Patient is currently deconditioned after prolonged hospital stay for COVID-19. He has a right AKA and left transmetatarsal amputation. Gets around using wheelchair. Was homeless prior to this admission. Exam - Vital Signs Vital Signs: Vital Signs x48h Temp Pulse Resp BP Pulse Ox 08/25/21 06:39 36.4 C L 90 14 134/82 H 93 - Physical Exam General Appearance: positive: No acute distress, Alert Eyes Bilateral: positive: PERRL, EOMI ENT: positive: ENT inspection nml, No signs of dehydration Neck: positive: No JVD, Trachea midline Respiratory: positive: Chest non-tender, No respiratory distress, Breath sounds nml. negative: Wheezes, Rales, Rhonchi Cardiovascular: positive: Regular rate & rhythm, No murmur Abdomen: positive: Non-tender, No organomegaly, Nml bowel sounds, No distention. negative: Guarding, Rebound Back: positive: Nml inspection Skin: positive: Color nml, No rash, Warm, Dry Extremities: positive: Non-tender, No pedal edema, Other (Right AKA, left transmetatarsal amputation.) Neurologic/Psychiatric: positive: Oriented x3, Mood/affect nml Conclusion/Plan - Problem List (1) Physical deconditioning Conclusion/Plan: PT OT ordered. Plan is for physical therapy for a week and then patient will be discharged to live with his friend (2) Rib fracture Conclusion/Plan: Patient was found to have a rib fracture during the admission. This has been healing. Tylenol as needed for pain. Qualifiers: Encounter type: initial encounter Rib fracture type: single rib Fracture type: closed Laterality: left Qualified Code(s): S22.32XA - Fracture of one rib, left side, initial encounter for closed fracture (3) Methamphetamine abuse Conclusion/Plan: Social Work to provide outpatient resources regarding quitting. Core Measures - Anticipated LOS I expect patient to be DC'd or transferred within 96 hours.: Yes - DVT/VTE - Prophylaxis VTE/DVT Device ordered at admit?: Yes VTE/DVT Prophylaxis med ordered at admit?: Yes
[2021-08-25] MEDS: GABAPENTIN 300 MG CAPSULE PO SCH ×3 (11:49→20:54)
[2021-08-25] MEDS: PANTOPRAZOLE 40 MG TABLET PO SCH ×2 (11:50→12:41)
[2021-08-25] MEDS: MULTIVITAMIN W/MINERALS TABLET PO SCH (12:39)
[2021-08-25] MEDS: TAMSULOSIN 0.4 MG CAPSULE PO SCH (12:40)
[2021-08-25] MEDS: carvediloL 3.125 MG TABLET PO SCH ×2 (12:40→20:54)
[2021-08-25] MEDS: ATORVASTATIN 10 MG TABLET PO SCH (20:54)
[2021-08-26] MEDS: PANTOPRAZOLE 40 MG TABLET PO SCH (06:35)
[2021-08-26] MEDS: GABAPENTIN 300 MG CAPSULE PO SCH ×3 (06:35→21:07)
[2021-08-26] MEDS: TAMSULOSIN 0.4 MG CAPSULE PO SCH (09:15)
[2021-08-26] MEDS: MULTIVITAMIN W/MINERALS TABLET PO SCH (09:15)
[2021-08-26] MEDS: carvediloL 3.125 MG TABLET PO SCH ×2 (09:15→21:07)
[2021-08-26] MEDS: ATORVASTATIN 10 MG TABLET PO SCH (21:07)
[2021-08-27] MEDS: PANTOPRAZOLE 40 MG TABLET PO SCH (05:59)
[2021-08-27] MEDS: GABAPENTIN 300 MG CAPSULE PO SCH ×3 (05:59→22:06)
[2021-08-27] MEDS: MULTIVITAMIN W/MINERALS TABLET PO SCH (09:35)
[2021-08-27] MEDS: carvediloL 3.125 MG TABLET PO SCH ×2 (09:35→22:06)
[2021-08-27] MEDS: TAMSULOSIN 0.4 MG CAPSULE PO SCH (09:35)
[2021-08-27] MEDS: ATORVASTATIN 10 MG TABLET PO SCH (22:07)
[2021-08-28] MEDS: PANTOPRAZOLE 40 MG TABLET PO SCH (06:47)
[2021-08-28] MEDS: GABAPENTIN 300 MG CAPSULE PO SCH ×3 (06:47→21:51)
[2021-08-28] MEDS: MULTIVITAMIN W/MINERALS TABLET PO SCH (08:20)
[2021-08-28] MEDS: TAMSULOSIN 0.4 MG CAPSULE PO SCH (08:20)
[2021-08-28] MEDS: carvediloL 3.125 MG TABLET PO SCH ×2 (08:20→21:51)
[2021-08-28] MEDS: ATORVASTATIN 10 MG TABLET PO SCH (21:51)
[2021-08-29] MEDS: PANTOPRAZOLE 40 MG TABLET PO SCH (06:23)
[2021-08-29] MEDS: GABAPENTIN 300 MG CAPSULE PO SCH ×3 (06:23→20:22)
[2021-08-29] MEDS: TAMSULOSIN 0.4 MG CAPSULE PO SCH (09:20)
[2021-08-29] MEDS: carvediloL 3.125 MG TABLET PO SCH ×2 (09:20→20:23)
[2021-08-29] MEDS: MULTIVITAMIN W/MINERALS TABLET PO SCH (09:20)
[2021-08-29] MEDS: ATORVASTATIN 10 MG TABLET PO SCH (20:23)
[2021-08-30] MEDS: PANTOPRAZOLE 40 MG TABLET PO SCH (06:06)
[2021-08-30] MEDS: GABAPENTIN 300 MG CAPSULE PO SCH ×3 (06:06→21:44)
[2021-08-30] MEDS: MULTIVITAMIN W/MINERALS TABLET PO SCH (07:45)
[2021-08-30] MEDS: carvediloL 3.125 MG TABLET PO SCH ×2 (09:54→21:44)
[2021-08-30] MEDS: TAMSULOSIN 0.4 MG CAPSULE PO SCH (09:54)
[2021-08-30] MEDS: ATORVASTATIN 10 MG TABLET PO SCH (21:44)
[2021-08-31] MEDS: PANTOPRAZOLE 40 MG TABLET PO SCH (07:07)
[2021-08-31] MEDS: GABAPENTIN 300 MG CAPSULE PO SCH ×3 (07:07→21:23)
[2021-08-31] MEDS: TAMSULOSIN 0.4 MG CAPSULE PO SCH (08:35)
[2021-08-31] MEDS: carvediloL 3.125 MG TABLET PO SCH ×2 (08:35→21:23)
[2021-08-31] MEDS: MULTIVITAMIN W/MINERALS TABLET PO SCH (08:35)
[2021-08-31] MEDS ORDERED: ZINC OXIDE 20% OINT 30 GM TUBE TOP PRN (18:09)
[2021-08-31] MEDS: ATORVASTATIN 10 MG TABLET PO SCH (21:23)
[2021-09-01] MEDS: PANTOPRAZOLE 40 MG TABLET PO SCH (07:33)
[2021-09-01] MEDS: GABAPENTIN 300 MG CAPSULE PO SCH ×2 (07:34→14:06)
[2021-09-01] MEDS: carvediloL 3.125 MG TABLET PO SCH (09:11)
[2021-09-01] MEDS: TAMSULOSIN 0.4 MG CAPSULE PO SCH (09:11)
[2021-09-01] MEDS: MULTIVITAMIN W/MINERALS TABLET PO SCH (09:11)
--- NOTE | 2021-09-01 15:51 | Discharge Plan ---
Discharge Plan Problem Reviewed?: Yes Disposition: Home Health Service Condition: Stable Prescriptions: Albuterol Sulf [Ventolin Hfa Inhaler] 1 - 2 puffs INH Q4HR PRN #18 gm PRN Reason: Shortness Of Air/Wheezing Tamsulosin [Flomax] 0.4 mg PO DAILY #30 cap Atorvastatin [Lipitor] 10 mg PO QPM #30 tablet Gabapentin [Neurontin] 300 mg PO TID #60 cap amLODIPine [Norvasc] 5 mg PO DAILY #30 tablet Pantoprazole [Protonix] 40 mg PO QDAC #30 tablet Diet: Regular Activity Restrictions: Activity as Tolerated Driving Restrictions: Yes Assistance Devices: Wheelchair, Walker Health Concerns: You were admitted to the swing bed for rehab. He worked with physical therapy and occupational therapy on a daily basis. We recommended that you remain here further to continue to get stronger but you prefer to go home now and so you will be discharged home. We have recommended home health and we are looking to initiate this for you on discharge so you can have physical therapy and occupational therapy at home. Plan of Treatment: Please follow-up with home health on an outpatient basis. Please take your medications as prescribed. Additional Instructions or Follow Up instructions: Please follow-up with your primary care physician in 1 week. Follow-Up Care: Home Health - PT, Home Health - OT No Smoking: If you smoke, Please STOP! Call for help. Follow-up with: DARRON JACOBS ARNP [Physician No Access] -
--- NOTE | 2021-09-01 15:51 | DISCHARGE SUMMARY ---
"Discharge Summary Admit Date: 08/25/21 Discharge Date: 09/01/21 Discharging Provider: Hugo Braden Code Status: Attempt Resuscitation Condition at Discharge: Stable Discharge Disposition: 06 Home Health Service - DIAGNOSES Admission Diagnoses: Physical deconditioning Rib fracture Methamphetamine abuse Discharge Diagnoses with Status of Each Condition: Physical deconditioning - improved. Hypertension - stable. BPH - stable. Peripheral neuropathy - stable. - HPI History of Present Illness: H&P per Dr. Roger: Patient is a 71-year-old male who was initially admitted to [facility] on 08/01/2021 after he presented via EMS unresponsive and in respiratory distress. He is homeless and has been found by friend. At the time of that initial presentation his GCS was 12-13. His respiratory rate was in the 40s and had a temperature of 39.9 C. Further work-up indicated he was Covid positive. He was intubated in the ED and subsequently admitted to the ICU. He was treated for COVID-19 and extubated on 08/10/2021. He was transferred out of the ICU on 08/11/2021. He was also diagnosed with ischemic cardiomyopathy during that hospital stay. He had an echocardiogram which showed inferior wall motion abnormality. He has a medical history significant for methamphetamine use. He also has a right AKA and left transmetatarsal amputation. He has a history of peripheral vascular disease. After this prolonged hospital stay the patient became very weak from deconditioning PT was initiated during his hospital stay he was determined to be in need of senior living facility for PT rehab. However placement has been a problem due to his homeless status. He was finally transitioned to the [facility] and [facility] for 1 week rehab after which it is planned that he will be discharged to go live with a friend. At bedside today he was resting comfortably in bed. He denied chest pain, dyspnea, nausea or vomiting. He reported some lower abdominal pain which he usually notices upon waking up in the morning. His last bowel movement was yesterday. He denies fever or chills. He worked with physical therapy today. The focus was on getting him to be able to stand using a walker pivot to sit in his wheelchair. He denied any other complaints. - CONSULTS | PROCEDURES Consultations: PT/OT - HOSPITAL COURSE Hospital Course: He was admitted to our swing bed for ongoing physical therapy and Occupational Therapy. He worked with him on a daily basis and he had improvement in his physical strength and conditioning. We had recommended that he remain hospitalized for another 1 to 2 days for further therapy but the patient declined this and preferred to go home with his friend Adenike. He felt that he was back to his baseline and he did not need any more therapy. We have recommended home health PT/OT on an outpatient basis. I also discussed his medications with him on discharge. He states that he only wants to take amlodipine as well as his Flomax and that he will consider other medications based off of how he feels. He does not want carvedilol. I sent him a 30 day supply of the medications. - ALLERGIES Allergies/Adverse Reactions: Allergies Allergy/AdvReac Type Severity Reaction Status Date / Time onion AdvReac Cramps Verified 08/18/21 12:36 - MEDICATIONS Home Medications: Ambulatory Orders Medication Instructions Recorded Confirmed Aspirin Chewable [St Brayden 81 mg PO DAILY #30 tablet 08/24/21 08/26/21 Aspirin] Atorvastatin [Lipitor] 10 mg PO QPM #30 tablet 08/24/21 08/26/21 Multivitamin W/Minerals [Theragran 1 tab PO DAILYWM #30 tablet 08/24/21 08/26/21 M] Albuterol Sulf [Ventolin Hfa 1 - 2 puffs INH Q4HR PRN #18 gm 09/01/21 Inhaler] Atorvastatin [Lipitor] 10 mg PO QPM #30 tablet 09/01/21 Gabapentin [Neurontin] 300 mg PO TID #60 cap 09/01/21 Pantoprazole [Protonix] 40 mg PO QDAC #30 tablet 09/01/21 Tamsulosin [Flomax] 0.4 mg PO DAILY #30 cap 09/01/21 amLODIPine [Norvasc] 5 mg PO DAILY #30 tablet 09/01/21 - PHYSICAL EXAM AT DISCHARGE General Appearance: positive: No acute distress, Alert Eyes Bilateral: positive: Normal inspection, Conjunctivae nml ENT: positive: ENT inspection nml Neck: positive: Nml inspection Respiratory: positive: No respiratory distress. negative: Wheezes, Rales Cardiovascular: positive: Regular rate & rhythm. negative: Tachycardia Abdomen: positive: Non-tender, No distention. negative: Tenderness Skin: positive: Warm, Dry, Other (Chronic stasis changes over left lower extremi ty.) Extremities: positive: No pedal edema, Other (Right AKA noted. Left foot amputation.) Neurologic/Psychiatric: negative: Disoriented to person, Disoriented to place Physical Exam Other/Comments: Vital Signs - 24 hr 09/01/21 09/01/21 09/01/21 07:34 11:07 16:03 Temperature 36.6 C 36.6 C Heart Rate [ 95 97 Brachial] Heart Rate [ 98 Sitting] Respiratory 21 24 Rate Blood Pressure 136/84 H 141/88 H [Right Brachial artery] Blood Pressure 138/80 H [Sitting] O2 Saturation 96 96 Oxygen O2 Source Room air - FOLLOW UP Follow Up: He states he will be following up with his primary care physician. - TIME SPENT Time Spent in Discharge (Minutes): 31"
[2021-09-01 16:04] VITALS: BP 141/88
== END 2021-09-01 16:35 | disposition home health service (06) | DRG 948 ==
LOC: MS2 16:31
PROVIDERS: ADMIT Internal Medicine; ATTEND Internal Medicine
DX: R53.1 Weakness (principal); I10 Essential (primary) hypertension; N40.0 Benign prostatic hyperplasia without lower urinary tract symptoms; G62.9 Polyneuropathy, unspecified; Z86.16 Personal history of COVID-19; I25.5 Ischemic cardiomyopathy; F15.10 Other stimulant abuse, uncomplicated; Z89.611 Acquired absence of right leg above knee; Z89.432 Acquired absence of left foot; I87.8 Other specified disorders of veins; I73.9 Peripheral vascular disease, unspecified; Z59.00 Homelessness unspecified; F17.210 Nicotine dependence, cigarettes, uncomplicated; Z99.3 Dependence on wheelchair; S22.32XD Fracture of one rib, left side, subsequent encounter for fracture with routine healing; X58.XXXD Exposure to other specified factors, subsequent encounter

== ENCOUNTER 2021-10-03 22:46 | Outpatient (CLI) | payer MEDICARE, MEDICAID | END 2021-10-03 22:47 | disposition critical access hospital (66) | LOC: EMS 22:46 | DX: M79.672 Pain in left foot (principal); M79.89 Other specified soft tissue disorders; Z59.02 Unsheltered homelessness | CPT/HCPCS: A0425; A0429 ==

== ENCOUNTER 2021-10-03 23:03 | Emergency (ER) | payer MEDICARE, MEDICAID ==
[2021-10-04 02:11] LABS: BASOPHILS # (AUTO) 0.1 10^3/uL (0.0-0.1); BASOPHILS % (AUTO) 0.6 %; EOSINOPHILS # (AUTO) 0.1 10^3/uL (0.0-0.7); HCT - HEMATOCRIT 39.2 % (42.0-52.0); HGB - HEMOGLOBIN 11.5 g/dL (14.0-18.0); LYMPHOCYTES # (AUTO) 1.8 10^3/uL (1.5-3.5); LYMPHOCYTES % (AUTO) 18.5 %; MEAN CORPUSCULAR HEMOGLOBIN 24.2 pg (27.0-31.0); MEAN CORPUSCULAR HGB CONC 29.3 g/dL (32.0-36.0); MEAN CORPUSCULAR VOLUME 82.4 fL (80.0-94.0); MEAN PLATELET VOLUME 10.1 fL (7.4-11.4); MONOCYTES # (AUTO) 0.9 10^3/uL (0.0-1.0); MONOCYTES % (AUTO) 9.4 %; NEUTROPHILS # (AUTO) 6.9 10^3/uL (1.5-6.6); NEUTROPHILS % (AUTO) 70.3 %; PLT - PLATELET COUNT 191 10^3/uL (130-450); RED BLOOD COUNT 4.76 10^6/uL (4.70-6.10); RED CELL DISTRIBUTION WIDTH 16.6 % (12.0-15.0); WHITE BLOOD COUNT 9.8 x10^3/uL (4.8-10.8)
[2021-10-04 02:23] LABS: ALBUMIN 3.6 g/dL (3.2-5.5); ALBUMIN/GLOBULIN RATIO 0.8 (1.0-2.2); BILIRUBIN,TOTAL 0.5 mg/dL (0.2-1.0); CALCIUM 9.4 mg/dL (8.5-10.3); CREATININE 0.6 mg/dL (0.6-1.2); POTASSIUM 3.8 mmol/L (3.5-5.0); TOTAL PROTEIN 7.9 g/dL (6.7-8.2)
--- NOTE | 2021-10-04 04:41 | ED Physician Documentation ---
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 He has had COVID in July of this year requiring intubation and he has a history of methamphetamine abuse. Today he is presenting to the emergency department complaining of being cold. He felt that his left foot was cold. He has a partial amputation of that foot as well. His foot is now clinical admissions manager the emergency department. He has no other specific complaints except that his foot had some drainage from the lateral aspect when he went to put his socks on. Review of Systems Constitutional: denies: Fever Nose: denies: Congestion Throat: denies: Sore throat Cardiac: denies: Chest pain / pressure Respiratory: reports: Cough (as usual) GI: denies: Vomiting, Diarrhea Skin: reports: Other (ulceration to the lateral aspect of the left foot. without foul smell or current drainage. mild surrounding erythema.). denies: Rash Musculoskeletal: reports: Extremity pain. denies: Neck pain, Back pain, Joint pain Neurologic: denies: Generalized weakness, Focal weakness, Numbness, Difficulty speaking PD PAST MEDICAL HISTORY - Past Medical History Past Medical History: Yes Cardiovascular: Hypertension, High cholesterol Respiratory: Asthma Neuro: None Endocrine/Autoimmune: None GI: None : Other HEENT: None Psych: None Musculoskeletal: None Derm: None - Past Surgical History Past Surgical History: Yes General: Other Ortho: Amputation - Present Medications Home Medications: Ambulatory Orders Medication Instructions Recorded Confirmed Aspirin Chewable [[facility] [place] 81 mg PO DAILY #30 tablet 08/24/21 10/03/21 Aspirin] Atorvastatin [Lipitor] 10 mg PO QPM #30 tablet 08/24/21 10/03/21 Multivitamin W/Minerals [Theragran 1 tab PO DAILYWM #30 tablet 08/24/21 10/03/21 M] Albuterol Sulf [Ventolin Hfa 1 - 2 puffs INH Q4HR PRN #18 gm 09/01/21 10/03/21 Inhaler] Gabapentin [Neurontin] 300 mg PO TID #60 cap 09/01/21 10/03/21 Pantoprazole [Protonix] 40 mg PO QDAC #30 tablet 09/01/21 10/03/21 Tamsulosin [Flomax] 0.4 mg PO DAILY #30 cap 09/01/21 10/03/21 amLODIPine [Norvasc] 5 mg PO DAILY #30 tablet 09/01/21 10/03/21 cephALEXin [Keflex] 500 mg PO Q6H #28 cap 10/04/21 - Allergies Allergies/Adverse Reactions: Allergies Allergy/AdvReac Type Severity Reaction Status Date / Time onion AdvReac Cramps Verified 10/03/21 23:19 - Social History Does the pt smoke?: Yes Smoking Status: Current every day smoker Does the pt drink ETOH?: Yes Does the pt have substance abuse?: Yes - Immunizations Immunizations are current?: Yes - POLST Patient has POLST: No POLST Status: Full Code PD ED PE NORMAL - Vitals Vital signs reviewed: Yes - General General: Alert and oriented X 3, No acute distress, Well developed/nourished, Other (smells heavily of tobacco) - HEENT HEENT: Atraumatic, PERRL, EOMI - Neck Neck: Supple, no meningeal sign, No bony TTP - Cardiac Cardiac: RRR, No murmur - Respiratory Respiratory: No respiratory distress, Clear bilaterally - Abdomen Abdomen: Soft, Non tender - Back Back: No CVA TTP, No spinal TTP - Derm Derm: Normal color, Warm and dry, No rash - Extremities Extremities: Other (right AKA left foot, Right foot all toes amputated. Stump is perfused, foot is warm and there is a medial ulceration 3cm X 3cm superfical that is dry. ) - Neuro Neuro: Alert and oriented X 3, clinical quality manager 2-12 intact, No motor deficit, No sensory deficit, Normal speech Eye Opening: Spontaneous Motor: Obeys Commands Verbal: Oriented GCS Score: 15 - Psych Psych: Normal mood, Normal affect Results - Vitals Vitals: Vital Signs - 24 hr 10/03/21 10/03/21 10/04/21 23:05 23:48 01:05 Temperature 37.1 C Heart Rate 98 88 Respiratory 16 17 Rate Blood Pressure 184/120 H 136/80 H 163/99 H O2 Saturation 95 97 10/04/21 10/04/21 10/04/21 02:02 02:40 03:22 Temperature Heart Rate 87 88 85 Respiratory 18 17 18 Rate Blood Pressure 138/96 H 140/99 H 110/78 O2 Saturation 97 95 96 10/04/21 10/04/21 10/04/21 04:54 05:35 07:00 Temperature Heart Rate 84 89 86 Respiratory 17 19 15 Rate Blood Pressure 152/99 H 153/93 H 149/81 H O2 Saturation 96 95 94 Oxygen O2 Source Room air - Labs Labs: Microbiology 10/04/21 05:33 Wound Culture - Preliminary Foot - Left Laboratory Tests 10/04/21 10/04/21 10/04/21 01:57 01:57 01:57 WBC 9.8 RBC 4.76 Hgb 11.5 L Hct 39.2 L MCV 82.4 MCH 24.2 L MCHC 29.3 L RDW 16.6 H Plt Count 191 MPV 10.1 Neut # (Auto) 6.9 H Lymph # (Auto) 1.8 Smyth # (Auto) 0.9 Eos # (Auto) 0.1 Baso # (Auto) 0.1 Absolute Nucleated RBC 0.00 Nucleated RBC % 0.0 ESR Sodium 134 L Potassium 3.8 Chloride 95 L Carbon Dioxide 28 Anion Gap 11.0 BUN 15 Creatinine 0.6 Estimated GFR (MDRD) 134 Glucose 110 H Lactic Acid Calcium 9.4 Total Bilirubin 0.5 AST 68 H ALT 51 Alkaline Phosphatase 73 C-Reactive Protein < 1.0 Total Protein 7.9 Albumin 3.6 Globulin 4.3 H Albumin/Globulin Ratio 0.8 L Lipase 25 10/04/21 10/04/21 01:57 02:03 WBC RBC Hgb Hct MCV MCH MCHC RDW Plt Count MPV Neut # (Auto) Lymph # (Auto) Smyth # (Auto) Eos # (Auto) Baso # (Auto) Absolute Nucleated RBC Nucleated RBC % ESR 29 H Sodium Potassium Chloride Carbon Dioxide Anion Gap BUN Creatinine Estimated GFR (MDRD) Glucose Lactic Acid 1.0 Calcium Total Bilirubin AST ALT Alkaline Phosphatase C-Reactive Protein Total Protein Albumin Globulin Albumin/Globulin Ratio Lipase - Rads (name of study) foot Radiology: Prelim report reviewed (Impression: Transmetatarsal amputation. No destruction to suggest acute osteomyelitis. No fractures or dislocations. Soft tissue edema about the stump distally.), EMP read indepedently, See rad report PD MEDICAL DECISION MAKING - ED course Complexity details: reviewed old records, reviewed results, re-evaluated patient, considered differential, d/w patient ED course: 71-year-old vasculopath homeless presents to the emergency department with weeping from a ulcer on his foot and feeling cold. His foot is warm he does have an ulceration that does not appear overly infected. There is no evidence of osteomyelitis on x-ray examination. CRP is 1 and ESR is mildly elevated. He has no PMD for follow up and is homeless. He will need wound care follow up and a PMD. We will place the patient on a course of keflex and consult social work for additional resources. Departure - Departure Disposition: 01 Home, Self Care Clinical Impression: Foot ulcer with fat layer exposed Qualifiers: Laterality: left Qualified Code(s): L97.522 - Non-pressure chronic ulcer of other part of left foot with fat layer exposed Condition: Stable Instructions: Pressure Ulcer Foot Follow-Up: [facility] [Provider Group] Prescriptions: cephALEXin [Keflex] 500 mg PO Q6H #28 cap Comments: Devan, Today it looks like you have a bit of an ulcer starting on your foot on the left side. I have prescribed some antibiotics that have been E scribed to [facility] in [place]. You will need a follow-up with the wound clinic. Follow up with the additional resources provided by the social security assessor.
--- NOTE | 2021-10-04 08:13 | XRAY Report ---
PROCEDURE: Foot 3 View LT INDICATIONS: increased pain drainage TECHNIQUE: 3 views of the foot were acquired. COMPARISON: 12/08/2018 FINDINGS: Bones: Status post transmetatarsal distal foot amputation. No osseous erosions or periosteal reaction . Soft tissues: No tibiotalar joint effusion. Achilles tendon appears normal. Soft tissue swelling no gretchen in the distal stump. No soft tissue gas. IMPRESSION: No wilmer evidence of osteomyelitis. Please note plain from radiographs can be insensitive to osteomye litis in the initial 15 days of the disease process. If there is clinical concern thoracic myelitis c onsider three-phase nuclear medicine bone scan or MRI for additional evaluation. Reviewed by: Elizabeth Fagan MD, PhD on 10/04/2021 8:11 AM PDT Approved by: Elizabeth Fagan MD, PhD on 10/04/2021 8:11 AM PDT Station ID: [id number]
[2021-10-04 09:07] VITALS: BP 141/90
== END 2021-10-04 09:07 | disposition home or self-care (01) ==
LOC: EDUNIT# → ED 23:03
DX: L97.522 Non-pressure chronic ulcer of other part of left foot with fat layer exposed (principal); Z89.511 Acquired absence of right leg below knee; I10 Essential (primary) hypertension; Z59.00 Homelessness unspecified; F17.200 Nicotine dependence, unspecified, uncomplicated
CPT/HCPCS: 36415; 80053; 83605; 83690; 85025; 85651; 86140; 87040; 87070; 87181; 87205; 99283; 99284